=== PATIENT | male | born 1975 | race Caucasian/White ===

== ENCOUNTER 2016-08-22 21:02 | Inpatient (IN) | payer OTHER ==
[~2016-08-22] VITALS: Ht 175.3 cm; Wt 83.8 kg
[~2016-08-22 21:02] MED LIST: CYCL-36 PO; DILA2TAB4 PO; LORTA5 PO
[2016-08-22 21:04] VITALS: BP 144/77; PULSE 94; RESP 20; TEMP 98.4; O2SAT 98
--- NOTE | 2016-08-22 22:06 | PD ---
HPI Chief Complaint: Back/ Neck Pain or Injury Time Seen by Provider: 22:06 Travel History International Travel<30 days: No Contact w/Intl Traveler<30days: No Traveled to known affect area: No History of Present Illness HPI 40-year-old male came to the emergency room with history of severe lower back pain for past 4-5 days. Patient seemed extremely uncomfortable. He came by himself and says that the pain has been getting excruciating and unbearable at this point. Had a kyphoplasty of L3 in [facility] about 3 months ago. While he was in the hospital there he was also diagnosed with infection in his spine and was started on antibiotic. Patient says that he was in the hospital for 1 month getting antibiotic. I'm unclear whether patient left AGAINST MEDICAL ADVICE and was discharged. He says that he was getting tired since they were not taking care of his pain and he wanted to leave. However he was discharged with ciprofloxacin. Currently he says the pain is like a shooting band like pain that goes from the middle of the spine both sides and come to the front of his abdomen. He does not have any weakness of his lower extremities or any bowel or bladder issues. Patient did not say he was having any fever or chills. Vital signs were otherwise stable. [facility] Past Medical History Narrative Medical List of his past medical, surgical, social and family history was reviewed from the nursing note. Cancer: No Cardiovascular Problems: No Endocrine: No Genitourinary: No Immune Disorder: No Musculoskeletal: Yes Psychiatric: No Reproductive: No Respiratory: No Past Surgical History Pacemaker: No Other Surgery: Yes (I&D LEFT 3RD DIGIT) Social History Alcohol Use: No Tobacco Use: Yes ( 1PPD) Substance Use: No Allergies-Medications (Allergen,Severity, Reaction): Coded Allergies: No Known Allergies (Unverified , 08/22/16) Comments No known drug allergies. Reported Meds & Prescriptions Reported Meds & Active Scripts Active No Active Prescriptions or Reported Medications Narrative Medication List of his home medications reviewed from the nursing note. Review of Systems Except as stated in HPI: all other systems reviewed are Neg Physical Exam Narrative GENERAL: Awake, alert, anxious, significant distress SKIN: Focused skin assessment warm/dry. HEAD: Atraumatic. Normocephalic. EYES: Pupils equal and round. No scleral icterus. No injection or drainage. ENT: No nasal bleeding or discharge. Mucous membranes pink and moist. NECK: Trachea midline. No JVD. CARDIOVASCULAR: Regular rate and rhythm. No murmur appreciated. RESPIRATORY: No accessory muscle use. Clear to auscultation. Breath sounds equal bilaterally. GASTROINTESTINAL: Abdomen soft, non-tender, nondistended. Hepatic and splenic margins not palpable. MUSCULOSKELETAL: No obvious deformities. No clubbing. No cyanosis. No edema. Paraspinal muscle spasm of the back. Point tenderness at the L2-L3 area. NEUROLOGICAL: Awake and alert. No obvious cranial nerve deficits. Motor grossly within normal limits. Normal speech. PSYCHIATRIC: Appropriate mood and affect; insight and judgment normal. Data Data Last Documented VS Vital Signs Date Time Temp Pulse Resp B/P Pulse Ox O2 Delivery O2 Flow Rate FiO2 08/22/16 21:04 98.4 94 20 144/77 98 Orders Mri L Spine W&W/O Contrast (08/22/16 ) Complete Blood Count With Diff (08/22/16 22:12) Basic Metabolic Panel (Bmp) (08/22/16 22:12) ^ Saline Lock (08/22/16 22:12) Ketorolac Inj (Toradol Inj) (08/22/16 22:15) Hydromorphone Pf Inj (Dilaudid Pf Inj) (08/22/16 22:15) Blood Culture (08/22/16 22:12) Lactic Acid (08/22/16 22:12) C-Reactive Protein (Crp) (08/22/16 22:12) Westergren Sedimentation Rate (08/22/16 22:12) Gadodiamide Pf Inj (Omniscan Pf Inj) (08/22/16 23:43) I-Stat Creatinine (08/22/16 23:48) Spine, Lumbar - Ltd (Ap & Lat) (08/23/16 ) Place In Observation (08/23/16 ) Vital Signs (Adult) Q4H (08/23/16 01:56) Neuro Checks Q4H (08/23/16 01:56) Activity Oob With Assistance (08/23/16 01:56) [employer] Operator / Telemetry .CONTINUOUS (08/23/16 01:56) Diet Npo (08/23/16 Breakfast) Sodium Chloride 0.9% Flush (Ns Flush) (08/23/16 02:00) Sodium Chloride 0.9% Flush (Ns Flush) (08/23/16 09:00) Basic Metabolic Panel (Bmp) (08/24/16 06:00) Complete Blood Count With Diff (08/24/16 06:00) Case Management Consult (08/23/16 01:56) Naloxone Inj (Narcan Inj) (08/23/16 02:00) Hydromorphone Pf Inj (Dilaudid Pf Inj) (08/23/16 02:15) Admit Order (Ed Use Only) (08/23/16 02:18) Labs Laboratory Tests Test 08/22/16 08/22/16 08/22/16 22:35 23:40 23:48 Lactic Acid Level 1.2 mmol/L White Blood Count 10.6 TH/MM3 Red Blood Count 4.11 MIL/MM3 Hemoglobin 11.8 GM/DL Hematocrit 33.4 % Mean Corpuscular Volume 81.2 FL Mean Corpuscular Hemoglobin 28.7 PG Mean Corpuscular Hemoglobin 35.4 % Concent Red Cell Distribution Width 14.3 % Platelet Count 411 TH/MM3 Mean Platelet Volume 7.2 FL Neutrophils (%) (Auto) 64.2 % Lymphocytes (%) (Auto) 24.7 % Monocytes (%) (Auto) 8.2 % Eosinophils (%) (Auto) 2.5 % Basophils (%) (Auto) 0.4 % Neutrophils # (Auto) 6.8 TH/MM3 Lymphocytes # (Auto) 2.6 TH/MM3 Monocytes # (Auto) 0.9 TH/MM3 Eosinophils # (Auto) 0.3 TH/MM3 Basophils # (Auto) 0.0 TH/MM3 CBC Comment DIFF FINAL Differential Comment Erythrocyte Sedimentation Rate 74 mm/hr Sodium Level 138 MEQ/L Potassium Level 4.3 MEQ/L Chloride Level 106 MEQ/L Carbon Dioxide Level 26.7 MEQ/L Anion Gap 5 MEQ/L Blood Urea Nitrogen 13 MG/DL Creatinine 0.59 MG/DL Estimat Glomerular Filtration 151 ML/MIN Rate Random Glucose 93 MG/DL Calcium Level 8.6 MG/DL C-Reactive Protein 4.04 MG/DL Bedside Creatinine 0.6 MG/DL MDM Medical Decision Making Medical Screen Exam Complete: Yes Emergency Medical Condition: Yes Medical Record Reviewed: Yes Differential Diagnosis Discitis, spinal epidural abscess, lumbar radiculopathy Narrative Course 1:18 AM MRI was ordered and the radiologist called me to let me know that there was significant finding of discitis, osteomyelitis and possible spinal epidural abscess. I spoke with the neurosurgeon Dr. Tate who looked at the MRI and did not think that there was any epidural abscess but inflammatory changes. He wanted the patient to get a disc biopsy in the morning. This would be done by interventional radiology and he will put the order for the biopsy. He did not want the patient to be started on any antibiotic till the biopsy was done. He wanted the patient to be admitted to medical service. I have informed the patient of these findings as well as the plan and he is acceptable to the plan. Awaiting for the hospitalist to call back for admission. Critical Care Narrative Aggregate critical care time was 45 minutes. Time to perform other separately billable procedures was not included in the critical care time. My time did not include minutes spent treating any other patients simultaneously or on activities that did not directly contribute to the patient's treatment. The services I provided to this patient were to treat and/or prevent clinically significant deterioration that could result in: Discitis, osteomyelitis of L2-L3, paraspinal inflammation I provided critical care services requiring my management, as noted below: Chart data review, documentation time, medication orders and management, vital sign assessments/reviewing monitor data, ordering and reviewing lab tests, ordering and interpreting/reviewing x-rays and diagnostic studies, care of the patient and discussion of the patient with the admitting physicians. Procedures EKG Prior to Arrival: No Physician Communication Physician Communication Dr. Tate, Dr. Chew Diagnosis Primary Impression: Lumbar discitis Additional Impressions: Osteomyelitis of lumbar spine Paraspinal muscle spasm Back pain Qualified Code: M54.5 - Acute midline low back pain without sciatica Admitting Information Admitting Physician Requests: Admit Scripts No Active Prescriptions or Reported Meds Tiny Ordoñez MD Aug 22, 2016 22:06
[2016-08-22] MEDS ORDERED: HYDROmorphone HCL PF 1 MG/ML VIAL IV PUSH ONE (22:15)
[2016-08-22] MEDS ORDERED: KETOROLAC TROMETHAMINE 30 MG/ML (IVP) VIAL IV PUSH ONE (22:15)
[2016-08-22] MEDS ORDERED: GADODIAMIDE PF 287 MG/ML 5 ML VIAL (for RAD MRI) IV ONE (23:43)
[2016-08-22 23:56] LABS: AUTOMATED NEUTROPHIL # 6.8 TH/MM3 (1.8-7.7); BASOPHIL % 0.4 % (0.0-2.0); EOSINOPHIL # 0.3 TH/MM3 (0-0.4); EOSINOPHIL % 2.5 % (0.0-4.0); HEMATOCRIT 33.4 % (39.0-51.0); HEMO FLAGS DIFF FINAL; LYMPH % 24.7 % (9.0-44.0); LYMPHOCYTE # 2.6 TH/MM3 (1.0-4.8); MEAN CELL VOLUME 81.2 FL (80.0-100.0); MEAN CORPUSCULAR HEMOGLOBIN 28.7 PG (27.0-34.0); MEAN CORPUSCULAR HGB CONC 35.4 % (32.0-36.0); MONO % 8.2 % (0.0-8.0); NEUT % 64.2 % (16.0-70.0); PLATELET COUNT 411 TH/MM3 (150-450); RED BLOOD COUNT 4.11 MIL/MM3 (4.50-5.90); RED CELL DISTRIBUTION WIDTH 14.3 % (11.6-17.2); WHITE BLOOD COUNT 10.6 TH/MM3 (4.0-11.0)
[2016-08-23] VITALS (14 sets, daily range): BP systolic 116–128; BP diastolic 58–78; PULSE 67–94; RESP 15–20; TEMP 98.4–100.2; O2SAT 94–100
[2016-08-23 00:11] LABS: BICARBONATE 26.7 MEQ/L (21.0-32.0); POTASSIUM 4.3 MEQ/L (3.5-5.1)
--- NOTE | 2016-08-23 00:32 | RADRPT ---
EXAM DATE/TIME: 08/22/2016 23:01 [facility] COMPARISON: CT LUMBAR SPINE W/O CONTRAST, December 07, 2013, 2:38. INDICATIONS : Pain. s/p L3 kyphoplasty. CONTRAST: 14 cc Omniscan (gadodiamide) IV MEDICAL HISTORY : None. SURGICAL HISTORY : Kyphoplasty. ENCOUNTER: Initial ACUITY: 3 day PAIN SCORE: 10/10 LOCATION: Lower back TECHNIQUE: Multiplanar multisequence MRI of the lumbar spine was performed with and without contrast. FINDINGS: The most caudal appearing lumbar vertebra is numbered as L5. VERTEBRAE: There is abnormal bone marrow edema in the bodies of L2 and L3. There is abnormal enhancement of the L2-L3 disc space. There is abnormal paraspinal soft tissue swelling with enhancement in the psoas mus cles adjacent to L2 and L3. CONUS: Normal level and configuration. POST CONTRAST: There is abnormal enhancement throughout the body of L2 and L3 as well as the disc space at this leve l. There is abnormal paraspinal enhancement. There is also enhancement in the epidural space anterior ly at the level of L2-L3 suspicious for an epidural abscess. T12-L1: The thecal sac has a normal diameter. No evidence of disc bulge or protrusion. The neural foramina are patent bilaterally. L1-L2: Mild broad-based bulging. Mild narrowing of the neural foramina bilaterally. L2-L3: There is abnormal enhancement of the disc space. There is diffuse broad-based bulging with abnormal e nhancement in the epidural space anteriorly at this level. There is narrowing of the neural foramina bilaterally. Mild to moderate spinal canal stenosis. There is bilateral facet arthritis. L3-L4: Moderate diffuse broad-based bulging with narrowing of the neural foramina bilaterally. Hypertrophy o f ligamentum flavum. Mild spinal canal stenosis. L4-L5: Mild broad-based bulging. Mild narrowing of the neural foramina bilaterally. Bilateral facet arthriti s. L5-S1: Mild broad-based bulging. Mild narrowing of the neural foramina bilaterally. Bilateral facet arthriti s. The findings were called by telephone to the ER physician. CONCLUSION: 1. There is abnormal marrow edema involving L2 and L3 as well as enhancement of the disc space at L2- L3. These findings are highly suspicious for discitis and osteomyelitis. There appears to be enhancin g inflammatory tissue in the paraspinal location which is involving the psoas muscles bilaterally. 2. There is enhancing inflammatory tissue in the anterior epidural space at L2-L3 highly suspicious f or an epidural abscess. These findings are causing some mild to moderate spinal canal stenosis at thi s level. 3. There is broad-based bulging at multiple levels as described above. 4. 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 Candido Chew MD on August 23, 2016 at 0:15 Board Certified Radiologist. This report was verified electronically.
--- NOTE | 2016-08-23 01:16 | RADRPT ---
EXAM DATE/TIME: 08/23/2016 01:03 [facility] COMPARISON: No previous studies available for comparison. INDICATIONS : Back pain. MEDICAL HISTORY : None. SURGICAL HISTORY : None. ENCOUNTER: Initial ACUITY: 1 day PAIN SCORE: 10/10 LOCATION: Bilateral l sipne FINDINGS: Two view examination was performed. There are five non-rib bearing vertebral bodies. There is eviden ce of previous kyphoplasty at L3. There are primary degenerative changes involving the lumbar spine. The rest of the lumbar vertebral bodies appear grossly intact. There is disc space narrowing at L2-3, L4-5 and L5-S1. There is alignment of the SI joints. A recent MRI lumbar spine demonstrates discitis and osteomyelitis at the level of L2-L3. There is some demineralization of the bone along the inferi or endplate of L2. No significant bony destruction is seen at this time. CONCLUSION: 1. Evidence of previous kyphoplasty of L3. 2. Primary degenerative type changes involving the lumbar spine. 3. Demineralization of the bone along the inter endplate of L2 corresponding to patient's known infec tion involving L2-L3 Candido Chew MD on August 23, 2016 at 1:10 Board Certified Radiologist. This report was verified electronically.
--- NOTE | 2016-08-23 01:30 | PD.CONS ---
History of Present Illness Service Neurosurgery Consult Requested By Dr Ordoñez Primary Care Physician No Primary Care Physician Diagnoses: (1) Lumbar discitis History of Present Illness 40-year-old male reports recent gradual progression of thoracic pain. Apparently underwent kyphoplasty at [facility] approximately month ago. States that he underwent an infectious disease workup prior to the procedure. He states he underwent an infectious disease workup prior to the procedure and again afterwards. He subsequently has developed severe progressive low back pain without significant radiation to the lower extremities. Review of Systems Constitutional: COMPLAINS OF: Fatigue, DENIES: Fever Eyes: DENIES: Blurred vision, Diplopia, Vision loss Ears, nose, mouth, throat: DENIES: Hearing loss, Vertigo, Throat pain Respiratory: DENIES: Cough, Sputum production, Shortness of breath Cardiovascular: DENIES: Chest pain, Palpitations Gastrointestinal: DENIES: Abdominal pain, Diarrhea, Nausea, Vomiting Musculoskeletal: COMPLAINS OF: Joint pain, Muscle aches, Stiffness, Back pain, DENIES: Neck pain Hematologic/lymphatic: DENIES: Bruising Neurologic: DENIES: Headache, Poor Balance Psychiatric: COMPLAINS OF: Confusion, DENIES: Anxiety Past Family Social History Allergies: Coded Allergies: No Known Allergies (Unverified , 08/22/16) Past Medical History Previous MRSA left hand No significant cardiac, pulmonary, gastrointestinal disease, diabetes, hypertension Past Surgical History Left hand surgery Kyphoplasty Reported Medications Reported Meds & Active Scripts Active No Active Prescriptions or Reported Medications Family History Negative cancer diabetes, neurologic disorders Social History Remote history of IV drug use Smokes 1 pack cigarettes per day Physical Exam Vital Signs Vital Signs Date Time Temp Pulse Resp B/P Pulse Ox O2 Delivery O2 Flow Rate FiO2 08/22/16 21:04 98.4 94 20 144/77 98 Physical Exam Normally developed gentleman appears moderately uncomfortable during the examination Respirations clear and regular Pulse regular No nuchal rigidity. Cervical range of motion is normal. Moderate tenderness over the mid to lower lumbar midline and paraspinous musculature with increased low back pain with bilateral hip range of motion and straight leg raising. 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 Markos's response absent bilateral No ankle clonus Laboratory Laboratory Tests Test 08/22/16 08/22/16 08/22/16 22:35 23:40 23:48 Lactic Acid Level 1.2 White Blood Count 10.6 Red Blood Count 4.11 Hemoglobin 11.8 Hematocrit 33.4 Mean Corpuscular Volume 81.2 Mean Corpuscular Hemoglobin 28.7 Mean Corpuscular Hemoglobin 35.4 Concent Red Cell Distribution Width 14.3 Platelet Count 411 Mean Platelet Volume 7.2 Neutrophils (%) (Auto) 64.2 Lymphocytes (%) (Auto) 24.7 Monocytes (%) (Auto) 8.2 Eosinophils (%) (Auto) 2.5 Basophils (%) (Auto) 0.4 Neutrophils # (Auto) 6.8 Lymphocytes # (Auto) 2.6 Monocytes # (Auto) 0.9 Eosinophils # (Auto) 0.3 Basophils # (Auto) 0.0 CBC Comment DIFF FINAL Differential Comment Erythrocyte Sedimentation Rate 74 Sodium Level 138 Potassium Level 4.3 Chloride Level 106 Carbon Dioxide Level 26.7 Anion Gap 5 Blood Urea Nitrogen 13 Creatinine 0.59 Estimat Glomerular Filtration 151 Rate Random Glucose 93 Calcium Level 8.6 C-Reactive Protein 4.04 Bedside Creatinine 0.6 Date/Time Procedure Status Source Growth 08/22/16 22:35 Aerobic Blood Culture Received Blood Peripheral Pending 08/22/16 22:35 Anaerobic Blood Culture Received Blood Peripheral Pending Result Diagram: 08/22/16 2340 08/22/16 2340 Imaging Lumbar MRI images reveal enhancement L 2 - L3 vertebrae and anterolateral epidural space . Moderate canal stenosis. Marked enhancement psoas muscle bilateral Assessment and Plan Assessment and Plan Impression: L2-3 discitis - osteomyelitis. Recommendations: No definite significant drainable abscess seen on MRI Plan CT biopsy in AM. Hold antibiotics pending biopsy Discussed with ER physician Rehan Tate MD Aug 23, 2016 01:30
[2016-08-23] MEDS ORDERED: NALOXONE HCL 0.4 MG/ML AMP IV PRN (02:00)
--- NOTE | 2016-08-23 03:47 | HHI.HP ---
[facility] Service [facility] Primary Care Physician No Primary Care Physician Admission Diagnosis lumbar osteomyelitis, lumbar discitis Diagnoses: Chief Complaint: back pain Travel History International Travel<30 Days: No Contact w/Intl Traveler <30 Da: No Traveled to Known Affected Are: No History of Present Illness This is a 40 year old male patient with a past medical history which includes MRSA in the left hand third digit. Patient presents to emergency department today for evaluation of sharp shooting pain lower back. Pain radiates in to BLE. Patient also reports bilateral lower extremity numbness and tingling. Patient denies urine or stool incontinence, constipation. Patient reports he was recently treated [facility] for same back pain reports he stayed there for 3-4 days believes he had antibiotics and was discharged a few days ago. This is in contrast to what the ER documentation reports that patient had a kyphoplasty of L3 3 months ago and stated [facility] for approximately one month on IV antibiotics left AMA because his pain was not controlled adequately. Patient denies kyphoplasty or month-long hospitalization. Request records to confirm. Patient denies IV drug use at this time. Patient reports is a history of IV drug use proximally the 20-30 years ago. Patient denies chest pain shortness of breath nausea vomiting diarrhea constipation fevers or chills. Review of Systems ROS Limitations: Poor Historian Except as stated in HPI: all other systems reviewed are Neg Past Family Social History Past Medical History MRSA left hand third digit Past Surgical History I & D left hand third digit, per ER note Kyphoplasty L3 3 months ago- patient denies Reported Medications Denies home medications on a daily basis Allergies: Coded Allergies: No Known Allergies (Unverified , 08/22/16) Active Ordered Medications Current Medications Medications (Trade) Dose Ordered Sig/Frank Route Start Time Stop Time Status Last Admin (NS Flush) 2 ml UNSCH PRN IV FLUSH 08/23/16 02:00 (NS Flush) 2 ml BID IV FLUSH 08/23/16 09:00 (Narcan Inj) 0.4 mg UNSCH PRN IV 08/23/16 02:00 (Dilaudid Pf Inj) 0.2 mg Q4H PRN IV PUSH 08/23/16 02:15 Family History denies family medical history including CAD, CT, DM, cancers Social History tobacco use 1 PPD history of IV drug use 20-30 years ago Physical Exam Vital Signs Vital Signs Date Time Temp Pulse Resp B/P Pulse Ox O2 Delivery O2 Flow Rate FiO2 08/23/16 02:45 73 16 125/72 98 Room Air 08/22/16 21:04 98.4 94 20 144/77 98 Physical Exam GENERAL: This is a well-nourished, well-developed patient, in no apparent distress. SKIN: No rashes, ecchymoses or lesions. Cool and dry. Tattoos present HEAD: Atraumatic. Normocephalic. No temporal or scalp tenderness. EYES: Extraocular motions intact. No scleral icterus. No injection or drainage. CARDIOVASCULAR: Regular rate and rhythm without murmurs, gallops, or rubs. RESPIRATORY: Clear to auscultation. Breath sounds equal bilaterally. No wheezes , rales, or rhonchi. GASTROINTESTINAL: Abdomen soft, non-tender, nondistended. MUSCULOSKELETAL: Extremities without clubbing, cyanosis, or edema. No joint tenderness, effusion, or edema noted. No calf tenderness. Negative Homans sign bilaterally. NEUROLOGICAL: Awake and alert. Motor and sensory grossly within normal limits. 4-5 out of 5 muscle strength in all muscle groups. Normal speech. Laboratory Laboratory Tests Test 08/22/16 08/22/16 08/22/16 22:35 23:40 23:48 Lactic Acid Level 1.2 White Blood Count 10.6 Red Blood Count 4.11 Hemoglobin 11.8 Hematocrit 33.4 Mean Corpuscular Volume 81.2 Mean Corpuscular Hemoglobin 28.7 Mean Corpuscular Hemoglobin 35.4 Concent Red Cell Distribution Width 14.3 Platelet Count 411 Mean Platelet Volume 7.2 Neutrophils (%) (Auto) 64.2 Lymphocytes (%) (Auto) 24.7 Monocytes (%) (Auto) 8.2 Eosinophils (%) (Auto) 2.5 Basophils (%) (Auto) 0.4 Neutrophils # (Auto) 6.8 Lymphocytes # (Auto) 2.6 Monocytes # (Auto) 0.9 Eosinophils # (Auto) 0.3 Basophils # (Auto) 0.0 CBC Comment DIFF FINAL Differential Comment Erythrocyte Sedimentation Rate 74 Sodium Level 138 Potassium Level 4.3 Chloride Level 106 Carbon Dioxide Level 26.7 Anion Gap 5 Blood Urea Nitrogen 13 Creatinine 0.59 Estimat Glomerular Filtration 151 Rate Random Glucose 93 Calcium Level 8.6 C-Reactive Protein 4.04 Bedside Creatinine 0.6 Date/Time Procedure Status Source Growth 08/22/16 22:35 Aerobic Blood Culture Received Blood Peripheral Pending 08/22/16 22:35 Anaerobic Blood Culture Received Blood Peripheral Pending Result Diagram: 08/22/16 2340 08/22/16 2340 Assessment and Plan Problem List: (1) Back pain ICD Code: M54.9 Status: Acute (2) Osteomyelitis of lumbar spine ICD Code: M46.26 Status: Acute (3) Lumbar discitis ICD Code: M46.46 Status: Acute Assessment and Plan This is a 40 year old male patient with a past medical history which includes MRSA in the left hand third digit. Patient presents to emergency department today for evaluation of sharp shooting pain lower back. Patient denies IV drug use at this time. Patient reports is a history of IV drug use proximally the 20-30 years ago. Back pain, discitis, osteomyelitis MRI report reviewed and reveals findings highly suspicious for discitis with osteomyelitis and inflammation paraspinal inflammation Ear provider discussed with Dr. Tate neurosurgery Patient seen by neurosurgery Dr. Tate who states "No definite significant drainable abscess seen on MRI. Plan CT biopsy in AM. Hold antibiotics pending biopsy" No antibiotics at this time per neurosurgery recommendations Interventional radiology has been consulted for CT-guided aspiration of discitis L2 to L3 Request records from [facility] for pain management Blood cultures 2 obtained and pending Serial neuro checks DVT prophylaxis with SCDs Discussed plan of care with ER provider, nursing and patient Written by Gwendolyn Faye, acting as scribe for Dr. Holt on 08/23/16 at 04: 41. Addendum: records received from [facility]. Records reviewed by myself and . Patient was admitted 06/07/16 discharged . Patient did undergo Kyphoplasty L3 with intraoperative bone bx which revealed MSSA. This note was transcribed by scribe [Gwendolyn Faye]. I, Dr. Harrison Holt personally performed the history, physical exam, and medical decision making; and confirmed the accuracy of the information in the transcribed note. Authenticated by Dr. Harrison Holt on 08/23/16 at 04:41. Problem Qualifiers (1) Back pain: Qualified Code: M54.5 - Acute midline low back pain without sciatica Gwendolyn Faye Aug 23, 2016 03:46 Harrison Holt MD August 28, 2016 06:19
[2016-08-23] MEDS: HYDROmorphone HCL PF 1 MG/ML VIAL IV PUSH PRN ×3 (08:21→23:09)
[2016-08-23] MEDS ORDERED: DOCUSATE SODIUM 50 MG/SENNA 8.6 MG TAB PO PRN (08:30)
[2016-08-23] MEDS ORDERED: ONDANSETRON HCL 4 MG/2 ML VIAL IV PRN (08:30)
[2016-08-23] MEDS ORDERED: CALCIUM CARBONATE 500 MG CHEWABLE TAB CHEW PRN (08:30)
[2016-08-23] MEDS ORDERED: ACETAMINOPHEN 325 MG TAB PO PRN (08:30)
[2016-08-23] MEDS: SODIUM CHLORIDE 0.9% FLUSH 10 ML FLUSH IV FLUSH SCH ×2 (08:54→22:35)
[2016-08-23] MEDS ORDERED: Vancomycin Consult Pharmacy 1 EA OTHER SCH (10:15)
--- NOTE | 2016-08-23 10:17 | HHI.PR ---
Subjective Remarks Follow-up lumbar osteomyelitis/discitis. Complains of back pain with radiculopathy. No incontinence. Awaiting biopsy. Discussed with RN Objective Vitals Vital Signs Date Time Temp Pulse Resp B/P Pulse Ox O2 Delivery O2 Flow Rate FiO2 08/23/16 09:14 85 15 125/78 98 Room Air 08/23/16 08:54 16 08/23/16 08:22 94 17 123/60 99 Room Air 08/23/16 07:00 16 08/23/16 07:00 17 08/23/16 06:47 88 15 121/70 99 Room Air 08/23/16 04:45 67 17 125/72 98 08/23/16 02:45 73 16 125/72 98 Room Air 08/22/16 21:04 98.4 94 20 144/77 98 Result Diagram: 08/22/16 2340 08/22/16 2340 Imaging Last Impressions Lumbar Spine X-Ray 08/23/16 0000 Signed Impressions: Service Date/Time: Tuesday, August 23, 2016 01:03 - CONCLUSION: 1. Evidence of previous kyphoplasty of L3. 2. Primary degenerative type changes involving the lumbar spine. 3. Demineralization of the bone along the inter endplate of L2 corresponding to patient's known infection involving L2-L3 Candido Chew MD Lumbar Spine MRI 08/22/16 0000 Signed Impressions: Service Date/Time: Monday, August 22, 2016 23:01 - CONCLUSION: 1. There is abnormal marrow edema involving L2 and L3 as well as enhancement of the disc space at L2-L3. These findings are highly suspicious for discitis and osteomyelitis. There appears to be enhancing inflammatory tissue in the paraspinal location which is involving the psoas muscles bilaterally. 2. There is enhancing inflammatory tissue in the anterior epidural space at L2-L3 highly suspicious for an epidural abscess. These findings are causing some mild to moderate spinal canal stenosis at this level. 3. There is broad-based bulging at multiple levels as described above. 4. 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 Candido Chew MD Objective Remarks GENERAL: Well-developed, well-nourished in distress due to pain SKIN: Warm and dry. HEAD: Atraumatic. Normocephalic. EYES: Pupils equal and round. No scleral icterus. No injection or drainage. ENT: No nasal bleeding or discharge. Mucous membranes pink and moist. NECK: Trachea midline. No JVD. CARDIOVASCULAR: Regular rate and rhythm. RESPIRATORY: No accessory muscle use. Clear to auscultation. Breath sounds equal bilaterally. GASTROINTESTINAL: Abdomen soft, non-tender, nondistended. MUSCULOSKELETAL: Extremities without clubbing, cyanosis, or edema. No obvious deformities. Tender lumbar area NEUROLOGICAL: Awake and alert. No obvious cranial nerve deficits. Motor grossly within normal limits. Five out of 5 muscle strength in the arms and legs. Normal speech. PSYCHIATRIC: Appropriate mood and affect; insight and judgment normal. A/P Problem List: (1) Back pain ICD Code: M54.9 Status: Acute (2) Osteomyelitis of lumbar spine ICD Code: M46.26 Status: Acute (3) Lumbar discitis ICD Code: M46.46 Status: Acute Assessment and Plan This is a 40 year old male patient with a past medical history which includes MRSA in the left hand third digit. Patient presents to emergency department today for evaluation of sharp shooting pain lower back. Patient denies IV drug use at this time. Patient reports is a history of IV drug use proximally the 20-30 years ago. Back pain, discitis, osteomyelitis MRI report reviewed and reveals findings highly suspicious for discitis with osteomyelitis and inflammation paraspinal inflammation Patient seen by neurosurgery Dr. Tate who states "No definite significant drainable abscess seen on MRI. Plan CT biopsy in AM. Hold antibiotics pending biopsy" No antibiotics at this time per neurosurgery recommendations Interventional radiology has been consulted for CT-guided aspiration of discitis L2 to L3 Dilaudid for pain management. Counseled regarding narcotics Blood cultures 2 obtained and pending Serial neuro checks. Physical therapy DVT prophylaxis with SCDs Problem Qualifiers (1) Back pain: Qualified Code: M54.5 - Acute midline low back pain without sciatica Phi Alvares MD Aug 23, 2016 10:16
[2016-08-23] MEDS ORDERED: LIDOCAINE 1%/EPINEPHrine 1:100,000 SOLN 20 ML VIAL ONE (13:03)
[2016-08-23] MEDS ORDERED: MIDAZOLAM HCL 5 MG/5 ML VIAL ONE (13:28)
[2016-08-23] MEDS ORDERED: fentaNYL CITRATE 250 MCG/5 ML AMP ONE (13:28)
--- NOTE | 2016-08-23 14:14 | HHI.NSPN ---
(Mario Purdy) Note Status Status: Progress Note (Mario Purdy) Interval History Interval History 08/22: Patient presented to the emergency department for worsening back pain. He was recently treated for osteomyelitis in [facility] with ceftriaxone for 4 days per the patient and then discharged home. The patient states that he had a kyphoplasty to L3 and subsequently developed the infection. He states that he was evaluated for any infection prior to his surgery and there were no findings suggestive of infection, therefore [facility] proceeded with the surgery. 08/23: The patient appears uncomfortable due to pain which is his only complaint. The pain is to the back and the abdomen. He had a biopsy under CT guidance this afternoon. (Mario Purdy) Labs, Micro, & Vital Signs Results Allergies Coded Allergies Type Severity Reaction Last Updated Verified No Known Allergies 08/22/16 No Recent Impressions Lumbar Spine X-Ray 08/23/16 0000 Signed Impressions: Service Date/Time: Tuesday, August 23, 2016 01:03 - CONCLUSION: 1. Evidence of previous kyphoplasty of L3. 2. Primary degenerative type changes involving the lumbar spine. 3. Demineralization of the bone along the inter endplate of L2 corresponding to patient's known infection involving L2-L3 Candido Chew MD Lumbar Spine MRI 08/22/16 0000 Signed Impressions: Service Date/Time: Monday, August 22, 2016 23:01 - CONCLUSION: 1. There is abnormal marrow edema involving L2 and L3 as well as enhancement of the disc space at L2-L3. These findings are highly suspicious for discitis and osteomyelitis. There appears to be enhancing inflammatory tissue in the paraspinal location which is involving the psoas muscles bilaterally. 2. There is enhancing inflammatory tissue in the anterior epidural space at L2-L3 highly suspicious for an epidural abscess. These findings are causing some mild to moderate spinal canal stenosis at this level. 3. There is broad-based bulging at multiple levels as described above. 4. 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 Candido Chew MD Laboratory Tests Test 08/22/16 08/22/16 08/22/16 22:35 23:40 23:48 Lactic Acid Level 1.2 mmol/L White Blood Count 10.6 TH/MM3 Red Blood Count 4.11 MIL/MM3 Hemoglobin 11.8 GM/DL Hematocrit 33.4 % Mean Corpuscular Volume 81.2 FL Mean Corpuscular Hemoglobin 28.7 PG Mean Corpuscular Hemoglobin 35.4 % Concent Red Cell Distribution Width 14.3 % Platelet Count 411 TH/MM3 Mean Platelet Volume 7.2 FL Neutrophils (%) (Auto) 64.2 % Lymphocytes (%) (Auto) 24.7 % Monocytes (%) (Auto) 8.2 % Eosinophils (%) (Auto) 2.5 % Basophils (%) (Auto) 0.4 % Neutrophils # (Auto) 6.8 TH/MM3 Lymphocytes # (Auto) 2.6 TH/MM3 Monocytes # (Auto) 0.9 TH/MM3 Eosinophils # (Auto) 0.3 TH/MM3 Basophils # (Auto) 0.0 TH/MM3 CBC Comment DIFF FINAL Differential Comment Erythrocyte Sedimentation Rate 74 mm/hr Sodium Level 138 MEQ/L Potassium Level 4.3 MEQ/L Chloride Level 106 MEQ/L Carbon Dioxide Level 26.7 MEQ/L Anion Gap 5 MEQ/L Blood Urea Nitrogen 13 MG/DL Creatinine 0.59 MG/DL Estimat Glomerular Filtration 151 ML/MIN Rate Random Glucose 93 MG/DL Calcium Level 8.6 MG/DL C-Reactive Protein 4.04 MG/DL Bedside Creatinine 0.6 MG/DL Constitutional Vital Signs Date Time Temp Pulse Resp B/P Pulse Ox O2 Delivery O2 Flow Rate FiO2 08/23/16 11:19 85 17 123/62 99 Room Air 08/23/16 09:14 85 15 125/78 98 Room Air 08/23/16 08:54 16 08/23/16 08:22 94 17 123/60 99 Room Air 08/23/16 07:00 16 08/23/16 07:00 17 08/23/16 06:47 88 15 121/70 99 Room Air 08/23/16 04:45 67 17 125/72 98 08/23/16 02:45 73 16 125/72 98 Room Air 08/22/16 21:04 98.4 94 20 144/77 98 (Rock,Mario E. [employer]) Review of Systems/Exam ROS Resp: Denies any shortness of breath or productive cough. Cardiac: Denies any chest pain, palpitations or irregular heart beat. GI: Does complain of abdominal pain but denies any nausea, vomiting or bowel incontinence. : Denies any bladder incontinence. Extremities: Denies any pain or weakness to the extremities. Back: Low back pain. Neuro: Denies any headache, dizziness, numbness, tingling or weakness. Exam HEENT: Normocephalic, atraumatic. PERRLA, EOM intact. Neck: No midline cervical TTP, no step-offs or deformities, no pain w/ROM, no JVD, trachea midline. Resp: CTAB w/o W/R/R, equal excursion, non-laboured, on RA. CV: S1S2 w/RRR w/o M/G/R, cap refill < 2 sec, radial & pedal pulses 2+ bilaterally, no pedal edema. GI: Abdomen soft, nontender, no palpable masses or organomegaly, positive bowel sounds. Extremities: ARDON spontaneously, no evident deformity, discolouration or clubbing. Back: TTP from lower thoracic spine to sacrum. Neuro: AAOx3. Speech clear & appropriate. Follows commands. Sensation grossly intact to light touch to all extremities. Motor strength decreased secondary to pain, essentially 4/5 to all extremities except plantar extension & flexion appear to be 5/5. (Mario Purdy) Medications Current Medications Current Medications Medications (Trade) Dose Ordered Sig/Frank Route Start Time Stop Time Status Last Admin (NS Flush) 2 ml UNSCH PRN IV FLUSH 08/23/16 02:00 (NS Flush) 2 ml BID IV FLUSH 08/23/16 09:00 08/23/16 08:54 (Narcan Inj) 0.4 mg UNSCH PRN IV 08/23/16 02:00 (Dilaudid Pf Inj) 0.2 mg Q4H PRN IV PUSH 08/23/16 02:15 08/23/16 08:21 (Tylenol) 650 mg Q4H PRN PO 08/23/16 08:30 (Zofran Inj) 4 mg Q6H PRN IV 08/23/16 08:30 (Lora-Colace) 1 tab BID PRN PO 08/23/16 08:30 Calcium Carbonate 1000 mg 1,000 mg TID PRN CHEW 08/23/16 08:30 (Vancomycin Inj/ NS 250 ml Inj) 250 ml @ 250 mls/hr ONCE ONCE IV 08/23/16 17:00 08/23/16 17:59 (Mario Purdy) Medical Decision Making MDM Remarks Impression: L2-3 discitis - osteomyelitis No definite significant drainable abscess seen on MRI History of L3 kyphoplasty (Mario Purdy) Plan Plan Remarks Recommend starting broad spectrum abx since biopsy completed Recommend Infectious Disease consult PT & OT eval & tx Mobilise patient w/assistance Diet as tolerated (Mario Purdy) Attending Statement I have personally seen and examined the patient on the date of this note. Pertinent documentation and study results have been reviewed by the undersigned. I have personally developed the treatment plan and performed medical decision making. Agree with findings, exam, and treatment plan as noted above. Final culture results pending Lower extremity neurologic exam remains normal Continue close neurologic checks (Rehan Tate MD) Mario Purdy Aug 23, 2016 14:14 Rehan Tate MD Aug 25, 2016 20:04
--- NOTE | 2016-08-23 15:17 | RADRPT ---
EXAM DATE/TIME: 08/23/2016 13:35 [facility] COMPARISON: MRI LUMBAR SPINE W & W/O CONTRAST, August 22, 2016, 23:01. INDICATIONS : L3 disc abscess. Status post kyphoplasty at outside facility. SEDATION TIME: 30 minutes MEDICATION(S): 1.) 5 mg midazolam (Versed) IV 2.) 350 mcg fentanyl (Sublimaze) IV DEVICE(S): 1.) 18 gauge BioPince needle FLUID: Fluid was sent for laboratory ordered studies. MEDICAL HISTORY : None. SURGICAL HISTORY : None. ENCOUNTER: Initial ACUITY: 1 day PAIN SCORE: 0/10 LOCATION: lower back PROCEDURE: 1.) Conscious sedation with continuous EKG and oximetry monitoring. 2.) EKG and oximetry remained stable throughout the procedure. PROCEDURE : CT guided aspiration biopsy of the L 2-[address] biopsy of the paraspinal inflammatory changes. The risks, benefits and alternatives to the procedure were explained and verbal and written consent w as obtained. Using automated exposure control and adjustment of the mA and/or kV according to patien t size, radiation dose was kept as low as reasonably achievable to obtain optimal diagnostic quality images. The site was prepped in sterile fashion. Full sterile technique was used, including cap, ma sk, sterile gloves and gown and a large sterile sheet. Hand hygiene and 2% chlorhexidine and/or beta dine/alcohol prep was utilized per protocol for cutaneous antisepsis. The skin and subcutaneous tiss ues were infiltrated with local anesthetic solution. Aspiration and biopsy was obtained of the L2-3 disc as well as the paraspinal tissue. CONCLUSION: Uncomplicated L2-3 disc as described above. Juan Temple MD FACR on August 23, 2016 at 15:07 Board Certified Radiologist. This report was verified electronically.
[2016-08-23] MEDS ORDERED: VANCOMYCIN INJ 1,000 MG in SODIUM CHLOR 0.9% 250 ML INJ 250 ML IV ONE ×4 (17:00)
[2016-08-24 03:30] VITALS: BP 136/69; PULSE 91; RESP 20; TEMP 98.5; O2SAT 98
[2016-08-24] MEDS: HYDROmorphone HCL PF 1 MG/ML VIAL IV PUSH PRN ×5 (03:54→22:36)
[2016-08-24 08:05] VITALS: BP 122/72; PULSE 80; RESP 21; TEMP 98.2; O2SAT 97
[2016-08-24 08:42] LABS: AUTOMATED NEUTROPHIL # 8.9 TH/MM3 (1.8-7.7); BASOPHIL # 0.1 TH/MM3 (0-0.2); BASOPHIL % 0.5 % (0.0-2.0); EOSINOPHIL # 0.2 TH/MM3 (0-0.4); EOSINOPHIL % 1.9 % (0.0-4.0); HEMATOCRIT 37.9 % (39.0-51.0); HEMO FLAGS DIFF FINAL; LYMPH % 20.4 % (9.0-44.0); LYMPHOCYTE # 2.6 TH/MM3 (1.0-4.8); MEAN CELL VOLUME 82.1 FL (80.0-100.0); MEAN CORPUSCULAR HEMOGLOBIN 27.9 PG (27.0-34.0); MONO % 6.8 % (0.0-8.0); NEUT % 70.4 % (16.0-70.0); PLATELET COUNT 470 TH/MM3 (150-450); RED BLOOD COUNT 4.62 MIL/MM3 (4.50-5.90); RED CELL DISTRIBUTION WIDTH 14.4 % (11.6-17.2); WHITE BLOOD COUNT 12.6 TH/MM3 (4.0-11.0)
[2016-08-24] MEDS: SODIUM CHLORIDE 0.9% FLUSH 10 ML FLUSH IV FLUSH SCH ×2 (08:58→21:00)
[2016-08-24 09:05] LABS: POTASSIUM 4.1 MEQ/L (3.5-5.1)
[2016-08-24] MEDS ORDERED: Vancomycin Consult Pharmacy 1 EA OTHER SCH (10:00)
[2016-08-24] MEDS ORDERED: VANCOMYCIN INJ 1,000 MG in SODIUM CHLOR 0.9% 250 ML INJ 250 ML IV ONE (10:00)
--- NOTE | 2016-08-24 10:08 | HHI.PR ---
Subjective Remarks F/u back pain. Still with back pain and no incontinence tolerated lumbar disc aspirate. Discussed with RN Objective Vitals Vital Signs Date Time Temp Pulse Resp B/P Pulse Ox O2 Delivery O2 Flow Rate FiO2 08/24/16 09:31 18 08/24/16 08:05 98.2 80 21 122/72 97 08/24/16 03:30 98.5 91 20 136/69 98 08/23/16 22:37 100.2 89 20 125/58 99 08/23/16 21:20 90 08/23/16 19:30 98.4 84 18 128/64 98 Room Air 08/23/16 17:56 98.5 67 18 116/67 100 Room Air 08/23/16 15:15 86 18 122/67 95 08/23/16 15:00 81 18 121/66 95 08/23/16 14:45 81 18 117/63 94 08/23/16 14:30 84 18 126/65 95 08/23/16 11:19 85 17 123/62 99 Room Air Result Diagram: 08/24/16 0702 08/24/16 0702 Imaging Last Impressions Needle Aspiration CT 08/23/16 0000 Signed Impressions: Service Date/Time: Tuesday, August 23, 2016 13:35 - CONCLUSION: Uncomplicated L2-3 disc as described above. Juan Temple MD FACR Lumbar Spine X-Ray 08/23/16 0000 Signed Impressions: Service Date/Time: Tuesday, August 23, 2016 01:03 - CONCLUSION: 1. Evidence of previous kyphoplasty of L3. 2. Primary degenerative type changes involving the lumbar spine. 3. Demineralization of the bone along the inter endplate of L2 corresponding to patient's known infection involving L2-L3 Candido Chew MD Lumbar Spine MRI 08/22/16 0000 Signed Impressions: Service Date/Time: Monday, August 22, 2016 23:01 - CONCLUSION: 1. There is abnormal marrow edema involving L2 and L3 as well as enhancement of the disc space at L2-L3. These findings are highly suspicious for discitis and osteomyelitis. There appears to be enhancing inflammatory tissue in the paraspinal location which is involving the psoas muscles bilaterally. 2. There is enhancing inflammatory tissue in the anterior epidural space at L2-L3 highly suspicious for an epidural abscess. These findings are causing some mild to moderate spinal canal stenosis at this level. 3. There is broad-based bulging at multiple levels as described above. 4. 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 Candido Chew MD Objective Remarks GENERAL: Well-developed, well-nourished in no distress SKIN: Warm and dry. Ingrown hair right armpit HEAD: Atraumatic. Normocephalic. EYES: Pupils equal and round. No scleral icterus. No injection or drainage. ENT: No nasal bleeding or discharge. Mucous membranes pink and moist. NECK: Trachea midline. No JVD. CARDIOVASCULAR: Regular rate and rhythm. RESPIRATORY: No accessory muscle use. Clear to auscultation. Breath sounds equal bilaterally. GASTROINTESTINAL: Abdomen soft, non-tender, nondistended. MUSCULOSKELETAL: Extremities without clubbing, cyanosis, or edema. No obvious deformities. Tender lumbar area NEUROLOGICAL: Awake and alert. No obvious cranial nerve deficits. Motor grossly within normal limits. Five out of 5 muscle strength in the arms and legs. Normal speech. PSYCHIATRIC: Appropriate mood and affect; insight and judgment normal. Procedures CT-guided aspirate of the lumbar spine A/P Problem List: (1) Back pain ICD Code: M54.9 Status: Acute (2) Osteomyelitis of lumbar spine ICD Code: M46.26 Status: Acute (3) Lumbar discitis ICD Code: M46.46 Status: Acute Assessment and Plan This is a 40 year old male patient with a past medical history which includes MRSA in the left hand third digit. Patient presents to emergency department for evaluation of sharp shooting pain lower back. Patient denies IV drug use at this time. Patient reports is a history of IV drug use proximally the 20-30 years ago. Back pain, discitis, osteomyelitis MRI report reviewed and reveals findings highly suspicious for discitis with osteomyelitis and inflammation paraspinal inflammation Patient seen by neurosurgery Dr. Tate who states "No definite significant drainable abscess seen on MRI. Plan CT biopsy in AM. Hold antibiotics pending biopsy" Status post Interventional radiology CT-guided aspiration of discitis L2 to L3 Dilaudid for pain management. Counseled regarding narcotics Blood cultures 2 obtained and pending Start IV vancomycin and Zosyn. Consider ID consult Serial neuro checks. Physical therapy DVT prophylaxis with SCDs Problem Qualifiers (1) Back pain: Qualified Code: M54.5 - Acute midline low back pain without sciatica Abando,Aj MD Aug 24, 2016 10:08
[2016-08-24] MEDS: PIPERACIL-TAZO 3.375 GM PREMIX 50 ML IV SCH ×3 (10:27→22:00)
--- NOTE | 2016-08-24 12:13 | HHI.NSPN ---
(Mario Purdy) Note Status Status: Progress Note (RajwinderMario) Interval History Interval History 08/22: Patient presented to the emergency department for worsening back pain. He was recently treated for osteomyelitis in [facility] with ceftriaxone for 4 days per the patient and then discharged home. The patient states that he had a kyphoplasty to L3 and subsequently developed the infection. He states that he was evaluated for any infection prior to his surgery and there were no findings suggestive of infection, therefore [facility] proceeded with the surgery. 08/23: The patient appears uncomfortable due to pain which is his only complaint. The pain is to the back and the abdomen. He had a biopsy under CT guidance this afternoon. 08/24: Patient uncomfortable due to back pain, adjusts self for comfort. Also complains of abdominal pain. (Mario Purdy) Labs, Micro, & Vital Signs Results Allergies Coded Allergies Type Severity Reaction Last Updated Verified No Known Allergies 08/22/16 No Recent Impressions Needle Aspiration CT 08/23/16 0000 Signed Impressions: Service Date/Time: Tuesday, August 23, 2016 13:35 - CONCLUSION: Uncomplicated L2-3 disc as described above. Juan Temple MD FACR Lumbar Spine X-Ray 08/23/16 0000 Signed Impressions: Service Date/Time: Tuesday, August 23, 2016 01:03 - CONCLUSION: 1. Evidence of previous kyphoplasty of L3. 2. Primary degenerative type changes involving the lumbar spine. 3. Demineralization of the bone along the inter endplate of L2 corresponding to patient's known infection involving L2-L3 Candido Chew MD Lumbar Spine MRI 08/22/16 0000 Signed Impressions: Service Date/Time: Monday, August 22, 2016 23:01 - CONCLUSION: 1. There is abnormal marrow edema involving L2 and L3 as well as enhancement of the disc space at L2-L3. These findings are highly suspicious for discitis and osteomyelitis. There appears to be enhancing inflammatory tissue in the paraspinal location which is involving the psoas muscles bilaterally. 2. There is enhancing inflammatory tissue in the anterior epidural space at L2-L3 highly suspicious for an epidural abscess. These findings are causing some mild to moderate spinal canal stenosis at this level. 3. There is broad-based bulging at multiple levels as described above. 4. 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 Candido Chew MD Laboratory Tests Test 08/22/16 08/22/16 08/22/16 08/24/16 22:35 23:40 23:48 07:02 Lactic Acid Level 1.2 mmol/L White Blood Count 10.6 TH/MM3 12.6 TH/MM3 Red Blood Count 4.11 MIL/MM3 4.62 MIL/MM3 Hemoglobin 11.8 GM/DL 12.9 GM/DL Hematocrit 33.4 % 37.9 % Mean Corpuscular Volume 81.2 FL 82.1 FL Mean Corpuscular Hemoglobin 28.7 PG 27.9 PG Mean Corpuscular Hemoglobin 35.4 % 34.0 % Concent Red Cell Distribution Width 14.3 % 14.4 % Platelet Count 411 TH/MM3 470 TH/MM3 Mean Platelet Volume 7.2 FL 7.9 FL Neutrophils (%) (Auto) 64.2 % 70.4 % Lymphocytes (%) (Auto) 24.7 % 20.4 % Monocytes (%) (Auto) 8.2 % 6.8 % Eosinophils (%) (Auto) 2.5 % 1.9 % Basophils (%) (Auto) 0.4 % 0.5 % Neutrophils # (Auto) 6.8 TH/MM3 8.9 TH/MM3 Lymphocytes # (Auto) 2.6 TH/MM3 2.6 TH/MM3 Monocytes # (Auto) 0.9 TH/MM3 0.9 TH/MM3 Eosinophils # (Auto) 0.3 TH/MM3 0.2 TH/MM3 Basophils # (Auto) 0.0 TH/MM3 0.1 TH/MM3 CBC Comment DIFF FINAL DIFF FINAL Differential Comment Erythrocyte Sedimentation Rate 74 mm/hr Sodium Level 138 MEQ/L 137 MEQ/L Potassium Level 4.3 MEQ/L 4.1 MEQ/L Chloride Level 106 MEQ/L 102 MEQ/L Carbon Dioxide Level 26.7 MEQ/L 28.0 MEQ/L Anion Gap 5 MEQ/L 7 MEQ/L Blood Urea Nitrogen 13 MG/DL 12 MG/DL Creatinine 0.59 MG/DL 0.65 MG/DL Estimat Glomerular Filtration 151 ML/MIN 135 ML/MIN Rate Random Glucose 93 MG/DL 96 MG/DL Calcium Level 8.6 MG/DL 8.9 MG/DL C-Reactive Protein 4.04 MG/DL Bedside Creatinine 0.6 MG/DL Constitutional Vital Signs Date Time Temp Pulse Resp B/P Pulse Ox O2 Delivery O2 Flow Rate FiO2 08/24/16 09:31 18 08/24/16 08:05 98.2 80 21 122/72 97 08/24/16 03:30 98.5 91 20 136/69 98 08/23/16 22:37 100.2 89 20 125/58 99 08/23/16 21:20 90 08/23/16 19:30 98.4 84 18 128/64 98 Room Air 08/23/16 17:56 98.5 67 18 116/67 100 Room Air 08/23/16 15:15 86 18 122/67 95 08/23/16 15:00 81 18 121/66 95 08/23/16 14:45 81 18 117/63 94 08/23/16 14:30 84 18 126/65 95 (Mario Purdy) Review of Systems/Exam ROS Resp: Some shortness of breath due to pain, denies any productive cough. Cardiac: Denies any chest pain, palpitations or irregular heart beat. GI: Does complain of abdominal pain but denies any nausea, vomiting or bowel incontinence. : Denies any bladder incontinence. Extremities: Denies any pain or weakness to the extremities. Back: Low back pain. Neuro: Denies any headache, dizziness, numbness, tingling or weakness. Exam HEENT: Normocephalic, atraumatic. PERRLA, EOM intact. Neck: No midline cervical TTP, no step-offs or deformities, no pain w/ROM, no JVD, trachea midline. Resp: CTAB w/o W/R/R, equal excursion, non-laboured, on RA. CV: S1S2 w/RRR w/o M/G/R, cap refill < 2 sec, radial & pedal pulses 2+ bilaterally, no pedal edema. GI: Abdomen soft, nontender, no palpable masses or organomegaly, positive bowel sounds. Extremities: ARDON spontaneously, no evident deformity, discolouration or clubbing. Back: TTP from lower thoracic spine to sacrum, radiates laterally, right described as burning but left is minimal. Neuro: AAOx3. Speech clear & appropriate. Follows commands. Sensation grossly intact to light touch to all extremities. Motor strength essentially 5/5 to all extremities. (Mario Purdy) Medications Current Medications Current Medications Medications (Trade) Dose Ordered Sig/Frank Route Start Time Stop Time Status Last Admin (NS Flush) 2 ml UNSCH PRN IV FLUSH 08/23/16 02:00 (NS Flush) 2 ml BID IV FLUSH 08/23/16 09:00 08/24/16 08:58 (Narcan Inj) 0.4 mg UNSCH PRN IV 08/23/16 02:00 (Dilaudid Pf Inj) 0.2 mg Q4H PRN IV PUSH 08/23/16 02:15 08/24/16 08:58 (Tylenol) 650 mg Q4H PRN PO 08/23/16 08:30 (Zofran Inj) 4 mg Q6H PRN IV 08/23/16 08:30 (Lora-Colace) 1 tab BID PRN PO 08/23/16 08:30 Calcium Carbonate 1000 mg 1,000 mg TID PRN CHEW 08/23/16 08:30 Pharmacy Profile Note 0 ml @ 0 mls/hr UNSCH OTHER 08/24/16 10:00 Piperacillin Sod/ Tazobactam Sod 50 ml @ 100 mls/hr Q6H IV 08/24/16 10:00 08/24/16 10:27 (Vancomycin Inj/ NS 500 ml Inj) 515 ml @ 250 mls/hr Q12H IV 08/24/16 13:00 Miscellaneous Information SPECIFIC LAB TO BE DRAWN:VANCOMYCIN TROUGH DATE TO... ONCE ONCE .XX 08/26/16 00:45 08/26/16 00:46 (Mario Purdy) Medical Decision Making MDM Remarks Impression: L2-3 discitis - osteomyelitis No definite significant drainable abscess seen on MRI History of L3 kyphoplasty No growth from blood cultures of aspirate fluid to date. (Mario Purdy) Plan Plan Remarks Continue broad spectrum abx therapy per Attending and adjust based on biopsy Recommend Infectious Disease consult PT & OT eval & tx Mobilise patient w/assistance Diet as tolerated Records from admission to [facility] (Mario Purdy) Attending Statement I have personally seen and examined the patient on the date of this note. Pertinent documentation and study results have been reviewed by the undersigned. I have personally developed the treatment plan and performed medical decision making. Agree with findings, exam, and treatment plan as noted above. No change in neurologic exam over the past couple of days Infectious disease notes reviewed MSSA discitis Records from prior hospital pending (Rehan Tate MD) Mario Purdy Aug 24, 2016 12:13 Rehan aTte MD Aug 25, 2016 20:04
[2016-08-24] MEDS: VANCOMYCIN INJ 1,500 MG in SODIUM CHLORID 0.9% 500 ML INJ 500 ML IV SCH (12:32)
[2016-08-24 15:12] VITALS: BP 132/75; PULSE 87; RESP 18; TEMP 97.6; O2SAT 96
[2016-08-24 19:43] VITALS: BP 128/69; PULSE 90; RESP 20; TEMP 98.2; O2SAT 98
[2016-08-24 23:25] VITALS: BP 160/58; PULSE 84; RESP 19; TEMP 98.2; O2SAT 99
[2016-08-25] VITALS (7 sets, daily range): BP systolic 119–132; BP diastolic 59–67; PULSE 69–88; RESP 18–21; TEMP 98.1–98.8; O2SAT 96–100
[2016-08-25] MEDS: VANCOMYCIN INJ 1,500 MG in SODIUM CHLORID 0.9% 500 ML INJ 500 ML IV SCH (01:00)
[2016-08-25] MEDS: HYDROmorphone HCL PF 1 MG/ML VIAL IV PUSH PRN ×5 (03:49→21:49)
[2016-08-25] MEDS: PIPERACIL-TAZO 3.375 GM PREMIX 50 ML IV SCH (04:00)
[2016-08-25] MEDS: SODIUM CHLORIDE 0.9% FLUSH 10 ML FLUSH IV FLUSH SCH ×2 (09:20→21:00)
--- NOTE | 2016-08-25 09:50 | HHI.PR ---
Subjective Remarks Follow-up Discitis. Improving pain scale of 8 out of 10. States pain medicine doesn't last long on IV Dilaudid. Discussed with RN and case management, we will change to full admit Objective Vitals Vital Signs Date Time Temp Pulse Resp B/P Pulse Ox O2 Delivery O2 Flow Rate FiO2 08/25/16 08:13 72 08/25/16 08:00 98.8 74 21 122/59 99 08/25/16 04:53 98.1 69 19 119/61 100 08/25/16 00:00 18 08/24/16 23:25 98.2 84 19 160/58 99 08/24/16 19:43 98.2 90 20 128/69 98 08/24/16 15:12 97.6 87 18 132/75 96 I/O 08/24/16 08/24/16 08/24/16 08/25/16 08/25/16 08/25/16 07:00 15:00 23:00 07:00 15:00 23:00 Intake Total 200 ml Balance 200 ml Intake Oral 200 ml Result Diagram: 08/24/16 0702 08/24/16 0702 Imaging Last Impressions Needle Aspiration CT 08/23/16 0000 Signed Impressions: Service Date/Time: Tuesday, August 23, 2016 13:35 - CONCLUSION: Uncomplicated L2-3 disc as described above. Juan Temple MD FACR Lumbar Spine X-Ray 08/23/16 0000 Signed Impressions: Service Date/Time: Tuesday, August 23, 2016 01:03 - CONCLUSION: 1. Evidence of previous kyphoplasty of L3. 2. Primary degenerative type changes involving the lumbar spine. 3. Demineralization of the bone along the inter endplate of L2 corresponding to patient's known infection involving L2-L3 Candido Chew MD Lumbar Spine MRI 08/22/16 0000 Signed Impressions: Service Date/Time: Monday, August 22, 2016 23:01 - CONCLUSION: 1. There is abnormal marrow edema involving L2 and L3 as well as enhancement of the disc space at L2-L3. These findings are highly suspicious for discitis and osteomyelitis. There appears to be enhancing inflammatory tissue in the paraspinal location which is involving the psoas muscles bilaterally. 2. There is enhancing inflammatory tissue in the anterior epidural space at L2-L3 highly suspicious for an epidural abscess. These findings are causing some mild to moderate spinal canal stenosis at this level. 3. There is broad-based bulging at multiple levels as described above. 4. 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 Candido Chew MD Objective Remarks GENERAL: Well-developed, well-nourished in no distress SKIN: Warm and dry. Ingrown hair right armpit HEAD: Atraumatic. Normocephalic. EYES: Pupils equal and round. No scleral icterus. No injection or drainage. ENT: No nasal bleeding or discharge. Mucous membranes pink and moist. NECK: Trachea midline. No JVD. CARDIOVASCULAR: Regular rate and rhythm. RESPIRATORY: No accessory muscle use. Clear to auscultation. Breath sounds equal bilaterally. GASTROINTESTINAL: Abdomen soft, non-tender, nondistended. MUSCULOSKELETAL: Extremities without clubbing, cyanosis, or edema. No obvious deformities. Tender lumbar area NEUROLOGICAL: Awake and alert. No obvious cranial nerve deficits. Motor grossly within normal limits. Five out of 5 muscle strength in the arms and legs. Normal speech. PSYCHIATRIC: Appropriate mood and affect; insight and judgment normal. Procedures CT-guided aspirate of the lumbar spine A/P Problem List: (1) Back pain ICD Code: M54.9 Status: Acute (2) Osteomyelitis of lumbar spine ICD Code: M46.26 Status: Acute (3) Lumbar discitis ICD Code: M46.46 Status: Acute Assessment and Plan This is a 40 year old male patient with a past medical history which includes MRSA in the left hand third digit. Patient presents to emergency department for evaluation of sharp shooting pain lower back. Patient denies IV drug use at this time. Patient reports is a history of IV drug use proximally the 20-30 years ago. Back pain, discitis, osteomyelitis MRI report reviewed and reveals findings highly suspicious for discitis with osteomyelitis and inflammation paraspinal inflammation Patient seen by neurosurgery Dr. Tate who states "No definite significant drainable abscess seen on MRI. Plan CT biopsy in AM. Hold antibiotics pending biopsy" Status post Interventional radiology CT-guided aspiration of discitis L2 to L3 Start tramadol and continue IV Dilaudid for breakthrough pain management. Counseled regarding narcotics Blood cultures 2 obtained and pending, negative to date Wound culture with MSSA switch to IV Levaquin and discontinue IV vancomycin and Zosyn. ID consulted Serial neuro checks. Physical therapy DVT prophylaxis with SCDs Discharge Planning Full admit transfer to floor Problem Qualifiers (1) Back pain: Qualified Code: M54.5 - Acute midline low back pain without sciatica Phi Alvares MD Aug 25, 2016 09:50
[2016-08-25] MEDS ORDERED: NALOXONE HCL 0.4 MG/ML AMP IV PRN (10:00)
[2016-08-25] MEDS: traMADol HCL 50 MG TAB PO PRN ×3 (10:59→23:09)
[2016-08-25] MEDS ORDERED: LEVOFLOXACIN 500 MG PREMIX INJ 100 ML IV SCH (11:00)
--- NOTE | 2016-08-25 12:44 | PD.ID.CON ---
History of Present Illness Service ID Consult Requested By Reason for Consult Evaluation and Mment of MSSA kyphoplasty site infection, discitis, epidural abscess. Primary Care Physician No Primary Care Physician Diagnoses: History of Present Illness is a 40 y/o male patient with PMHx of MRSA in the left hand third digit, recent admission at [facility] for spine surgery ? kyphoplasty remains to be confirmed but no visible hardware on imaging here at [place]. Patient is an extremely poor historian. He was unable to tell me which medications were used and how long he recd IV antibiotics. He reports h/o Hepatitis C untreated. Patient presented to emergency department for evaluation of sharp shooting pain lower back. Pain radiates in to BLE. Patient also reports bilateral lower extremity numbness and tingling. Patient denies urine or stool incontinence, constipation. Patient reports he was recently treated [facility] for same back pain reports he stayed there for 3-4 days believes he had antibiotics and was discharged a few days ago. This is in contrast to what the ER documentation reports that patient had a kyphoplasty of L3 3 months ago and stated [facility] for approximately one month on IV antibiotics left AMA because his pain was not controlled adequately. Request records to confirm. Patient denies IV drug use at this time. Patient reports is a history of IV drug use proximally the 20-30 years ago. Hepatitis C by history. Patient denies chest pain shortness of breath nausea vomiting diarrhea constipation fevers or chills. ID consulted for evaluation and Mment of discitis and osteomyelitis. Review of Systems ROS Limitations: Poor Historian Constitutional: DENIES: Diaphoretic episodes, Fatigue, Fever, Weight gain, Weight loss, Chills, Dizziness, Change in appetite, Night Sweats Endocrine: DENIES: Heat/cold intolerance, Polydipsia, Polyuria, Polyphagia Eyes: DENIES: Blurred vision, Diplopia, Eye inflammation, Eye pain, Vision loss , Photosensitivity, Double Vision Ears, nose, mouth, throat: DENIES: Tinnitus, Hearing loss, Vertigo, Nasal discharge, Oral lesions, Throat pain, Hoarseness, Ear Pain, Running Nose, Epistaxis, Sinus Pain, Toothache, Odynophagia Respiratory: DENIES: Apneas, Cough, Snoring, Wheezing, Hemoptysis, Sputum production, Shortness of breath Cardiovascular: DENIES: Chest pain, Palpitations, Syncope, Dyspnea on Exertion , PND, Lower Extremity Edema, Orthopnea, Claudication Gastrointestinal: DENIES: Abdominal pain, Black stools, Bloody stools, Constipation, Diarrhea, Nausea, Vomiting, Difficulty Swallowing, Anorexia Genitourinary: DENIES: Sexual dysfunction, Urinary frequency, Urinary incontinence, Urgency, Hematuria, Dysuria, Nocturia, Penile Discharge, Testicular Pain, Testicular Swelling Musculoskeletal: COMPLAINS OF: Back pain Integumentary: DENIES: Abnormal pigmentation, Nail changes, Pruritus, Rash Hematologic/lymphatic: DENIES: Bruising, Lymphadenopathy Immunologic/allergic: DENIES: Eczema, Urticaria Neurologic: COMPLAINS OF: Paresthesias, DENIES: Abnormal gait, Headache, Localized weakness, Seizures, Speech Problems, Tremor, Poor Balance Psychiatric: DENIES: Anxiety, Confusion, Mood changes, Depression, Hallucinations, Agitation, Suicidal Ideation, Homicidal Ideation, Delusions Except as stated in HPI: all other systems reviewed are Neg Past Family Social History Allergies: Coded Allergies: No Known Allergies (Unverified , 08/22/16) Past Medical History MRSA left hand third digit Past Surgical History I & D left hand third digit, per ER note Kyphoplasty L3 3 months ago- patient denies Reported Medications Reported Meds & Active Scripts Active No Active Prescriptions or Reported Medications Active Ordered Medications Current Medications Medications (Trade) Dose Ordered Sig/Frank Route Start Time Stop Time Status Last Admin (NS Flush) 2 ml UNSCH PRN IV FLUSH 08/23/16 02:00 (NS Flush) 2 ml BID IV FLUSH 08/23/16 09:00 08/25/16 09:20 (Dilaudid Pf Inj) 0.2 mg Q4H PRN IV PUSH 08/23/16 02:15 08/25/16 13:13 (Tylenol) 650 mg Q4H PRN PO 08/23/16 08:30 (Zofran Inj) 4 mg Q6H PRN IV 08/23/16 08:30 (Lora-Colace) 1 tab BID PRN PO 08/23/16 08:30 (Tums Chew) 1,000 mg TID PRN CHEW 08/23/16 08:30 (Ultram) 50 mg Q4H PRN PO 08/25/16 11:00 (Ultram) 100 mg Q4H PRN PO 08/25/16 11:00 08/25/16 15:25 Naloxone HCl 0.4 mg 0.4 mg UNSCH PRN IV 08/25/16 10:00 (Ancef 2 Gm Premix) 50 ml @ 100 mls/hr Q8H IV 08/25/16 14:00 08/25/16 13:12 Family History reviewed. Social History Patient is not a reliable historian. Patient denies IVDA. Patient denies smoking or alcohol. Physical Exam Vital Signs Vital Signs Date Time Temp Pulse Resp B/P Pulse Ox O2 Delivery O2 Flow Rate FiO2 08/25/16 12:11 16 08/25/16 09:59 16 08/25/16 08:13 72 08/25/16 08:00 98.8 74 21 122/59 99 08/25/16 04:53 98.1 69 19 119/61 100 08/24/16 23:25 98.2 84 19 160/58 99 08/24/16 19:43 98.2 90 20 128/69 98 08/24/16 15:12 97.6 87 18 132/75 96 Physical Exam GENERAL: This is a well-nourished, well-developed patient, in no apparent distress. SKIN: No rashes, ecchymoses or lesions. Cool and dry. Multiple tattoos but none are new. HEAD: Atraumatic. Normocephalic. No temporal or scalp tenderness. EYES: Pupils equal round and reactive. Extraocular motions intact. No scleral icterus. No injection or drainage. ENT: Nose without bleeding, purulent drainage or septal hematoma. Throat without erythema, tonsillar hypertrophy or exudate. Uvula midline. Airway patent. NECK: Trachea midline. Supple, nontender, no meningeal signs. CARDIOVASCULAR: RRR RESPIRATORY: Clear to auscultation. Breath sounds equal bilaterally. GASTROINTESTINAL: Abdomen soft, non-tender, nondistended. MUSCULOSKELETAL: Extremities without clubbing, cyanosis, or edema. NEUROLOGICAL: Awake and alert. Grossly non focal. Power 4plus/5. No BB incontinence or loss of perineal sensation per patient. He defers a rectal exam Psych: cooperative IV line sites with no e/o infection. Laboratory Date/Time Procedure Status Source Growth 08/23/16 14:25 Gram Stain - Final Complete Abscess Other 08/23/16 14:25 Wound Culture - Final Complete Staphylococcus Aureus 4/26/17 14:25 Fungal Smear - Final Resulted Abscess Other NO FUNGAL ELEMENTS SEEN. 08/23/16 14:25 Fungal Culture Resulted Abscess Other Pending 08/23/16 14:25 Acid Fast Stain - Final Resulted Abscess Other NO ACID FAST BACILLI SEEN 08/23/16 14:25 Mycobacterial Culture Resulted Abscess Other Pending 08/23/16 14:25 Cancelled Abscess Other 08/23/16 14:25 Cancelled Abscess Other 08/23/16 14:25 Cancelled Abscess Other 08/22/16 22:35 Aerobic Blood Culture - Preliminary Resulted Blood Peripheral NO GROWTH IN 3 DAYS 08/22/16 22:35 Anaerobic Blood Culture - Preliminary Resulted Blood Peripheral NO GROWTH IN 3 DAYS Result Diagram: 08/24/16 0702 08/24/16 0702 Imaging Last Impressions Needle Aspiration CT 08/23/16 0000 Signed Impressions: Service Date/Time: Tuesday, August 23, 2016 13:35 - CONCLUSION: Uncomplicated L2-3 disc as described above. Juan Temple MD FACR Lumbar Spine X-Ray 08/23/16 0000 Signed Impressions: Service Date/Time: Tuesday, August 23, 2016 01:03 - CONCLUSION: 1. Evidence of previous kyphoplasty of L3. 2. Primary degenerative type changes involving the lumbar spine. 3. Demineralization of the bone along the inter endplate of L2 corresponding to patient's known infection involving L2-L3 Candido Chew MD Lumbar Spine MRI 08/22/16 0000 Signed Impressions: Service Date/Time: Monday, August 22, 2016 23:01 - CONCLUSION: 1. There is abnormal marrow edema involving L2 and L3 as well as enhancement of the disc space at L2-L3. These findings are highly suspicious for discitis and osteomyelitis. There appears to be enhancing inflammatory tissue in the paraspinal location which is involving the psoas muscles bilaterally. 2. There is enhancing inflammatory tissue in the anterior epidural space at L2-L3 highly suspicious for an epidural abscess. These findings are causing some mild to moderate spinal canal stenosis at this level. 3. There is broad-based bulging at multiple levels as described above. 4. 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 Candido Chew MD Assessment and Plan Assessment and Plan MSSA infection Discitis/Osteomyelitis Lumbar spine: MSSA H/o remote IVDA 20-30 yrs back per patient Hepatitis C Elevated CRP Recs: DC IV Levaquin DC IV Vanco Start Ancef 2 gm IV q8hrs while in hospital. Check 2D ECHO Dw : need records from Outside hospital as patient unreliable. Would like to know when was last time he recd antibiotics and how long was he treated in past to determine if he is non resolution of infection case or new infection. Hopefully if Neurosurgery ok, records recd from outside hospital and all information DC early next week. Please review records to see what dose of pain medications if any patient was on at outside hospital and avoid high dose narcotics or taper early. to cover for me this weekend and available prn. I will see patient next on Sunday. Tosha Lou MD Aug 25, 2016 12:44
[2016-08-25] MEDS: ceFAZolin 2 GM PREMIX 50 ML IV SCH ×2 (13:12→23:09)
[2016-08-25 15:41] LABS: AUTOMATED NEUTROPHIL # 8.1 TH/MM3 (1.8-7.7); BASOPHIL # 0.1 TH/MM3 (0-0.2); BASOPHIL % 0.7 % (0.0-2.0); EOSINOPHIL # 0.3 TH/MM3 (0-0.4); EOSINOPHIL % 2.5 % (0.0-4.0); HEMATOCRIT 38.9 % (39.0-51.0); HEMO FLAGS DIFF FINAL; LYMPH % 17.9 % (9.0-44.0); MEAN CELL VOLUME 83.9 FL (80.0-100.0); MEAN CORPUSCULAR HEMOGLOBIN 27.3 PG (27.0-34.0); MEAN CORPUSCULAR HGB CONC 32.6 % (32.0-36.0); MONO % 4.9 % (0.0-8.0); PLATELET COUNT 487 TH/MM3 (150-450); RED BLOOD COUNT 4.64 MIL/MM3 (4.50-5.90); WHITE BLOOD COUNT 10.9 TH/MM3 (4.0-11.0)
[2016-08-25 15:58] LABS: ALT (GPT) 24 U/L (12-78); ANION GAP 8 MEQ/L (5-15); AST (GOT) 16 U/L (15-37); BICARBONATE 26.4 MEQ/L (21.0-32.0); BLOOD UREA NITROGEN 15 MG/DL (7-18); CHLORIDE 104 MEQ/L (98-107); GLOMERULAR FILTRATION RATE 131 ML/MIN (>89); POTASSIUM 4.8 MEQ/L (3.5-5.1); SODIUM (NA) 138 MEQ/L (136-145)
[2016-08-25 16:00] LABS: ALKALINE PHOSPHATASE 75 U/L (45-117); TOTAL BILIRUBIN ADULT 0.2 MG/DL (0.2-1.0)
--- NOTE | 2016-08-25 16:14 | HHI.NSPN ---
(Mario Purdy) Note Status Status: Progress Note (RajwinderMario) Interval History Interval History 08/22: Patient presented to the emergency department for worsening back pain. He was recently treated for osteomyelitis in [facility] with ceftriaxone for 4 days per the patient and then discharged home. The patient states that he had a kyphoplasty to L3 and subsequently developed the infection. He states that he was evaluated for any infection prior to his surgery and there were no findings suggestive of infection, therefore [facility] proceeded with the surgery. 08/23: The patient appears uncomfortable due to pain which is his only complaint. The pain is to the back and the abdomen. He had a biopsy under CT guidance this afternoon. 08/24: Patient uncomfortable due to back pain, adjusts self for comfort. Also complains of abdominal pain. 08/25: Patient appears more comfortable, laying flat on stretches "stretching my back out." He still has the low back pain that radiates around to the abdomen. (Mario Purdy) Labs, Micro, & Vital Signs Results Allergies Coded Allergies Type Severity Reaction Last Updated Verified No Known Allergies 08/22/16 No Recent Impressions Needle Aspiration CT 08/23/16 0000 Signed Impressions: Service Date/Time: Tuesday, August 23, 2016 13:35 - CONCLUSION: Uncomplicated L2-3 disc as described above. Juan Temple MD FACR Lumbar Spine X-Ray 08/23/16 0000 Signed Impressions: Service Date/Time: Tuesday, August 23, 2016 01:03 - CONCLUSION: 1. Evidence of previous kyphoplasty of L3. 2. Primary degenerative type changes involving the lumbar spine. 3. Demineralization of the bone along the inter endplate of L2 corresponding to patient's known infection involving L2-L3 Candido Chew MD //// 06:00 18:00 06:00 18:00 06:00 18:00 Intake Total 200 ml 750 ml Output Total 400 ml Balance 200 ml 350 ml Intake Oral 200 ml IV Total 750 ml Output Urine Total 400 ml Laboratory Tests Test 08/22/16 08/22/16 08/22/16 08/24/16 22:35 23:40 23:48 07:02 Lactic Acid Level 1.2 mmol/L White Blood Count 10.6 TH/MM3 12.6 TH/MM3 Red Blood Count 4.11 MIL/MM3 4.62 MIL/MM3 Hemoglobin 11.8 GM/DL 12.9 GM/DL Hematocrit 33.4 % 37.9 % Mean Corpuscular Volume 81.2 FL 82.1 FL Mean Corpuscular Hemoglobin 28.7 PG 27.9 PG Mean Corpuscular Hemoglobin 35.4 % 34.0 % Concent Red Cell Distribution Width 14.3 % 14.4 % Platelet Count 411 TH/MM3 470 TH/MM3 Mean Platelet Volume 7.2 FL 7.9 FL Neutrophils (%) (Auto) 64.2 % 70.4 % Lymphocytes (%) (Auto) 24.7 % 20.4 % Monocytes (%) (Auto) 8.2 % 6.8 % Eosinophils (%) (Auto) 2.5 % 1.9 % Basophils (%) (Auto) 0.4 % 0.5 % Neutrophils # (Auto) 6.8 TH/MM3 8.9 TH/MM3 Lymphocytes # (Auto) 2.6 TH/MM3 2.6 TH/MM3 Monocytes # (Auto) 0.9 TH/MM3 0.9 TH/MM3 Eosinophils # (Auto) 0.3 TH/MM3 0.2 TH/MM3 Basophils # (Auto) 0.0 TH/MM3 0.1 TH/MM3 CBC Comment DIFF FINAL DIFF FINAL Differential Comment Erythrocyte Sedimentation Rate 74 mm/hr Sodium Level 138 MEQ/L 137 MEQ/L Potassium Level 4.3 MEQ/L 4.1 MEQ/L Chloride Level 106 MEQ/L 102 MEQ/L Carbon Dioxide Level 26.7 MEQ/L 28.0 MEQ/L Anion Gap 5 MEQ/L 7 MEQ/L Blood Urea Nitrogen 13 MG/DL 12 MG/DL Creatinine 0.59 MG/DL 0.65 MG/DL Estimat Glomerular Filtration 151 ML/MIN 135 ML/MIN Rate Random Glucose 93 MG/DL 96 MG/DL Calcium Level 8.6 MG/DL 8.9 MG/DL C-Reactive Protein 4.04 MG/DL Bedside Creatinine 0.6 MG/DL Test 08/25/16 14:52 White Blood Count 10.9 TH/MM3 Red Blood Count 4.64 MIL/MM3 Hemoglobin 12.7 GM/DL Hematocrit 38.9 % Mean Corpuscular Volume 83.9 FL Mean Corpuscular Hemoglobin 27.3 PG Mean Corpuscular Hemoglobin 32.6 % Concent Red Cell Distribution Width 14.0 % Platelet Count 487 TH/MM3 Mean Platelet Volume 7.4 FL Neutrophils (%) (Auto) 74.0 % Lymphocytes (%) (Auto) 17.9 % Monocytes (%) (Auto) 4.9 % Eosinophils (%) (Auto) 2.5 % Basophils (%) (Auto) 0.7 % Neutrophils # (Auto) 8.1 TH/MM3 Lymphocytes # (Auto) 2.0 TH/MM3 Monocytes # (Auto) 0.5 TH/MM3 Eosinophils # (Auto) 0.3 TH/MM3 Basophils # (Auto) 0.1 TH/MM3 CBC Comment DIFF FINAL Differential Comment Sodium Level 138 MEQ/L Potassium Level 4.8 MEQ/L Chloride Level 104 MEQ/L Carbon Dioxide Level 26.4 MEQ/L Anion Gap 8 MEQ/L Blood Urea Nitrogen 15 MG/DL Creatinine 0.67 MG/DL Estimat Glomerular Filtration 131 ML/MIN Rate Random Glucose 105 MG/DL Calcium Level 9.1 MG/DL Total Bilirubin 0.2 MG/DL Aspartate Amino Transf 16 U/L (AST/SGOT) Alanine Aminotransferase 24 U/L (ALT/SGPT) Alkaline Phosphatase 75 U/L Total Protein 7.9 GM/DL Albumin 2.6 GM/DL Constitutional Vital Signs Date Time Temp Pulse Resp B/P Pulse Ox O2 Delivery O2 Flow Rate FiO2 08/25/16 13:49 16 08/25/16 12:11 16 08/25/16 12:00 98.4 78 18 121/67 97 08/25/16 08:13 72 08/25/16 08:00 98.8 74 21 122/59 99 08/25/16 04:53 98.1 69 19 119/61 100 08/24/16 23:25 98.2 84 19 160/58 99 08/24/16 19:43 98.2 90 20 128/69 98 08/25/16 07:00 Intake Total 200 ml Balance 200 ml (Mario Purdy) Review of Systems/Exam ROS Resp: Denies any shortness of breath or productive cough. Cardiac: Denies any chest pain, palpitations or irregular heart beat. GI: Does complain of abdominal pain but denies any nausea, vomiting or bowel incontinence. : Denies any bladder incontinence. Extremities: Denies any pain or weakness to the extremities. Back: Low back pain. Neuro: Denies any headache, dizziness, numbness, tingling or weakness. Exam HEENT: Normocephalic, atraumatic. PERRLA, EOM intact. Neck: No midline cervical TTP, no step-offs or deformities, no pain w/ROM, no JVD, trachea midline. Resp: CTAB w/o W/R/R, equal excursion, non-laboured, on RA. CV: S1S2 w/RRR w/o M/G/R, cap refill < 2 sec, radial & pedal pulses 2+ bilaterally, no pedal edema. GI: Abdomen soft, nontender, no palpable masses or organomegaly, positive bowel sounds. Extremities: ARDON spontaneously, no evident deformity, discolouration or clubbing. Back: Minimally TTP from lower thoracic spine to sacrum,. Neuro: AAOx3. Speech clear & appropriate. Follows commands. Sensation grossly intact to light touch to all extremities. Motor strength essentially 5/5 to all extremities. (Mario Purdy) Medications Current Medications Current Medications Medications (Trade) Dose Ordered Sig/Frank Route Start Time Stop Time Status Last Admin (NS Flush) 2 ml UNSCH PRN IV FLUSH 08/23/16 02:00 (NS Flush) 2 ml BID IV FLUSH 08/23/16 09:00 08/25/16 09:20 (Dilaudid Pf Inj) 0.2 mg Q4H PRN IV PUSH 08/23/16 02:15 08/25/16 13:13 (Tylenol) 650 mg Q4H PRN PO 08/23/16 08:30 (Zofran Inj) 4 mg Q6H PRN IV 08/23/16 08:30 (Lora-Colace) 1 tab BID PRN PO 08/23/16 08:30 (Tums Chew) 1,000 mg TID PRN CHEW 08/23/16 08:30 (Ultram) 50 mg Q4H PRN PO 08/25/16 11:00 (Ultram) 100 mg Q4H PRN PO 08/25/16 11:00 08/25/16 15:25 Naloxone HCl 0.4 mg 0.4 mg UNSCH PRN IV 08/25/16 10:00 (Ancef 2 Gm Premix) 50 ml @ 100 mls/hr Q8H IV 08/25/16 14:00 08/25/16 13:12 (Mario Purdy) Medical Decision Making MDM Remarks Impression: L2-3 discitis - osteomyelitis No definite significant drainable abscess seen on MRI History of L3 kyphoplasty Staph aureus from LP puncture. No growth from blood cultures to date. (Mario Purdy) Plan Plan Remarks Primary mgmt per Attending Abx per Infectious Disease PT & OT eval & tx Mobilise patient w/assistance Diet as tolerated Records from admission to [facility] (Mario Purdy) Attending Statement I have personally seen and examined the patient on the date of this note. Pertinent documentation and study results have been reviewed by the undersigned. I have personally developed the treatment plan and performed medical decision making. Agree with findings, exam, and treatment plan as noted above. Remains awake and alert Sensorimotor exam intact lower extremities Persistent moderately severe low back pain Physical therapy notes reviewed Infectious disease reviewed Continuing antibiotics MSSA discitis-osteomyelitis (Rehan Tate MD) Mario Purdy Aug 25, 2016 16:14 Rehna Tate MD Aug 25, 2016 20:05
[2016-08-26 00:26] VITALS: BP 114/66; PULSE 82; RESP 18; TEMP 97.4; O2SAT 98
[2016-08-26] MEDS ORDERED: PHARMACY ORDERED LAB ONE (00:45)
[2016-08-26] MEDS: HYDROmorphone HCL PF 1 MG/ML VIAL IV PUSH PRN ×5 (01:47→20:33)
[2016-08-26] MEDS: ceFAZolin 2 GM PREMIX 50 ML IV SCH ×3 (05:41→21:48)
[2016-08-26 08:00] VITALS: BP 100/58; PULSE 73; RESP 18; TEMP 97.4; O2SAT 97
[2016-08-26] MEDS: SODIUM CHLORIDE 0.9% FLUSH 10 ML FLUSH IV FLUSH SCH ×2 (08:20→19:37)
[2016-08-26] MEDS: traMADol HCL 50 MG TAB PO PRN ×4 (08:25→23:28)
--- NOTE | 2016-08-26 10:27 | HHI.FPPN ---
Objective Vitals Vital Signs Date Time Temp Pulse Resp B/P Pulse Ox O2 Delivery O2 Flow Rate FiO2 08/26/16 08:00 97.4 73 18 100/58 97 08/26/16 00:26 97.4 82 18 114/66 98 08/25/16 22:34 78 08/25/16 20:25 98.4 88 19 132/65 96 08/25/16 17:56 98.8 77 18 121/62 99 08/25/16 13:49 16 08/25/16 12:11 16 08/25/16 12:00 98.4 78 18 121/67 97 I/O 08/25/16 08/25/16 08/25/16 08/26/16 08/26/16 08/26/16 07:00 15:00 23:00 07:00 15:00 23:00 Intake Total 750 ml 200 ml 460 ml Output Total 400 ml 600 ml Balance 350 ml 200 ml -140 ml Intake Oral 200 ml 360 ml IV Total 750 ml 100 ml Output Urine Total 400 ml 600 ml Result Diagram: 08/25/16 1452 08/25/16 1452 Jorge Carrasquillo MD R3 Aug 26, 2016 10:26
--- NOTE | 2016-08-26 11:33 | HHI.PR ---
Subjective Remarks No acute events overnight. Vital signs remained stable. Patient denies any new concerns at this time. He states his pain is unchanged from yesterday but that the pain medication does help. He has been receiving the 0.2 of Dilauded every 4 hrs. He also endorses bilateral hip pain. Denies any fevers, chills, shortness of breath, chest pain, or calf pain. Objective Vitals Vital Signs Date Time Temp Pulse Resp B/P Pulse Ox O2 Delivery O2 Flow Rate FiO2 08/26/16 08:00 97.4 73 18 100/58 97 08/26/16 00:26 97.4 82 18 114/66 98 08/25/16 22:34 78 08/25/16 20:25 98.4 88 19 132/65 96 08/25/16 17:56 98.8 77 18 121/62 99 08/25/16 13:49 16 08/25/16 12:11 16 08/25/16 12:00 98.4 78 18 121/67 97 I/O 08/25/16 08/25/16 08/25/16 08/26/16 08/26/16 08/26/16 07:00 15:00 23:00 07:00 15:00 23:00 Intake Total 750 ml 200 ml 460 ml Output Total 400 ml 600 ml Balance 350 ml 200 ml -140 ml Intake Oral 200 ml 360 ml IV Total 750 ml 100 ml Output Urine Total 400 ml 600 ml Result Diagram: 08/25/16 1452 08/25/16 1452 Objective Remarks GENERAL: Well-developed, well-nourished in no distress SKIN: Warm and dry. HEAD: Atraumatic. Normocephalic. EYES: Pupils equal and round. No scleral icterus. No injection or drainage. ENT: No nasal bleeding or discharge. Mucous membranes pink and moist. CARDIOVASCULAR: Regular rate and rhythm. RESPIRATORY: No accessory muscle use. Clear to auscultation. Breath sounds equal bilaterally. GASTROINTESTINAL: Abdomen soft, non-tender, nondistended. MUSCULOSKELETAL: Extremities without clubbing, cyanosis, or edema. No obvious deformities. Tender lumbar area, small Band-Aid in place at area of recent CT- guided aspiration. Bilateral trochanteric bursa with tenderness to palpation. NEUROLOGICAL: Awake and alert. No obvious cranial nerve deficits. Motor grossly within normal limits. Five out of 5 muscle strength in the arms and legs. Normal speech. PSYCHIATRIC: Appropriate mood and affect; insight and judgment normal. Procedures CT-guided aspirate of the lumbar spine A/P Problem List: (1) Back pain ICD Code: M54.9 Status: Acute (2) Osteomyelitis of lumbar spine ICD Code: M46.26 Status: Acute (3) Lumbar discitis ICD Code: M46.46 Status: Acute (4) Trochanteric bursitis of both hips ICD Code: M70.61 Status: Acute Assessment and Plan This is a 40 year old male patient with a past medical history which includes MRSA in the left hand third digit. Patient presents to emergency department for evaluation of sharp shooting pain lower back. Patient denies IV drug use at this time. Patient reports is a history of IV drug use proximally the 20-30 years ago. #) Back pain, discitis, osteomyelitis MRI report reviewed and reveals findings highly suspicious for discitis with osteomyelitis and inflammation paraspinal inflammation Patient seen by neurosurgery Dr. Tate who states "No definite significant drainable abscess seen on MRI. Plan CT biopsy in AM. Hold antibiotics pending biopsy" Status post Interventional radiology CT-guided aspiration of discitis L2 to L3 on 08/23/16 Continue tramadol 50mg P 3-5 and 100mg P 6-10 w/ IV Dilaudid 0.2mg for breakthrough pain management. Counseled regarding narcoticsID following, thank you for rec's Wound culture 08/23 positive for MSSA, continue Ancef 2g q8hrs Blood cultures 2 NG x4 days Serial neuro checks. Physical therapy #) Trochanteric bursitis Consider short course of PO steroids if no improvement Could consider outpatient corticosteroid injection if persists DVT prophylaxis with SCDs Discharge Planning Anticipate D/C early this week pending records from outside hospital and clearance by ID. Problem Qualifiers (1) Back pain: Qualified Code: M54.5 - Acute midline low back pain without sciatica Jorge Carrasquillo MD R3 Aug 26, 2016 11:33
[2016-08-26 12:00] VITALS: BP 113/62; PULSE 87; RESP 16; TEMP 98; O2SAT 98
[2016-08-26 16:00] VITALS: BP 116/58; PULSE 82; RESP 17; TEMP 97.9; O2SAT 98
--- NOTE | 2016-08-26 19:54 | HHI.NSPN ---
Note Status Status: Progress Note Interval History Interval History 08/22: Patient presented to the emergency department for worsening back pain. He was recently treated for osteomyelitis in [facility] with ceftriaxone for 4 days per the patient and then discharged home. The patient states that he had a kyphoplasty to L3 and subsequently developed the infection. He states that he was evaluated for any infection prior to his surgery and there were no findings suggestive of infection, therefore [facility] proceeded with the surgery. 08/23: The patient appears uncomfortable due to pain which is his only complaint. The pain is to the back and the abdomen. He had a biopsy under CT guidance this afternoon. 08/24: Patient uncomfortable due to back pain, adjusts self for comfort. Also complains of abdominal pain. 08/25: Patient appears more comfortable, laying flat on stretches "stretching my back out." He still has the low back pain that radiates around to the abdomen 08/26: Back pain that radiates to the groins. Good strenght Labs, Micro, & Vital Signs Results Date Time Temp Pulse Resp B/P Pulse Ox O2 Delivery O2 Flow Rate FiO2 08/26/16 16:00 97.9 82 17 116/58 98 08/26/16 12:00 98.0 87 16 113/62 98 08/26/16 08:00 97.4 73 18 100/58 97 08/26/16 00:26 97.4 82 18 114/66 98 08/25/16 22:34 78 08/25/16 20:25 98.4 88 19 132/65 96 08/26/16 07:00 Intake Total 1410 ml Output Total 1000 ml Balance 410 ml Constitutional Vital Signs Date Time Temp Pulse Resp B/P Pulse Ox O2 Delivery O2 Flow Rate FiO2 08/26/16 16:00 97.9 82 17 116/58 98 08/26/16 12:00 98.0 87 16 113/62 98 08/26/16 08:00 97.4 73 18 100/58 97 08/26/16 00:26 97.4 82 18 114/66 98 08/25/16 22:34 78 08/25/16 20:25 98.4 88 19 132/65 96 08/26/16 07:00 Intake Total 1410 ml Output Total 1000 ml Balance 410 ml Review of Systems/Exam Exam HEENT: Normocephalic, atraumatic. PERRLA, EOM intact. Neck: No midline cervical TTP, no step-offs or deformities, no pain w/ROM, no JVD, trachea midline. Resp: CTAB w/o W/R/R, equal excursion, non-laboured, on RA. CV: S1S2 w/RRR w/o M/G/R, cap refill < 2 sec, radial & pedal pulses 2+ bilaterally, no pedal edema. GI: Abdomen soft, nontender, no palpable masses or organomegaly, positive bowel sounds. Extremities: ARDON spontaneously, no evident deformity, discolouration or clubbing. Back: Minimally TTP from lower thoracic spine to sacrum,. Neuro: AAOx3. Speech clear & appropriate. Follows commands. Sensation grossly intact to light touch to all extremities. Motor strength essentially 5/5 to all extremities. Medications Current Medications Current Medications Ketorolac Tromethamine (Toradol Inj) 30 mg ONCE ONCE IV PUSH Last administered on 08/22/16 22:45; Start 08/22/16 at 22:15; Stop 08/22/16 at 22:18 ; Status DC Hydromorphone HCl (Dilaudid Pf Inj) 1 mg ONCE ONCE IV PUSH Last administered on 08/22/16 22:44; Start 08/22/16 at 22:15; Stop 08/22/16 at 22:18; Status DC Gadodiamide (Omniscan Pf Inj) 15 ml STK-MED ONCE IV Last administered on 23:43; Start 08/22/16 at 23:43; Stop 08/22/16 at 23:44; Status DC Sodium Chloride (NS Flush) 2 ml UNSCH PRN IV FLUSH FLUSH AFTER USING IV ACCESS ; Start 08/23/16 at 02:00 Sodium Chloride (NS Flush) 2 ml BID IV FLUSH Last administered on 08/26/16 19: 37; Start 08/23/16 at 09:00 Naloxone HCl (Narcan Inj) 0.4 mg UNSCH PRN IV SEE LABEL COMMENTS; Start at 02:00; Stop 08/25/16 at 10:32; Status DC Hydromorphone HCl (Dilaudid Pf Inj) 0.2 mg Q4H PRN IV PUSH breakthru pain Last administered on 08/26/16 15:12; Start 08/23/16 at 02:15 Acetaminophen (Tylenol) 650 mg Q4H PRN PO Temp > 100.4, pain 1-2; Start at 08:30 Ondansetron HCl (Zofran Inj) 4 mg Q6H PRN IV NAUSEA; Start 08/23/16 at 08:30 Senna/Docusate Sodium (Lora-Colace) 1 tab BID PRN PO CONSTIPATION; Start at 08:30 Calcium Carbonate 1000 mg 1,000 mg TID PRN CHEW DYSPEPSIA; Start 08/23/16 at 08 :30 Pharmacy Profile Note 0 ml @ 0 mls/hr UNSCH OTHER ; Start 08/23/16 at 10:15; Stop 08/23/16 at 10:18; Status DC Vancomycin HCl 1000 mg/Sodium Chloride 250 ml @ 250 mls/hr ONCE ONCE IV ; Start 08/23/16 at 17:00; Stop 08/23/16 at 17:00; Status Cancel Vancomycin HCl/ Sodium Chloride (Vancomycin Inj/ NS 250 ml Inj) 250 ml @ 250 mls/hr ONCE ONCE IV ; Start 08/23/16 at 17:00; Stop 08/23/16 at 17:00; Status DC Lidocaine/ Epinephrine (Xylocaine-Epi 1%-1:100,000 Inj) 20 ml STK-MED ONCE .ROUTE Last administered on 08/23/16 13:03; Start 08/23/16 at 13:03; Stop at 13:04; Status DC Midazolam HCl (Versed Inj) 5 mg STK-MED ONCE .ROUTE Last administered on 13:28; Start 08/23/16 at 13:28; Stop 08/23/16 at 13:29; Status DC Fentanyl Citrate (fentaNYL INJ) 250 mcg STK-MED ONCE .ROUTE Last administered on 08/23/16 13:28; Start 08/23/16 at 13:28; Stop 08/23/16 at 13:29; Status DC Fentanyl Citrate 100 mcg 100 mcg STK-MED ONCE .ROUTE Last administered on 13:59; Start 08/23/16 at 13:59; Stop 08/23/16 at 14:00; Status DC Pharmacy Profile Note 0 ml @ 0 mls/hr UNSCH OTHER ; Start 08/24/16 at 10:00; Stop 08/25/16 at 09:48; Status DC Vancomycin HCl 1000 mg/Sodium Chloride 250 ml @ 250 mls/hr ONCE ONCE IV ; Start 08/24/16 at 10:00; Stop 08/24/16 at 10:59; Status UNV Piperacillin Sod/ Tazobactam Sod 50 ml @ 100 mls/hr Q6H IV Last administered on 08/25/16 04:00; Start 08/24/16 at 10:00; Stop 08/25/16 at 09:48; Status DC Vancomycin HCl/ Sodium Chloride (Vancomycin Inj/ NS 500 ml Inj) 515 ml @ 250 mls/hr Q12H IV Last administered on 08/25/16 01:00; Start 08/24/16 at 13:00; Stop 08/25/16 at 09:48; Status DC Miscellaneous Information SPECIFIC LAB TO BE DRAWN:VANCOMYCIN TROUGH DATE TO... ONCE ONCE .XX ; Start 08/26/16 at 00:45; Stop 08/26/16 at 00:46; Status Cancel Tramadol HCl (Ultram) 50 mg Q4H PRN PO PAIN SCALE 3 TO 5; Start 08/25/16 at 11: 00 Tramadol HCl (Ultram) 100 mg Q4H PRN PO PAIN SCALE 6 TO 10 Last administered on 08/26/16 19:37; Start 08/25/16 at 11:00 Naloxone HCl 0.4 mg 0.4 mg UNSCH PRN IV SEE LABEL COMMENTS; Start 08/25/16 at 10:00 Levofloxacin/ Dextrose 100 ml @ 100 mls/hr Q24H IV Last administered on 10:59; Start 08/25/16 at 11:00; Stop 08/25/16 at 12:42; Status DC Cefazolin Sodium/ Dextrose (Ancef 2 Gm Premix) 50 ml @ 100 mls/hr Q8H IV Last administered on 08/26/16 14:14; Start 08/25/16 at 14:00 Medical Decision Making MDM Remarks L2-3 discitis - osteomyelitis No definite significant drainable abscess seen on MRI History of L3 kyphoplasty Staph aureus from LP puncture. Plan Plan Remarks PT & OT eval & tx Mobilise patient w/assistance Diet as tolerated Continuing antibiotics MSSA discitis-osteomyelitis Denzel Napier MD Aug 26, 2016 19:54
[2016-08-26 20:00] VITALS: BP 124/58; PULSE 80; RESP 20; TEMP 97.9; O2SAT 96
[2016-08-27] VITALS: BP 108/64; PULSE 72; RESP 18; TEMP 98.5; O2SAT 98
[2016-08-27] MEDS: HYDROmorphone HCL PF 1 MG/ML VIAL IV PUSH PRN ×6 (00:39→23:26)
[2016-08-27] MEDS: traMADol HCL 50 MG TAB PO PRN ×5 (03:32→22:44)
[2016-08-27] MEDS: ceFAZolin 2 GM PREMIX 50 ML IV SCH ×3 (05:18→22:46)
[2016-08-27 05:42] LABS: AUTOMATED NEUTROPHIL # 7.4 TH/MM3 (1.8-7.7); BASOPHIL # 0.1 TH/MM3 (0-0.2); BASOPHIL % 0.7 % (0.0-2.0); EOSINOPHIL # 0.4 TH/MM3 (0-0.4); EOSINOPHIL % 3.3 % (0.0-4.0); HEMATOCRIT 39.1 % (39.0-51.0); HEMO FLAGS DIFF FINAL; LYMPH % 20.8 % (9.0-44.0); LYMPHOCYTE # 2.2 TH/MM3 (1.0-4.8); MEAN CORPUSCULAR HEMOGLOBIN 27.8 PG (27.0-34.0); MEAN CORPUSCULAR HGB CONC 33.9 % (32.0-36.0); MONO % 6.2 % (0.0-8.0); PLATELET COUNT 476 TH/MM3 (150-450); RED BLOOD COUNT 4.76 MIL/MM3 (4.50-5.90); RED CELL DISTRIBUTION WIDTH 13.8 % (11.6-17.2); WHITE BLOOD COUNT 10.8 TH/MM3 (4.0-11.0)
[2016-08-27 05:59] LABS: BICARBONATE 31.3 MEQ/L (21.0-32.0); POTASSIUM 4.3 MEQ/L (3.5-5.1)
[2016-08-27 08:00] VITALS: BP 118/71; PULSE 72; RESP 17; TEMP 97.2; O2SAT 98
[2016-08-27] MEDS: SODIUM CHLORIDE 0.9% FLUSH 10 ML FLUSH IV FLUSH SCH ×2 (08:53→22:47)
--- NOTE | 2016-08-27 10:14 | HHI.PR ---
Subjective Remarks No acute events overnight. Vital signs remained stable. Patient reports bilateral paraspinal tightness and discomfort today which she states prohibited him from sleeping overnight. He's not had any midline back tenderness. He has not had any difficulty with urination or noted any blood or stones in his urine. He has not had a bowel movement in the past 4 days. He has Lora-Colace ordered as needed. He has not had any fevers, chills, chest pain, or shortness of breath. He continues to utilize the as needed Dilaudid on a regular basis. Objective Vitals Vital Signs Date Time Temp Pulse Resp B/P Pulse Ox O2 Delivery O2 Flow Rate FiO2 08/27/16 08:00 97.2 72 17 118/71 98 08/27/16 04:59 17 08/27/16 04:32 18 08/27/16 00:00 98.5 72 18 108/64 98 08/26/16 20:00 97.9 80 20 124/58 96 08/26/16 16:00 97.9 82 17 116/58 98 08/26/16 12:00 98.0 87 16 113/62 98 I/O 08/26/16 08/26/16 08/26/16 08/27/16 08/27/16 08/27/16 07:00 15:00 23:00 07:00 15:00 23:00 Intake Total 460 ml 1440 ml 480 ml 340 ml Output Total 600 ml 600 ml 400 ml Balance -140 ml 1440 ml -120 ml -60 ml Intake Oral 360 ml 1440 ml 480 ml 240 ml IV Total 100 ml 100 ml Output Urine Total 600 ml 600 ml 400 ml # Voids 6 # Bowel Movements 0 0 Result Diagram: 08/27/16 0400 08/27/16 0400 Objective Remarks GENERAL: Well-developed, well-nourished in no distress SKIN: Warm and dry. HEAD: Atraumatic. Normocephalic. EYES: Pupils equal and round. No scleral icterus. No injection or drainage. ENT: No nasal bleeding or discharge. Mucous membranes pink and moist. CARDIOVASCULAR: Regular rate and rhythm. RESPIRATORY: No accessory muscle use. Clear to auscultation. Breath sounds equal bilaterally. GASTROINTESTINAL: Abdomen soft, non-tender, nondistended. MUSCULOSKELETAL: Extremities without clubbing, cyanosis, or edema. No obvious deformities. Area of recent CT-guided aspiration appears well healed. Bilateral paraspinal tenderness/tightness. No CVA tenderness. NEUROLOGICAL: Awake and alert. No obvious cranial nerve deficits. Motor grossly within normal limits. Five out of 5 muscle strength in the arms and legs. Normal speech. PSYCHIATRIC: Appropriate mood and affect; insight and judgment normal. Procedures CT-guided aspirate of the lumbar spine A/P Problem List: (1) Back pain ICD Code: M54.9 Status: Acute (2) Osteomyelitis of lumbar spine ICD Code: M46.26 Status: Acute (3) Lumbar discitis ICD Code: M46.46 Status: Acute (4) Trochanteric bursitis of both hips ICD Code: M70.61 Status: Acute Assessment and Plan This is a 40 year old male patient with a past medical history which includes MRSA in the left hand third digit. Patient presents to emergency department for evaluation of sharp shooting pain lower back. Patient denies IV drug use at this time. Patient reports is a history of IV drug use proximally the 20-30 years ago. #) Back pain, discitis, osteomyelitis MRI report reviewed and reveals findings highly suspicious for discitis with osteomyelitis and inflammation paraspinal inflammation Patient seen by neurosurgery Dr. Tate who states "No definite significant drainable abscess seen on MRI. Plan CT biopsy in AM. Hold antibiotics pending biopsy" Status post Interventional radiology CT-guided aspiration of discitis L2 to L3 on 08/23/16 Continue tramadol 50mg P 3-5 and 100mg P 6-10 w/ IV Dilaudid 0.2mg for breakthrough pain management. Counseled regarding narcotics. ID following, thank you for rec's Wound culture 08/23 positive for MSSA, continue Ancef 2g q8hrs Blood cultures 2 NG x4 days Serial neuro checks. Physical therapy Will provide one-time dose of Flexeril 5mg for possible paraspinal muscle spasm #) Trochanteric bursitis Consider short course of PO steroids if no improvement Could consider outpatient corticosteroid injection if persists DVT prophylaxis with SCDs Discharge Planning Anticipate D/C early this week, possibly as early as Sunday pending clearance by ID. Problem Qualifiers (1) Back pain: Qualified Code: M54.5 - Acute midline low back pain without sciatica Jorge Carrasquillo MD R3 Aug 27, 2016 10:14
[2016-08-27] MEDS ORDERED: CYCLOBENZAPRINE HCL 10 MG TAB PO ONE (10:15)
[2016-08-27 12:00] VITALS: BP 122/69; PULSE 66; RESP 16; TEMP 97.6; O2SAT 99
--- NOTE | 2016-08-27 13:54 | HHI.PR ---
Addendum to Inpatient Note Addendum Reason: Additional Documentation Additional Information I need records from outside hospital to determine how long he received treatment and what workup he has had to determine final recommendations. Hopefully these available to me in am. Margo Powell to obtain records on Sunday. Ceftriaxone once a day for 6 weeks is the tentative plan but if patient has received treatment this may be shortened. Will follow in am. Tosha Lou MD Aug 27, 2016 13:54
[2016-08-27 16:00] VITALS: BP 127/70; PULSE 73; RESP 16; TEMP 98.2; O2SAT 99
--- NOTE | 2016-08-27 16:34 | HHI.NSPN ---
Note Status Status: Progress Note Interval History Interval History 08/22: Patient presented to the emergency department for worsening back pain. He was recently treated for osteomyelitis in [facility] with ceftriaxone for 4 days per the patient and then discharged home. The patient states that he had a kyphoplasty to L3 and subsequently developed the infection. He states that he was evaluated for any infection prior to his surgery and there were no findings suggestive of infection, therefore [facility] proceeded with the surgery. 08/23: The patient appears uncomfortable due to pain which is his only complaint. The pain is to the back and the abdomen. He had a biopsy under CT guidance this afternoon. 08/24: Patient uncomfortable due to back pain, adjusts self for comfort. Also complains of abdominal pain. 08/25: Patient appears more comfortable, laying flat on stretches "stretching my back out." He still has the low back pain that radiates around to the abdomen 08/26: Back pain that radiates to the groins. Good strength 08/27: Continues with back pain that radiates to the groins. Good strength Labs, Micro, & Vital Signs Results Date Time Temp Pulse Resp B/P Pulse Ox O2 Delivery O2 Flow Rate FiO2 08/27/16 16:00 98.2 73 16 127/70 99 08/27/16 12:00 97.6 66 16 122/69 99 08/27/16 08:00 97.2 72 17 118/71 98 08/27/16 04:59 17 08/27/16 04:32 18 08/27/16 00:00 98.5 72 18 108/64 98 08/26/16 20:00 97.9 80 20 124/58 96 08/27/16 07:00 Intake Total 2260 ml Output Total 1000 ml Balance 1260 ml Constitutional Vital Signs Date Time Temp Pulse Resp B/P Pulse Ox O2 Delivery O2 Flow Rate FiO2 08/27/16 16:00 98.2 73 16 127/70 99 08/27/16 12:00 97.6 66 16 122/69 99 08/27/16 08:00 97.2 72 17 118/71 98 08/27/16 04:59 17 08/27/16 04:32 18 08/27/16 00:00 98.5 72 18 108/64 98 08/26/16 20:00 97.9 80 20 124/58 96 08/27/16 07:00 Intake Total 2260 ml Output Total 1000 ml Balance 1260 ml Review of Systems/Exam Exam HEENT: Normocephalic, atraumatic. PERRLA, EOM intact. Neck: No midline cervical TTP, no step-offs or deformities, no pain w/ROM, no JVD, trachea midline. Resp: CTAB w/o W/R/R, equal excursion, non-laboured, on RA. CV: S1S2 w/RRR w/o M/G/R, cap refill < 2 sec, radial & pedal pulses 2+ bilaterally, no pedal edema. GI: Abdomen soft, nontender, no palpable masses or organomegaly, positive bowel sounds. Extremities: ARDON spontaneously, no evident deformity, discolouration or clubbing. Back: Minimally TTP from lower thoracic spine to sacrum,. Neuro: AAOx3. Speech clear & appropriate. Follows commands. Sensation grossly intact to light touch to all extremities. Motor strength essentially 5/5 to all extremities. Medications Current Medications Current Medications Ketorolac Tromethamine (Toradol Inj) 30 mg ONCE ONCE IV PUSH Last administered on 08/22/16 22:45; Start 08/22/16 at 22:15; Stop 08/22/16 at 22:18 ; Status DC Hydromorphone HCl (Dilaudid Pf Inj) 1 mg ONCE ONCE IV PUSH Last administered on 08/22/16 22:44; Start 08/22/16 at 22:15; Stop 08/22/16 at 22:18; Status DC Gadodiamide (Omniscan Pf Inj) 15 ml STK-MED ONCE IV Last administered on 23:43; Start 08/22/16 at 23:43; Stop 08/22/16 at 23:44; Status DC Sodium Chloride (NS Flush) 2 ml UNSCH PRN IV FLUSH FLUSH AFTER USING IV ACCESS ; Start 08/23/16 at 02:00 Sodium Chloride (NS Flush) 2 ml BID IV FLUSH Last administered on 4/30/17at 08: 53; Start 08/23/16 at 09:00 Naloxone HCl (Narcan Inj) 0.4 mg UNSCH PRN IV SEE LABEL COMMENTS; Start at 02:00; Stop 08/25/16 at 10:32; Status DC Hydromorphone HCl (Dilaudid Pf Inj) 0.2 mg Q4H PRN IV PUSH breakthru pain Last administered on 08/27/16 14:06; Start 08/23/16 at 02:15 Acetaminophen (Tylenol) 650 mg Q4H PRN PO Temp > 100.4, pain 1-2; Start at 08:30 Ondansetron HCl (Zofran Inj) 4 mg Q6H PRN IV NAUSEA; Start 08/23/16 at 08:30 Senna/Docusate Sodium (Lora-Colace) 1 tab BID PRN PO CONSTIPATION; Start at 08:30; Stop 08/27/16 at 10:11; Status DC Calcium Carbonate 1000 mg 1,000 mg TID PRN CHEW DYSPEPSIA; Start 08/23/16 at 08 :30 Pharmacy Profile Note 0 ml @ 0 mls/hr UNSCH OTHER ; Start 08/23/16 at 10:15; Stop 08/23/16 at 10:18; Status DC Vancomycin HCl 1000 mg/Sodium Chloride 250 ml @ 250 mls/hr ONCE ONCE IV ; Start 08/23/16 at 17:00; Stop 08/23/16 at 17:00; Status Cancel Vancomycin HCl/ Sodium Chloride (Vancomycin Inj/ NS 250 ml Inj) 250 ml @ 250 mls/hr ONCE ONCE IV ; Start 08/23/16 at 17:00; Stop 08/23/16 at 17:00; Status DC Lidocaine/ Epinephrine (Xylocaine-Epi 1%-1:100,000 Inj) 20 ml STK-MED ONCE .ROUTE Last administered on 08/23/16 13:03; Start 08/23/16 at 13:03; Stop at 13:04; Status DC Midazolam HCl (Versed Inj) 5 mg STK-MED ONCE .ROUTE Last administered on 13:28; Start 08/23/16 at 13:28; Stop 08/23/16 at 13:29; Status DC Fentanyl Citrate (fentaNYL INJ) 250 mcg STK-MED ONCE .ROUTE Last administered on 08/23/16 13:28; Start 08/23/16 at 13:28; Stop 08/23/16 at 13:29; Status DC Fentanyl Citrate 100 mcg 100 mcg STK-MED ONCE .ROUTE Last administered on 13:59; Start 08/23/16 at 13:59; Stop 08/23/16 at 14:00; Status DC Pharmacy Profile Note 0 ml @ 0 mls/hr UNSCH OTHER ; Start 08/24/16 at 10:00; Stop 08/25/16 at 09:48; Status DC Vancomycin HCl 1000 mg/Sodium Chloride 250 ml @ 250 mls/hr ONCE ONCE IV ; Start 08/24/16 at 10:00; Stop 08/24/16 at 10:59; Status UNV Piperacillin Sod/ Tazobactam Sod 50 ml @ 100 mls/hr Q6H IV Last administered on 08/25/16 04:00; Start 08/24/16 at 10:00; Stop 08/25/16 at 09:48; Status DC Vancomycin HCl/ Sodium Chloride (Vancomycin Inj/ NS 500 ml Inj) 515 ml @ 250 mls/hr Q12H IV Last administered on 08/25/16 01:00; Start 08/24/16 at 13:00; Stop 08/25/16 at 09:48; Status DC Miscellaneous Information SPECIFIC LAB TO BE DRAWN:VANCOMYCIN TROUGH DATE TO... ONCE ONCE .XX ; Start 08/26/16 at 00:45; Stop 08/26/16 at 00:46; Status Cancel Tramadol HCl (Ultram) 50 mg Q4H PRN PO PAIN SCALE 3 TO 5; Start 08/25/16 at 11: 00 Tramadol HCl (Ultram) 100 mg Q4H PRN PO PAIN SCALE 6 TO 10 Last administered on 08/27/16 12:51; Start 08/25/16 at 11:00 Naloxone HCl 0.4 mg 0.4 mg UNSCH PRN IV SEE LABEL COMMENTS; Start 08/25/16 at 10:00 Levofloxacin/ Dextrose 100 ml @ 100 mls/hr Q24H IV Last administered on 10:59; Start 08/25/16 at 11:00; Stop 08/25/16 at 12:42; Status DC Cefazolin Sodium/ Dextrose (Ancef 2 Gm Premix) 50 ml @ 100 mls/hr Q8H IV Last administered on 08/27/16 14:06; Start 08/25/16 at 14:00 Senna/Docusate Sodium (Lora-Colace) 2 tab BID PO ; Start 08/27/16 at 21:00 Cyclobenzaprine HCl (Flexeril) 5 mg ONCE ONCE PO Last administered on 12:51; Start 08/27/16 at 10:15; Stop 08/27/16 at 10:16; Status DC Medical Decision Making MDM Remarks L2-3 discitis - osteomyelitis No definite significant drainable abscess seen on MRI History of L3 kyphoplasty Staph aureus from LP puncture. Plan Plan Remarks PT & OT eval & tx Mobilise patient w/assistance Diet as tolerated Continuing antibiotics MSSA discitis-osteomyelitis Denzel Napier MD Aug 27, 2016 16:34
--- NOTE | 2016-08-27 19:01 | EC ---
Study Study Date:08/27/2016 STUDY CONCLUSIONS SUMMARY - Left ventricle: The cavity size was normal. Wall thickness was normal. Systolic function was normal. The estimated ejection fraction was 55%. Wall motion was normal; there were no regional wall motion abnormalities. - Tricuspid valve: Mild regurgitation. - Pulmonary arteries: PA peak pressure: 32mm Hg (S). If LV function is below 40, please consider prescribing an ACEI or ARB or document rationale for non-use. PROCEDURE DATA STUDY STATUS: Elective. Procedure: Transthoracic echocardiography. Image quality was good. Scanning was performed from the parasternal, apical, and subcostal acoustic windows. Study completion: The patient tolerated the procedure well. Transthoracic echocardiography. M-mode, complete 2D, complete spectral Doppler, and color Doppler. Patient status: Inpatient. CARDIAC ANATOMY LEFT VENTRICLE: The cavity size was normal. Wall thickness was normal. Systolic function was normal. The estimated ejection fraction was 55%. Wall motion was normal; there were no regional wall motion abnormalities. AORTIC VALVE: Trileaflet; normal thickness leaflets. Doppler: Transvalvular velocity was within the normal range. There was no stenosis. No regurgitation. AORTA: Aortic root: The aortic root was normal in size. MITRAL VALVE: Structurally normal valve. Doppler: Transvalvular velocity was within the normal range. There was no evidence for stenosis. Trace regurgitation. LEFT ATRIUM: The atrium was normal in size. RIGHT VENTRICLE: The cavity size was normal. Wall thickness was normal. PULMONIC VALVE: Doppler: Transvalvular velocity was within the normal range. There was no evidence for stenosis. No regurgitation. TRICUSPID VALVE: Structurally normal valve. Doppler: Transvalvular velocity was within the normal range. Mild regurgitation. PULMONARY ARTERY: The main pulmonary artery was normal-sized. Systolic pressure was within the normal range. RIGHT ATRIUM: The atrium was normal in size. PERICARDIUM: There was no pericardial effusion. SYSTEMIC VEINS: Inferior vena cava: The vessel was normal in size. BASIC MEASUREMENTS ADULT NORMAL Left ventricle LV internal dimension, ES, chordal level, 36.1 mm 23-38 PLAX Volume, ED, MOD, 1-plane 83 ml Volume, ES, MOD, 1-plane 38 ml Ejection fraction, MOD, 1-plane 54 % Stroke volume, MOD, 1-plane 45 ml Aortic valve Leaflet separation 16 mm 15-26 BASIC MEASUREMENTS ADULT NORMAL Aortic valve Leaflet separation 16 mm 15-26 Aorta Root diameter, ED 26 mm 20-37 Left atrium Anterior-posterior dimension, ES 31 mm 19-40 LA/aortic root ratio 1.19 DOPPLER MEASUREMENTS ADULT NORMAL Main pulmonary artery Pressure, S *32 mm Hg =30 Tricuspid valve Regurgitant peak velocity 236 cm/s Peak RV-RA gradient, S 22 mm Hg Maximal regurgitant velocity 236 cm/s Systemic veins Estimated CVP 10 mm Hg Right ventricle RV pressure, S *32 mm Hg <30 LEGEND: Mean values are shown as u=mean value. Asterisk (*) flowers values outside specified normal range. Prepared and signed by Vitor Wagner [id number]
[2016-08-27 20:00] VITALS: BP 145/81; PULSE 80; RESP 20; TEMP 97; O2SAT 100
[2016-08-27] MEDS: DOCUSATE SODIUM 50 MG/SENNA 8.6 MG TAB PO SCH (22:46)
[2016-08-28 00:20] VITALS: BP 132/82; PULSE 79; RESP 18; TEMP 97.8; O2SAT 97
[2016-08-28] MEDS: traMADol HCL 50 MG TAB PO PRN ×6 (02:23→22:42)
[2016-08-28] MEDS: HYDROmorphone HCL PF 1 MG/ML VIAL IV PUSH PRN ×5 (03:39→20:19)
[2016-08-28 05:13] LABS: AUTOMATED NEUTROPHIL # 6.2 TH/MM3 (1.8-7.7); BASOPHIL # 0.1 TH/MM3 (0-0.2); BASOPHIL % 0.8 % (0.0-2.0); EOSINOPHIL # 0.4 TH/MM3 (0-0.4); EOSINOPHIL % 3.7 % (0.0-4.0); HEMATOCRIT 39.2 % (39.0-51.0); HEMO FLAGS DIFF FINAL; LYMPH % 24.3 % (9.0-44.0); LYMPHOCYTE # 2.4 TH/MM3 (1.0-4.8); MEAN CELL VOLUME 82.6 FL (80.0-100.0); MEAN CORPUSCULAR HEMOGLOBIN 27.8 PG (27.0-34.0); MEAN CORPUSCULAR HGB CONC 33.7 % (32.0-36.0); MONO % 7.7 % (0.0-8.0); NEUT % 63.5 % (16.0-70.0); PLATELET COUNT 448 TH/MM3 (150-450); RED BLOOD COUNT 4.75 MIL/MM3 (4.50-5.90); RED CELL DISTRIBUTION WIDTH 14.3 % (11.6-17.2); WHITE BLOOD COUNT 9.8 TH/MM3 (4.0-11.0)
[2016-08-28 05:34] LABS: BICARBONATE 30.8 MEQ/L (21.0-32.0); POTASSIUM 4.5 MEQ/L (3.5-5.1)
[2016-08-28] MEDS: ceFAZolin 2 GM PREMIX 50 ML IV SCH ×3 (06:30→20:18)
[2016-08-28] MEDS: DOCUSATE SODIUM 50 MG/SENNA 8.6 MG TAB PO SCH ×2 (07:36→20:18)
[2016-08-28] MEDS: SODIUM CHLORIDE 0.9% FLUSH 10 ML FLUSH IV FLUSH SCH ×2 (07:39→20:19)
[2016-08-28 08:00] VITALS: BP 131/80; PULSE 70; RESP 18; TEMP 97.8; O2SAT 98
--- NOTE | 2016-08-28 08:24 | HHI.PR ---
Subjective Remarks in no acute distress. although somewhat uncomfortable with the back pain. no fever. Objective Vitals Vital Signs Date Time Temp Pulse Resp B/P Pulse Ox O2 Delivery O2 Flow Rate FiO2 08/28/16 00:20 97.8 79 18 132/82 97 08/27/16 20:00 97.0 80 20 145/81 100 08/27/16 16:00 98.2 73 16 127/70 99 08/27/16 12:00 97.6 66 16 122/69 99 I/O 08/27/16 08/27/16 08/27/16 08/28/16 08/28/16 08/28/16 07:00 15:00 23:00 07:00 15:00 23:00 Intake Total 340 ml 480 ml 480 ml 380 ml Output Total 400 ml 600 ml 700 ml Balance -60 ml 480 ml -120 ml -320 ml Intake Oral 240 ml 480 ml 480 ml 380 ml IV Total 100 ml Output Urine Total 400 ml 600 ml 700 ml # Voids 3 # Bowel Movements 0 0 0 Result Diagram: 08/28/16 0500 08/28/16 0500 Imaging Last Impressions Needle Aspiration CT 08/23/16 0000 Signed Impressions: Service Date/Time: Tuesday, August 23, 2016 13:35 - CONCLUSION: Uncomplicated L2-3 disc as described above. Juan Temple MD FACR Lumbar Spine X-Ray 08/23/16 0000 Signed Impressions: Service Date/Time: Tuesday, August 23, 2016 01:03 - CONCLUSION: 1. Evidence of previous kyphoplasty of L3. 2. Primary degenerative type changes involving the lumbar spine. 3. Demineralization of the bone along the inter endplate of L2 corresponding to patient's known infection involving L2-L3 Candido Chew MD Lumbar Spine MRI 08/22/16 0000 Signed Impressions: Service Date/Time: Monday, August 22, 2016 23:01 - CONCLUSION: 1. There is abnormal marrow edema involving L2 and L3 as well as enhancement of the disc space at L2-L3. These findings are highly suspicious for discitis and osteomyelitis. There appears to be enhancing inflammatory tissue in the paraspinal location which is involving the psoas muscles bilaterally. 2. There is enhancing inflammatory tissue in the anterior epidural space at L2-L3 highly suspicious for an epidural abscess. These findings are causing some mild to moderate spinal canal stenosis at this level. 3. There is broad-based bulging at multiple levels as described above. 4. 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 Candido Chew MD Objective Remarks GENERAL: This is a well-nourished, well-developed patient, in no apparent distress. CARDIOVASCULAR: Regular rate and regular rhythm without murmurs, gallops, or rubs. RESPIRATORY: Clear to auscultation. Breath sounds equal bilaterally. No wheezes , rales, or rhonchi. GASTROINTESTINAL: Abdomen soft, non-tender, nondistended. Normal, active bowel sounds MUSCULOSKELETAL: Extremities without clubbing, cyanosis, or edema. NEURO: Alert & Oriented x4 to person, place, time, situation. Moves all ext x4 Procedures CT-guided aspirate of the lumbar spine Medications and IVs Current Medications Ketorolac Tromethamine (Toradol Inj) 30 mg ONCE ONCE IV PUSH Last administered on 08/22/16 22:45; Start 08/22/16 at 22:15; Stop 08/22/16 at 22:18 ; Status DC Hydromorphone HCl (Dilaudid Pf Inj) 1 mg ONCE ONCE IV PUSH Last administered on 08/22/16 22:44; Start 08/22/16 at 22:15; Stop 08/22/16 at 22:18; Status DC Gadodiamide (Omniscan Pf Inj) 15 ml STK-MED ONCE IV Last administered on 23:43; Start 08/22/16 at 23:43; Stop 08/22/16 at 23:44; Status DC Sodium Chloride (NS Flush) 2 ml UNSCH PRN IV FLUSH FLUSH AFTER USING IV ACCESS ; Start 08/23/16 at 02:00 Sodium Chloride (NS Flush) 2 ml BID IV FLUSH Last administered on 08/28/16 07: 39; Start 08/23/16 at 09:00 Naloxone HCl (Narcan Inj) 0.4 mg UNSCH PRN IV SEE LABEL COMMENTS; Start at 02:00; Stop 08/25/16 at 10:32; Status DC Hydromorphone HCl (Dilaudid Pf Inj) 0.2 mg Q4H PRN IV PUSH breakthru pain Last administered on 08/28/16 07:48; Start 08/23/16 at 02:15 Acetaminophen (Tylenol) 650 mg Q4H PRN PO Temp > 100.4, pain 1-2; Start at 08:30 Ondansetron HCl (Zofran Inj) 4 mg Q6H PRN IV NAUSEA; Start 08/23/16 at 08:30 Senna/Docusate Sodium (Lora-Colace) 1 tab BID PRN PO CONSTIPATION; Start at 08:30; Stop 08/27/16 at 10:11; Status DC Calcium Carbonate 1000 mg 1,000 mg TID PRN CHEW DYSPEPSIA; Start 08/23/16 at 08 :30 Pharmacy Profile Note 0 ml @ 0 mls/hr UNSCH OTHER ; Start 08/23/16 at 10:15; Stop 08/23/16 at 10:18; Status DC Vancomycin HCl 1000 mg/Sodium Chloride 250 ml @ 250 mls/hr ONCE ONCE IV ; Start 08/23/16 at 17:00; Stop 08/23/16 at 17:00; Status Cancel Vancomycin HCl/ Sodium Chloride (Vancomycin Inj/ NS 250 ml Inj) 250 ml @ 250 mls/hr ONCE ONCE IV ; Start 08/23/16 at 17:00; Stop 08/23/16 at 17:00; Status DC Lidocaine/ Epinephrine (Xylocaine-Epi 1%-1:100,000 Inj) 20 ml STK-MED ONCE .ROUTE Last administered on 08/23/16 13:03; Start 08/23/16 at 13:03; Stop at 13:04; Status DC Midazolam HCl (Versed Inj) 5 mg STK-MED ONCE .ROUTE Last administered on 13:28; Start 08/23/16 at 13:28; Stop 08/23/16 at 13:29; Status DC Fentanyl Citrate (fentaNYL INJ) 250 mcg STK-MED ONCE .ROUTE Last administered on 08/23/16 13:28; Start 08/23/16 at 13:28; Stop 08/23/16 at 13:29; Status DC Fentanyl Citrate 100 mcg 100 mcg STK-MED ONCE .ROUTE Last administered on 13:59; Start 08/23/16 at 13:59; Stop 08/23/16 at 14:00; Status DC Pharmacy Profile Note 0 ml @ 0 mls/hr UNSCH OTHER ; Start 08/24/16 at 10:00; Stop 08/25/16 at 09:48; Status DC Vancomycin HCl 1000 mg/Sodium Chloride 250 ml @ 250 mls/hr ONCE ONCE IV ; Start 08/24/16 at 10:00; Stop 08/24/16 at 10:59; Status UNV Piperacillin Sod/ Tazobactam Sod 50 ml @ 100 mls/hr Q6H IV Last administered on 08/25/16 04:00; Start 08/24/16 at 10:00; Stop 08/25/16 at 09:48; Status DC Vancomycin HCl/ Sodium Chloride (Vancomycin Inj/ NS 500 ml Inj) 515 ml @ 250 mls/hr Q12H IV Last administered on 08/25/16 01:00; Start 08/24/16 at 13:00; Stop 08/25/16 at 09:48; Status DC Miscellaneous Information SPECIFIC LAB TO BE DRAWN:VANCOMYCIN TROUGH DATE TO... ONCE ONCE .XX ; Start 08/26/16 at 00:45; Stop 08/26/16 at 00:46; Status Cancel Tramadol HCl (Ultram) 50 mg Q4H PRN PO PAIN SCALE 3 TO 5; Start 08/25/16 at 11: 00 Tramadol HCl (Ultram) 100 mg Q4H PRN PO PAIN SCALE 6 TO 10 Last administered on 08/28/16 06:30; Start 08/25/16 at 11:00 Naloxone HCl 0.4 mg 0.4 mg UNSCH PRN IV SEE LABEL COMMENTS; Start 08/25/16 at 10:00 Levofloxacin/ Dextrose 100 ml @ 100 mls/hr Q24H IV Last administered on 10:59; Start 08/25/16 at 11:00; Stop 08/25/16 at 12:42; Status DC Cefazolin Sodium/ Dextrose (Ancef 2 Gm Premix) 50 ml @ 100 mls/hr Q8H IV Last administered on 08/28/16 06:30; Start 08/25/16 at 14:00 Senna/Docusate Sodium (Lora-Colace) 2 tab BID PO Last administered on 08/28/16 07:36; Start 08/27/16 at 21:00 Cyclobenzaprine HCl (Flexeril) 5 mg ONCE ONCE PO Last administered on t 12:51; Start 08/27/16 at 10:15; Stop 08/27/16 at 10:16; Status DC A/P Assessment and Plan A/P - Back pain, discitis, osteomyelitis MRI report reviewed and reveals findings highly suspicious for discitis with osteomyelitis and inflammation paraspinal inflammation Patient seen by neurosurgery Dr. Tate who states "No definite significant drainable abscess seen on MRI. Status post Interventional radiology CT-guided aspiration of discitis L2 to L3 on 08/23/16 Continue tramadol 50mg P 3-5 and 100mg P 6-10 w/ IV Dilaudid 0.2mg for breakthrough pain management. Counseled regarding narcotics. ID following. Wound culture 08/23 positive for MSSA, continue Ancef 2g q8hrs Blood cultures 2 NG. continue Physical therapy DVT prophylaxis with SCDs Oliver Huff MD August 28, 2016 08:24
[2016-08-28 12:00] VITALS: BP 128/70; PULSE 76; RESP 18; TEMP 97.6; O2SAT 99
--- NOTE | 2016-08-28 13:50 | HHI.IDPN ---
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 kyphoplasty remains to be confirmed but no visible hardware on imaging here at [facility]. Patient is an extremely poor historian. He was unable to tell me which medications were used and how long he recd IV antibiotics. He reports h/o Hepatitis C untreated. Patient presented to emergency department for evaluation of sharp shooting pain lower back. Pain radiates in to BLE. Patient also reports bilateral lower extremity numbness and tingling. Patient denies urine or stool incontinence, constipation. Patient reports he was recently treated [facility] for same back pain reports he stayed there for 3-4 days believes he had antibiotics and was discharged a few days ago. This is in contrast to what the ER documentation reports that patient had a kyphoplasty of L3 3 months ago and stated [facility] for approximately one month on IV antibiotics left AMA because his pain was not controlled adequately. Reviewed records: patient had cultures on 06/10/2016 positive for MSSA and patient was sent home on Bactrim, Cipo and Keflex. Not sure about compliance. Is homeless and [facility] not willing to help with patient assistance at this point. Patient denies IV drug use at this time. Patient reports is a history of IV drug use proximally the 20-30 years ago. Hepatitis C by history. Patient denies chest pain shortness of breath nausea vomiting diarrhea constipation fevers or chills. ID consulted for evaluation and Mment of discitis and osteomyelitis. Antibiotics Ancef IV Lines Line sites with no eo infection Past Medical History reviewed. Allergies: Coded Allergies: No Known Allergies (Unverified , 08/22/16) Objective . Vital Signs Date Time Temp Pulse Resp B/P Pulse Ox O2 Delivery O2 Flow Rate FiO2 08/28/16 12:00 97.6 76 18 128/70 99 08/28/16 08:00 97.8 70 18 131/80 98 08/28/16 00:20 97.8 79 18 132/82 97 08/27/16 20:00 97.0 80 20 145/81 100 08/27/16 16:00 98.2 73 16 127/70 99 08/27/16 08/27/16 08/28/16 15:00 23:00 07:00 Intake Total 480 ml 480 ml 380 ml Output Total 600 ml 700 ml Balance 480 ml -120 ml -320 ml Intake Oral 480 ml 480 ml 380 ml Output Urine Total 600 ml 700 ml # Voids 3 # Bowel Movements 0 0 . Laboratory Tests Test 08/27/16 08/28/16 04:00 05:00 White Blood Count 10.8 TH/MM3 9.8 TH/MM3 Red Blood Count 4.76 MIL/MM3 4.75 MIL/MM3 Hemoglobin 13.2 GM/DL 13.2 GM/DL Hematocrit 39.1 % 39.2 % Mean Corpuscular Volume 82.0 FL 82.6 FL Mean Corpuscular Hemoglobin 27.8 PG 27.8 PG Mean Corpuscular Hemoglobin 33.9 % 33.7 % Concent Red Cell Distribution Width 13.8 % 14.3 % Platelet Count 476 TH/MM3 448 TH/MM3 Mean Platelet Volume 7.7 FL 7.1 FL Neutrophils (%) (Auto) 69.0 % 63.5 % Lymphocytes (%) (Auto) 20.8 % 24.3 % Monocytes (%) (Auto) 6.2 % 7.7 % Eosinophils (%) (Auto) 3.3 % 3.7 % Basophils (%) (Auto) 0.7 % 0.8 % Neutrophils # (Auto) 7.4 TH/MM3 6.2 TH/MM3 Lymphocytes # (Auto) 2.2 TH/MM3 2.4 TH/MM3 Monocytes # (Auto) 0.7 TH/MM3 0.8 TH/MM3 Eosinophils # (Auto) 0.4 TH/MM3 0.4 TH/MM3 Basophils # (Auto) 0.1 TH/MM3 0.1 TH/MM3 CBC Comment DIFF FINAL DIFF FINAL Differential Comment Laboratory Tests Test 08/27/16 08/28/16 04:00 05:00 Sodium Level 137 MEQ/L 136 MEQ/L Potassium Level 4.3 MEQ/L 4.5 MEQ/L Chloride Level 99 MEQ/L 98 MEQ/L Carbon Dioxide Level 31.3 MEQ/L 30.8 MEQ/L Anion Gap 7 MEQ/L 7 MEQ/L Blood Urea Nitrogen 16 MG/DL 18 MG/DL Creatinine 0.72 MG/DL 0.76 MG/DL Estimat Glomerular Filtration 120 ML/MIN 113 ML/MIN Rate Random Glucose 85 MG/DL 95 MG/DL Calcium Level 9.1 MG/DL 9.0 MG/DL Imaging Last Impressions Needle Aspiration CT 08/23/16 0000 Signed Impressions: Service Date/Time: Tuesday, August 23, 2016 13:35 - CONCLUSION: Uncomplicated L2-3 disc as described above. Juan Temple MD FACR Lumbar Spine X-Ray 08/23/16 0000 Signed Impressions: Service Date/Time: Tuesday, August 23, 2016 01:03 - CONCLUSION: 1. Evidence of previous kyphoplasty of L3. 2. Primary degenerative type changes involving the lumbar spine. 3. Demineralization of the bone along the inter endplate of L2 corresponding to patient's known infection involving L2-L3 Candido Chew MD Lumbar Spine MRI 08/22/16 0000 Signed Impressions: Service Date/Time: Monday, August 22, 2016 23:01 - CONCLUSION: 1. There is abnormal marrow edema involving L2 and L3 as well as enhancement of the disc space at L2-L3. These findings are highly suspicious for discitis and osteomyelitis. There appears to be enhancing inflammatory tissue in the paraspinal location which is involving the psoas muscles bilaterally. 2. There is enhancing inflammatory tissue in the anterior epidural space at L2-L3 highly suspicious for an epidural abscess. These findings are causing some mild to moderate spinal canal stenosis at this level. 3. There is broad-based bulging at multiple levels as described above. 4. 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 Candido Chew MD Physical Exam GENERAL: This is a well-nourished, well-developed patient, in no apparent distress. SKIN: No rashes, ecchymoses or lesions. Cool and dry. Multiple tattoos but none are new. HEAD: Atraumatic. Normocephalic. No temporal or scalp tenderness. EYES: Pupils equal round and reactive. Extraocular motions intact. No scleral icterus. No injection or drainage. ENT: Nose without bleeding, purulent drainage or septal hematoma. Throat without erythema, tonsillar hypertrophy or exudate. Uvula midline. Airway patent. NECK: Trachea midline. Supple, nontender, no meningeal signs. CARDIOVASCULAR: RRR RESPIRATORY: Clear to auscultation. Breath sounds equal bilaterally. GASTROINTESTINAL: Abdomen soft, non-tender, nondistended. MUSCULOSKELETAL: Extremities without clubbing, cyanosis, or edema. NEUROLOGICAL: Awake and alert. Grossly non focal. Power 4plus/5. No BB incontinence or loss of perineal sensation per patient. He defers a rectal exam Psych: cooperative IV line sites with no e/o infection. 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 2D ECHO with no vegetations. BCX negative. Records reviewed pt had MSSA infection 06/10/2016. Pt was discharged on Bactrim, Keflex, Cipro. Unsure if compliant with meds and follow up. Dr.Isaac GERONIMO MENJIVAR at [facility] saw pt. dw pts family who refused to take him home with him as they are taking care of other sick pts in home. Benjie case management who is working with [facility] and [facility] for DC planning. Tosha Lou MD August 28, 2016 13:50
[2016-08-28 16:00] VITALS: BP 128/75; PULSE 72; RESP 17; TEMP 97.3; O2SAT 99
--- NOTE | 2016-08-28 18:43 | HHI.NSPN ---
(Mario Purdy) Note Status Status: Progress Note (Mario Purdy) Interval History Interval History 08/22: Patient presented to the emergency department for worsening back pain. He was recently treated for osteomyelitis in [facility] with ceftriaxone for 4 days per the patient and then discharged home. The patient states that he had a kyphoplasty to L3 and subsequently developed the infection. He states that he was evaluated for any infection prior to his surgery and there were no findings suggestive of infection, therefore [facility] proceeded with the surgery. 08/23: The patient appears uncomfortable due to pain which is his only complaint. The pain is to the back and the abdomen. He had a biopsy under CT guidance this afternoon. 08/24: Patient uncomfortable due to back pain, adjusts self for comfort. Also complains of abdominal pain. 08/25: Patient appears more comfortable, laying flat on stretches "stretching my back out." He still has the low back pain that radiates around to the abdomen. 08/26: Back pain that radiates to the groins. Good strength 08/27: Continues with back pain that radiates to the groins. Good strength 08/28: Patient still with back pain that radiates to the groins. Still has abdominal. States burning to the right groin today but just some numbness to the left. Also feels some pain radiating up his left latissimus muscle toward the shoulder. (Mario Purdy) Labs, Micro, & Vital Signs Results Allergies Coded Allergies Type Severity Reaction Last Updated Verified No Known Allergies 08/22/16 No 08/26/174/29/174/30/174/30/175/1//05/16 06: 18:00 06:00 18: 06: 18:00 Intake Total 560 ml 1540 ml 820 ml 480 ml 860 ml 400 ml Output Total 600 ml 1000 ml 1300 ml 300 ml Balance -40 ml 1540 ml -180 ml 480 ml -440 ml 100 ml Intake Oral 560 ml 1440 ml 720 ml 480 ml 860 ml 400 ml IV Total 100 ml 100 ml Output Urine Total 600 ml 1000 ml 1300 ml 300 ml # Voids 6 3 # Bowel Movements 0 0 0 0 0 Laboratory Tests Test 08/27/16 08/28/16 04:00 05:00 White Blood Count 10.8 TH/MM3 9.8 TH/MM3 Red Blood Count 4.76 MIL/MM3 4.75 MIL/MM3 Hemoglobin 13.2 GM/DL 13.2 GM/DL Hematocrit 39.1 % 39.2 % Mean Corpuscular Volume 82.0 FL 82.6 FL Mean Corpuscular Hemoglobin 27.8 PG 27.8 PG Mean Corpuscular Hemoglobin 33.9 % 33.7 % Concent Red Cell Distribution Width 13.8 % 14.3 % Platelet Count 476 TH/MM3 448 TH/MM3 Mean Platelet Volume 7.7 FL 7.1 FL Neutrophils (%) (Auto) 69.0 % 63.5 % Lymphocytes (%) (Auto) 20.8 % 24.3 % Monocytes (%) (Auto) 6.2 % 7.7 % Eosinophils (%) (Auto) 3.3 % 3.7 % Basophils (%) (Auto) 0.7 % 0.8 % Neutrophils # (Auto) 7.4 TH/MM3 6.2 TH/MM3 Lymphocytes # (Auto) 2.2 TH/MM3 2.4 TH/MM3 Monocytes # (Auto) 0.7 TH/MM3 0.8 TH/MM3 Eosinophils # (Auto) 0.4 TH/MM3 0.4 TH/MM3 Basophils # (Auto) 0.1 TH/MM3 0.1 TH/MM3 CBC Comment DIFF FINAL DIFF FINAL Differential Comment Sodium Level 137 MEQ/L 136 MEQ/L Potassium Level 4.3 MEQ/L 4.5 MEQ/L Chloride Level 99 MEQ/L 98 MEQ/L Carbon Dioxide Level 31.3 MEQ/L 30.8 MEQ/L Anion Gap 7 MEQ/L 7 MEQ/L Blood Urea Nitrogen 16 MG/DL 18 MG/DL Creatinine 0.72 MG/DL 0.76 MG/DL Estimat Glomerular Filtration 120 ML/MIN 113 ML/MIN Rate Random Glucose 85 MG/DL 95 MG/DL Calcium Level 9.1 MG/DL 9.0 MG/DL Constitutional Vital Signs Date Time Temp Pulse Resp B/P Pulse Ox O2 Delivery O2 Flow Rate FiO2 08/28/16 16:00 97.3 72 17 128/75 99 08/28/16 12:00 97.6 76 18 128/70 99 08/28/16 08:00 97.8 70 18 131/80 98 08/28/16 00:20 97.8 79 18 132/82 97 08/27/16 20:00 97.0 80 20 145/81 100 08/28/16 07:00 Intake Total 1340 ml Output Total 1300 ml Balance 40 ml (Mario Purdy) Review of Systems/Exam ROS Resp: Denies any shortness of breath or productive cough. Cardiac: Denies any chest pain, palpitations or irregular heart beat. GI: Does complain of abdominal pain but denies any nausea, vomiting or bowel incontinence. : Denies any bladder incontinence. Extremities: Denies any pain or weakness to the extremities. Back: Low back pain radiating to the front and into the groins, also with pain radiating up the left latissimus from the back. Neuro: With numbness to the groin and a burning pain to the right groin, also with pain radiating up the left latissimus from the back. Denies any headache, dizziness or weakness. Exam HEENT: Normocephalic, atraumatic. Neck: No midline cervical TTP, no pain w/ROM, no JVD, trachea midline. Resp: CTAB w/o W/R/R, equal excursion, non-laboured, on RA. CV: S1S2 w/RRR w/o M/G/R, cap refill < 2 sec, radial & pedal pulses 2+ bilaterally, no pedal edema. GI: Abdomen soft, nontender, no palpable masses or organomegaly, positive bowel sounds. Extremities: ARDON spontaneously, no evident deformity, discolouration or clubbing. Back: Mildly TTP from lower thoracic spine to sacrum and across lower back laterally. Neuro: AAOx3. Speech clear & appropriate. Follows commands. Numbness to bilateral groins otherwise sensation grossly intact to light touch to all extremities. Motor strength essentially 5/5 to all extremities. (Mario Purdy) Medications Current Medications Current Medications Medications (Trade) Dose Ordered Sig/Frank Route Start Time Stop Time Status Last Admin (NS Flush) 2 ml UNSCH PRN IV FLUSH 08/23/16 02:00 (NS Flush) 2 ml BID IV FLUSH 08/23/16 09:00 08/28/16 07:39 (Dilaudid Pf Inj) 0.2 mg Q4H PRN IV PUSH 08/23/16 02:15 08/28/16 15:49 (Tylenol) 650 mg Q4H PRN PO 08/23/16 08:30 (Zofran Inj) 4 mg Q6H PRN IV 08/23/16 08:30 (Tums Chew) 1,000 mg TID PRN CHEW 08/23/16 08:30 (Ultram) 50 mg Q4H PRN PO 08/25/16 11:00 08/28/16 14:36 (Ultram) 100 mg Q4H PRN PO 08/25/16 11:00 08/28/16 18:33 Naloxone HCl 0.4 mg 0.4 mg UNSCH PRN IV 08/25/16 10:00 (Ancef 2 Gm Premix) 50 ml @ 100 mls/hr Q8H IV 08/25/16 14:00 08/28/16 14:35 (Lora-Colace) 2 tab BID PO 08/27/16 21:00 08/28/16 07:36 (Mario Purdy) Medical Decision Making MDM Remarks Impression: L2-3 discitis - osteomyelitis No definite significant drainable abscess seen on MRI History of L3 kyphoplasty Staph aureus from LP puncture. No growth from blood cultures (Mario Purdy) Plan Plan Remarks Primary mgmt per Attending Continue MSSA abx per Infectious Disease PT & OT eval & tx Mobilise patient w/assistance Diet as tolerated (Mario Purdy) Attending Statement I have personally seen and examined the patient on the date of this note. Pertinent documentation and study results have been reviewed by the undersigned. I have personally developed the treatment plan and performed medical decision making. Agree with findings, exam, and treatment plan as noted above. Patient continues complaining of low [id number] and proximal thigh discomfort. Begin trial of gabapentin Continue antibiotics (Rehan Tate MD) Mario Purdy August 28, 2016 18:43 Rehan Tate MD August 28, 2016 22:10
[2016-08-28 20:15] VITALS: BP 133/75; PULSE 72; RESP 18; TEMP 96.7; O2SAT 96
[2016-08-29 00:06] VITALS: BP 120/68; PULSE 80; RESP 17; TEMP 99; O2SAT 98
[2016-08-29] MEDS: HYDROmorphone HCL PF 1 MG/ML VIAL IV PUSH PRN ×5 (00:40→21:11)
[2016-08-29] MEDS: traMADol HCL 50 MG TAB PO PRN ×4 (02:47→20:26)
[2016-08-29] MEDS: ceFAZolin 2 GM PREMIX 50 ML IV SCH ×3 (04:51→20:26)
[2016-08-29 08:00] VITALS: BP 120/65; PULSE 82; RESP 19; TEMP 97.2; O2SAT 97
--- NOTE | 2016-08-29 08:13 | HHI.PR ---
Subjective Remarks in no acute distress. still with low back pain. no fever. Objective Vitals Vital Signs Date Time Temp Pulse Resp B/P Pulse Ox O2 Delivery O2 Flow Rate FiO2 08/29/16 00:06 99.0 80 17 120/68 98 08/28/16 20:15 96.7 72 18 133/75 96 08/28/16 16:00 97.3 72 17 128/75 99 08/28/16 12:00 97.6 76 18 128/70 99 I/O 08/28/16 08/28/16 08/28/16 08/29/16 08/29/16 08/29/16 07:00 15:00 23:00 07:00 15:00 23:00 Intake Total 380 ml 400 ml 430 ml 430 ml Output Total 700 ml 300 ml 600 ml 700 ml Balance -320 ml 100 ml -170 ml -270 ml Intake Oral 380 ml 400 ml 380 ml 380 ml IV Total 50 ml 50 ml Output Urine Total 700 ml 300 ml 600 ml 700 ml # Bowel Movements 0 0 Result Diagram: 08/28/16 0500 08/28/16 0500 Imaging Last Impressions Needle Aspiration CT 08/23/16 0000 Signed Impressions: Service Date/Time: Tuesday, August 23, 2016 13:35 - CONCLUSION: Uncomplicated L2-3 disc as described above. Juan Temple MD FACR Lumbar Spine X-Ray 08/23/16 0000 Signed Impressions: Service Date/Time: Tuesday, August 23, 2016 01:03 - CONCLUSION: 1. Evidence of previous kyphoplasty of L3. 2. Primary degenerative type changes involving the lumbar spine. 3. Demineralization of the bone along the inter endplate of L2 corresponding to patient's known infection involving L2-L3 Candido Chew MD Lumbar Spine MRI 08/22/16 0000 Signed Impressions: Service Date/Time: Monday, August 22, 2016 23:01 - CONCLUSION: 1. There is abnormal marrow edema involving L2 and L3 as well as enhancement of the disc space at L2-L3. These findings are highly suspicious for discitis and osteomyelitis. There appears to be enhancing inflammatory tissue in the paraspinal location which is involving the psoas muscles bilaterally. 2. There is enhancing inflammatory tissue in the anterior epidural space at L2-L3 highly suspicious for an epidural abscess. These findings are causing some mild to moderate spinal canal stenosis at this level. 3. There is broad-based bulging at multiple levels as described above. 4. 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 Candido Chew MD Objective Remarks GENERAL: This is a well-nourished, well-developed patient, in no apparent distress. CARDIOVASCULAR: Regular rate and regular rhythm without murmurs, gallops, or rubs. RESPIRATORY: Clear to auscultation. Breath sounds equal bilaterally. No wheezes , rales, or rhonchi. GASTROINTESTINAL: Abdomen soft, non-tender, nondistended. Normal, active bowel sounds MUSCULOSKELETAL: Extremities without clubbing, cyanosis, or edema. NEURO: Alert & Oriented x4 to person, place, time, situation. Moves all ext x4 Procedures CT-guided aspirate of the lumbar spine Medications and IVs Current Medications Ketorolac Tromethamine (Toradol Inj) 30 mg ONCE ONCE IV PUSH Last administered on 08/22/16 22:45; Start 08/22/16 at 22:15; Stop 08/22/16 at 22:18 ; Status DC Hydromorphone HCl (Dilaudid Pf Inj) 1 mg ONCE ONCE IV PUSH Last administered on 08/22/16 22:44; Start 08/22/16 at 22:15; Stop 08/22/16 at 22:18; Status DC Gadodiamide (Omniscan Pf Inj) 15 ml STK-MED ONCE IV Last administered on 23:43; Start 08/22/16 at 23:43; Stop 08/22/16 at 23:44; Status DC Sodium Chloride (NS Flush) 2 ml UNSCH PRN IV FLUSH FLUSH AFTER USING IV ACCESS ; Start 08/23/16 at 02:00 Sodium Chloride (NS Flush) 2 ml BID IV FLUSH Last administered on 08/28/16 20: 19; Start 08/23/16 at 09:00 Naloxone HCl (Narcan Inj) 0.4 mg UNSCH PRN IV SEE LABEL COMMENTS; Start at 02:00; Stop 08/25/16 at 10:32; Status DC Hydromorphone HCl (Dilaudid Pf Inj) 0.2 mg Q4H PRN IV PUSH breakthru pain Last administered on 08/29/16 04:51; Start 08/23/16 at 02:15 Acetaminophen (Tylenol) 650 mg Q4H PRN PO Temp > 100.4, pain 1-2; Start at 08:30 Ondansetron HCl (Zofran Inj) 4 mg Q6H PRN IV NAUSEA; Start 08/23/16 at 08:30 Senna/Docusate Sodium (Lora-Colace) 1 tab BID PRN PO CONSTIPATION; Start at 08:30; Stop 08/27/16 at 10:11; Status DC Calcium Carbonate 1000 mg 1,000 mg TID PRN CHEW DYSPEPSIA; Start 08/23/16 at 08 :30 Pharmacy Profile Note 0 ml @ 0 mls/hr UNSCH OTHER ; Start 08/23/16 at 10:15; Stop 08/23/16 at 10:18; Status DC Vancomycin HCl 1000 mg/Sodium Chloride 250 ml @ 250 mls/hr ONCE ONCE IV ; Start 08/23/16 at 17:00; Stop 08/23/16 at 17:00; Status Cancel Vancomycin HCl/ Sodium Chloride (Vancomycin Inj/ NS 250 ml Inj) 250 ml @ 250 mls/hr ONCE ONCE IV ; Start 08/23/16 at 17:00; Stop 08/23/16 at 17:00; Status DC Lidocaine/ Epinephrine (Xylocaine-Epi 1%-1:100,000 Inj) 20 ml STK-MED ONCE .ROUTE Last administered on 08/23/16 13:03; Start 08/23/16 at 13:03; Stop at 13:04; Status DC Midazolam HCl (Versed Inj) 5 mg STK-MED ONCE .ROUTE Last administered on 13:28; Start 08/23/16 at 13:28; Stop 08/23/16 at 13:29; Status DC Fentanyl Citrate (fentaNYL INJ) 250 mcg STK-MED ONCE .ROUTE Last administered on 08/23/16 13:28; Start 08/23/16 at 13:28; Stop 08/23/16 at 13:29; Status DC Fentanyl Citrate 100 mcg 100 mcg STK-MED ONCE .ROUTE Last administered on 13:59; Start 08/23/16 at 13:59; Stop 08/23/16 at 14:00; Status DC Pharmacy Profile Note 0 ml @ 0 mls/hr UNSCH OTHER ; Start 08/24/16 at 10:00; Stop 08/25/16 at 09:48; Status DC Vancomycin HCl 1000 mg/Sodium Chloride 250 ml @ 250 mls/hr ONCE ONCE IV ; Start 08/24/16 at 10:00; Stop 08/24/16 at 10:59; Status UNV Piperacillin Sod/ Tazobactam Sod 50 ml @ 100 mls/hr Q6H IV Last administered on 08/25/16 04:00; Start 08/24/16 at 10:00; Stop 08/25/16 at 09:48; Status DC Vancomycin HCl/ Sodium Chloride (Vancomycin Inj/ NS 500 ml Inj) 515 ml @ 250 mls/hr Q12H IV Last administered on 08/25/16 01:00; Start 08/24/16 at 13:00; Stop 08/25/16 at 09:48; Status DC Miscellaneous Information SPECIFIC LAB TO BE DRAWN:VANCOMYCIN TROUGH DATE TO... ONCE ONCE .XX ; Start 08/26/16 at 00:45; Stop 08/26/16 at 00:46; Status Cancel Tramadol HCl (Ultram) 50 mg Q4H PRN PO PAIN SCALE 3 TO 5 Last administered on 14:36; Start 08/25/16 at 11:00 Tramadol HCl (Ultram) 100 mg Q4H PRN PO PAIN SCALE 6 TO 10 Last administered on 08/29/16 06:41; Start 08/25/16 at 11:00 Naloxone HCl 0.4 mg 0.4 mg UNSCH PRN IV SEE LABEL COMMENTS; Start 08/25/16 at 10:00 Levofloxacin/ Dextrose 100 ml @ 100 mls/hr Q24H IV Last administered on 10:59; Start 08/25/16 at 11:00; Stop 08/25/16 at 12:42; Status DC Cefazolin Sodium/ Dextrose (Ancef 2 Gm Premix) 50 ml @ 100 mls/hr Q8H IV Last administered on 08/29/16 04:51; Start 08/25/16 at 14:00 Senna/Docusate Sodium (Lora-Colace) 2 tab BID PO Last administered on 08/28/16 20:18; Start 08/27/16 at 21:00 Cyclobenzaprine HCl (Flexeril) 5 mg ONCE ONCE PO Last administered on t 12:51; Start 08/27/16 at 10:15; Stop 08/27/16 at 10:16; Status DC Gabapentin (Neurontin) 300 mg BID PO ; Start 08/29/16 at 09:00 A/P Assessment and Plan A/P - Back pain, discitis, osteomyelitis MRI report reviewed and reveals findings highly suspicious for discitis with osteomyelitis and inflammation paraspinal inflammation Patient seen by neurosurgery Dr. Tate who states "No definite significant drainable abscess seen on MRI. Status post Interventional radiology CT-guided aspiration of discitis L2 to L3 on 08/23/16 Continue tramadol 50mg P 3-5 and 100mg P 6-10 w/ IV Dilaudid 0.2mg for breakthrough pain management. neurontin was added. Counseled regarding narcotics. ID following. Wound culture 08/23 positive for MSSA, continue Ancef 2g q8hrs Blood cultures 2 NG. continue Physical therapy DVT prophylaxis with SCDs Discharge Planning patient is homeless. needs IV antibiotic therapy. d/w the case management today; dc planning in progress. Oliver Huff MD August 29, 2016 08:13
[2016-08-29] MEDS: DOCUSATE SODIUM 50 MG/SENNA 8.6 MG TAB PO SCH ×2 (08:30→20:25)
[2016-08-29] MEDS: GABAPENTIN 300 MG CAP PO SCH ×2 (08:30→20:25)
[2016-08-29] MEDS: SODIUM CHLORIDE 0.9% FLUSH 10 ML FLUSH IV FLUSH SCH ×2 (08:31→20:26)
[2016-08-29 12:00] VITALS: BP 124/72; PULSE 75; RESP 19; TEMP 97.7; O2SAT 97
--- NOTE | 2016-08-29 15:11 | HHI.IDPN ---
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 kyphoplasty remains to be confirmed but no visible hardware on imaging here at [facility]. Patient is an extremely poor historian. He was unable to tell me which medications were used and how long he recd IV antibiotics. He reports h/o Hepatitis C untreated. Patient presented to emergency department for evaluation of sharp shooting pain lower back. Pain radiates in to BLE. Patient also reports bilateral lower extremity numbness and tingling. Patient denies urine or stool incontinence, constipation. Patient reports he was recently treated [facility] for same back pain reports he stayed there for 3-4 days believes he had antibiotics and was discharged a few days ago. This is in contrast to what the ER documentation reports that patient had a kyphoplasty of L3 3 months ago and stated [facility] for approximately one month on IV antibiotics left AMA because his pain was not controlled adequately. Reviewed records: patient had cultures on 06/10/2016 positive for MSSA and patient was sent home on Bactrim, Cipo and Keflex. Not sure about compliance. Is homeless and [facility] not willing to help with patient assistance at this point. Patient denies IV drug use at this time. Patient reports is a history of IV drug use proximally the 20-30 years ago. Hepatitis C by history. Patient denies chest pain shortness of breath nausea vomiting diarrhea constipation fevers or chills. ID consulted for evaluation and Mment of discitis and osteomyelitis. Antibiotics Ancef IV Lines Line sites with no eo infection Past Medical History reviewed. Allergies: Coded Allergies: No Known Allergies (Unverified , 08/22/16) Objective . Vital Signs Date Time Temp Pulse Resp B/P Pulse Ox O2 Delivery O2 Flow Rate FiO2 08/29/16 12:00 97.7 75 19 124/72 97 08/29/16 08:00 97.2 82 19 120/65 97 08/29/16 00:06 99.0 80 17 120/68 98 08/28/16 20:15 96.7 72 18 133/75 96 08/28/16 16:00 97.3 72 17 128/75 99 08/28/16 08/28/16 08/29/16 15:00 23:00 07:00 Intake Total 400 ml 430 ml 430 ml Output Total 300 ml 600 ml 700 ml Balance 100 ml -170 ml -270 ml Intake Oral 400 ml 380 ml 380 ml IV Total 50 ml 50 ml Output Urine Total 300 ml 600 ml 700 ml # Bowel Movements 0 . Laboratory Tests Test 08/28/16 05:00 White Blood Count 9.8 TH/MM3 Red Blood Count 4.75 MIL/MM3 Hemoglobin 13.2 GM/DL Hematocrit 39.2 % Mean Corpuscular Volume 82.6 FL Mean Corpuscular Hemoglobin 27.8 PG Mean Corpuscular Hemoglobin 33.7 % Concent Red Cell Distribution Width 14.3 % Platelet Count 448 TH/MM3 Mean Platelet Volume 7.1 FL Neutrophils (%) (Auto) 63.5 % Lymphocytes (%) (Auto) 24.3 % Monocytes (%) (Auto) 7.7 % Eosinophils (%) (Auto) 3.7 % Basophils (%) (Auto) 0.8 % Neutrophils # (Auto) 6.2 TH/MM3 Lymphocytes # (Auto) 2.4 TH/MM3 Monocytes # (Auto) 0.8 TH/MM3 Eosinophils # (Auto) 0.4 TH/MM3 Basophils # (Auto) 0.1 TH/MM3 CBC Comment DIFF FINAL Differential Comment Laboratory Tests Test 08/28/16 05:00 Sodium Level 136 MEQ/L Potassium Level 4.5 MEQ/L Chloride Level 98 MEQ/L Carbon Dioxide Level 30.8 MEQ/L Anion Gap 7 MEQ/L Blood Urea Nitrogen 18 MG/DL Creatinine 0.76 MG/DL Estimat Glomerular Filtration 113 ML/MIN Rate Random Glucose 95 MG/DL Calcium Level 9.0 MG/DL Imaging Last Impressions Needle Aspiration CT 08/23/16 0000 Signed Impressions: Service Date/Time: Tuesday, August 23, 2016 13:35 - CONCLUSION: Uncomplicated L2-3 disc as described above. Juan Temple MD FACR Lumbar Spine X-Ray 08/23/16 0000 Signed Impressions: Service Date/Time: Tuesday, August 23, 2016 01:03 - CONCLUSION: 1. Evidence of previous kyphoplasty of L3. 2. Primary degenerative type changes involving the lumbar spine. 3. Demineralization of the bone along the inter endplate of L2 corresponding to patient's known infection involving L2-L3 Candido Chew MD Lumbar Spine MRI 08/22/16 0000 Signed Impressions: Service Date/Time: Monday, August 22, 2016 23:01 - CONCLUSION: 1. There is abnormal marrow edema involving L2 and L3 as well as enhancement of the disc space at L2-L3. These findings are highly suspicious for discitis and osteomyelitis. There appears to be enhancing inflammatory tissue in the paraspinal location which is involving the psoas muscles bilaterally. 2. There is enhancing inflammatory tissue in the anterior epidural space at L2-L3 highly suspicious for an epidural abscess. These findings are causing some mild to moderate spinal canal stenosis at this level. 3. There is broad-based bulging at multiple levels as described above. 4. 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 Candido Chew MD Physical Exam GENERAL: This is a well-nourished, well-developed patient, in no apparent distress. SKIN: No rashes, ecchymoses or lesions. Cool and dry. Multiple tattoos but none are new. HEAD: Atraumatic. Normocephalic. No temporal or scalp tenderness. EYES: Pupils equal round and reactive. Extraocular motions intact. No scleral icterus. No injection or drainage. ENT: Nose without bleeding, purulent drainage or septal hematoma. Throat without erythema, tonsillar hypertrophy or exudate. Uvula midline. Airway patent. NECK: Trachea midline. Supple, nontender, no meningeal signs. CARDIOVASCULAR: RRR RESPIRATORY: Clear to auscultation. Breath sounds equal bilaterally. GASTROINTESTINAL: Abdomen soft, non-tender, nondistended. MUSCULOSKELETAL: Extremities without clubbing, cyanosis, or edema. NEUROLOGICAL: Awake and alert. Grossly non focal. Power 4plus/5. No BB incontinence or loss of perineal sensation per patient. He defers a rectal exam Psych: cooperative IV line sites with no e/o infection. 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 2D ECHO with no vegetations. BCX negative. Records reviewed pt had MSSA infection 06/10/2016. Pt was discharged on Bactrim, Keflex, Cipro. Unsure if compliant with meds and follow up. Dr.Isaac GERONIMO MENJIVAR at [facility] saw pt. dw pts family who refused to take him home with him as they are taking care of other sick pts in home. Benjie case management who is working with [facility] and [facility] for DC planning. Tosha Lou MD August 29, 2016 15:11
[2016-08-29 16:00] VITALS: BP 118/67; PULSE 77; RESP 19; TEMP 97.4; O2SAT 99
[2016-08-29 20:00] VITALS: BP 135/69; PULSE 82; RESP 20; TEMP 98; O2SAT 99
[2016-08-30] VITALS: BP 106/70; PULSE 85; RESP 20; TEMP 99.4; O2SAT 99
[2016-08-30] MEDS: traMADol HCL 50 MG TAB PO PRN ×6 (00:39→22:16)
[2016-08-30] MEDS: HYDROmorphone HCL PF 1 MG/ML VIAL IV PUSH PRN ×5 (01:34→21:20)
[2016-08-30] MEDS: ceFAZolin 2 GM PREMIX 50 ML IV SCH ×3 (04:35→21:19)
[2016-08-30] MEDS: DOCUSATE SODIUM 50 MG/SENNA 8.6 MG TAB PO SCH ×2 (07:50→21:18)
[2016-08-30] MEDS: SODIUM CHLORIDE 0.9% FLUSH 10 ML FLUSH IV FLUSH SCH ×2 (07:50→21:00)
[2016-08-30] MEDS: GABAPENTIN 300 MG CAP PO SCH ×3 (07:50→18:00)
[2016-08-30 08:00] VITALS: BP 109/71; PULSE 70; RESP 12; TEMP 98; O2SAT 98
--- NOTE | 2016-08-30 10:10 | HHI.PR ---
Subjective Remarks in no acute distress. but still with some back pain. no fever. d/w the RN. Objective Vitals Vital Signs Date Time Temp Pulse Resp B/P Pulse Ox O2 Delivery O2 Flow Rate FiO2 08/30/16 08:00 98.0 70 12 109/71 98 08/30/16 00:00 99.4 85 20 106/70 99 08/29/16 20:00 98.0 82 20 135/69 99 08/29/16 16:00 97.4 77 19 118/67 99 08/29/16 12:00 97.7 75 19 124/72 97 I/O 08/29/16 08/29/16 08/29/16 08/30/16 08/30/16 08/30/16 07:00 15:00 23:00 07:00 15:00 23:00 Intake Total 430 ml 240 ml 530 ml 50 ml Output Total 700 ml 1050 ml 550 ml Balance -270 ml -810 ml 530 ml -500 ml Intake Oral 380 ml 240 ml 480 ml 0 ml IV Total 50 ml 50 ml 50 ml Output Urine Total 700 ml 1050 ml 550 ml # Voids 1 # Bowel Movements 0 Result Diagram: 08/28/16 0500 08/28/16 0500 Imaging Last Impressions Needle Aspiration CT 08/23/16 0000 Signed Impressions: Service Date/Time: Tuesday, August 23, 2016 13:35 - CONCLUSION: Uncomplicated L2-3 disc as described above. Juan Temple MD FACR Lumbar Spine X-Ray 08/23/16 0000 Signed Impressions: Service Date/Time: Tuesday, August 23, 2016 01:03 - CONCLUSION: 1. Evidence of previous kyphoplasty of L3. 2. Primary degenerative type changes involving the lumbar spine. 3. Demineralization of the bone along the inter endplate of L2 corresponding to patient's known infection involving L2-L3 Candido Chew MD Lumbar Spine MRI 08/22/16 0000 Signed Impressions: Service Date/Time: Monday, August 22, 2016 23:01 - CONCLUSION: 1. There is abnormal marrow edema involving L2 and L3 as well as enhancement of the disc space at L2-L3. These findings are highly suspicious for discitis and osteomyelitis. There appears to be enhancing inflammatory tissue in the paraspinal location which is involving the psoas muscles bilaterally. 2. There is enhancing inflammatory tissue in the anterior epidural space at L2-L3 highly suspicious for an epidural abscess. These findings are causing some mild to moderate spinal canal stenosis at this level. 3. There is broad-based bulging at multiple levels as described above. 4. 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 Candido Chew MD Objective Remarks GENERAL: This is a well-nourished, well-developed patient, in no apparent distress. CARDIOVASCULAR: Regular rate and regular rhythm without murmurs, gallops, or rubs. RESPIRATORY: Clear to auscultation. Breath sounds equal bilaterally. No wheezes , rales, or rhonchi. GASTROINTESTINAL: Abdomen soft, non-tender, nondistended. Normal, active bowel sounds MUSCULOSKELETAL: Extremities without clubbing, cyanosis, or edema. NEURO: Alert & Oriented x4 to person, place, time, situation. Moves all ext x4 Procedures CT-guided aspirate of the lumbar spine Medications and IVs Current Medications Ketorolac Tromethamine (Toradol Inj) 30 mg ONCE ONCE IV PUSH Last administered on 08/22/16 22:45; Start 08/22/16 at 22:15; Stop 08/22/16 at 22:18 ; Status DC Hydromorphone HCl (Dilaudid Pf Inj) 1 mg ONCE ONCE IV PUSH Last administered on 08/22/16 22:44; Start 08/22/16 at 22:15; Stop 08/22/16 at 22:18; Status DC Gadodiamide (Omniscan Pf Inj) 15 ml STK-MED ONCE IV Last administered on 23:43; Start 08/22/16 at 23:43; Stop 08/22/16 at 23:44; Status DC Sodium Chloride (NS Flush) 2 ml UNSCH PRN IV FLUSH FLUSH AFTER USING IV ACCESS ; Start 08/23/16 at 02:00 Sodium Chloride (NS Flush) 2 ml BID IV FLUSH Last administered on 08/30/16 07: 50; Start 08/23/16 at 09:00 Naloxone HCl (Narcan Inj) 0.4 mg UNSCH PRN IV SEE LABEL COMMENTS; Start at 02:00; Stop 08/25/16 at 10:32; Status DC Hydromorphone HCl (Dilaudid Pf Inj) 0.2 mg Q4H PRN IV PUSH breakthru pain Last administered on 08/30/16 09:40; Start 08/23/16 at 02:15 Acetaminophen (Tylenol) 650 mg Q4H PRN PO Temp > 100.4, pain 1-2; Start at 08:30 Ondansetron HCl (Zofran Inj) 4 mg Q6H PRN IV NAUSEA; Start 08/23/16 at 08:30 Senna/Docusate Sodium (Lora-Colace) 1 tab BID PRN PO CONSTIPATION; Start at 08:30; Stop 08/27/16 at 10:11; Status DC Calcium Carbonate 1000 mg 1,000 mg TID PRN CHEW DYSPEPSIA; Start 08/23/16 at 08 :30 Pharmacy Profile Note 0 ml @ 0 mls/hr UNSCH OTHER ; Start 08/23/16 at 10:15; Stop 08/23/16 at 10:18; Status DC Vancomycin HCl 1000 mg/Sodium Chloride 250 ml @ 250 mls/hr ONCE ONCE IV ; Start 08/23/16 at 17:00; Stop 08/23/16 at 17:00; Status Cancel Vancomycin HCl/ Sodium Chloride (Vancomycin Inj/ NS 250 ml Inj) 250 ml @ 250 mls/hr ONCE ONCE IV ; Start 08/23/16 at 17:00; Stop 08/23/16 at 17:00; Status DC Lidocaine/ Epinephrine (Xylocaine-Epi 1%-1:100,000 Inj) 20 ml STK-MED ONCE .ROUTE Last administered on 08/23/16 13:03; Start 08/23/16 at 13:03; Stop at 13:04; Status DC Midazolam HCl (Versed Inj) 5 mg STK-MED ONCE .ROUTE Last administered on 13:28; Start 08/23/16 at 13:28; Stop 08/23/16 at 13:29; Status DC Fentanyl Citrate (fentaNYL INJ) 250 mcg STK-MED ONCE .ROUTE Last administered on 08/23/16 13:28; Start 08/23/16 at 13:28; Stop 08/23/16 at 13:29; Status DC Fentanyl Citrate 100 mcg 100 mcg STK-MED ONCE .ROUTE Last administered on 13:59; Start 08/23/16 at 13:59; Stop 08/23/16 at 14:00; Status DC Pharmacy Profile Note 0 ml @ 0 mls/hr UNSCH OTHER ; Start 08/24/16 at 10:00; Stop 08/25/16 at 09:48; Status DC Vancomycin HCl 1000 mg/Sodium Chloride 250 ml @ 250 mls/hr ONCE ONCE IV ; Start 08/24/16 at 10:00; Stop 08/24/16 at 10:59; Status UNV Piperacillin Sod/ Tazobactam Sod 50 ml @ 100 mls/hr Q6H IV Last administered on 08/25/16 04:00; Start 08/24/16 at 10:00; Stop 08/25/16 at 09:48; Status DC Vancomycin HCl/ Sodium Chloride (Vancomycin Inj/ NS 500 ml Inj) 515 ml @ 250 mls/hr Q12H IV Last administered on 08/25/16 01:00; Start 08/24/16 at 13:00; Stop 08/25/16 at 09:48; Status DC Miscellaneous Information SPECIFIC LAB TO BE DRAWN:VANCOMYCIN TROUGH DATE TO... ONCE ONCE .XX ; Start 08/26/16 at 00:45; Stop 08/26/16 at 00:46; Status Cancel Tramadol HCl (Ultram) 50 mg Q4H PRN PO PAIN SCALE 3 TO 5 Last administered on 14:36; Start 08/25/16 at 11:00 Tramadol HCl (Ultram) 100 mg Q4H PRN PO PAIN SCALE 6 TO 10 Last administered on 08/30/16 08:54; Start 08/25/16 at 11:00 Naloxone HCl 0.4 mg 0.4 mg UNSCH PRN IV SEE LABEL COMMENTS; Start 08/25/16 at 10:00 Levofloxacin/ Dextrose 100 ml @ 100 mls/hr Q24H IV Last administered on 10:59; Start 08/25/16 at 11:00; Stop 08/25/16 at 12:42; Status DC Cefazolin Sodium/ Dextrose (Ancef 2 Gm Premix) 50 ml @ 100 mls/hr Q8H IV Last administered on 08/30/16 04:35; Start 08/25/16 at 14:00 Senna/Docusate Sodium (Lora-Colace) 2 tab BID PO Last administered on 08/30/16 07:50; Start 08/27/16 at 21:00 Cyclobenzaprine HCl (Flexeril) 5 mg ONCE ONCE PO Last administered on 12:51; Start 08/27/16 at 10:15; Stop 08/27/16 at 10:16; Status DC Gabapentin (Neurontin) 300 mg BID PO Last administered on 08/30/16 07:50; Start 08/29/16 at 09:00 A/P Assessment and Plan A/P - Back pain, discitis, osteomyelitis MRI report reviewed and reveals findings highly suspicious for discitis with osteomyelitis and inflammation paraspinal inflammation Patient seen by neurosurgery Dr. Tate who states "No definite significant drainable abscess seen on MRI. Status post Interventional radiology CT-guided aspiration of discitis L2 to L3 on 08/23/16 Continue tramadol 50mg P 3-5 and 100mg P 6-10 w/ IV Dilaudid 0.2mg for breakthrough pain management. neurontin was added. Counseled regarding narcotics. ID following. Wound culture 08/23 positive for MSSA, continue Ancef 2g q8hrs Blood cultures 2 NG. continue Physical therapy DVT prophylaxis with SCDs Discharge Planning patient is homeless. needs IV antibiotic therapy. d/w the case management today- difficult discharge in light of him being homeless. dc planning in progress. Oliver Huff MD August 30, 2016 10:10
--- NOTE | 2016-08-30 10:43 | HHI.NSPN ---
(Mario Purdy) Note Status Status: Progress Note ([place]) Interval History Interval History 08/22: Patient presented to the emergency department for worsening back pain. He was recently treated for osteomyelitis in [facility] with ceftriaxone for 4 days per the patient and then discharged home. The patient states that he had a kyphoplasty to L3 and subsequently developed the infection. He states that he was evaluated for any infection prior to his surgery and there were no findings suggestive of infection, therefore [facility] proceeded with the surgery. 08/23: The patient appears uncomfortable due to pain which is his only complaint. The pain is to the back and the abdomen. He had a biopsy under CT guidance this afternoon. 08/24: Patient uncomfortable due to back pain, adjusts self for comfort. Also complains of abdominal pain. 08/25: Patient appears more comfortable, laying flat on stretches "stretching my back out." He still has the low back pain that radiates around to the abdomen. 08/26: Back pain that radiates to the groins. Good strength 08/27: Continues with back pain that radiates to the groins. Good strength 08/28: Patient still with back pain that radiates to the groins. Still has abdominal. States burning to the right groin today but just some numbness to the left. Also feels some pain radiating up his left latissimus muscle toward the shoulder. 08/30: Patient doing okay but still with intermittent episodes of back pain that comes around to the thighs. He describes the pain as shooting. He also has numbness to the thighs. It would come & go during the night and made it difficult to sleep. (Mario Purdy) Labs, Micro, & Vital Signs Constitutional Vital Signs Date Time Temp Pulse Resp B/P Pulse Ox O2 Delivery O2 Flow Rate FiO2 08/30/16 08:00 98.0 70 12 109/71 98 08/30/16 00:00 99.4 85 20 106/70 99 08/29/16 20:00 98.0 82 20 135/69 99 08/29/16 16:00 97.4 77 19 118/67 99 08/29/16 12:00 97.7 75 19 124/72 97 08/30/16 07:00 Intake Total 820 ml Output Total 1600 ml Balance -780 ml (Mario Purdy) Review of Systems/Exam ROS Resp: Denies any shortness of breath or productive cough. Cardiac: Denies any chest pain, palpitations or irregular heart beat. GI: Abdominal pain coming from the back but denies any nausea, vomiting or bowel incontinence. : Denies any bladder incontinence. Extremities: Denies any pain or weakness to the extremities. Back: Low back pain radiating to the front and into the thighs, thighs also feel numb. Neuro: With numbness & pain to the thighs. Denies any headache, dizziness or weakness. Exam HEENT: Normocephalic, atraumatic. Neck: No midline cervical TTP, no pain w/ROM, no JVD, trachea midline. Resp: CTAB w/o W/R/R, equal excursion, non-laboured, on RA. CV: S1S2 w/RRR w/o M/G/R, cap refill < 2 sec, radial & pedal pulses 2+ bilaterally, no pedal edema. GI: Abdomen soft, nontender, positive bowel sounds. Extremities: ARDON spontaneously, no evident deformity, discolouration or clubbing. Back: TTP from lower thoracic spine to sacrum and across lower back laterally, R >L. Neuro: AAOx3. Speech clear & appropriate. Follows commands. Numbness to bilateral thighs otherwise sensation grossly intact to light touch to all extremities. Motor strength 5/5 to all extremities. (Mario Purdy) Medications Current Medications Current Medications Medications (Trade) Dose Ordered Sig/Frank Route Start Time Stop Time Status Last Admin (NS Flush) 2 ml UNSCH PRN IV FLUSH 08/23/16 02:00 (NS Flush) 2 ml BID IV FLUSH 08/23/16 09:00 08/30/16 07:50 (Tylenol) 650 mg Q4H PRN PO 08/23/16 08:30 (Zofran Inj) 4 mg Q6H PRN IV 08/23/16 08:30 (Tums Chew) 1,000 mg TID PRN CHEW 08/23/16 08:30 (Ultram) 50 mg Q4H PRN PO 08/25/16 11:00 08/28/16 14:36 (Ultram) 100 mg Q4H PRN PO 08/25/16 11:00 08/30/16 08:54 Naloxone HCl 0.4 mg 0.4 mg UNSCH PRN IV 08/25/16 10:00 (Ancef 2 Gm Premix) 50 ml @ 100 mls/hr Q8H IV 08/25/16 14:00 08/30/16 04:35 (Lora-Colace) 2 tab BID PO 08/27/16 21:00 08/30/16 07:50 (Neurontin) 300 mg TID PO 08/30/16 13:00 (Dilaudid Pf Inj) 0.2 mg Q6H PRN IV PUSH 08/30/16 16:00 (Mario Purdy) Medical Decision Making MDM Remarks Impression: L2-3 discitis - osteomyelitis No definite significant drainable abscess seen on MRI History of L3 kyphoplasty Staph aureus from LP puncture. No growth from blood cultures Neurologically stable (Mario Purdy) Plan Plan Remarks Primary mgmt per Attending Continue MSSA abx per Infectious Disease Mobilise patient Diet as tolerated (Mario Purdy) Attending Statement I have personally seen and examined the patient on the date of this note. Pertinent documentation and study results have been reviewed by the undersigned. I have personally developed the treatment plan and performed medical decision making. Agree with findings, exam, and treatment plan as noted above. Patient's neurologic exam remains intact. Persistent back pain. Continue to mobilize out of bed as tolerated Continue IV antibiotics Plan follow-up spine x-ray in next 7-10 days. We will see intermittent during the patient hospitalization. (Rehan Tate MD ) Mario Purdy August 30, 2016 10:43 Rehan Tate MD August 30, 2016 20:20
[2016-08-30 12:00] VITALS: BP 109/67; PULSE 80; RESP 20; TEMP 98.3; O2SAT 98
[2016-08-30 16:00] VITALS: BP 93/64; PULSE 79; RESP 17; TEMP 97.9; O2SAT 99
[2016-08-30 20:00] VITALS: BP 133/72; PULSE 78; RESP 20; TEMP 96.3; O2SAT 99
[2016-08-31] VITALS: BP 128/69; PULSE 76; RESP 20; TEMP 95.8; O2SAT 100
[2016-08-31] MEDS: traMADol HCL 50 MG TAB PO PRN ×4 (02:29→18:34)
[2016-08-31] MEDS: HYDROmorphone HCL PF 1 MG/ML VIAL IV PUSH PRN (03:07)
[2016-08-31] MEDS: ceFAZolin 2 GM PREMIX 50 ML IV SCH ×3 (06:47→21:06)
[2016-08-31 08:00] VITALS: BP 109/64; PULSE 70; RESP 20; TEMP 97.1; O2SAT 96
--- NOTE | 2016-08-31 08:51 | HHI.PR ---
Subjective Remarks resting comfortably with no distress. still with back pain. no fever. Objective Vitals Vital Signs Date Time Temp Pulse Resp B/P Pulse Ox O2 Delivery O2 Flow Rate FiO2 08/31/16 00:00 95.8 76 20 128/69 100 08/30/16 20:00 96.3 78 20 133/72 99 08/30/16 16:00 97.9 79 17 93/64 99 08/30/16 12:00 98.3 80 20 109/67 98 I/O 08/30/16 08/30/16 08/30/16 08/31/16 08/31/16 08/31/16 07:00 15:00 23:00 07:00 15:00 23:00 Intake Total 50 ml 690 ml 590 ml 270 ml Output Total 550 ml 400 ml 700 ml 500 ml Balance -500 ml 290 ml -110 ml -230 ml Intake Oral 0 ml 640 ml 540 ml 220 ml IV Total 50 ml 50 ml 50 ml 50 ml Output Urine Total 550 ml 400 ml 700 ml 500 ml # Voids 2 # Bowel Movements 0 0 Result Diagram: 08/28/16 0500 08/28/16 0500 Imaging Last Impressions Needle Aspiration CT 08/23/16 0000 Signed Impressions: Service Date/Time: Tuesday, August 23, 2016 13:35 - CONCLUSION: Uncomplicated L2-3 disc as described above. Juan Temple MD FACR Lumbar Spine X-Ray 08/23/16 0000 Signed Impressions: Service Date/Time: Tuesday, August 23, 2016 01:03 - CONCLUSION: 1. Evidence of previous kyphoplasty of L3. 2. Primary degenerative type changes involving the lumbar spine. 3. Demineralization of the bone along the inter endplate of L2 corresponding to patient's known infection involving L2-L3 Candido Chew MD Lumbar Spine MRI 08/22/16 0000 Signed Impressions: Service Date/Time: Monday, August 22, 2016 23:01 - CONCLUSION: 1. There is abnormal marrow edema involving L2 and L3 as well as enhancement of the disc space at L2-L3. These findings are highly suspicious for discitis and osteomyelitis. There appears to be enhancing inflammatory tissue in the paraspinal location which is involving the psoas muscles bilaterally. 2. There is enhancing inflammatory tissue in the anterior epidural space at L2-L3 highly suspicious for an epidural abscess. These findings are causing some mild to moderate spinal canal stenosis at this level. 3. There is broad-based bulging at multiple levels as described above. 4. 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 Candido Chew MD Objective Remarks GENERAL: This is a well-nourished, well-developed patient, in no apparent distress. CARDIOVASCULAR: Regular rate and regular rhythm without murmurs, gallops, or rubs. RESPIRATORY: Clear to auscultation. Breath sounds equal bilaterally. No wheezes , rales, or rhonchi. GASTROINTESTINAL: Abdomen soft, non-tender, nondistended. Normal, active bowel sounds MUSCULOSKELETAL: Extremities without clubbing, cyanosis, or edema. NEURO: Alert & Oriented x4 to person, place, time, situation. Moves all ext x4 Procedures CT-guided aspirate of the lumbar spine Medications and IVs Current Medications Ketorolac Tromethamine (Toradol Inj) 30 mg ONCE ONCE IV PUSH Last administered on 08/22/16 22:45; Start 08/22/16 at 22:15; Stop 08/22/16 at 22:18 ; Status DC Hydromorphone HCl (Dilaudid Pf Inj) 1 mg ONCE ONCE IV PUSH Last administered on 08/22/16 22:44; Start 08/22/16 at 22:15; Stop 08/22/16 at 22:18; Status DC Gadodiamide (Omniscan Pf Inj) 15 ml STK-MED ONCE IV Last administered on 23:43; Start 08/22/16 at 23:43; Stop 08/22/16 at 23:44; Status DC Sodium Chloride (NS Flush) 2 ml UNSCH PRN IV FLUSH FLUSH AFTER USING IV ACCESS ; Start 08/23/16 at 02:00 Sodium Chloride (NS Flush) 2 ml BID IV FLUSH Last administered on 08/30/16 21: 00; Start 08/23/16 at 09:00 Naloxone HCl (Narcan Inj) 0.4 mg UNSCH PRN IV SEE LABEL COMMENTS; Start at 02:00; Stop 08/25/16 at 10:32; Status DC Hydromorphone HCl (Dilaudid Pf Inj) 0.2 mg Q4H PRN IV PUSH breakthru pain Last administered on 08/30/16 09:40; Start 08/23/16 at 02:15; Stop 08/30/16 at 10:11; Status DC Acetaminophen (Tylenol) 650 mg Q4H PRN PO Temp > 100.4, pain 1-2; Start at 08:30 Ondansetron HCl (Zofran Inj) 4 mg Q6H PRN IV NAUSEA; Start 08/23/16 at 08:30 Senna/Docusate Sodium (Lora-Colace) 1 tab BID PRN PO CONSTIPATION; Start at 08:30; Stop 08/27/16 at 10:11; Status DC Calcium Carbonate 1000 mg 1,000 mg TID PRN CHEW DYSPEPSIA; Start 08/23/16 at 08 :30 Pharmacy Profile Note 0 ml @ 0 mls/hr UNSCH OTHER ; Start 08/23/16 at 10:15; Stop 08/23/16 at 10:18; Status DC Vancomycin HCl 1000 mg/Sodium Chloride 250 ml @ 250 mls/hr ONCE ONCE IV ; Start 08/23/16 at 17:00; Stop 08/23/16 at 17:00; Status Cancel Vancomycin HCl/ Sodium Chloride (Vancomycin Inj/ NS 250 ml Inj) 250 ml @ 250 mls/hr ONCE ONCE IV ; Start 08/23/16 at 17:00; Stop 08/23/16 at 17:00; Status DC Lidocaine/ Epinephrine (Xylocaine-Epi 1%-1:100,000 Inj) 20 ml STK-MED ONCE .ROUTE Last administered on 08/23/16 13:03; Start 08/23/16 at 13:03; Stop at 13:04; Status DC Midazolam HCl (Versed Inj) 5 mg STK-MED ONCE .ROUTE Last administered on 13:28; Start 08/23/16 at 13:28; Stop 08/23/16 at 13:29; Status DC Fentanyl Citrate (fentaNYL INJ) 250 mcg STK-MED ONCE .ROUTE Last administered on 08/23/16 13:28; Start 08/23/16 at 13:28; Stop 08/23/16 at 13:29; Status DC Fentanyl Citrate 100 mcg 100 mcg STK-MED ONCE .ROUTE Last administered on 13:59; Start 08/23/16 at 13:59; Stop 08/23/16 at 14:00; Status DC Pharmacy Profile Note 0 ml @ 0 mls/hr UNSCH OTHER ; Start 08/24/16 at 10:00; Stop 08/25/16 at 09:48; Status DC Vancomycin HCl 1000 mg/Sodium Chloride 250 ml @ 250 mls/hr ONCE ONCE IV ; Start 08/24/16 at 10:00; Stop 08/24/16 at 10:59; Status UNV Piperacillin Sod/ Tazobactam Sod 50 ml @ 100 mls/hr Q6H IV Last administered on 08/25/16 04:00; Start 08/24/16 at 10:00; Stop 08/25/16 at 09:48; Status DC Vancomycin HCl/ Sodium Chloride (Vancomycin Inj/ NS 500 ml Inj) 515 ml @ 250 mls/hr Q12H IV Last administered on 08/25/16 01:00; Start 08/24/16 at 13:00; Stop 08/25/16 at 09:48; Status DC Miscellaneous Information SPECIFIC LAB TO BE DRAWN:VANCOMYCIN TROUGH DATE TO... ONCE ONCE .XX ; Start 08/26/16 at 00:45; Stop 08/26/16 at 00:46; Status Cancel Tramadol HCl (Ultram) 50 mg Q4H PRN PO PAIN SCALE 3 TO 5 Last administered on 14:36; Start 08/25/16 at 11:00 Tramadol HCl (Ultram) 100 mg Q4H PRN PO PAIN SCALE 6 TO 10 Last administered on 08/31/16 06:49; Start 08/25/16 at 11:00 Naloxone HCl 0.4 mg 0.4 mg UNSCH PRN IV SEE LABEL COMMENTS; Start 08/25/16 at 10:00 Levofloxacin/ Dextrose 100 ml @ 100 mls/hr Q24H IV Last administered on 10:59; Start 08/25/16 at 11:00; Stop 08/25/16 at 12:42; Status DC Cefazolin Sodium/ Dextrose (Ancef 2 Gm Premix) 50 ml @ 100 mls/hr Q8H IV Last administered on 08/31/16 06:47; Start 08/25/16 at 14:00 Senna/Docusate Sodium (Loar-Colace) 2 tab BID PO Last administered on 08/30/16 21:18; Start 08/27/16 at 21:00 Cyclobenzaprine HCl (Flexeril) 5 mg ONCE ONCE PO Last administered on 12:51; Start 08/27/16 at 10:15; Stop 08/27/16 at 10:16; Status DC Gabapentin (Neurontin) 300 mg BID PO Last administered on 08/30/16 07:50; Start 08/29/16 at 09:00; Stop 08/30/16 at 10:11; Status DC Gabapentin (Neurontin) 300 mg TID PO Last administered on 08/30/16 18:00; Start 08/30/16 at 13:00 Hydromorphone HCl (Dilaudid Pf Inj) 0.2 mg Q6H PRN IV PUSH breakthru pain Last administered on 08/31/16 03:07; Start 08/30/16 at 16:00 A/P Assessment and Plan A/P - Back pain, discitis, osteomyelitis MRI report reviewed and reveals findings highly suspicious for discitis with osteomyelitis and inflammation paraspinal inflammation Patient seen by neurosurgery Dr. Tate who states "No definite significant drainable abscess seen on MRI. Status post Interventional radiology CT-guided aspiration of discitis L2 to L3 on 08/23/16 Continue tramadol 50mg P 3-5 and 100mg P 6-10 w/ and neurontin- will stop Dilaudid today. Counseled regarding narcotics. ID following. Wound culture 08/23 positive for MSSA, continue Ancef 2g q8hrs Blood cultures 2 NG. continue Physical therapy hepatitis C- f/u as outpatient. DVT prophylaxis with SCDs Discharge Planning patient is homeless. needs IV antibiotic therapy. previously d/w the case management - difficult discharge in light of him being homeless. dc planning in progress. Oliver Huff MD August 31, 2016 08:51
[2016-08-31] MEDS: DOCUSATE SODIUM 50 MG/SENNA 8.6 MG TAB PO SCH ×2 (09:16→21:08)
[2016-08-31] MEDS: GABAPENTIN 300 MG CAP PO SCH ×3 (09:16→18:33)
[2016-08-31] MEDS: SODIUM CHLORIDE 0.9% FLUSH 10 ML FLUSH IV FLUSH SCH ×2 (09:20→21:06)
[2016-08-31 12:00] VITALS: BP 125/69; PULSE 72; RESP 20; TEMP 96.7; O2SAT 98
[2016-08-31] MEDS: CYCLOBENZAPRINE HCL 10 MG TAB PO PRN (18:33)
[2016-08-31 20:00] VITALS: BP 129/67; PULSE 75; RESP 16; TEMP 97.2; O2SAT 97
[2016-09-01] MEDS: traMADol HCL 50 MG TAB PO PRN ×4 (04:21→21:03)
[2016-09-01] MEDS: ceFAZolin 2 GM PREMIX 50 ML IV SCH ×3 (05:39→21:05)
[2016-09-01] MEDS: CYCLOBENZAPRINE HCL 10 MG TAB PO PRN (06:47)
[2016-09-01] MEDS: DOCUSATE SODIUM 50 MG/SENNA 8.6 MG TAB PO SCH ×2 (08:01→21:03)
[2016-09-01] MEDS: GABAPENTIN 300 MG CAP PO SCH ×3 (08:01→16:58)
[2016-09-01] MEDS: SODIUM CHLORIDE 0.9% FLUSH 10 ML FLUSH IV FLUSH SCH ×2 (08:02→21:02)
--- NOTE | 2016-09-01 08:13 | HHI.PR ---
Addendum to Inpatient Note Addendum Reason: Additional Documentation Additional Information Patient transferred to [place] for IV antibiotic infusion due to placement issue as patient is homeless. ID recommendations: Continue Ancef 2 gm IV q8hrs plan on 6 weeks total (pending repeat imaging at 2 weeks) Repeat CT spine 09/15/2016. If continues to improve in regards to epidural abscess then ok to complete 6 week course. If any new findings please call ID at [place]. CBC with diff, CMP, CRP once a week while on IV antibiotics to be ordered and followed by hospitalist, If any abnormal labs or change in clinical condition call ID at [place]. Will sign off please call back if any change in clinical condition or based on above lab or imaging issues. Tosha Lou MD September 01, 2016 08:13
[2016-09-01 08:54] VITALS: BP 135/79; PULSE 79; RESP 18; TEMP 96.5; O2SAT 99
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
[2016-09-01 20:00] VITALS: BP 140/74; PULSE 85; RESP 16; TEMP 97.7; O2SAT 100
[2016-09-02] MEDS: traMADol HCL 50 MG TAB PO PRN ×5 (01:00→21:52)
[2016-09-02] MEDS: CYCLOBENZAPRINE HCL 10 MG TAB PO PRN ×3 (01:13→21:51)
[2016-09-02] MEDS: ceFAZolin 2 GM PREMIX 50 ML IV SCH ×3 (06:53→21:49)
[2016-09-02 07:09] LABS: AUTOMATED NEUTROPHIL # 7.3 TH/MM3 (1.8-7.7); BASOPHIL % 0.4 % (0.0-2.0); EOSINOPHIL # 0.1 TH/MM3 (0-0.4); EOSINOPHIL % 0.9 % (0.0-4.0); HEMATOCRIT 42.9 % (39.0-51.0); HEMO FLAGS DIFF FINAL; MEAN CELL VOLUME 83.6 FL (80.0-100.0); MEAN CORPUSCULAR HEMOGLOBIN 26.9 PG (27.0-34.0); MEAN CORPUSCULAR HGB CONC 32.1 % (32.0-36.0); MONO % 7.4 % (0.0-8.0); NEUT % 71.3 % (16.0-70.0); PLATELET COUNT 476 TH/MM3 (150-450); RED BLOOD COUNT 5.13 MIL/MM3 (4.50-5.90); RED CELL DISTRIBUTION WIDTH 13.9 % (11.6-17.2); WHITE BLOOD COUNT 10.1 TH/MM3 (4.0-11.0)
[2016-09-02 07:23] LABS: CHLORIDE 100 MEQ/L (98-107); POTASSIUM 4.1 MEQ/L (3.5-5.1); SODIUM (NA) 138 MEQ/L (136-145)
[2016-09-02 07:26] LABS: ANION GAP 8 MEQ/L (5-15); BICARBONATE 29.9 MEQ/L (21.0-32.0)
[2016-09-02 07:27] LABS: BLOOD UREA NITROGEN 16 MG/DL (7-18)
[2016-09-02 07:29] LABS: ALT (GPT) 27 U/L (12-78); AST (GOT) 18 U/L (15-37)
[2016-09-02 07:30] LABS: GLOMERULAR FILTRATION RATE 124 ML/MIN (>89)
[2016-09-02 07:31] LABS: TOTAL BILIRUBIN ADULT 0.1 MG/DL (0.2-1.0)
[2016-09-02 07:32] LABS: ALKALINE PHOSPHATASE 117 U/L (45-117)
[2016-09-02 08:00] VITALS: BP 148/78; PULSE 78; RESP 19; TEMP 99.3; O2SAT 98
[2016-09-02] MEDS: DOCUSATE SODIUM 50 MG/SENNA 8.6 MG TAB PO SCH ×2 (09:29→21:51)
[2016-09-02] MEDS: SODIUM CHLORIDE 0.9% FLUSH 10 ML FLUSH IV FLUSH SCH ×2 (09:29→21:50)
[2016-09-02] MEDS: GABAPENTIN 300 MG CAP PO SCH ×3 (09:29→16:32)
[2016-09-02] MEDS ORDERED: KETOROLAC TROMETHAMINE 30 MG/ML (IVP) VIAL IV PUSH ONE (10:00)
--- NOTE | 2016-09-02 10:11 | HHI.PR ---
Subjective Remarks Follow-up for lumbar discitis and osteomyelitis. Patient discussed with nurse who states the patient is having legitimate significant pain and is not getting relief with his current Tramadol regimen. Patient admits to pain in his low back wrapping around to both of his hips. He states he has sciatica primarily in the right leg but currently describes pain in his R hip with numbness in the right thigh; no shooting pain down the leg at present time. He states the pain currently is a 10/10 and constant. He denies any fevers or chills, chest pain or shortness of breath, abdominal pain, nausea, vomiting, or diarrhea. He states the Dilaudid at the other hospital would just take the edge off. BP elevated this morning likely due to pain. Objective Vitals Vital Signs Date Time Temp Pulse Resp B/P Pulse Ox O2 Delivery O2 Flow Rate FiO2 09/02/16 09:30 18 09/02/16 08:00 99.3 78 19 148/78 98 09/01/16 20:00 97.7 85 16 140/74 100 I/O 09/01/16 09/01/16 09/01/16 09/02/16 09/02/16 09/02/16 07:00 15:00 23:00 07:00 15:00 23:00 Intake Total 480 ml 1730 ml 600 ml Output Total 500 ml Balance 480 ml 1730 ml 100 ml Intake Oral 480 ml 1730 ml 600 ml Output Urine Total 500 ml # Voids 2 9 # Bowel Movements 0 3 0 Result Diagram: 09/02/16 0545 09/02/16 0545 Objective Remarks GENERAL: Well-nourished, well patient no apparent distress lying supine in bed. SKIN: Warm and dry. CARDIOVASCULAR: Regular rate and rhythm. No murmurs. RESPIRATORY: No accessory muscle use. Clear to auscultation. Breath sounds equal bilaterally. GASTROINTESTINAL: Normoactive bowel sounds x 4. Abdomen soft, non-tender, nondistended. MUSCULOSKELETAL: Tender over right pelvis. 2+ DP pulses bilaterally. NEUROLOGICAL: Awake and alert. Normal speech. Equal plantar flexion bilaterally but patient unable to dorsiflex R foot, likely due to pain. Decreased gross sensation over anterior R thigh compared to normal sensation on left. PSYCHIATRIC: Appropriate mood and affect; insight and judgment normal. Procedures CT-guided aspirate of the lumbar spine Urinary Catheter: No Vascular Central Line Catheter: No A/P Problem List: (1) Back pain ICD Code: M54.9 Status: Acute (2) Osteomyelitis of lumbar spine ICD Code: M46.26 Status: Acute (3) Lumbar discitis ICD Code: M46.46 Status: Acute (4) Trochanteric bursitis of both hips ICD Code: M70.61 Status: Acute Assessment and Plan Back pain, discitis, osteomyelitis: -MRI reveals findings highly suspicious for discitis with osteomyelitis and inflammation. -Per Dr. Tate, neurosurgery, no definite significant drainable abscess seen on MRI. Lumbar spine x-ray 08/23. Per neurosurg pt is to undergo f/u spine x-ray between September 06-September 09. -Status post Interventional radiology CT-guided aspiration of discitis L2 to L3 on 08/23/16 -Wound culture 08/23 positive for MSSA, continue Ancef 2g q8hrs -Blood cultures x 2 NG -Continue Physical therapy -Per ID continue Ancef 2 gm IV q8hrs plan on 6 weeks total (pending repeat imaging at [address] spine 09/15/2016. If continues to improve in regards to epidural abscess then ok to complete 6 week course. -Follow weekly CBC with diff, CMP, CRP while on IV antibiotics. -If any abnormal labs or change in clinical condition call ID at [facility] or Dr. Lou. -09/02: WBC normal at 10.1. CMP unremarkable. CRP pending. -Pain control: Tramadol 50 mg prn pain 3-5 Tramadol 100mg prn pain 6-10 Gabapentin 300 mg tid Pain increased today. Toradol 30 mg IV ordered this morning. Nurse reports patient had no relief. Discussed with Dr. Alvares. Lidoderm patches started. Ibuprofen 600 mg q 8 hours started. K-thermia ordered. Hepatitis B & C: F/u as outpatient. DVT prophylaxis with SCDs Discharge Planning Will remain hospitalized until completion of antibiotics. Problem Qualifiers (1) Back pain: Qualified Code: M54.5 - Acute midline low back pain without sciatica Carol Ann Reich September 02, 2016 10:11
[2016-09-02] MEDS: LIDOCAINE HCL 5% PATCH T-DERMAL PRN (12:45)
[2016-09-02] MEDS: IBUPROFEN 600 MG TAB PO SCH ×2 (12:47→21:51)
[2016-09-02] MEDS: FAMOTIDINE 20 MG TAB PO SCH (12:49)
[2016-09-02 20:00] VITALS: BP 121/72; PULSE 82; RESP 19; TEMP 96.3; O2SAT 100
[2016-09-03] MEDS: traMADol HCL 50 MG TAB PO PRN ×5 (02:30→22:08)
[2016-09-03] MEDS: ceFAZolin 2 GM PREMIX 50 ML IV SCH ×3 (06:30→22:09)
[2016-09-03] MEDS: CYCLOBENZAPRINE HCL 10 MG TAB PO PRN ×2 (06:31→19:59)
[2016-09-03] MEDS: IBUPROFEN 600 MG TAB PO SCH ×3 (06:31→22:08)
[2016-09-03 08:00] VITALS: BP 124/67; PULSE 84; RESP 20; TEMP 97.5; O2SAT 99
[2016-09-03] MEDS: DOCUSATE SODIUM 50 MG/SENNA 8.6 MG TAB PO SCH ×2 (08:43→19:59)
[2016-09-03] MEDS: FAMOTIDINE 20 MG TAB PO SCH (08:43)
[2016-09-03] MEDS: GABAPENTIN 300 MG CAP PO SCH ×3 (08:43→17:48)
[2016-09-03] MEDS: SODIUM CHLORIDE 0.9% FLUSH 10 ML FLUSH IV FLUSH SCH ×2 (08:44→20:02)
--- NOTE | 2016-09-03 10:22 | HHI.PR ---
Subjective Remarks Follow-up for lumbar discitis and osteomyelitis. Patient again complains of pain radiating around his hips and abdomen and "electric" pain down the right leg. Patient was given Toradol yesterday and nurse reportedly did not have relief with this. He indicates it may have helped because he went to sleep. He denies any fevers or chills. States his last bowel movement was 2 days ago and he did have to somewhat strain. He denies feeling constipated currently and denies having daily bowel movements when outside the hospital. Currently on Lora -colace. Objective Vitals Vital Signs Date Time Temp Pulse Resp B/P Pulse Ox O2 Delivery O2 Flow Rate FiO2 09/03/16 08:00 97.5 84 20 124/67 99 09/03/16 03:45 18 09/02/16 22:58 18 09/02/16 20:00 96.3 82 19 121/72 100 I/O 09/02/16 09/02/16 09/02/16 09/03/16 09/03/16 09/03/16 07:00 15:00 23:00 07:00 15:00 23:00 Intake Total 600 ml 315 ml 120 ml Output Total 500 ml 1550 ml 750 ml Balance 100 ml -1235 ml -630 ml Intake Oral 600 ml 240 ml 120 ml IV Total 75 ml Output Urine Total 500 ml 1550 ml 750 ml # Bowel Movements 0 Result Diagram: 09/02/16 0545 09/02/16 0545 Objective Remarks GENERAL: Well-nourished, well patient no apparent distress lying supine in bed. SKIN: Warm and dry. CARDIOVASCULAR: Regular rate and rhythm. RESPIRATORY: No accessory muscle use. Clear to auscultation. Breath sounds equal bilaterally. GASTROINTESTINAL: Abdomen soft, non-tender, nondistended. MUSCULOSKELETAL: Normal distal pulses in B/L LE. NEUROLOGICAL: Awake and alert. Normal speech. PSYCHIATRIC: Appropriate mood and affect; insight and judgment normal. Procedures CT-guided aspirate of the lumbar spine Urinary Catheter: No Vascular Central Line Catheter: No A/P Problem List: (1) Back pain ICD Code: M54.9 Status: Acute (2) Osteomyelitis of lumbar spine ICD Code: M46.26 Status: Acute (3) Lumbar discitis ICD Code: M46.46 Status: Acute (4) Trochanteric bursitis of both hips ICD Code: M70.61 Status: Acute Assessment and Plan Back pain, discitis, osteomyelitis: -MRI reveals findings highly suspicious for discitis with osteomyelitis and inflammation. -Per Dr. Tate, neurosurgery, no definite significant drainable abscess seen on MRI. Lumbar spine x-ray 08/23. Per neurosurgery pt is to undergo f/u spine x-ray between September 06-September 09. -Status post Interventional radiology CT-guided aspiration of discitis L2 to L3 on 08/23/16 -Wound culture 08/23 positive for MSSA, continue Ancef 2g q8hrs -Blood cultures x 2 NG -Continue physical therapy -Per ID continue Ancef 2 gm IV q8hrs plan on 6 weeks total (pending repeat imaging at [address] spine 09/15/2016. If continues to improve in regards to epidural abscess then ok to complete 6 week course. -Follow weekly CBC with diff, CMP, CRP while on IV antibiotics. -If any abnormal labs or change in clinical condition call ID at [facility] or Dr. Lou. -09/02: WBC normal at 10.1. CMP unremarkable. CRP improved at 0.94. -Pain control: Tramadol 50 mg prn pain 3-5 Tramadol 100mg prn pain 6-10 Gabapentin 300 mg tid One time dose of Toradol 30 mg IV ordered on 09/02. Ibuprofen 600 mg q 8 hours scheduled Lidoderm patches prn K-thermia prn. Hepatitis B & C: F/u as outpatient. DVT prophylaxis with SCDs Discussed patient with Dr. Alvares. Discharge Planning Will remain hospitalized until completion of antibiotics. Problem Qualifiers (1) Back pain: Qualified Code: M54.5 - Acute midline low back pain without sciatica Carol Ann Reich September 03, 2016 10:22 Phi Alvares MD September 04, 2016 08:43
[2016-09-03] MEDS: LIDOCAINE HCL 5% PATCH T-DERMAL PRN (12:32)
[2016-09-03] MEDS ORDERED: IOHEXOL 350 MG/ML 10 ML VIAL (for RAD DIAG) IV ONE (18:29)
--- NOTE | 2016-09-03 19:17 | RADHPO ---
EXAM DATE/TIME: 09/03/2016 18:16 [facility] COMPARISON: No previous studies available for comparison. INDICATIONS : Discitis and osteomyelitis. Evaluate for epidural abscess. IV CONTRAST: 90 cc Omnipaque 350 (iohexol) IV RADIATION DOSE: 32.31 CTDIvol (mGy) MEDICAL HISTORY : None SURGICAL HISTORY : L3 Kyphoplasty. ENCOUNTER: Initial ACUITY: 2 weeks PAIN SCALE: 4/10 LOCATION: Lumbar TECHNIQUE: Volumetric scanning of the lumbar spine was performed. Multiplanar reconstructions in the sagittal, coronal and oblique axial planes were performed. Using automated exposure control and adjustment of the mA and/or kV according to patient size, radiation dose was kept as low as reasonably achievable t o obtain optimal diagnostic quality images. FINDINGS: Correlation is made with a prior MRI from August 22. Patient has a discitis and osteomyelitis at L2-3. There is some bony lytic destruction aspect of L2 and superior aspect of L3. There is previous kypho plasty at L3. At L2-3 there is abnormal soft tissue at the anterior aspect of the spinal canal at the lateral reces ses, right greater than left with a moderate canal stenosis. The degree of stenosis is similar to joon t seen on the prior MRI. There is also swallowing and edematous changes in the adjacent psoas muscula ture. There are posterior disc bulges at L1-2 and L3-4 with mild encroachment on the lateral recesses. At L4-5 and L5-S1 there are also posterior disc bulges with encroachment on the lateral recesses and neural foramina. Limbus vertebra present anterosuperior L5. CONCLUSION: 1. At L2-3 there is discitis and osteomyelitis with bony destructive changes and previous kyphoplasty . There is abnormal density along the anterior and lateral aspect of the canal at L2-3, worse on the right side with a moderate central canal stenosis that appears similar to correlative MRI from August 22. It is unclear on CT if this is a complex infected fluid collection or abnormal soft tissue relate d to the discitis and osteomyelitis. MRI would be more specific in assessing for epidural abscess. Th ere is swelling and edema in the psoas musculature bilaterally. Holland Wood MD on September 03, 2016 at 19:06 Board Certified Radiologist. This report was verified electronically.
[2016-09-03 20:55] VITALS: BP 110/85; PULSE 85; RESP 18; TEMP 97.6; O2SAT 98
[2016-09-04] MEDS: IBUPROFEN 600 MG TAB PO SCH ×3 (05:18→21:50)
[2016-09-04] MEDS: CYCLOBENZAPRINE HCL 10 MG TAB PO PRN (05:18)
[2016-09-04] MEDS: traMADol HCL 50 MG TAB PO PRN ×2 (05:18→08:43)
[2016-09-04] MEDS: ceFAZolin 2 GM PREMIX 50 ML IV SCH ×3 (05:20→21:50)
[2016-09-04 08:00] VITALS: BP 115/68; PULSE 67; RESP 18; TEMP 97.8; O2SAT 98
[2016-09-04] MEDS: FAMOTIDINE 20 MG TAB PO SCH (08:42)
[2016-09-04] MEDS: DOCUSATE SODIUM 50 MG/SENNA 8.6 MG TAB PO SCH ×2 (08:42→21:52)
[2016-09-04] MEDS: GABAPENTIN 300 MG CAP PO SCH ×3 (08:43→16:56)
[2016-09-04] MEDS: SODIUM CHLORIDE 0.9% FLUSH 10 ML FLUSH IV FLUSH SCH ×2 (08:43→21:52)
[2016-09-04] MEDS ORDERED: ACETAMINOPHEN/HYDROcodone 325 MG/10 MG TAB PO PRN (10:15)
[2016-09-04] MEDS ORDERED: ACETAMINOPHEN/HYDROcodone 325 MG/5 MG TAB PO PRN ×2 (10:15→11:00)
--- NOTE | 2016-09-04 10:29 | HHI.PR ---
Subjective Remarks Follow-up for lumbar discitis and osteomyelitis. Patient still complains of pain in his back and right leg. Denies any fevers or chills. Denies any bladder or bowel incontinence. Objective Vitals Vital Signs Date Time Temp Pulse Resp B/P Pulse Ox O2 Delivery O2 Flow Rate FiO2 09/04/16 08:00 97.8 67 18 115/68 98 09/03/16 20:55 97.6 85 18 110/85 98 I/O 09/03/16 09/03/16 09/03/16 09/04/16 09/04/16 09/04/16 06:59 14:59 22:59 06:59 14:59 22:59 Intake Total 120 ml 1070 ml 325 ml Output Total 750 ml 720 ml 575 ml Balance -630 ml 350 ml -250 ml Intake Oral 120 ml 970 ml 125 ml IV Total 100 ml 200 ml Output Urine Total 750 ml 720 ml 575 ml Result Diagram: 09/02/16 0545 09/02/16 0545 Imaging Last Impressions Lumbar Spine MRI 09/04/16 0000 Signed Impressions: Service Date/Time: Sunday, September 04, 2016 11:35 - CONCLUSION: 1. Discitis at L2- 3 with osteomyelitis at L2-3 appears unchanged. 2. Anterior epidural abscess causes moderate canal stenosis at L2-3 level. 3. Overall there is not appear to be significant interval change. Nuno Alcocer MD Lumbar Spine CT 09/03/16 0000 Signed Impressions: Service Date/Time: Saturday, September 03, 2016 18:16 - CONCLUSION: 1. At L2-3 there is discitis and osteomyelitis with bony destructive changes and previous kyphoplasty. There is abnormal density along the anterior and lateral aspect of the canal at L2-3, worse on the right side with a moderate central canal stenosis that appears similar to correlative MRI from August 22. It is unclear on CT if this is a complex infected fluid collection or abnormal soft tissue related to the discitis and osteomyelitis. MRI would be more specific in assessing for epidural abscess. There is swelling and edema in the psoas musculature bilaterally. Holland Wood MD Needle Aspiration CT 08/23/16 0000 Signed Impressions: Service Date/Time: Tuesday, August 23, 2016 13:35 - CONCLUSION: Uncomplicated L2-3 disc as described above. Juan Temple MD FACR Lumbar Spine X-Ray 08/23/16 0000 Signed Impressions: Service Date/Time: Tuesday, August 23, 2016 01:03 - CONCLUSION: 1. Evidence of previous kyphoplasty of L3. 2. Primary degenerative type changes involving the lumbar spine. 3. Demineralization of the bone along the inter endplate of L2 corresponding to patient's known infection involving L2-L3 Candido Chew MD Objective Remarks GENERAL: Well-nourished, well patient no apparent distress, but appears in pain. SKIN: Warm and dry. CARDIOVASCULAR: Regular rate and rhythm. RESPIRATORY: No accessory muscle use. Clear to auscultation. Breath sounds equal bilaterally. GASTROINTESTINAL: Abdomen soft, non-tender, nondistended. MUSCULOSKELETAL: Tender in R groin. 2+ DP and TP pulses bilaterally. NEUROLOGICAL: Awake and alert. 5/5 strength in bilateral upper extremities. Gross sensation is intact B/L upper extremities. 5/5 dorsiflexion bilaterally. 4 /5 plantar flexion bilaterally and patient has pain with resistance applied. Sensation is grossly decreased over the right lateral thigh, but sensation is grossly intact otherwise over the remaining legs bilaterally. Non-reactive Babinski's bilaterally. Normal speech. PSYCHIATRIC: Appropriate mood and affect; insight and judgment normal. Procedures CT-guided aspirate of the lumbar spine Urinary Catheter: No Vascular Central Line Catheter: No A/P Problem List: (1) Back pain ICD Code: M54.9 Status: Acute (2) Osteomyelitis of lumbar spine ICD Code: M46.26 Status: Acute (3) Lumbar discitis ICD Code: M46.46 Status: Acute (4) Trochanteric bursitis of both hips ICD Code: M70.61 Status: Acute Assessment and Plan Back pain, discitis, osteomyelitis: Back is pain is worse -MRI reveals findings highly suspicious for discitis with osteomyelitis and inflammation. -Per Dr. Tate, neurosurgery, no definite significant drainable abscess seen on MRI. Lumbar spine x-ray 08/23. Per neurosurgery pt is to undergo f/u spine x-ray between September 06-September 09. -Status post Interventional radiology CT-guided aspiration of discitis L2 to L3 on 08/23/16 -Wound culture 08/23 positive for MSSA, continue Ancef 2g q8hrs -Blood cultures x 2 NG -Continue physical therapy -Per ID continue Ancef 2 gm IV q8hrs plan on 6 weeks total (pending repeat imaging at [address] spine 09/15/2016. If continues to improve in regards to epidural abscess then ok to complete 6 week course. -Follow weekly CBC with diff, CMP, CRP while on IV antibiotics. -If any abnormal labs or change in clinical condition call ID at [place] or Dr. Lou. -09/02: WBC normal at 10.1. CMP unremarkable. CRP improved at 0.94. 09/04/16 -Patient still with significant pain. Remains afebrile. Discussed patient with Dr. Alvares who has spoken with Dr. Lou, ID. CT lumbar spine order by ID again with discitis and osteomyelitis; abnormal density along the anterior and lateral aspect of the canal at L2-3, worse on the R side with a moderate central canal stenosis similar to correlative of MRI from August 22. Radiologist states it is unclear if it is a complex infected fluid collection or abnormal soft tissue related to the discitis and osteomyelitis. MRI suggested to assess for epidural abscess. There is swelling and edema in the psoas musculature bilaterally. -L-spine MRI still indicates the presence of osteomyelitis and discitis. There is again an anterior epidural abscess at the L2-L3 level causing moderate canal stenosis which is not significantly changed. Disc bulges at L2-3, L3-4, L4-5, and L5-S1 levels are unchanged. Dr. Lou is aware. -I spoke witn Dr. Tate at 1412 hours and discussed patient's condition and imaging findings with him. He states unless patient has focal iliopsoas weakness he would not do surgery. He will come to [place] today to evaluate patient. Per Dr. Lou, please inform her if patient is [facility]. -Pain control: Tramadol 50 mg prn pain 3-5 changed to [place] 5/325 q4h prn pain 3-5 Tramadol 100mg prn pain 6-10 changed to [place] 10/325 q4h prn pain 6-10 Gabapentin 300 mg tid One time dose of Toradol 30 mg IV ordered on 09/02. Ibuprofen 600 mg q 8 hours scheduled Lidoderm patches prn K-thermia prn. Hepatitis B & C: F/u as outpatient. DVT prophylaxis with SCDs Discharge Planning Will remain hospitalized until completion of antibiotics. Problem Qualifiers (1) Back pain: Qualified Code: M54.5 - Acute midline low back pain without sciatica Carol Ann Reich September 04, 2016 10:29
[2016-09-04] MEDS: ACETAMINOPHEN/HYDROcodone 325 MG/10 MG TAB PO PRN ×3 (11:05→21:51)
[2016-09-04] MEDS: LIDOCAINE HCL 5% PATCH T-DERMAL PRN (12:13)
--- NOTE | 2016-09-04 12:49 | RADHPO ---
EXAM DATE/TIME: 09/04/2016 11:35 [facility] COMPARISON: MRI LUMBAR SPINE W & W/O CONTRAST, August 22, 2016, 23:01. INDICATIONS : Abscess. CONTRAST: 14 cc Omniscan (gadodiamide) IV MEDICAL HISTORY : None. SURGICAL HISTORY : L3 Kyphoplasty ENCOUNTER: Initial ACUITY: 1 week PAIN SCORE: 9/10 LOCATION: Right Lower back region down to mid femur TECHNIQUE: Multiplanar multisequence MRI of the lumbar spine was performed with and without contrast. FINDINGS: Diffuse edema throughout L2 and L3 vertebral bodies consistent with osteomyelitis. Diffuse abnormal s ignal of the disc space at L2-3 consistent with discitis. There is diffuse enhancement and soft tissu e prominence in the paraspinal regions at L2-3 again seen on both sides of the vertebral bodies and i nvolving the thoracic musculature bilaterally.. Soft tissue prominence with enhancement in the anteri or epidural space again noted at L2-L3 level consistent with anterior epidural abscess causing modera te canal stenosis not significantly changed. The disc bulges throughout the lumbar spine are unchange d primarily involving L2-3, L3-4, L4-5 and L5-S1 levels. Diffuse facet arthropathy. CONCLUSION: 1. Discitis at L2-3 with osteomyelitis at L2-3 appears unchanged. 2. Anterior epidural abscess causes moderate canal stenosis at L2-3 level. 3. Overall there is not appear to be significant interval change. Nuno Alcocer MD on September 04, 2016 at 12:37 Board Certified Radiologist. This report was verified electronically.
[2016-09-04] MEDS ORDERED: GADODIAMIDE PF 287 MG/ML 5 ML VIAL (for RAD MRI) IV ONE (15:33)
--- NOTE | 2016-09-04 17:15 | HHI.PR ---
Addendum to Inpatient Note Addendum Reason: Additional Documentation Additional Information CT ordered by me to follow up at 2 weeks and also neuro symptoms abnormal. MRI with psoas muscle findings as well as persistent epidural abscess. Margo IZAGUIRRE to call Neurosurgery about findings. She informed me that patient will be evaluated at [facility] by to determine if patient needs surgery and transfer back to [facility]. If transferred to [facility] please notify me. Tosha Lou MD September 04, 2016 17:15
[2016-09-04 20:00] VITALS: BP 130/66; PULSE 80; RESP 20; TEMP 98.5; O2SAT 97
[2016-09-05] MEDS: ACETAMINOPHEN/HYDROcodone 325 MG/10 MG TAB PO PRN ×3 (05:33→18:21)
[2016-09-05] MEDS: IBUPROFEN 600 MG TAB PO SCH ×3 (05:42→21:28)
[2016-09-05] MEDS: ceFAZolin 2 GM PREMIX 50 ML IV SCH ×3 (05:42→21:26)
[2016-09-05 08:00] VITALS: BP 148/93; PULSE 95; RESP 17; TEMP 98.7; O2SAT 99
[2016-09-05] MEDS: GABAPENTIN 300 MG CAP PO SCH ×3 (08:00→18:21)
[2016-09-05] MEDS: FAMOTIDINE 20 MG TAB PO SCH (08:00)
[2016-09-05] MEDS: DOCUSATE SODIUM 50 MG/SENNA 8.6 MG TAB PO SCH ×2 (08:00→21:27)
[2016-09-05] MEDS: SODIUM CHLORIDE 0.9% FLUSH 10 ML FLUSH IV FLUSH SCH ×2 (08:00→21:26)
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
[2016-09-05 20:00] VITALS: BP 143/81; PULSE 117; RESP 16; TEMP 98.5; O2SAT 98
[2016-09-06] MEDS: ACETAMINOPHEN/HYDROcodone 325 MG/10 MG TAB PO PRN ×4 (01:15→19:27)
[2016-09-06] MEDS: CYCLOBENZAPRINE HCL 10 MG TAB PO PRN ×2 (01:16→13:41)
[2016-09-06] MEDS: IBUPROFEN 600 MG TAB PO SCH ×3 (06:46→19:12)
[2016-09-06] MEDS: ceFAZolin 2 GM PREMIX 50 ML IV SCH ×3 (06:49→19:13)
[2016-09-06] MEDS: SODIUM CHLORIDE 0.9% FLUSH 10 ML FLUSH IV FLUSH SCH ×2 (07:48→19:13)
[2016-09-06 08:00] VITALS: BP 137/90; PULSE 106; RESP 18; TEMP 97.6; O2SAT 97
[2016-09-06] MEDS: DOCUSATE SODIUM 50 MG/SENNA 8.6 MG TAB PO SCH ×2 (09:27→19:12)
[2016-09-06] MEDS: GABAPENTIN 300 MG CAP PO SCH ×4 (09:27→19:12)
[2016-09-06] MEDS: FAMOTIDINE 20 MG TAB PO SCH ×2 (09:27→19:13)
--- NOTE | 2016-09-06 11:12 | HHI.PR ---
Subjective Remarks Patient seen and examined today for follow-up on osteomyelitis and discitis. Patient lying in bed comfortably. Patient denies any new complaints. Discussed case with Dr. Tate who did not indicate the patient requires any further management from neurosurgery. States that he'll need to continue IV antibiotics until completion. Objective Vitals Vital Signs Date Time Temp Pulse Resp B/P Pulse Ox O2 Delivery O2 Flow Rate FiO2 09/06/16 08:00 97.6 106 18 137/90 97 09/05/16 20:00 98.5 117 16 143/81 98 I/O 09/05/16 09/05/16 09/05/16 09/06/16 09/06/16 09/06/16 06:59 14:59 22:59 06:59 14:59 22:59 Intake Total 240 ml 720 ml 480 ml Output Total 800 ml 750 ml 700 ml Balance 240 ml -800 ml -30 ml -220 ml Intake Oral 240 ml 720 ml 480 ml Output Urine Total 800 ml 750 ml 700 ml # Voids 2 2 # Bowel Movements 0 0 0 Result Diagram: 09/02/1645 09/02/1645 Objective Remarks GENERAL: Well-developed, well-nourished, in no acute distress. alert and orientated HEENT: Head is normocephalic without any lesions or masses noted. Facial features are symmetric. Eyes: Extraocular muscles are intact. Conjunctivae were clear. NECK: Supple without any masses. Trachea midline no deviation. No JVD, CARDIAC: Regular rhythm, regular rate. S1/S2 are heard. No murmurs gallops or rubs. LUNGS: Clear to auscultation bilaterally. No wheeze, rhonchi or rales. No use of accessory muscles on inspiration or expiration. ABDOMEN: Soft, nontender. Nondistended. Bowel sounds heard in all 4 quadrants. No organomegaly or masses. Negative rebound, negative guarding EXTREMITIES: No edema, pulses are equal bilaterally. No cyanosis or clubbing NEUROLOGY: Mood and affect appear appropriate. Cranial nerves II through XII grossly intact moving all extremities, speech is clear Procedures CT-guided aspirate of the lumbar spine Urinary Catheter: No Vascular Central Line Catheter: No A/P Assessment and Plan Back pain, discitis, osteomyelitis: Initial MRI reveals findings highly suspicious for discitis with osteomyelitis and inflammation. Initially Dr. Tate, neurosurgery, no definite significant drainable abscess seen on MRI. Lumbar spine x-ray 08/23. Status post Interventional radiology CT-guided aspiration of discitis L2 to L3 on 08/23/16 Wound culture 08/23 positive for MSSA Infectious disease recommends Ancef 2 g IV every 8 hours, plan on 6 week total unless worsening of follow-up CT findings Weekly CBC, CMP, CRP, while on IV antibiotics Repeat CT of lumbar spine on 09/03/16 because of increased pain indicates abnormality. MRI ordered which indicates discitis at L2-L3 with osteomyelitis at L2-L3 which appears unchanged. Anterior epidural abscess causes moderate canal stenosis at L2-L3. Overall there does not appear to be any significant interval change. Dr. Tate reevaluated the patient and indicated that there is no change in treatment plan. The patient will require completion of IV antibiotics Pain control: If neurosurgery does not indicate that there is anything new or requiring any intervention will start decreasing pain medication again. [place] 5/325 q4h prn pain 3-5 [place] 10/325 q4h prn pain 6-10 Gabapentin 300 mg tid Ibuprofen 600 mg q 8 hours scheduled Lidoderm patches prn K-thermia prn. Flexeril 5 mg every 8 hours as needed Hepatitis B & C: F/u as outpatient. DVT prophylaxis with SCDs Discharge Planning Discharge home after patient of antibiotics and cleared by neurosurgeon [place] Nelson September 06, 2016 11:12
[2016-09-06 20:00] VITALS: BP 118/91; PULSE 117; RESP 16; TEMP 100.1; O2SAT 97
[2016-09-06] MEDS: LIDOCAINE HCL 5% PATCH T-DERMAL PRN (21:42)
--- NOTE | 2016-09-06 21:51 | HHI.NSPN ---
History Chief Complaint: low back pain Interval History Patient with history of a previous fall, admitted to [facility] for evaluation with initial workup reportedly negative for infection. Subsequent lumbar vertebroplasty with postoperative course complicated by probable infection treated according to the patient with approximately 2 weeks of inpatient intravenous antibiotics prior to discharge. Exam Results Vital Signs Date Time Temp Pulse Resp B/P Pulse Ox O2 Delivery O2 Flow Rate FiO2 09/06/16 08:00 97.6 106 18 137/90 97 Intake and Output 09/05/16 09/05/16 09/06/16 08:00 16:00 00:00 Intake Total 240 ml 720 ml Output Total 800 ml 750 ml Balance 240 ml -800 ml -30 ml Physical Examination Awake and alert Conversant and appropriate Speech clear Follow simple commands well No nuchal rigidity Moderate lumbar spine tenderness Sensation intact light touch lower extremities Strength normal all major flexion and extension groups, inversion and eversion of the foot in the right and left lower extremity No ankle clonus No significant lower extremity edema Positive discomfort in the hip and groin region with active and passive internal and external rotation of the left greater than right lower extremity Moderate tenderness left lateral hip Lab, Micro, Other Results 09/04/2016 lumbar spine MRI and 09/03/2016 CT scan lumbar spine images reviewed by the undersigned. Agree with findings as noted below: Lumbar Spine MRI 09/04/16 0000 Signed Impressions: Service Date/Time: Sunday, September 04, 2016 11:35 - CONCLUSION: 1. Discitis at L2- 3 with osteomyelitis at L2-3 appears unchanged. 2. Anterior epidural abscess causes moderate canal stenosis at L2-3 level. 3. Overall there is not appear to be significant interval change. Nuno Alcocer MD Lumbar Spine CT 09/03/16 0000 Signed Impressions: Service Date/Time: Saturday, September 03, 2016 18:16 - CONCLUSION: 1. At L2-3 there is discitis and osteomyelitis with bony destructive changes and previous kyphoplasty. There is abnormal density along the anterior and lateral aspect of the canal at L2-3, worse on the right side with a moderate central canal stenosis that appears similar to correlative MRI from August 22. It is unclear on CT if this is a complex infected fluid collection or abnormal soft tissue related to the discitis and osteomyelitis. MRI would be more specific in assessing for epidural abscess. There is swelling and edema in the psoas musculature bilaterally. Holland Wood MD Needle Aspiration CT 08/23/16 0000 Signed Impressions: Service Date/Time: Tuesday, August 23, 2016 13:35 - CONCLUSION: Uncomplicated L2-3 disc as described above. Juan Temple MD FACR Lumbar Spine X-Ray 08/23/16 0000 Signed Impressions: Service Date/Time: Tuesday, August 23, 2016 01:03 - CONCLUSION: 1. Evidence of previous kyphoplasty of L3. 2. Primary degenerative type changes involving the lumbar spine. 3. Demineralization of the bone along the inter endplate of L2 corresponding to patient's known infection involving L2-L3 Candido Chew MD Medical Decision Making Impression and Plan Impression: 1. L2-3 discitis. 2. Probable lumbar radiculitis. No significant focal deficit noted on examination. No evidence of cauda equina syndrome. 3. Persistent low back pain related to discitis-osteomyelitis without evidence of progressive deformity or instability on follow-up MRI and CT scan imaging Plan: Findings were discussed at length with the patient. I spoke with him approximately 30 minutes this morning and answered all of his questions. Continue LSO brace. Continue to mobilize out of bed as tolerated We will initiate short course of Toradol and additional muscle relaxant. Signs and symptoms of progressive neurologic deficit, radiculopathy, cauda equina syndrome all fully discussed with the patient. Discussed with medicine service today. Rehan Tate MD September 06, 2016 21:47
[2016-09-06] MEDS: KETOROLAC TROMETHAMINE 30 MG/ML (IVP) VIAL IV PUSH SCH (22:55)
[2016-09-07] MEDS: KETOROLAC TROMETHAMINE 30 MG/ML (IVP) VIAL IV PUSH SCH ×3 (05:35→21:25)
[2016-09-07] MEDS: IBUPROFEN 600 MG TAB PO SCH (05:36)
[2016-09-07] MEDS: ceFAZolin 2 GM PREMIX 50 ML IV SCH ×3 (05:38→21:28)
[2016-09-07 08:00] VITALS: BP 118/70; PULSE 88; RESP 18; TEMP 98.2; O2SAT 97
[2016-09-07] MEDS: DOCUSATE SODIUM 50 MG/SENNA 8.6 MG TAB PO SCH ×4 (09:00→20:18)
[2016-09-07] MEDS: SODIUM CHLORIDE 0.9% FLUSH 10 ML FLUSH IV FLUSH SCH ×2 (09:49→21:28)
--- NOTE | 2016-09-07 10:11 | HHI.PR ---
Subjective Remarks Patient seen and examined today for follow-up on osteomyelitis and discitis. Patient indicates that the bed is causing him to have worsened back pain. He indicates that resting on the couch is better for his back. Objective Vitals Vital Signs Date Time Temp Pulse Resp B/P Pulse Ox O2 Delivery O2 Flow Rate FiO2 09/06/16 20:00 100.1 117 16 118/91 97 I/O 09/06/16 09/06/16 09/06/16 09/07/16 09/07/16 09/07/16 06:59 14:59 22:59 06:59 14:59 22:59 Intake Total 480 ml 630 ml 480 ml 480 ml Output Total 700 ml 350 ml Balance -220 ml 280 ml 480 ml 480 ml Intake Oral 480 ml 630 ml 480 ml 480 ml Output Urine Total 700 ml 350 ml # Voids 1 1 2 # Bowel Movements 0 0 0 0 Objective Remarks GENERAL: Well-developed, well-nourished, in no acute distress. alert and orientated HEENT: Head is normocephalic without any lesions or masses noted. Facial features are symmetric. Eyes: Extraocular muscles are intact. Conjunctivae were clear. NECK: Supple without any masses. Trachea midline no deviation. No JVD, CARDIAC: Regular rhythm, regular rate. S1/S2 are heard. No murmurs gallops or rubs. LUNGS: Clear to auscultation bilaterally. No wheeze, rhonchi or rales. No use of accessory muscles on inspiration or expiration. ABDOMEN: Soft, nontender. Nondistended. Bowel sounds heard in all 4 quadrants. No organomegaly or masses. Negative rebound, negative guarding EXTREMITIES: No edema, pulses are equal bilaterally. No cyanosis or clubbing NEUROLOGY: Mood and affect appear appropriate. Cranial nerves II through XII grossly intact moving all extremities, speech is clear Procedures CT-guided aspirate of the lumbar spine Urinary Catheter: No Vascular Central Line Catheter: No A/P Assessment and Plan Back pain, discitis, osteomyelitis: Initial MRI reveals findings highly suspicious for discitis with osteomyelitis and inflammation. Initially Dr. Tate, neurosurgery, no definite significant drainable abscess seen on MRI. Lumbar spine x-ray 08/23. Status post Interventional radiology CT-guided aspiration of discitis L2 to L3 on 08/23/16 Wound culture 08/23 positive for MSSA Infectious disease recommends Ancef 2 g IV every 8 hours, plan on 6 week total unless worsening of follow-up CT findings Weekly CBC, CMP, CRP, while on IV antibiotics Repeat CT of lumbar spine on 09/03/16 because of increased pain indicates abnormality. MRI ordered which indicates discitis at L2-L3 with osteomyelitis at L2-L3 which appears unchanged. Anterior epidural abscess causes moderate canal stenosis at L2-L3. Overall there does not appear to be any significant interval change. Dr. Tate reevaluated the patient and indicated that there is no change in treatment plan. The patient will require completion of IV antibiotics. Pain control: If neurosurgery does not indicate that there is anything new or requiring any intervention will start decreasing pain medication again. [place] 5/325 q4h prn pain 3-5 [place] 10/325 q4h prn pain 6-10 Gabapentin 300 mg tid Ibuprofen 600 mg q 8 hours scheduled, will hold at this time due to patient started on Toradol Lidoderm patches prn K-thermia prn. Robaxin 750 mg every 8 hours Toradol 50 mg IV every [address] Tate Hepatitis B & C: F/u as outpatient. DVT prophylaxis with SCDs Discharge Planning Discharge home after patient of antibiotics and cleared by neurosurgeon Cuba Nelson September 07, 2016 10:10 Cuba Nelson September 07, 2016 10:10
[2016-09-07] MEDS: GABAPENTIN 300 MG CAP PO SCH ×2 (13:32→17:54)
[2016-09-07] MEDS: SODIUM CHLORIDE 0.9% FLUSH 10 ML FLUSH IV FLUSH PRN (13:34)
[2016-09-07 20:00] VITALS: BP 138/75; PULSE 91; RESP 20; TEMP 98.5; O2SAT 98
[2016-09-07] MEDS: ACETAMINOPHEN/HYDROcodone 325 MG/10 MG TAB PO PRN (20:19)
[2016-09-08] MEDS: ACETAMINOPHEN/HYDROcodone 325 MG/10 MG TAB PO PRN ×4 (00:57→22:40)
[2016-09-08] MEDS: KETOROLAC TROMETHAMINE 30 MG/ML (IVP) VIAL IV PUSH SCH ×3 (05:18→20:50)
[2016-09-08] MEDS: ceFAZolin 2 GM PREMIX 50 ML IV SCH ×3 (05:22→20:50)
[2016-09-08 08:00] VITALS: BP 110/77; PULSE 89; RESP 18; TEMP 98.2; O2SAT 98
[2016-09-08] MEDS: SODIUM CHLORIDE 0.9% FLUSH 10 ML FLUSH IV FLUSH SCH ×2 (09:00→20:49)
[2016-09-08] MEDS: FAMOTIDINE 20 MG TAB PO SCH (09:33)
[2016-09-08] MEDS: GABAPENTIN 300 MG CAP PO SCH ×3 (09:33→18:19)
[2016-09-08] MEDS: DOCUSATE SODIUM 50 MG/SENNA 8.6 MG TAB PO SCH ×2 (09:33→20:49)
--- NOTE | 2016-09-08 10:18 | HHI.PR ---
Subjective Remarks Patient seen and examined today for follow-up on osteomyelitis. Patient denies any new complaints. Still complaining that the bed is uncomfortable and he has to sleep on the couch. Objective Vitals Vital Signs Date Time Temp Pulse Resp B/P Pulse Ox O2 Delivery O2 Flow Rate FiO2 09/07/16 22:22 18 09/07/16 21:28 18 09/07/16 20:00 98.5 91 20 138/75 98 I/O 09/07/16 09/07/16 09/07/16 09/08/16 09/08/16 09/08/16 07:00 15:00 23:00 07:00 15:00 23:00 Intake Total 480 ml 60 ml 1060 ml 440 ml Output Total 900 ml Balance 480 ml 60 ml 160 ml 440 ml Intake Oral 480 ml 960 ml 240 ml IV Total 60 ml 100 ml 200 ml Output Urine Total 900 ml # Voids 2 3 2 # Bowel Movements 0 Objective Remarks GENERAL: Well-developed, well-nourished, in no acute distress. alert and orientated HEENT: Head is normocephalic without any lesions or masses noted. Facial features are symmetric. Eyes: Extraocular muscles are intact. Conjunctivae were clear. NECK: Supple without any masses. Trachea midline no deviation. No JVD, CARDIAC: Regular rhythm, regular rate. S1/S2 are heard. No murmurs gallops or rubs. LUNGS: Clear to auscultation bilaterally. No wheeze, rhonchi or rales. No use of accessory muscles on inspiration or expiration. ABDOMEN: Soft, nontender. Nondistended. Bowel sounds heard in all 4 quadrants. No organomegaly or masses. Negative rebound, negative guarding EXTREMITIES: No edema, pulses are equal bilaterally. No cyanosis or clubbing NEUROLOGY: Mood and affect appear appropriate. Cranial nerves II through XII grossly intact moving all extremities, speech is clear Procedures CT-guided aspirate of the lumbar spine Urinary Catheter: No Vascular Central Line Catheter: No A/P Assessment and Plan Back pain, discitis, osteomyelitis: Initial MRI reveals findings highly suspicious for discitis with osteomyelitis and inflammation. Initially Dr. Tate, neurosurgery, no definite significant drainable abscess seen on MRI. Lumbar spine x-ray 08/23. Status post Interventional radiology CT-guided aspiration of discitis L2 to L3 on 08/23/16 Wound culture 08/23 positive for MSSA Infectious disease recommends Ancef 2 g IV every 8 hours, plan on 6 week total unless worsening of follow-up CT findings Weekly CBC, CMP, CRP, while on IV antibiotics Repeat CT of lumbar spine on 09/03/16 because of increased pain indicates abnormality. MRI ordered which indicates discitis at L2-L3 with osteomyelitis at L2-L3 which appears unchanged. Anterior epidural abscess causes moderate canal stenosis at L2-L3. Overall there does not appear to be any significant interval change. Dr. Tate reevaluated the patient and indicated that there is no change in treatment plan. The patient will require completion of IV antibiotics. Pain control: If neurosurgery does not indicate that there is anything new or requiring any intervention will start decreasing pain medication again. [place] 5/325 q4h prn pain 3-5 [place] 10/325 q4h prn pain 6-10 Gabapentin 300 mg tid Ibuprofen 600 mg q 8 hours scheduled, will hold at this time due to patient started on Toradol Lidoderm patches prn K-thermia prn. Robaxin 750 mg every 8 hours Toradol 15 mg IV every [address] Tate Hepatitis B & C: F/u as outpatient. DVT prophylaxis with SCDs Discharge Planning Discharge home after patient of antibiotics and cleared by neurosurgeon [place] Nelson September 08, 2016 10:18
[2016-09-08 20:00] VITALS: BP 137/77; PULSE 91; RESP 20; TEMP 99.1; O2SAT 99
[2016-09-09] MEDS: ACETAMINOPHEN/HYDROcodone 325 MG/10 MG TAB PO PRN ×4 (02:34→20:43)
[2016-09-09] MEDS: KETOROLAC TROMETHAMINE 30 MG/ML (IVP) VIAL IV PUSH SCH ×2 (05:35→13:29)
[2016-09-09] MEDS: ceFAZolin 2 GM PREMIX 50 ML IV SCH ×3 (05:35→22:18)
[2016-09-09 06:24] LABS: AUTOMATED NEUTROPHIL # 3.7 TH/MM3 (1.8-7.7); BASOPHIL # 0.1 TH/MM3 (0-0.2); BASOPHIL % 0.9 % (0.0-2.0); EOSINOPHIL # 0.3 TH/MM3 (0-0.4); EOSINOPHIL % 4.8 % (0.0-4.0); HEMATOCRIT 35.4 % (39.0-51.0); HEMO FLAGS DIFF FINAL; LYMPH % 32.4 % (9.0-44.0); LYMPHOCYTE # 2.2 TH/MM3 (1.0-4.8); MEAN CELL VOLUME 83.5 FL (80.0-100.0); MEAN CORPUSCULAR HEMOGLOBIN 28.1 PG (27.0-34.0); MEAN CORPUSCULAR HGB CONC 33.6 % (32.0-36.0); MONO % 8.1 % (0.0-8.0); NEUT % 53.8 % (16.0-70.0); PLATELET COUNT 260 TH/MM3 (150-450); RED BLOOD COUNT 4.24 MIL/MM3 (4.50-5.90); RED CELL DISTRIBUTION WIDTH 13.7 % (11.6-17.2); WHITE BLOOD COUNT 6.9 TH/MM3 (4.0-11.0)
[2016-09-09 06:33] LABS: CHLORIDE 108 MEQ/L (98-107); POTASSIUM 3.7 MEQ/L (3.5-5.1); SODIUM (NA) 144 MEQ/L (136-145)
[2016-09-09 06:38] LABS: ANION GAP 5 MEQ/L (5-15); BICARBONATE 31.2 MEQ/L (21.0-32.0); BLOOD UREA NITROGEN 18 MG/DL (7-18)
[2016-09-09 06:41] LABS: ALT (GPT) 22 U/L (12-78); AST (GOT) 20 U/L (15-37); GLOMERULAR FILTRATION RATE 126 ML/MIN (>89)
[2016-09-09 06:43] LABS: TOTAL BILIRUBIN ADULT 0.2 MG/DL (0.2-1.0)
[2016-09-09 06:44] LABS: ALKALINE PHOSPHATASE 86 U/L (45-117)
[2016-09-09 08:00] VITALS: BP 120/74; PULSE 79; RESP 18; TEMP 96.2; O2SAT 98
[2016-09-09] MEDS: GABAPENTIN 300 MG CAP PO SCH ×3 (09:50→17:48)
[2016-09-09] MEDS: FAMOTIDINE 20 MG TAB PO SCH (09:50)
[2016-09-09] MEDS: SODIUM CHLORIDE 0.9% FLUSH 10 ML FLUSH IV FLUSH SCH ×2 (09:51→22:18)
[2016-09-09] MEDS: DOCUSATE SODIUM 50 MG/SENNA 8.6 MG TAB PO SCH ×2 (09:51→20:43)
--- NOTE | 2016-09-09 12:30 | HHI.PR ---
Subjective Remarks Patient seen and examined today. Patient followed up on osteomyelitis. Patient denies any new complaints. He was again sleeping on the couch. Objective Vitals Vital Signs Date Time Temp Pulse Resp B/P Pulse Ox O2 Delivery O2 Flow Rate FiO2 09/09/16 08:00 96.2 79 18 120/74 98 09/09/16 06:44 20 09/08/16 20:00 99.1 91 20 137/77 99 I/O 09/08/16 09/08/16 09/08/16 09/09/16 09/09/16 09/09/16 07:00 15:00 23:00 07:00 15:00 23:00 Intake Total 440 ml 240 ml 890 ml 530 ml Balance 440 ml 240 ml 890 ml 530 ml Intake Oral 240 ml 240 ml 840 ml 480 ml IV Total 200 ml 50 ml 50 ml # Voids 2 3 3 # Bowel Movements 1 Result Diagram: 09/09/16 0552 09/09/16 0552 Objective Remarks GENERAL: Well-developed, well-nourished, in no acute distress. alert and orientated HEENT: Head is normocephalic without any lesions or masses noted. Facial features are symmetric. Eyes: Extraocular muscles are intact. Conjunctivae were clear. NECK: Supple without any masses. Trachea midline no deviation. No JVD, CARDIAC: Regular rhythm, regular rate. S1/S2 are heard. No murmurs gallops or rubs. LUNGS: Clear to auscultation bilaterally. No wheeze, rhonchi or rales. No use of accessory muscles on inspiration or expiration. ABDOMEN: Soft, nontender. Nondistended. Bowel sounds heard in all 4 quadrants. No organomegaly or masses. Negative rebound, negative guarding EXTREMITIES: No edema, pulses are equal bilaterally. No cyanosis or clubbing NEUROLOGY: Mood and affect appear appropriate. Cranial nerves II through XII grossly intact moving all extremities, speech is clear Procedures CT-guided aspirate of the lumbar spine Urinary Catheter: No Vascular Central Line Catheter: No A/P Assessment and Plan Back pain, discitis, osteomyelitis: Initial MRI reveals findings highly suspicious for discitis with osteomyelitis and inflammation. Initially Dr. Tate, neurosurgery, no definite significant drainable abscess seen on MRI. Lumbar spine x-ray 08/23. Status post Interventional radiology CT-guided aspiration of discitis L2 to L3 on 08/23/16 Wound culture 08/23 positive for MSSA Infectious disease recommends Ancef 2 g IV every 8 hours, plan on 6 week total unless worsening of follow-up CT findings Weekly CBC, CMP, CRP, while on IV antibiotics Repeat CT of lumbar spine on 09/03/16 because of increased pain indicates abnormality. MRI ordered which indicates discitis at L2-L3 with osteomyelitis at L2-L3 which appears unchanged. Anterior epidural abscess causes moderate canal stenosis at L2-L3. Overall there does not appear to be any significant interval change. Dr. Tate reevaluated the patient and indicated that there is no change in treatment plan. The patient will require completion of IV antibiotics. Pain control: If neurosurgery does not indicate that there is anything new or requiring any intervention will start decreasing pain medication again. [place] 5/325 q4h prn pain 3-5 [place] 10/325 q4h prn pain 6-10 Gabapentin 300 mg tid Ibuprofen 600 mg q 8 hours scheduled, will hold at this time due to patient started on Toradol Lidoderm patches prn K-thermia prn. Robaxin 750 mg every 8 hours Hepatitis B & C: F/u as outpatient. DVT prophylaxis with SCDs Discharge Planning Discharge home after patient of antibiotics and cleared by neurosurgeon [place] Nelson September 09, 2016 12:30
[2016-09-09] MEDS: IBUPROFEN 600 MG TAB PO SCH ×2 (14:56→22:17)
[2016-09-09 20:00] VITALS: BP 147/84; PULSE 76; RESP 18; TEMP 97.4; O2SAT 99
[2016-09-09] MEDS: METHOCARBAMOL 500 MG TAB PO PRN (20:42)
[2016-09-10] MEDS: ACETAMINOPHEN/HYDROcodone 325 MG/10 MG TAB PO PRN ×5 (01:23→22:10)
[2016-09-10] MEDS: IBUPROFEN 600 MG TAB PO SCH ×3 (05:14→20:28)
[2016-09-10] MEDS: METHOCARBAMOL 500 MG TAB PO PRN ×2 (05:14→18:17)
[2016-09-10] MEDS: ceFAZolin 2 GM PREMIX 50 ML IV SCH ×3 (05:24→22:09)
--- NOTE | 2016-09-10 08:58 | HHI.PR ---
Subjective Remarks Patient seen and examined today for follow-up on osteomyelitis. Patient doing well today. Denies any new complaints. Patient states that he can sleep in the bed consulted lays flat. Objective Vitals Vital Signs Date Time Temp Pulse Resp B/P Pulse Ox O2 Delivery O2 Flow Rate FiO2 09/09/16 20:00 97.4 76 18 147/84 99 I/O 09/09/16 09/09/16 09/09/16 09/10/16 09/10/16 09/10/16 07:00 15:00 23:00 07:00 15:00 23:00 Intake Total 530 ml 360 ml 720 ml 820 ml Output Total 450 ml Balance 530 ml 360 ml 270 ml 820 ml Intake Oral 480 ml 360 ml 720 ml 720 ml IV Total 50 ml 100 ml Output Urine Total 450 ml # Voids 3 2 # Bowel Movements 0 0 Result Diagram: 09/09/16 0552 09/09/16 0552 Objective Remarks GENERAL: Well-developed, well-nourished, in no acute distress. alert and orientated HEENT: Head is normocephalic without any lesions or masses noted. Facial features are symmetric. Eyes: Extraocular muscles are intact. Conjunctivae were clear. NECK: Supple without any masses. Trachea midline no deviation. No JVD, CARDIAC: Regular rhythm, regular rate. S1/S2 are heard. No murmurs gallops or rubs. LUNGS: Clear to auscultation bilaterally. No wheeze, rhonchi or rales. No use of accessory muscles on inspiration or expiration. ABDOMEN: Soft, nontender. Nondistended. Bowel sounds heard in all 4 quadrants. No organomegaly or masses. Negative rebound, negative guarding EXTREMITIES: No edema, pulses are equal bilaterally. No cyanosis or clubbing NEUROLOGY: Mood and affect appear appropriate. Cranial nerves II through XII grossly intact moving all extremities, speech is clear Procedures CT-guided aspirate of the lumbar spine Urinary Catheter: No Vascular Central Line Catheter: No A/P Assessment and Plan Back pain, discitis, osteomyelitis: Initial MRI reveals findings highly suspicious for discitis with osteomyelitis and inflammation. Initially Dr. Tate, neurosurgery, no definite significant drainable abscess seen on MRI. Lumbar spine x-ray 08/23. Status post Interventional radiology CT-guided aspiration of discitis L2 to L3 on 08/23/16 Wound culture 08/23 positive for MSSA Infectious disease recommends Ancef 2 g IV every 8 hours, plan on 6 week total unless worsening of follow-up CT findings Weekly CBC, CMP, CRP, while on IV antibiotics Repeat CT of lumbar spine on 09/03/16 because of increased pain indicates abnormality. MRI ordered which indicates discitis at L2-L3 with osteomyelitis at L2-L3 which appears unchanged. Anterior epidural abscess causes moderate canal stenosis at L2-L3. Overall there does not appear to be any significant interval change. Dr. Tate reevaluated the patient and indicated that there is no change in treatment plan. The patient will require completion of IV antibiotics. Pain control: If neurosurgery does not indicate that there is anything new or requiring any intervention will start decreasing pain medication again. [place] 5/325 q4h prn pain 3-5 [place] 10/325 q4h prn pain 6-10 Gabapentin 300 mg tid Ibuprofen 600 mg q 8 hours scheduled Lidoderm patches prn K-thermia prn. Robaxin 750 mg every 8 hours Hepatitis B & C: F/u as outpatient. DVT prophylaxis with SCDs Discharge Planning Discharge home after patient of antibiotics and cleared by neurosurgeon [place] Nelson September 10, 2016 08:58
[2016-09-10] MEDS: FAMOTIDINE 20 MG TAB PO SCH (09:00)
[2016-09-10] MEDS: DOCUSATE SODIUM 50 MG/SENNA 8.6 MG TAB PO SCH ×2 (09:00→20:26)
[2016-09-10] MEDS: GABAPENTIN 300 MG CAP PO SCH ×3 (09:00→18:07)
[2016-09-10] MEDS: SODIUM CHLORIDE 0.9% FLUSH 10 ML FLUSH IV FLUSH SCH ×2 (09:02→20:27)
[2016-09-10 20:00] VITALS: BP 117/72; PULSE 97; RESP 20; TEMP 97.4; O2SAT 98
[2016-09-10] MEDS: SODIUM CHLORIDE 0.9% FLUSH 10 ML FLUSH IV FLUSH PRN (22:09)
[2016-09-11] MEDS: METHOCARBAMOL 500 MG TAB PO PRN ×2 (02:32→12:00)
[2016-09-11] MEDS: ACETAMINOPHEN/HYDROcodone 325 MG/10 MG TAB PO PRN ×3 (02:33→17:55)
[2016-09-11] MEDS: ceFAZolin 2 GM PREMIX 50 ML IV SCH ×3 (06:09→21:35)
[2016-09-11] MEDS: IBUPROFEN 600 MG TAB PO SCH ×3 (06:09→21:35)
[2016-09-11] MEDS: SODIUM CHLORIDE 0.9% FLUSH 10 ML FLUSH IV FLUSH PRN (06:10)
[2016-09-11] MEDS: DOCUSATE SODIUM 50 MG/SENNA 8.6 MG TAB PO SCH ×2 (08:20→21:33)
[2016-09-11] MEDS: FAMOTIDINE 20 MG TAB PO SCH (08:20)
[2016-09-11] MEDS: GABAPENTIN 300 MG CAP PO SCH ×3 (08:20→17:48)
[2016-09-11] MEDS: SODIUM CHLORIDE 0.9% FLUSH 10 ML FLUSH IV FLUSH SCH ×2 (08:21→21:33)
[2016-09-11 08:55] VITALS: BP 115/73; PULSE 66; RESP 18; TEMP 97.4; O2SAT 99
--- NOTE | 2016-09-11 11:59 | HHI.PR ---
Subjective Remarks Patient seen and examined today in follow-up for osteomyelitis. Patient is laying in bed resting carefully. No obvious signs of pain. Patient states that he has no new concerns or complaints. Objective Vitals Vital Signs Date Time Temp Pulse Resp B/P Pulse Ox O2 Delivery O2 Flow Rate FiO2 09/11/16 08:55 97.4 66 18 115/73 99 09/10/16 20:00 97.4 97 20 117/72 98 I/O 09/10/16 09/10/16 09/10/16 09/11/16 09/11/16 09/11/16 07:00 15:00 23:00 07:00 15:00 23:00 Intake Total 820 ml 480 ml 700 ml Output Total 850 ml 450 ml Balance 820 ml -370 ml 250 ml Intake Oral 720 ml 480 ml 700 ml IV Total 100 ml Output Urine Total 850 ml 450 ml # Voids 2 2 # Bowel Movements 0 0 0 Result Diagram: 09/09/16 0552 09/09/16 0552 Objective Remarks GENERAL: Well-developed, well-nourished, in no acute distress. alert and orientated HEENT: Head is normocephalic without any lesions or masses noted. Facial features are symmetric. Eyes: Extraocular muscles are intact. Conjunctivae were clear. NECK: Supple without any masses. Trachea midline no deviation. No JVD, CARDIAC: Regular rhythm, regular rate. S1/S2 are heard. No murmurs gallops or rubs. LUNGS: Clear to auscultation bilaterally. No wheeze, rhonchi or rales. No use of accessory muscles on inspiration or expiration. ABDOMEN: Soft, nontender. Nondistended. Bowel sounds heard in all 4 quadrants. No organomegaly or masses. Negative rebound, negative guarding EXTREMITIES: No edema, pulses are equal bilaterally. No cyanosis or clubbing NEUROLOGY: Mood and affect appear appropriate. Cranial nerves II through XII grossly intact moving all extremities, speech is clear Procedures CT-guided aspirate of the lumbar spine Urinary Catheter: No Vascular Central Line Catheter: No Assessment to: Continue A/P Assessment and Plan Back pain, discitis, osteomyelitis: Initial MRI reveals findings highly suspicious for discitis with osteomyelitis and inflammation. Initially Dr. Tate, neurosurgery, no definite significant drainable abscess seen on MRI. Lumbar spine x-ray 08/23. Status post Interventional radiology CT-guided aspiration of discitis L2 to L3 on 08/23/16 Wound culture 08/23 positive for MSSA Infectious disease recommends Ancef 2 g IV every 8 hours, plan on 6 week total unless worsening of follow-up CT findings Weekly CBC, CMP, CRP, while on IV antibiotics, 09/09 indicate improvement of C- reactive protein Repeat CT of lumbar spine on 09/03/16 because of increased pain indicates abnormality. MRI ordered which indicates discitis at L2-L3 with osteomyelitis at L2-L3 which appears unchanged. Anterior epidural abscess causes moderate canal stenosis at L2-L3. Overall there does not appear to be any significant interval change. Dr. Tate reevaluated the patient and indicated that there is no change in treatment plan. The patient will require completion of IV antibiotics. Pain control: If neurosurgery does not indicate that there is anything new or requiring any intervention will start decreasing pain medication again. [place] 5/325 q6h prn pain 3-5, adjusted 09/11/16 [place] 10/325 q6h prn pain 6-10, adjusted 09/11/16 Gabapentin 300 mg tid Ibuprofen 600 mg q 8 hours scheduled Lidoderm patches prn K-thermia prn. Robaxin 750 mg every 8 hours Hepatitis B & C: F/u as outpatient. DVT prophylaxis with SCDs Discharge Planning Discharge home after patient of antibiotics and cleared by neurosurgeon [place] Nelson September 11, 2016 11:59
[2016-09-11] MEDS ORDERED: ACETAMINOPHEN/HYDROcodone 325 MG/5 MG TAB PO PRN (12:00)
[2016-09-11 20:00] VITALS: BP 125/70; PULSE 86; RESP 19; TEMP 97.7; O2SAT 99
[2016-09-12] MEDS: ACETAMINOPHEN/HYDROcodone 325 MG/10 MG TAB PO PRN ×4 (00:01→20:02)
[2016-09-12] MEDS: IBUPROFEN 600 MG TAB PO SCH ×3 (06:16→22:05)
[2016-09-12] MEDS: SODIUM CHLORIDE 0.9% FLUSH 10 ML FLUSH IV FLUSH PRN ×2 (06:16→22:06)
[2016-09-12] MEDS: ceFAZolin 2 GM PREMIX 50 ML IV SCH ×3 (06:17→22:05)
[2016-09-12 08:00] VITALS: BP 110/82; PULSE 86; RESP 19; TEMP 98.2; O2SAT 99
[2016-09-12] MEDS: SODIUM CHLORIDE 0.9% FLUSH 10 ML FLUSH IV FLUSH SCH ×2 (09:00→20:01)
[2016-09-12] MEDS: GABAPENTIN 300 MG CAP PO SCH ×3 (09:18→18:30)
[2016-09-12] MEDS: FAMOTIDINE 20 MG TAB PO SCH (09:18)
[2016-09-12] MEDS: DOCUSATE SODIUM 50 MG/SENNA 8.6 MG TAB PO SCH ×2 (09:18→20:01)
[2016-09-12] MEDS: METHOCARBAMOL 500 MG TAB PO PRN ×3 (09:19→18:30)
--- NOTE | 2016-09-12 11:21 | HHI.PR ---
Subjective Remarks Follow-up for osteomyelitis of the spine. Patient still complains of sciatic pain in the right leg. Objective Vitals Vital Signs Date Time Temp Pulse Resp B/P Pulse Ox O2 Delivery O2 Flow Rate FiO2 09/12/16 08:00 98.2 86 19 110/82 99 09/12/16 07:16 18 09/12/16 07:16 18 09/11/16 20:00 97.7 86 19 125/70 99 I/O 09/11/16 09/11/16 09/11/16 09/12/16 09/12/16 09/12/16 07:00 15:00 23:00 07:00 15:00 23:00 Intake Total 700 ml 120 ml 360 ml Output Total 450 ml 700 ml 400 ml Balance 250 ml -580 ml 360 ml -400 ml Intake Oral 700 ml 120 ml 360 ml Output Urine Total 450 ml 700 ml 400 ml # Voids 3 # Bowel Movements 0 Result Diagram: 09/09/16 0552 09/09/16 0552 Objective Remarks GENERAL: Well-nourished, well patient no apparent distress. SKIN: Warm and dry. CARDIOVASCULAR: Regular rate and rhythm. RESPIRATORY: No accessory muscle use. Clear to auscultation. Breath sounds equal bilaterally. GASTROINTESTINAL: Abdomen soft, non-tender, nondistended. MUSCULOSKELETAL: Tender R lateral hip. 2+ DP and TP pulses bilaterally. NEUROLOGICAL: Awake and alert. Normal speech. PSYCHIATRIC: Appropriate mood and affect; insight and judgment normal. Procedures CT-guided aspirate of the lumbar spine Urinary Catheter: No Vascular Central Line Catheter: No A/P Problem List: (1) Back pain ICD Code: M54.9 Status: Acute (2) Osteomyelitis of lumbar spine ICD Code: M46.26 Status: Acute (3) Lumbar discitis ICD Code: M46.46 Status: Acute (4) Trochanteric bursitis of both hips ICD Code: M70.61 Status: Acute Assessment and Plan Back pain, discitis, osteomyelitis: -MRI reveals findings highly suspicious for discitis with osteomyelitis and inflammation. -Per Dr. Tate, neurosurgery, no definite significant drainable abscess seen on MRI. Lumbar spine x-ray 08/23. -Status post Interventional radiology CT-guided aspiration of discitis L2 to L3 on 08/23/16 -Wound culture 08/23 positive for MSSA, continue Ancef 2g q8hrs -Blood cultures x 2 NG -Continue physical therapy -Per ID continue Ancef 2 gm IV q8hrs plan on 6 weeks total (pending repeat imaging at [address] spine 09/15/2016. If continues to improve in regards to epidural abscess then ok to complete 6 week course. -Follow weekly CBC with diff, CMP, CRP while on IV antibiotics. -If any abnormal labs or change in clinical condition call ID at [facility] or Dr. Lou. -09/04 CT lumbar spine with discitis and osteomyelitis; abnormal density along the anterior and lateral aspect of the canal at L2-3, worse on the R side with a moderate central canal stenosis similar to correlative of MRI from August 22. Radiologist states it is unclear if it is a complex infected fluid collection or abnormal soft tissue related to the discitis and osteomyelitis. MRI suggested to assess for epidural abscess. There is swelling and edema in the psoas musculature bilaterally. -09/04 L-spine MRI still indicates the presence of osteomyelitis and discitis. There is again an anterior epidural abscess at the L2-L3 level causing moderate canal stenosis which is not significantly changed. Disc bulges at L2-3, L3-4, L4-5, and L5-S1 levels are unchanged. -09/06: Dr. Tate reevaluated the patient. Advises continuing LSO brace, continue to mobilize out of bed as tolerated -09/09: WBC normal. CRP improved. CMP otherwise unremarkable. -Pain control: [place] 5/325 q6h prn pain 3-5 [place] 10/325 q6h prn pain 6-10 Gabapentin 300 mg tid Robaxin 750 q8h prn for muscle spasm S/p course of Toradol Ibuprofen 600 mg q 8 hours scheduled Lidoderm patches prn K-thermia prn. Hepatitis B & C: F/u as outpatient. GI prophylaxis: Pepcid daily. DVT prophylaxis with SCDs Discharge Planning Will remain hospitalized until completion of antibiotics. Problem Qualifiers (1) Back pain: Qualified Code: M54.5 - Acute midline low back pain without sciatica Carol Ann Reich September 12, 2016 11:21 (1) Back pain: Qualified Code: M54.5 - Acute midline low back pain without sciatica Carol Ann Reich September 12, 2016 11:21
[2016-09-12 20:00] VITALS: BP 141/75; PULSE 90; RESP 21; TEMP 97.9; O2SAT 98
[2016-09-13] MEDS: METHOCARBAMOL 500 MG TAB PO PRN ×3 (03:46→21:46)
[2016-09-13] MEDS: ACETAMINOPHEN/HYDROcodone 325 MG/10 MG TAB PO PRN ×5 (03:47→21:54)
[2016-09-13] MEDS: IBUPROFEN 600 MG TAB PO SCH ×3 (06:14→21:55)
[2016-09-13] MEDS: ceFAZolin 2 GM PREMIX 50 ML IV SCH ×3 (06:16→21:56)
[2016-09-13] MEDS: SODIUM CHLORIDE 0.9% FLUSH 10 ML FLUSH IV FLUSH PRN (06:17)
[2016-09-13 08:00] VITALS: BP 119/72; PULSE 76; RESP 20; TEMP 97.1; O2SAT 99
[2016-09-13] MEDS: GABAPENTIN 300 MG CAP PO SCH ×3 (08:59→17:14)
[2016-09-13] MEDS: DOCUSATE SODIUM 50 MG/SENNA 8.6 MG TAB PO SCH ×2 (08:59→21:55)
[2016-09-13] MEDS: FAMOTIDINE 20 MG TAB PO SCH (08:59)
--- NOTE | 2016-09-13 09:40 | HHI.PR ---
Subjective Remarks Follow-up for osteomyelitis. Pain is the same. Patient states he can't sleep in the hospital stating he has been up since midnight and takes naps through the day. Objective Vitals Vital Signs Date Time Temp Pulse Resp B/P Pulse Ox O2 Delivery O2 Flow Rate FiO2 09/13/16 08:00 97.1 76 20 119/72 99 09/12/16 20:00 97.9 90 21 141/75 98 09/12/16 14:03 18 I/O 09/12/16 09/12/16 09/12/16 09/13/16 09/13/16 09/13/16 07:00 15:00 23:00 07:00 15:00 23:00 Intake Total 360 ml 480 ml 480 ml 720 ml Output Total 400 ml Balance 360 ml 80 ml 480 ml 720 ml Intake Oral 360 ml 480 ml 480 ml 720 ml Output Urine Total 400 ml # Voids 3 4 2 2 Result Diagram: 09/09/16 0552 09/09/16 0552 Objective Remarks GENERAL: Well-nourished, well patient no apparent distress. SKIN: Warm and dry. CARDIOVASCULAR: Regular rate and rhythm. RESPIRATORY: No accessory muscle use. Clear to auscultation. Breath sounds equal bilaterally. GASTROINTESTINAL: Abdomen soft, non-tender, nondistended. MUSCULOSKELETAL: No lower extremity edema bilaterally. NEUROLOGICAL: Awake and alert. Normal speech. PSYCHIATRIC: Appropriate mood and affect; insight and judgment normal. Procedures CT-guided aspirate of the lumbar spine Urinary Catheter: No Vascular Central Line Catheter: No A/P Problem List: (1) Back pain ICD Code: M54.9 Status: Acute (2) Osteomyelitis of lumbar spine ICD Code: M46.26 Status: Acute (3) Lumbar discitis ICD Code: M46.46 Status: Acute (4) Trochanteric bursitis of both hips ICD Code: M70.61 Status: Acute Assessment and Plan Back pain, discitis, osteomyelitis: -MRI reveals findings highly suspicious for discitis with osteomyelitis and inflammation. -Per Dr. Tate, neurosurgery, no definite significant drainable abscess seen on MRI. Lumbar spine x-ray 08/23. -Status post Interventional radiology CT-guided aspiration of discitis L2 to L3 on 08/23/16 -Wound culture 08/23 positive for MSSA, continue Ancef 2g q8hrs -Blood cultures x 2 NG -Continue physical therapy -Per ID continue Ancef 2 gm IV q8hrs plan on 6 weeks total (pending repeat imaging at [address] spine 09/15/2016. If continues to improve in regards to epidural abscess then ok to complete 6 week course. -Follow weekly CBC with diff, CMP, CRP while on IV antibiotics. -If any abnormal labs or change in clinical condition call ID at [facility] or Dr. Lou. -09/04 CT lumbar spine with discitis and osteomyelitis; abnormal density along the anterior and lateral aspect of the canal at L2-3, worse on the R side with a moderate central canal stenosis similar to correlative of MRI from August 22. Radiologist states it is unclear if it is a complex infected fluid collection or abnormal soft tissue related to the discitis and osteomyelitis. MRI suggested to assess for epidural abscess. There is swelling and edema in the psoas musculature bilaterally. -09/04 L-spine MRI still indicates the presence of osteomyelitis and discitis. There is again an anterior epidural abscess at the L2-L3 level causing moderate canal stenosis which is not significantly changed. Disc bulges at L2-3, L3-4, L4-5, and L5-S1 levels are unchanged. -09/06: Dr. Tate reevaluated the patient. Advises continuing LSO brace, continue to mobilize out of bed as tolerated -09/09: WBC normal. CRP improved. CMP otherwise unremarkable. -Pain control: [place] 5/325 q6h prn pain 3-5 [place] 10/325 q6h prn pain 6-10 Gabapentin 300 mg tid Robaxin 750 q8h prn for muscle spasm S/p course of Toradol Ibuprofen 600 mg q 8 hours scheduled Lidoderm patches prn K-thermia prn. Hepatitis B & C: F/u as outpatient. Insomnia: Start Benadryl 25 mg po hs prn. GI prophylaxis: Pepcid daily. DVT prophylaxis with SCDs Discharge Planning Will remain hospitalized until completion of antibiotics. Problem Qualifiers (1) Back pain: Qualified Code: M54.5 - Acute midline low back pain without sciatica Carol Ann Reich September 13, 2016 09:40
[2016-09-13] MEDS: SODIUM CHLORIDE 0.9% FLUSH 10 ML FLUSH IV FLUSH SCH ×2 (13:17→21:56)
[2016-09-13 20:00] VITALS: BP 143/83; PULSE 102; RESP 17; TEMP 99.1; O2SAT 98
[2016-09-13] MEDS: diphenhydrAMINE HCL 25 MG CAP PO PRN (22:06)
[2016-09-14] MEDS: ceFAZolin 2 GM PREMIX 50 ML IV SCH ×3 (06:38→21:21)
[2016-09-14] MEDS: IBUPROFEN 600 MG TAB PO SCH ×3 (06:38→21:21)
[2016-09-14] MEDS: ACETAMINOPHEN/HYDROcodone 325 MG/10 MG TAB PO PRN ×3 (06:39→18:52)
[2016-09-14] MEDS: METHOCARBAMOL 500 MG TAB PO PRN ×3 (06:39→21:22)
[2016-09-14] MEDS: SODIUM CHLORIDE 0.9% FLUSH 10 ML FLUSH IV FLUSH SCH ×2 (09:00→21:22)
[2016-09-14 09:04] VITALS: BP 138/72; PULSE 89; RESP 15; TEMP 98.8; O2SAT 98
[2016-09-14] MEDS: FAMOTIDINE 20 MG TAB PO SCH (09:15)
[2016-09-14] MEDS: GABAPENTIN 300 MG CAP PO SCH ×3 (09:15→18:52)
[2016-09-14] MEDS: DOCUSATE SODIUM 50 MG/SENNA 8.6 MG TAB PO SCH ×2 (09:15→21:22)
--- NOTE | 2016-09-14 15:38 | HHI.PR ---
Subjective Remarks Follow-up for osteomyelitis. Patient witnessed to be lying prone; denies this helping his pain. No new issues reported. Objective Vitals Vital Signs Date Time Temp Pulse Resp B/P Pulse Ox O2 Delivery O2 Flow Rate FiO2 09/14/16 15:26 16 09/14/16 13:50 18 09/14/16 09:04 98.8 89 15 138/72 98 09/13/16 20:00 99.1 102 17 143/83 98 I/O 09/13/16 09/13/16 09/13/16 09/14/16 09/14/16 09/14/16 07:00 15:00 23:00 07:00 15:00 23:00 Intake Total 720 ml 530 ml 600 ml 480 ml 915 ml Output Total 950 ml 800 ml Balance 720 ml -420 ml 600 ml 480 ml 115 ml Intake Oral 720 ml 480 ml 600 ml 480 ml 860 ml IV Total 50 ml 55 ml Output Urine Total 950 ml 800 ml # Voids 2 3 2 2 # Bowel Movements 0 0 0 0 Objective Remarks GENERAL: Well-nourished, well patient no apparent distress. SKIN: Warm and dry. CARDIOVASCULAR: Regular rate and rhythm. RESPIRATORY: No accessory muscle use. Clear to auscultation. Breath sounds equal bilaterally. GASTROINTESTINAL: Abdomen soft, non-tender, nondistended. MUSCULOSKELETAL: No lower extremity edema bilaterally. BACK: Mildly tender over lumbar spine. More tender over bilateral SI region. NEUROLOGICAL: Awake and alert. Normal speech. Procedures CT-guided aspirate of the lumbar spine Urinary Catheter: No Vascular Central Line Catheter: No A/P Problem List: (1) Back pain ICD Code: M54.9 Status: Acute (2) Osteomyelitis of lumbar spine ICD Code: M46.26 Status: Acute (3) Lumbar discitis ICD Code: M46.46 Status: Acute (4) Trochanteric bursitis of both hips ICD Code: M70.61 Status: Acute Assessment and Plan Back pain, discitis, osteomyelitis: -MRI reveals findings highly suspicious for discitis with osteomyelitis and inflammation. -Per Dr. Tate, neurosurgery, no definite significant drainable abscess seen on MRI. Lumbar spine x-ray 08/23. -Status post Interventional radiology CT-guided aspiration of discitis L2 to L3 on 08/23/16 -Wound culture 08/23 positive for MSSA, continue Ancef 2g q8hrs -Blood cultures x 2 NG -Continue physical therapy -Per ID continue Ancef 2 gm IV q8hrs plan on 6 weeks total. -Follow weekly CBC with diff, CMP, CRP while on IV antibiotics. -If any abnormal labs or change in clinical condition call ID at [facility] or Dr. Lou. -09/04 CT lumbar spine with discitis and osteomyelitis; abnormal density along the anterior and lateral aspect of the canal at L2-3, worse on the R side with a moderate central canal stenosis similar to correlative of MRI from August 22. Radiologist states it is unclear if it is a complex infected fluid collection or abnormal soft tissue related to the discitis and osteomyelitis. MRI suggested to assess for epidural abscess. There is swelling and edema in the psoas musculature bilaterally. -09/04 L-spine MRI still indicates the presence of osteomyelitis and discitis. There is again an anterior epidural abscess at the L2-L3 level causing moderate canal stenosis which is not significantly changed. Disc bulges at L2-3, L3-4, L4-5, and L5-S1 levels are unchanged. -09/06: Dr. Tate reevaluated the patient. Advises continuing LSO brace, continue to mobilize out of bed as tolerated -09/09: WBC normal. CRP improved. CMP otherwise unremarkable. -Pain control: [place] 5/325 q6h prn pain 3-5 [place] 10/325 q6h prn pain 6-10 Gabapentin 300 mg tid Robaxin 750 q8h prn for muscle spasm S/p course of Toradol Ibuprofen 600 mg q 8 hours scheduled Lidoderm patches prn K-thermia prn. Hepatitis B & C: F/u as outpatient. Insomnia: Continue Benadryl 25 mg po hs prn. GI prophylaxis: Pepcid daily. DVT prophylaxis with SCDs Discharge Planning Will remain hospitalized until completion of antibiotics. Problem Qualifiers (1) Back pain: Qualified Code: M54.5 - Acute midline low back pain without sciatica Carol Ann Reich September 14, 2016 15:38
[2016-09-14 20:00] VITALS: BP 138/83; PULSE 89; RESP 16; TEMP 98.1; O2SAT 99
[2016-09-15] MEDS: diphenhydrAMINE HCL 25 MG CAP PO PRN ×2 (01:14→23:42)
[2016-09-15] MEDS: ACETAMINOPHEN/HYDROcodone 325 MG/10 MG TAB PO PRN ×5 (01:14→23:43)
[2016-09-15] MEDS: ceFAZolin 2 GM PREMIX 50 ML IV SCH ×3 (06:40→20:43)
[2016-09-15] MEDS: IBUPROFEN 600 MG TAB PO SCH ×3 (06:41→20:49)
[2016-09-15] MEDS: METHOCARBAMOL 500 MG TAB PO PRN ×3 (06:41→23:42)
[2016-09-15] MEDS: FAMOTIDINE 20 MG TAB PO SCH (09:03)
[2016-09-15] MEDS: SODIUM CHLORIDE 0.9% FLUSH 10 ML FLUSH IV FLUSH SCH ×2 (09:03→20:43)
[2016-09-15] MEDS: GABAPENTIN 300 MG CAP PO SCH ×3 (09:03→18:02)
[2016-09-15] MEDS: DOCUSATE SODIUM 50 MG/SENNA 8.6 MG TAB PO SCH ×2 (09:03→20:43)
--- NOTE | 2016-09-15 11:51 | HHI.PR ---
Subjective Remarks Follow-up for osteomyelitis. Patient states he no longer has shooting pain down his right leg and he now has pain in both of his thighs but pain overall is more tolerable. In regards to insomnia he states the Benadryl helped the first night but did not help last night. Objective Vitals Vital Signs Date Time Temp Pulse Resp B/P Pulse Ox O2 Delivery O2 Flow Rate FiO2 09/15/16 07:41 20 09/15/16 07:41 20 09/14/16 20:00 98.1 89 16 138/83 99 I/O 09/14/16 09/14/16 09/14/16 09/15/16 09/15/16 09/15/16 07:00 15:00 23:00 07:00 15:00 23:00 Intake Total 480 ml 1515 ml 480 ml Output Total 800 ml 900 ml Balance 480 ml 715 ml 480 ml -900 ml Intake Oral 480 ml 1460 ml 480 ml IV Total 55 ml Output Urine Total 800 ml 900 ml # Voids 2 5 2 # Bowel Movements 0 1 0 Objective Remarks GENERAL: Well-nourished, well patient no apparent distress lying on side listening to music when I enter the room. SKIN: Warm and dry. CARDIOVASCULAR: Regular rate and rhythm. RESPIRATORY: No accessory muscle use. Clear to auscultation. Breath sounds equal bilaterally. GASTROINTESTINAL: Abdomen soft, non-tender, nondistended. NEUROLOGICAL: Awake and alert. Normal speech. Procedures CT-guided aspirate of the lumbar spine Urinary Catheter: No Vascular Central Line Catheter: No A/P Problem List: (1) Back pain ICD Code: M54.9 Status: Acute (2) Osteomyelitis of lumbar spine ICD Code: M46.26 Status: Acute (3) Lumbar discitis ICD Code: M46.46 Status: Acute (4) Trochanteric bursitis of both hips ICD Code: M70.61 Status: Acute Assessment and Plan Back pain, discitis, osteomyelitis: -MRI reveals findings highly suspicious for discitis with osteomyelitis and inflammation. -Per Dr. Tate, neurosurgery, no definite significant drainable abscess seen on MRI. Lumbar spine x-ray 08/23. -Status post Interventional radiology CT-guided aspiration of discitis L2 to L3 on 08/23/16 -Wound culture 08/23 positive for MSSA, continue Ancef 2g q8hrs -Blood cultures x 2 NG -Continue physical therapy -Per ID continue Ancef 2 gm IV q8hrs plan on 6 weeks total. -Follow weekly CBC with diff, CMP, CRP while on IV antibiotics. Next labs . -If any abnormal labs or change in clinical condition call ID at [facility] or Dr. Lou. -09/04 CT lumbar spine with discitis and osteomyelitis; abnormal density along the anterior and lateral aspect of the canal at L2-3, worse on the R side with a moderate central canal stenosis similar to correlative of MRI from August 22. Radiologist states it is unclear if it is a complex infected fluid collection or abnormal soft tissue related to the discitis and osteomyelitis. MRI suggested to assess for epidural abscess. There is swelling and edema in the psoas musculature bilaterally. -09/04 L-spine MRI still indicates the presence of osteomyelitis and discitis. There is again an anterior epidural abscess at the L2-L3 level causing moderate canal stenosis which is not significantly changed. Disc bulges at L2-3, L3-4, L4-5, and L5-S1 levels are unchanged. -09/06: Dr. Tate reevaluated the patient. Advises continuing LSO brace, continue to mobilize out of bed as tolerated -09/09: WBC normal. CRP improved. CMP otherwise unremarkable. -Pain control: [place] 5/325 q6h prn pain 3-5 [place] 10/325 q6h prn pain 6-10 Gabapentin 300 mg tid Robaxin 750 q8h prn for muscle spasm S/p course of Toradol Ibuprofen 600 mg q 8 hours scheduled Lidoderm patches prn K-thermia prn. Hepatitis B & C: F/u as outpatient. Insomnia: Continue Benadryl 25 mg po hs prn. Patient advised to try again tonight. If still no improvement can increase dose. GI prophylaxis: Pepcid daily. DVT prophylaxis with SCDs Discharge Planning Will remain hospitalized until completion of antibiotics. Problem Qualifiers (1) Back pain: Qualified Code: M54.5 - Acute midline low back pain without sciatica Carol Ann Reich September 15, 2016 11:51
[2016-09-15 20:00] VITALS: BP 131/73; PULSE 96; RESP 16; TEMP 97.6; O2SAT 97
[2016-09-16] MEDS: ceFAZolin 2 GM PREMIX 50 ML IV SCH ×3 (06:34→21:24)
[2016-09-16] MEDS: ACETAMINOPHEN/HYDROcodone 325 MG/10 MG TAB PO PRN ×4 (06:35→23:08)
[2016-09-16] MEDS: IBUPROFEN 600 MG TAB PO SCH ×3 (06:35→23:09)
[2016-09-16 08:00] VITALS: BP 128/84; PULSE 69; RESP 19; TEMP 97.6; O2SAT 100
[2016-09-16] MEDS: GABAPENTIN 300 MG CAP PO SCH ×3 (08:39→17:26)
[2016-09-16] MEDS: SODIUM CHLORIDE 0.9% FLUSH 10 ML FLUSH IV FLUSH SCH ×2 (08:39→21:24)
[2016-09-16] MEDS: FAMOTIDINE 20 MG TAB PO SCH (08:39)
[2016-09-16] MEDS: DOCUSATE SODIUM 50 MG/SENNA 8.6 MG TAB PO SCH ×2 (08:39→21:00)
[2016-09-16] MEDS: METHOCARBAMOL 500 MG TAB PO PRN ×2 (08:39→17:26)
[2016-09-16 08:40] LABS: AUTOMATED NEUTROPHIL # 3.4 TH/MM3 (1.8-7.7); BASOPHIL # 0.1 TH/MM3 (0-0.2); BASOPHIL % 1.2 % (0.0-2.0); EOSINOPHIL # 0.4 TH/MM3 (0-0.4); EOSINOPHIL % 5.1 % (0.0-4.0); HEMO FLAGS DIFF FINAL; LYMPHOCYTE # 2.2 TH/MM3 (1.0-4.8); MEAN CELL VOLUME 84.1 FL (80.0-100.0); MEAN CORPUSCULAR HEMOGLOBIN 28.2 PG (27.0-34.0); MEAN CORPUSCULAR HGB CONC 33.5 % (32.0-36.0); MONO % 11.3 % (0.0-8.0); NEUT % 50.4 % (16.0-70.0); PLATELET COUNT 256 TH/MM3 (150-450); RED BLOOD COUNT 4.52 MIL/MM3 (4.50-5.90); RED CELL DISTRIBUTION WIDTH 14.3 % (11.6-17.2); WHITE BLOOD COUNT 6.9 TH/MM3 (4.0-11.0)
[2016-09-16 08:46] LABS: CHLORIDE 107 MEQ/L (98-107); POTASSIUM 4.1 MEQ/L (3.5-5.1); SODIUM (NA) 143 MEQ/L (136-145)
[2016-09-16 08:53] LABS: ANION GAP 7 MEQ/L (5-15); BICARBONATE 29.1 MEQ/L (21.0-32.0); BLOOD UREA NITROGEN 16 MG/DL (7-18)
[2016-09-16 08:56] LABS: ALT (GPT) 37 U/L (12-78); AST (GOT) 32 U/L (15-37); GLOMERULAR FILTRATION RATE 129 ML/MIN (>89); TOTAL BILIRUBIN ADULT 0.1 MG/DL (0.2-1.0)
[2016-09-16 08:58] LABS: ALKALINE PHOSPHATASE 85 U/L (45-117)
--- NOTE | 2016-09-16 12:07 | HHI.PR ---
Subjective Remarks Follow-up for lumbar osteomyelitis. Admits to pain in both thighs. Patient denies any fevers or chills overnight. He states he was unable to sleep again last night. Objective Vitals Vital Signs Date Time Temp Pulse Resp B/P Pulse Ox O2 Delivery O2 Flow Rate FiO2 09/16/16 08:00 97.6 69 19 128/84 100 09/16/16 07:35 18 09/16/16 07:35 18 09/15/16 20:00 97.6 96 16 131/73 97 I/O 09/15/16 09/15/16 09/15/16 09/16/16 09/16/16 09/16/16 07:00 15:00 23:00 07:00 15:00 23:00 Intake Total 480 ml 930 ml Output Total 900 ml Balance 480 ml 30 ml Intake Oral 480 ml 930 ml Output Urine Total 900 ml # Voids 2 2 1 # Bowel Movements 0 0 1 Result Diagram: 09/16/16 0809/16/16 08 Objective Remarks GENERAL: Well-nourished, well patient no apparent distress. SKIN: Warm and dry. CARDIOVASCULAR: Regular rate and rhythm. RESPIRATORY: No accessory muscle use. Clear to auscultation. Breath sounds equal bilaterally. GASTROINTESTINAL: Abdomen soft, non-tender, nondistended. MUSCULOSKELETAL: 2+ TP pulses bilaterally. NEUROLOGICAL: Awake and alert. 5/5 plantar flexion and dorsiflexion bilaterally. Normal speech. Procedures CT-guided aspirate of the lumbar spine Urinary Catheter: No Vascular Central Line Catheter: No A/P Problem List: (1) Back pain ICD Code: M54.9 Status: Acute (2) Osteomyelitis of lumbar spine ICD Code: M46.26 Status: Acute (3) Lumbar discitis ICD Code: M46.46 Status: Acute (4) Trochanteric bursitis of both hips ICD Code: M70.61 Status: Acute Assessment and Plan Back pain, discitis, osteomyelitis: -MRI reveals findings highly suspicious for discitis with osteomyelitis and inflammation. -Per Dr. Tate, neurosurgery, no definite significant drainable abscess seen on MRI. Lumbar spine x-ray 08/23. -Status post Interventional radiology CT-guided aspiration of discitis L2 to L3 on 08/23/16 -Wound culture 08/23 positive for MSSA, continue Ancef 2g q8hrs -Blood cultures x 2 NG -Continue physical therapy -Per ID continue Ancef 2 gm IV q8hrs plan on 6 weeks total. -Follow weekly CBC with diff, CMP, CRP while on IV antibiotics. Next labs . -If any abnormal labs or change in clinical condition call ID at [facility] or Dr. Lou. -09/04 CT lumbar spine with discitis and osteomyelitis; abnormal density along the anterior and lateral aspect of the canal at L2-3, worse on the R side with a moderate central canal stenosis similar to correlative of MRI from August 22. Radiologist states it is unclear if it is a complex infected fluid collection or abnormal soft tissue related to the discitis and osteomyelitis. MRI suggested to assess for epidural abscess. There is swelling and edema in the psoas musculature bilaterally. -09/04 L-spine MRI still indicates the presence of osteomyelitis and discitis. There is again an anterior epidural abscess at the L2-L3 level causing moderate canal stenosis which is not significantly changed. Disc bulges at L2-3, L3-4, L4-5, and L5-S1 levels are unchanged. -09/06: Dr. Tate reevaluated the patient. Advises continuing LSO brace, continue to mobilize out of bed as tolerated -09/16: Labs reviewed. WBC normal. ESR improved to 31. CRP wnl. CMP unremarkable. -Pain control: [place] 5/325 q6h prn pain 3-5 [place] 10/325 q6h prn pain 6-10 Gabapentin 300 mg tid Robaxin 750 q8h prn for muscle spasm S/p course of Toradol Ibuprofen 600 mg q 8 hours scheduled Lidoderm patches prn K-thermia prn. Hepatitis B & C: F/u as outpatient. Insomnia: Persistent. Increase Benadryl dose to 50 mg po hs prn. GI prophylaxis: Pepcid daily. DVT prophylaxis with SCDs Discharge Planning Will remain hospitalized until completion of antibiotics. Problem Qualifiers (1) Back pain: Qualified Code: M54.5 - Acute midline low back pain without sciatica Carol Ann Reich September 16, 2016 12:07
[2016-09-16] MEDS: SODIUM CHLORIDE 0.9% FLUSH 10 ML FLUSH IV FLUSH PRN (13:47)
[2016-09-16 20:55] VITALS: BP 113/61; PULSE 89; RESP 20; TEMP 97.8; O2SAT 100
[2016-09-17] MEDS: METHOCARBAMOL 500 MG TAB PO PRN ×3 (05:31→23:54)
[2016-09-17] MEDS: ACETAMINOPHEN/HYDROcodone 325 MG/10 MG TAB PO PRN ×4 (05:32→23:55)
[2016-09-17] MEDS: IBUPROFEN 600 MG TAB PO SCH ×3 (05:33→21:33)
[2016-09-17] MEDS: ceFAZolin 2 GM PREMIX 50 ML IV SCH ×3 (05:33→21:34)
[2016-09-17 08:00] VITALS: BP 141/74; PULSE 81; RESP 18; TEMP 97.8; O2SAT 97
[2016-09-17] MEDS: FAMOTIDINE 20 MG TAB PO SCH (08:41)
[2016-09-17] MEDS: DOCUSATE SODIUM 50 MG/SENNA 8.6 MG TAB PO SCH ×2 (08:41→21:32)
[2016-09-17] MEDS: LIDOCAINE HCL 5% PATCH T-DERMAL PRN (08:42)
[2016-09-17] MEDS: GABAPENTIN 300 MG CAP PO SCH ×3 (08:43→18:04)
--- NOTE | 2016-09-17 09:27 | HHI.PR ---
Subjective Remarks Follow-up for osteomyelitis, insomnia. Patient states his pain is the same but the distribution is different now as he indicated yesterday. I asked the patient if the increased Benadryl does helped him to sleep last night, but he is unsure if he received it. According to the EMR the patient did not receive this medication last night. I told the patient he will need to ask for the medication if he needs it. Objective Vitals Vital Signs Date Time Temp Pulse Resp B/P Pulse Ox O2 Delivery O2 Flow Rate FiO2 09/16/16 20:55 97.8 89 20 113/61 100 09/16/16 18:26 18 09/16/16 14:47 18 I/O 09/16/16 09/16/16 09/16/16 09/17/16 09/17/16 09/17/16 07:00 15:00 23:00 07:00 15:00 23:00 Intake Total 590 ml 1160 ml 110 ml Output Total 600 ml 900 ml Balance 590 ml 560 ml -790 ml Intake Oral 540 ml 1160 ml IV Total 50 ml 110 ml Output Urine Total 600 ml 900 ml # Voids 1 2 # Bowel Movements 1 0 Result Diagram: 09/16/16 0809/16/16 0805 Objective Remarks GENERAL: Well-nourished, well patient no apparent distress. CARDIOVASCULAR: Regular rate and rhythm. RESPIRATORY: No accessory muscle use. Clear to auscultation. Breath sounds equal bilaterally. GASTROINTESTINAL: Abdomen soft, non-tender, nondistended. MUSCULOSKELETAL: No lower extremity edema bilaterally. 2+ R TP pulse. 2+ L DP pulse. NEUROLOGICAL: Awake and alert. 5/5 plantar flexion and dorsiflexion bilaterally. Normal speech. Procedures CT-guided aspirate of the lumbar spine Urinary Catheter: No Vascular Central Line Catheter: No A/P Problem List: (1) Back pain ICD Code: M54.9 Status: Acute (2) Osteomyelitis of lumbar spine ICD Code: M46.26 Status: Acute (3) Lumbar discitis ICD Code: M46.46 Status: Acute (4) Trochanteric bursitis of both hips ICD Code: M70.61 Status: Acute Assessment and Plan Back pain, discitis, osteomyelitis: -MRI reveals findings highly suspicious for discitis with osteomyelitis and inflammation. -Per Dr. Tate, neurosurgery, no definite significant drainable abscess seen on MRI. Lumbar spine x-ray 08/23. -Status post Interventional radiology CT-guided aspiration of discitis L2 to L3 on 08/23/16 -Wound culture 08/23 positive for MSSA, continue Ancef 2g q8hrs -Blood cultures x 2 NG -Continue physical therapy -Per ID continue Ancef 2 gm IV q8hrs plan on 6 weeks total. -Follow weekly CBC with diff, CMP, CRP while on IV antibiotics. Next labs . -If any abnormal labs or change in clinical condition call ID at [facility] or Dr. Lou. -09/04 CT lumbar spine with discitis and osteomyelitis; abnormal density along the anterior and lateral aspect of the canal at L2-3, worse on the R side with a moderate central canal stenosis similar to correlative of MRI from August 22. Radiologist states it is unclear if it is a complex infected fluid collection or abnormal soft tissue related to the discitis and osteomyelitis. MRI suggested to assess for epidural abscess. There is swelling and edema in the psoas musculature bilaterally. -09/04 L-spine MRI still indicates the presence of osteomyelitis and discitis. There is again an anterior epidural abscess at the L2-L3 level causing moderate canal stenosis which is not significantly changed. Disc bulges at L2-3, L3-4, L4-5, and L5-S1 levels are unchanged. -09/06: Dr. Tate reevaluated the patient. Advises continuing LSO brace, continue to mobilize out of bed as tolerated -09/16: WBC normal. ESR improved to 31. CRP wnl. CMP unremarkable. -Pain control: [place] 5/325 q6h prn pain 3-5 [place] 10/325 q6h prn pain 6-10 Gabapentin 300 mg tid Robaxin 750 q8h prn for muscle spasm S/p course of Toradol Ibuprofen 600 mg q 8 hours scheduled Lidoderm patches prn K-thermia prn. Hepatitis B & C: F/u as outpatient. Insomnia: Benadryl 50 mg po hs prn. GI prophylaxis: Pepcid daily. DVT prophylaxis with SCDs Discharge Planning Will remain hospitalized until completion of antibiotics. Problem Qualifiers (1) Back pain: Qualified Code: M54.5 - Acute midline low back pain without sciatica Carol Ann Reich September 17, 2016 09:27
[2016-09-17] MEDS: SODIUM CHLORIDE 0.9% FLUSH 10 ML FLUSH IV FLUSH SCH ×2 (15:54→21:33)
[2016-09-17 20:00] VITALS: BP 128/77; PULSE 89; RESP 20; TEMP 98.7; O2SAT 99
[2016-09-18] MEDS: METHOCARBAMOL 500 MG TAB PO PRN ×2 (06:16→17:16)
[2016-09-18] MEDS: ceFAZolin 2 GM PREMIX 50 ML IV SCH ×3 (06:17→20:17)
[2016-09-18] MEDS: ACETAMINOPHEN/HYDROcodone 325 MG/10 MG TAB PO PRN ×3 (06:17→20:17)
[2016-09-18] MEDS: IBUPROFEN 600 MG TAB PO SCH ×3 (06:17→20:16)
[2016-09-18] MEDS: diphenhydrAMINE HCL 25 MG CAP PO PRN ×2 (06:26→23:24)
[2016-09-18 08:00] VITALS: BP 126/73; PULSE 74; RESP 19; TEMP 98.3; O2SAT 99
[2016-09-18] MEDS: GABAPENTIN 300 MG CAP PO SCH ×3 (08:51→17:16)
[2016-09-18] MEDS: DOCUSATE SODIUM 50 MG/SENNA 8.6 MG TAB PO SCH ×2 (08:51→20:17)
[2016-09-18] MEDS: SODIUM CHLORIDE 0.9% FLUSH 10 ML FLUSH IV FLUSH SCH ×2 (08:51→20:24)
[2016-09-18] MEDS: FAMOTIDINE 20 MG TAB PO SCH (08:51)
--- NOTE | 2016-09-18 10:00 | HHI.PR ---
Subjective Remarks Follow-up for osteomyelitis. This is the first time I've witnessed the patient to be walking around the room as his bed was being changed out by the RN because it was not functioning properly. Patient admits his pain is better than before. RN tells me patient requests double portions of meals as he is still hungry after eating. Objective Vitals Vital Signs Date Time Temp Pulse Resp B/P Pulse Ox O2 Delivery O2 Flow Rate FiO2 09/18/16 08:00 98.3 74 19 126/73 99 09/18/16 07:17 20 09/18/16 07:17 20 09/17/16 20:00 98.7 89 20 128/77 99 I/O 09/17/16 09/17/16 09/17/16 09/18/16 09/18/16 09/18/16 06:59 14:59 22:59 06:59 14:59 22:59 Intake Total 110 ml 1440 ml Output Total 900 ml 400 ml Balance -790 ml 1040 ml Intake Oral 1440 ml IV Total 110 ml Output Urine Total 900 ml 400 ml # Voids 3 # Bowel Movements 0 Result Diagram: 09/16/1680409/16/16804 Objective Remarks GENERAL: Well-nourished, well patient no apparent distress. CARDIOVASCULAR: Regular rate and rhythm. RESPIRATORY: No accessory muscle use. Clear to auscultation. Breath sounds equal bilaterally. GASTROINTESTINAL: Abdomen soft, non-tender, nondistended. MUSCULOSKELETAL: No lower extremity edema bilaterally. BACK: Mildly tender over the lumbar spine. Tender over bilateral sacroiliac regions, worse on the right. NEUROLOGICAL: Awake and alert. 5/5 bilateral lower extremity strength. Sensation grossly decreased over the right lateral thigh compared to left. Normal speech. Procedures CT-guided aspirate of the lumbar spine Urinary Catheter: No Vascular Central Line Catheter: No A/P Problem List: (1) Back pain ICD Code: M54.9 Status: Acute (2) Osteomyelitis of lumbar spine ICD Code: M46.26 Status: Acute (3) Lumbar discitis ICD Code: M46.46 Status: Acute (4) Trochanteric bursitis of both hips ICD Code: M70.61 Status: Acute Assessment and Plan Back pain, discitis, osteomyelitis: -MRI reveals findings highly suspicious for discitis with osteomyelitis and inflammation. -Per Dr. Tate, neurosurgery, no definite significant drainable abscess seen on MRI. Lumbar spine x-ray 08/23. -Status post Interventional radiology CT-guided aspiration of discitis L2 to L3 on 08/23/16 -Wound culture 08/23 positive for MSSA, continue Ancef 2g q8hrs -Blood cultures x 2 NG -Continue physical therapy -Per ID continue Ancef 2 gm IV q8hrs plan on 6 weeks total. Last day of antibiotics should be 10/06/16. -Follow weekly CBC with diff, CMP, CRP while on IV antibiotics. Next labs . -If any abnormal labs or change in clinical condition call ID at [facility] or Dr. Lou. -09/04 CT lumbar spine with discitis and osteomyelitis; abnormal density along the anterior and lateral aspect of the canal at L2-3, worse on the R side with a moderate central canal stenosis similar to correlative of MRI from August 22. Radiologist states it is unclear if it is a complex infected fluid collection or abnormal soft tissue related to the discitis and osteomyelitis. MRI suggested to assess for epidural abscess. There is swelling and edema in the psoas musculature bilaterally. -09/04 L-spine MRI still indicates the presence of osteomyelitis and discitis. There is again an anterior epidural abscess at the L2-L3 level causing moderate canal stenosis which is not significantly changed. Disc bulges at L2-3, L3-4, L4-5, and L5-S1 levels are unchanged. -09/06: Dr. Tate reevaluated the patient. Advises continuing LSO brace, continue to mobilize out of bed as tolerated -09/16: WBC normal. ESR improved to 31. CRP wnl. CMP unremarkable. -Pain control: [place] 5/325 q6h prn pain 3-5 [place] 10/325 q6h prn pain 6-10 Gabapentin 300 mg tid Robaxin 750 q8h prn for muscle spasm S/p course of Toradol Ibuprofen 600 mg q 8 hours scheduled Lidoderm patches prn K-thermia prn. Hepatitis B & C: F/u as outpatient. Insomnia: Benadryl 50 mg po hs prn. GI prophylaxis: Pepcid daily. DVT prophylaxis with SCDs Discharge Planning Will remain hospitalized until completion of antibiotics. Problem Qualifiers (1) Back pain: Qualified Code: M54.5 - Acute midline low back pain without sciatica Carol Ann Reich September 18, 2016 10:00
[2016-09-18 20:00] VITALS: BP 130/81; PULSE 87; RESP 18; TEMP 97.3; O2SAT 99
[2016-09-19] MEDS: IBUPROFEN 600 MG TAB PO SCH ×3 (06:40→21:04)
[2016-09-19] MEDS: ceFAZolin 2 GM PREMIX 50 ML IV SCH ×3 (06:41→21:02)
[2016-09-19] MEDS: METHOCARBAMOL 500 MG TAB PO PRN ×2 (06:41→15:03)
[2016-09-19] MEDS: ACETAMINOPHEN/HYDROcodone 325 MG/10 MG TAB PO PRN (06:41)
[2016-09-19 08:00] VITALS: BP 123/83; PULSE 80; RESP 20; TEMP 97.8; O2SAT 95
[2016-09-19] MEDS: SODIUM CHLORIDE 0.9% FLUSH 10 ML FLUSH IV FLUSH SCH ×2 (09:00→21:03)
--- NOTE | 2016-09-19 10:09 | HHI.PR ---
Subjective Remarks Patient seen and examined today for follow-up on osteomyelitis. Patient states that he is actually improving on a daily basis. He states that his pain is only located in his pelvis region now no longer radiating down his legs. He is able to ambulate more. Objective Vitals Vital Signs Date Time Temp Pulse Resp B/P Pulse Ox O2 Delivery O2 Flow Rate FiO2 09/19/16 08:00 97.8 80 20 123/83 95 09/18/16 21:16 18 09/18/16 21:16 18 09/18/16 20:00 97.3 87 18 130/81 99 I/O 09/18/16 09/18/16 09/18/16 09/19/16 09/19/16 09/19/16 06:59 14:59 22:59 06:59 14:59 22:59 Intake Total 1320 ml Output Total 620 ml 600 ml 500 ml Balance 700 ml -600 ml -500 ml Intake Oral 1320 ml Output Urine Total 620 ml 600 ml 500 ml # Voids 2 # Bowel Movements 0 Result Diagram: 09/16/1680409/16/16804 Objective Remarks GENERAL: Well-developed, well-nourished, in no acute distress. alert and orientated HEENT: Head is normocephalic without any lesions or masses noted. Facial features are symmetric. Eyes: Extraocular muscles are intact. Conjunctivae were clear. NECK: Supple without any masses. Trachea midline no deviation. No JVD, CARDIAC: Regular rhythm, regular rate. S1/S2 are heard. No murmurs gallops or rubs. LUNGS: Clear to auscultation bilaterally. No wheeze, rhonchi or rales. No use of accessory muscles on inspiration or expiration. ABDOMEN: Soft, nontender. Nondistended. Bowel sounds heard in all 4 quadrants. No organomegaly or masses. Negative rebound, negative guarding EXTREMITIES: No edema, pulses are equal bilaterally. No cyanosis or clubbing NEUROLOGY: Mood and affect appear appropriate. Cranial nerves II through XII grossly intact moving all extremities, speech is clear Procedures CT-guided aspirate of the lumbar spine Urinary Catheter: No Vascular Central Line Catheter: No A/P Assessment and Plan Back pain, discitis, osteomyelitis: Initial MRI reveals findings highly suspicious for discitis with osteomyelitis and inflammation. Initially Dr. Tate, neurosurgery, no definite significant drainable abscess seen on MRI. Lumbar spine x-ray 08/23. Status post Interventional radiology CT-guided aspiration of discitis L2 to L3 on 08/23/16 Wound culture 08/23 positive for MSSA Infectious disease recommends Ancef 2 g IV every 8 hours, plan on 6 week total unless worsening of follow-up CT findings Weekly CBC, CMP, CRP, while on IV antibiotics, 09/09 indicate improvement of C- reactive protein Repeat CT of lumbar spine on 09/03/16 because of increased pain indicates abnormality. MRI ordered which indicates discitis at L2-L3 with osteomyelitis at L2-L3 which appears unchanged. Anterior epidural abscess causes moderate canal stenosis at L2-L3. Overall there does not appear to be any significant interval change. Dr. Tate reevaluated the patient and indicated that there is no change in treatment plan. The patient will require completion of IV antibiotics. Pain control: neurosurgery does not indicate that there is anything new or requiring any intervention, continue decreasing pain medication. [place] 7.5/325 q6h prn pain 6-10, adjusted 09/19/16 Gabapentin 300 mg tid Ibuprofen 600 mg q 8 hours scheduled Lidoderm patches prn K-thermia prn. Robaxin 750 mg every 8 hours Hepatitis B & C: F/u as outpatient. DVT prophylaxis with SCDs Discharge Planning Discharge home after patient of antibiotics and cleared by neurosurgeon Cuba Nelson September 19, 2016 10:09
[2016-09-19] MEDS: FAMOTIDINE 20 MG TAB PO SCH (10:25)
[2016-09-19] MEDS: GABAPENTIN 300 MG CAP PO SCH ×3 (10:25→18:03)
[2016-09-19] MEDS: DOCUSATE SODIUM 50 MG/SENNA 8.6 MG TAB PO SCH ×2 (10:26→21:03)
[2016-09-19] MEDS: ACETAMINOPHEN/HYDROcodone 325 MG/7.5 MG TAB PO PRN (18:03)
[2016-09-19 20:00] VITALS: BP 146/74; PULSE 81; RESP 17; TEMP 97.5; O2SAT 99
[2016-09-20] MEDS: ACETAMINOPHEN/HYDROcodone 325 MG/7.5 MG TAB PO PRN ×3 (01:21→21:50)
[2016-09-20] MEDS: METHOCARBAMOL 500 MG TAB PO PRN ×3 (01:21→21:56)
[2016-09-20] MEDS: ceFAZolin 2 GM PREMIX 50 ML IV SCH ×3 (05:20→21:12)
[2016-09-20] MEDS: IBUPROFEN 600 MG TAB PO SCH ×3 (05:20→21:12)
[2016-09-20 08:58] VITALS: BP 135/76; PULSE 75; RESP 18; TEMP 98; O2SAT 97
[2016-09-20] MEDS: SODIUM CHLORIDE 0.9% FLUSH 10 ML FLUSH IV FLUSH SCH ×2 (09:00→21:13)
[2016-09-20] MEDS: GABAPENTIN 300 MG CAP PO SCH ×3 (09:07→18:02)
[2016-09-20] MEDS: DOCUSATE SODIUM 50 MG/SENNA 8.6 MG TAB PO SCH ×2 (09:07→21:12)
[2016-09-20] MEDS: FAMOTIDINE 20 MG TAB PO SCH (09:07)
--- NOTE | 2016-09-20 09:37 | HHI.PR ---
Subjective Remarks Patient seen and examined today for follow-up on osteomyelitis, discitis. Patient denies any new complaints. No change in clinical status. Awaiting completion of IV antibiotics Objective Vitals Vital Signs Date Time Temp Pulse Resp B/P Pulse Ox O2 Delivery O2 Flow Rate FiO2 09/20/16 08:58 98.0 75 18 135/76 97 09/20/16 06:20 16 09/20/16 02:21 16 09/19/16 20:00 97.5 81 17 146/74 99 I/O 09/19/16 09/19/16 09/19/16 09/20/16 09/20/16 09/20/16 07:00 15:00 23:00 07:00 15:00 23:00 Intake Total 1250 ml 580 ml 480 ml Output Total 500 ml 850 ml Balance -500 ml 1250 ml 580 ml -370 ml Intake Oral 1250 ml 580 ml 480 ml Output Urine Total 500 ml 850 ml # Voids 4 2 # Bowel Movements 1 0 0 Result Diagram: 09/16/16 0809/16/16 0805 Objective Remarks GENERAL: Well-developed, well-nourished, in no acute distress. alert and orientated HEENT: Head is normocephalic without any lesions or masses noted. Facial features are symmetric. Eyes: Extraocular muscles are intact. Conjunctivae were clear. NECK: Supple without any masses. Trachea midline no deviation. No JVD, CARDIAC: Regular rhythm, regular rate. S1/S2 are heard. No murmurs gallops or rubs. LUNGS: Clear to auscultation bilaterally. No wheeze, rhonchi or rales. No use of accessory muscles on inspiration or expiration. ABDOMEN: Soft, nontender. Nondistended. Bowel sounds heard in all 4 quadrants. No organomegaly or masses. Negative rebound, negative guarding EXTREMITIES: No edema, pulses are equal bilaterally. No cyanosis or clubbing NEUROLOGY: Mood and affect appear appropriate. Cranial nerves II through XII grossly intact moving all extremities, speech is clear Procedures CT-guided aspirate of the lumbar spine Urinary Catheter: No Vascular Central Line Catheter: No A/P Assessment and Plan Back pain, discitis, osteomyelitis: Initial MRI reveals findings highly suspicious for discitis with osteomyelitis and inflammation. Initially Dr. Tate, neurosurgery, no definite significant drainable abscess seen on MRI. Lumbar spine x-ray 08/23. Status post Interventional radiology CT-guided aspiration of discitis L2 to L3 on 08/23/16 Wound culture 08/23 positive for MSSA Infectious disease recommends Ancef 2 g IV every 8 hours, plan on 6 week total 10/06/16 Weekly CBC, CMP, CRP, while on IV antibiotics, 09/09 indicate improvement of C- reactive protein Repeat CT of lumbar spine on 09/03/16 because of increased pain indicates abnormality. MRI ordered which indicates discitis at L2-L3 with osteomyelitis at L2-L3 which appears unchanged. Anterior epidural abscess causes moderate canal stenosis at L2-L3. Overall there does not appear to be any significant interval change. Dr. Tate reevaluated the patient and indicated that there is no change in treatment plan. The patient will require completion of IV antibiotics. Pain control: neurosurgery does not indicate that there is anything new or requiring any intervention, continue decreasing pain medication. [place] 7.5/325 q6h prn pain 6-10, adjusted 09/19/16 Gabapentin 300 mg tid Ibuprofen 600 mg q 8 hours scheduled Lidoderm patches prn K-thermia prn. Robaxin 750 mg every 8 hours Hepatitis B & C: F/u as outpatient. DVT prophylaxis with SCDs Discharge Planning Discharge home after patient of antibiotics and cleared by neurosurgeon Cuba Nelson September 20, 2016 09:37
[2016-09-20 20:00] VITALS: BP 132/67; PULSE 90; RESP 16; TEMP 98; O2SAT 96
[2016-09-21] MEDS: ceFAZolin 2 GM PREMIX 50 ML IV SCH ×3 (05:19→21:28)
[2016-09-21] MEDS: IBUPROFEN 600 MG TAB PO SCH ×3 (05:19→21:28)
[2016-09-21 08:30] VITALS: BP 118/73; PULSE 84; RESP 18; TEMP 97.6; O2SAT 98
[2016-09-21] MEDS: SODIUM CHLORIDE 0.9% FLUSH 10 ML FLUSH IV FLUSH SCH ×2 (09:00→21:27)
[2016-09-21] MEDS: DOCUSATE SODIUM 50 MG/SENNA 8.6 MG TAB PO SCH ×2 (09:30→21:27)
[2016-09-21] MEDS: FAMOTIDINE 20 MG TAB PO SCH (09:30)
[2016-09-21] MEDS: GABAPENTIN 300 MG CAP PO SCH ×3 (09:30→17:51)
[2016-09-21] MEDS: ACETAMINOPHEN/HYDROcodone 325 MG/7.5 MG TAB PO PRN ×2 (09:31→23:20)
[2016-09-21] MEDS: METHOCARBAMOL 500 MG TAB PO PRN ×2 (09:31→23:21)
--- NOTE | 2016-09-21 11:16 | HHI.PR ---
Subjective Remarks Patient seen and examined today for follow-up on discitis, osteomyelitis. Patient indicates that he is doing much better. He indicates that pain is improving as well as his ambulation. Objective Vitals Vital Signs Date Time Temp Pulse Resp B/P Pulse Ox O2 Delivery O2 Flow Rate FiO2 09/21/16 10:31 18 09/21/16 06:19 16 09/20/16 20:00 98.0 90 16 132/67 96 I/O 09/20/16 09/20/16 09/20/16 09/21/16 09/21/16 09/21/16 07:00 15:00 23:00 07:00 15:00 23:00 Intake Total 480 ml 2695 ml 480 ml Output Total 850 ml 700 ml Balance -370 ml 1995 ml 480 ml Intake Oral 480 ml 2640 ml 480 ml IV Total 55 ml Output Urine Total 850 ml 700 ml # Voids 6 4 # Bowel Movements 0 1 0 Objective Remarks GENERAL: Well-developed, well-nourished, in no acute distress. alert and orientated HEENT: Head is normocephalic without any lesions or masses noted. Facial features are symmetric. Eyes: Extraocular muscles are intact. Conjunctivae were clear. NECK: Supple without any masses. Trachea midline no deviation. No JVD, CARDIAC: Regular rhythm, regular rate. S1/S2 are heard. No murmurs gallops or rubs. LUNGS: Clear to auscultation bilaterally. No wheeze, rhonchi or rales. No use of accessory muscles on inspiration or expiration. ABDOMEN: Soft, nontender. Nondistended. Bowel sounds heard in all 4 quadrants. No organomegaly or masses. Negative rebound, negative guarding EXTREMITIES: No edema, pulses are equal bilaterally. No cyanosis or clubbing NEUROLOGY: Mood and affect appear appropriate. Cranial nerves II through XII grossly intact moving all extremities, speech is clear Procedures CT-guided aspirate of the lumbar spine Urinary Catheter: No Vascular Central Line Catheter: No A/P Assessment and Plan Back pain, discitis, osteomyelitis: Initial MRI reveals findings highly suspicious for discitis with osteomyelitis and inflammation. Initially Dr. Tate, neurosurgery, no definite significant drainable abscess seen on MRI. Lumbar spine x-ray 08/23. Status post Interventional radiology CT-guided aspiration of discitis L2 to L3 on 08/23/16 Wound culture 08/23 positive for MSSA Infectious disease recommends Ancef 2 g IV every 8 hours, plan on 6 week total 10/06/16 Weekly CBC, CMP, CRP, while on IV antibiotics, 09/09 indicate improvement of C- reactive protein Repeat CT of lumbar spine on 09/03/16 because of increased pain indicates abnormality. MRI ordered which indicates discitis at L2-L3 with osteomyelitis at L2-L3 which appears unchanged. Anterior epidural abscess causes moderate canal stenosis at L2-L3. Overall there does not appear to be any significant interval change. Dr. Tate reevaluated the patient and indicated that there is no change in treatment plan. The patient will require completion of IV antibiotics. Pain control: neurosurgery does not indicate that there is anything new or requiring any intervention, continue decreasing pain medication. [place] 7.5/325 q6h prn pain 6-10, adjusted 09/19/16 Gabapentin 300 mg tid Ibuprofen 600 mg q 8 hours scheduled Lidoderm patches prn K-thermia prn. Robaxin 750 mg every 8 hours Hepatitis B & C: F/u as outpatient. DVT prophylaxis with SCDs Discharge Planning Discharge home after patient of antibiotics and cleared by neurosurgeon Cuba Nelson September 21, 2016 11:16
[2016-09-21 20:00] VITALS: BP 119/73; PULSE 86; RESP 19; TEMP 97.8; O2SAT 98
[2016-09-22] MEDS: diphenhydrAMINE HCL 25 MG CAP PO PRN (01:21)
[2016-09-22] MEDS: METHOCARBAMOL 500 MG TAB PO PRN ×2 (06:03→16:39)
[2016-09-22] MEDS: IBUPROFEN 600 MG TAB PO SCH ×3 (06:03→20:49)
[2016-09-22] MEDS: ceFAZolin 2 GM PREMIX 50 ML IV SCH ×3 (06:03→20:49)
[2016-09-22] MEDS: ACETAMINOPHEN/HYDROcodone 325 MG/7.5 MG TAB PO PRN ×2 (06:03→12:36)
[2016-09-22 08:00] VITALS: BP 134/73; PULSE 82; RESP 20; TEMP 97.6; O2SAT 98
[2016-09-22] MEDS: SODIUM CHLORIDE 0.9% FLUSH 10 ML FLUSH IV FLUSH SCH ×2 (08:25→20:49)
[2016-09-22] MEDS: DOCUSATE SODIUM 50 MG/SENNA 8.6 MG TAB PO SCH ×2 (08:25→20:49)
[2016-09-22] MEDS: FAMOTIDINE 20 MG TAB PO SCH (08:25)
[2016-09-22] MEDS: GABAPENTIN 300 MG CAP PO SCH ×3 (08:25→16:38)
--- NOTE | 2016-09-22 11:18 | HHI.PR ---
Subjective Remarks Patient examined today for follow-up on osteomyelitis and discitis. Patient states that his pain is improving on a daily basis. Awaiting antibiotics to be completed for discharge. Objective Vitals Vital Signs Date Time Temp Pulse Resp B/P Pulse Ox O2 Delivery O2 Flow Rate FiO2 09/22/16 08:00 97.6 82 20 134/73 98 09/22/16 07:28 18 09/22/16 07:28 18 09/21/16 20:00 97.8 86 19 119/73 98 I/O 09/21/16 09/21/16 09/21/16 09/22/16 09/22/16 09/22/16 07:00 15:00 23:00 07:00 15:00 23:00 Intake Total 480 ml 1375 ml 480 ml Balance 480 ml 1375 ml 480 ml Intake Oral 480 ml 1320 ml 480 ml IV Total 55 ml # Voids 4 7 4 # Bowel Movements 0 0 Objective Remarks GENERAL: Well-developed, well-nourished, in no acute distress. alert and orientated HEENT: Head is normocephalic without any lesions or masses noted. Facial features are symmetric. Eyes: Extraocular muscles are intact. Conjunctivae were clear. NECK: Supple without any masses. Trachea midline no deviation. No JVD, CARDIAC: Regular rhythm, regular rate. S1/S2 are heard. No murmurs gallops or rubs. LUNGS: Clear to auscultation bilaterally. No wheeze, rhonchi or rales. No use of accessory muscles on inspiration or expiration. ABDOMEN: Soft, nontender. Nondistended. Bowel sounds heard in all 4 quadrants. No organomegaly or masses. Negative rebound, negative guarding EXTREMITIES: No edema, pulses are equal bilaterally. No cyanosis or clubbing NEUROLOGY: Mood and affect appear appropriate. Cranial nerves II through XII grossly intact moving all extremities, speech is clear Procedures CT-guided aspirate of the lumbar spine Urinary Catheter: No Vascular Central Line Catheter: No A/P Assessment and Plan Back pain, discitis, osteomyelitis: Initial MRI reveals findings highly suspicious for discitis with osteomyelitis and inflammation. Initially Dr. Tate, neurosurgery, no definite significant drainable abscess seen on MRI. Lumbar spine x-ray 08/23. Status post Interventional radiology CT-guided aspiration of discitis L2 to L3 on 08/23/16 Wound culture 08/23 positive for MSSA Infectious disease recommends Ancef 2 g IV every 8 hours, plan on 6 week total 10/06/16 Weekly CBC, CMP, CRP, while on IV antibiotics, 09/09 indicate improvement of C- reactive protein Repeat CT of lumbar spine on 09/03/16 because of increased pain indicates abnormality. MRI ordered which indicates discitis at L2-L3 with osteomyelitis at L2-L3 which appears unchanged. Anterior epidural abscess causes moderate canal stenosis at L2-L3. Overall there does not appear to be any significant interval change. Dr. Tate reevaluated the patient and indicated that there is no change in treatment plan. The patient will require completion of IV antibiotics. Pain control: neurosurgery does not indicate that there is anything new or requiring any intervention, continue decreasing pain medication. [place] 7.5/325 q6h prn pain 6-10, adjusted 09/19/16 Gabapentin 300 mg tid Ibuprofen 600 mg q 8 hours scheduled Lidoderm patches prn K-thermia prn. Robaxin 750 mg every 8 hours Hepatitis B & C: F/u as outpatient. DVT prophylaxis with SCDs Discharge Planning Discharge home after patient of antibiotics and cleared by neurosurgeon Cuba Nelson September 22, 2016 11:18 Suleman Kingston DO September 22, 2016 13:36
[2016-09-22 20:00] VITALS: BP 120/74; PULSE 82; RESP 20; TEMP 98.3; O2SAT 98
[2016-09-23] MEDS: ACETAMINOPHEN/HYDROcodone 325 MG/7.5 MG TAB PO PRN (02:32)
[2016-09-23] MEDS: IBUPROFEN 600 MG TAB PO SCH ×3 (06:24→21:08)
[2016-09-23] MEDS: ceFAZolin 2 GM PREMIX 50 ML IV SCH (06:24)
[2016-09-23] MEDS: SODIUM CHLORIDE 0.9% FLUSH 10 ML FLUSH IV FLUSH SCH ×2 (07:24→21:09)
[2016-09-23] MEDS: FAMOTIDINE 20 MG TAB PO SCH (07:25)
[2016-09-23] MEDS: GABAPENTIN 300 MG CAP PO SCH ×3 (07:25→18:39)
[2016-09-23] MEDS: DOCUSATE SODIUM 50 MG/SENNA 8.6 MG TAB PO SCH ×2 (07:25→21:08)
[2016-09-23 07:58] LABS: AUTOMATED NEUTROPHIL # 3.6 TH/MM3 (1.8-7.7); BASOPHIL # 0.1 TH/MM3 (0-0.2); EOSINOPHIL # 0.3 TH/MM3 (0-0.4); EOSINOPHIL % 4.1 % (0.0-4.0); HEMATOCRIT 44.5 % (39.0-51.0); LYMPH % 26.7 % (9.0-44.0); LYMPHOCYTE # 1.8 TH/MM3 (1.0-4.8); MEAN CELL VOLUME 84.9 FL (80.0-100.0); MEAN CORPUSCULAR HEMOGLOBIN 27.5 PG (27.0-34.0); MEAN CORPUSCULAR HGB CONC 32.4 % (32.0-36.0); MONO % 12.6 % (0.0-8.0); NEUT % 55.6 % (16.0-70.0); PLATELET COUNT 253 TH/MM3 (150-450); RED BLOOD COUNT 5.24 MIL/MM3 (4.50-5.90); RED CELL DISTRIBUTION WIDTH 15.9 % (11.6-17.2); WHITE BLOOD COUNT 6.6 TH/MM3 (4.0-11.0)
[2016-09-23 08:00] VITALS: BP 127/95; PULSE 84; RESP 18; TEMP 98.8; O2SAT 99
[2016-09-23 08:02] LABS: HEMO FLAGS DIFF FINAL
[2016-09-23 08:05] LABS: CHLORIDE 107 MEQ/L (98-107); POTASSIUM 3.8 MEQ/L (3.5-5.1); SODIUM (NA) 143 MEQ/L (136-145)
[2016-09-23 08:08] LABS: ANION GAP 6 MEQ/L (5-15); BICARBONATE 30.5 MEQ/L (21.0-32.0)
[2016-09-23 08:09] LABS: BLOOD UREA NITROGEN 15 MG/DL (7-18)
[2016-09-23 08:11] LABS: ALT (GPT) 937 U/L (12-78); AST (GOT) 728 U/L (15-37)
[2016-09-23 08:12] LABS: GLOMERULAR FILTRATION RATE 107 ML/MIN (>89)
[2016-09-23 08:13] LABS: TOTAL BILIRUBIN ADULT 0.4 MG/DL (0.2-1.0)
[2016-09-23 08:14] LABS: ALKALINE PHOSPHATASE 124 U/L (45-117)
[2016-09-23 08:29] LABS: WESTERGREN SEDIMENTATION RATE 11 mm/hr (0-15)
--- NOTE | 2016-09-23 09:34 | HHI.PR ---
Subjective Remarks Written by Cuba Nelson, acting as scribe for Dr. Kingston on 09/23/16 at 09: 48. Patient seen and examined today for follow-up on osteomyelitis, discitis. Patient states that is doing much better. Patient was observed walking outside yesterday without any complaints or abnormalities. Objective Vitals Vital Signs Date Time Temp Pulse Resp B/P Pulse Ox O2 Delivery O2 Flow Rate FiO2 09/23/16 08:00 98.8 84 18 127/95 99 09/23/16 03:32 20 09/22/16 21:49 20 09/22/16 20:00 98.3 82 20 120/74 98 I/O 09/22/16 09/22/16 09/22/16 09/23/16 09/23/16 09/23/16 06:59 14:59 22:59 06:59 14:59 22:59 Intake Total 480 ml 1510 ml 720 ml 820 ml Balance 480 ml 1510 ml 720 ml 820 ml Intake Oral 480 ml 1510 ml 720 ml 720 ml IV Total 100 ml # Voids 4 1 3 4 # Bowel Movements 1 Result Diagram: 09/23/16 0728 09/23/16 0728 Imaging Last Impressions Lumbar Spine MRI 09/04/16 0000 Signed Impressions: Service Date/Time: Sunday, September 04, 2016 11:35 - CONCLUSION: 1. Discitis at L2- 3 with osteomyelitis at L2-3 appears unchanged. 2. Anterior epidural abscess causes moderate canal stenosis at L2-3 level. 3. Overall there is not appear to be significant interval change. Nuno Alcocer MD Lumbar Spine CT 09/03/16 0000 Signed Impressions: Service Date/Time: Saturday, September 03, 2016 18:16 - CONCLUSION: 1. At L2-3 there is discitis and osteomyelitis with bony destructive changes and previous kyphoplasty. There is abnormal density along the anterior and lateral aspect of the canal at L2-3, worse on the right side with a moderate central canal stenosis that appears similar to correlative MRI from August 22. It is unclear on CT if this is a complex infected fluid collection or abnormal soft tissue related to the discitis and osteomyelitis. MRI would be more specific in assessing for epidural abscess. There is swelling and edema in the psoas musculature bilaterally. Holland Wood MD Needle Aspiration CT 08/23/16 0000 Signed Impressions: Service Date/Time: Tuesday, August 23, 2016 13:35 - CONCLUSION: Uncomplicated L2-3 disc as described above. Juan Temple MD FACR Lumbar Spine X-Ray 08/23/16 0000 Signed Impressions: Service Date/Time: Tuesday, August 23, 2016 01:03 - CONCLUSION: 1. Evidence of previous kyphoplasty of L3. 2. Primary degenerative type changes involving the lumbar spine. 3. Demineralization of the bone along the inter endplate of L2 corresponding to patient's known infection involving L2-L3 Candido Chew MD Objective Remarks GENERAL: Well-developed, well-nourished, in no acute distress. alert and orientated HEENT: Head is normocephalic without any lesions or masses noted. Facial features are symmetric. Eyes: Extraocular muscles are intact. Conjunctivae were clear. NECK: Supple without any masses. Trachea midline no deviation. No JVD, CARDIAC: Regular rhythm, regular rate. S1/S2 are heard. No murmurs gallops or rubs. LUNGS: Clear to auscultation bilaterally. No wheeze, rhonchi or rales. No use of accessory muscles on inspiration or expiration. ABDOMEN: Soft, nontender. Nondistended. Bowel sounds heard in all 4 quadrants. No organomegaly or masses. Negative rebound, negative guarding EXTREMITIES: No edema, pulses are equal bilaterally. No cyanosis or clubbing NEUROLOGY: Mood and affect appear appropriate. Cranial nerves II through XII grossly intact moving all extremities, speech is clear Procedures CT-guided aspirate of the lumbar spine Medications and IVs Current Medications Medications (Trade) Dose Ordered Sig/Frank Route Start Time Stop Time Status Last Admin (NS Flush) 2 ml UNSCH PRN IV FLUSH 08/23/16 02:00 09/16/16 13:47 (NS Flush) 2 ml BID IV FLUSH 08/23/16 09:00 09/23/16 07:24 (Zofran Inj) 4 mg Q6H PRN IV 08/23/16 08:30 (Tums Chew) 1,000 mg TID PRN CHEW 08/23/16 08:30 (Narcan Inj) 0.4 mg UNSCH PRN IV 08/25/16 10:00 (Lora-Colace) 2 tab BID PO 08/27/16 21:00 09/23/16 07:25 (Neurontin) 300 mg TID PO 08/30/16 13:00 09/23/16 07:25 (Lidoderm 5% Patch.12 Hr) 1 patch DAILY PRN T-DERMAL 09/02/16 12:00 09/17/16 08:42 (Motrin) 600 mg Q8HR PO 09/02/16 14:00 09/23/16 06:24 (Pepcid) 20 mg DAILY PO 09/02/16 13:00 09/23/16 07:25 (Robaxin) 750 mg Q8HR PRN PO 09/06/16 22:00 Hold 09/22/16 16:39 (Benadryl) 50 mg HS PRN PO 09/16/16 21:00 09/22/16 01:21 Oxycodone HCl 5 mg 5 mg Q6H PRN PO 09/23/16 09:45 Pharmacy Profile Note 0 ml @ 0 mls/hr UNSCH OTHER 09/23/16 09:45 Vancomycin HCl 1000 mg/Sodium Chloride 250 ml @ 250 mls/hr ONCE ONCE IV 09/23/16 11:00 09/23/16 11:59 (Vancomycin Inj/ NS 500 ml Inj) 515 ml @ 257.5 mls/ hr Q12H IV 09/23/16 17:00 Miscellaneous Information SPECIFIC LAB TO BE DRAWN:VANCOMYCIN TROUGH DATE TO... ONCE ONCE .XX 09/25/16 04:45 09/25/16 04:46 Urinary Catheter: No Vascular Central Line Catheter: No A/P Assessment and Plan Acute liver enzyme elevation Unknown etiology, could be secondary to medication, worsening of hepatitis C, or acute abnormality Obtain liver ultrasound Adjust medications that are hepatotoxic Hold Robaxin Change from Percocet to oxycodone Discussed with infectious disease about antibiotic changes. Infectious disease indicated that Ancef does have the potential to cause liver abnormalities. Would recommend discontinuing Ancef and starting vancomycin at this time. Continue to trend liver enzymes. Back pain, discitis, osteomyelitis: Initial MRI reveals findings highly suspicious for discitis with osteomyelitis and inflammation. Initially Dr. Tate, neurosurgery, no definite significant drainable abscess seen on MRI. Lumbar spine x-ray 08/23. Status post Interventional radiology CT-guided aspiration of discitis L2 to L3 on 08/23/16 Wound culture 08/23 positive for MSSA Discontinue Ancef 2 g IV every 8 hours, because of acute liver enzyme elevation Start vancomycin, plan on total 6 week treatment 10/06/16 Weekly CBC, CMP, CRP, while on IV antibiotics, 09/09 indicate improvement of C- reactive protein Repeat CT of lumbar spine on 09/03/16 because of increased pain indicates abnormality. MRI ordered which indicates discitis at L2-L3 with osteomyelitis at L2-L3 which appears unchanged. Anterior epidural abscess causes moderate canal stenosis at L2-L3. Overall there does not appear to be any significant interval change. Dr. Tate reevaluated the patient and indicated that there is no change in treatment plan. The patient will require completion of IV antibiotics. Pain control: neurosurgery does not indicate that there is anything new or requiring any intervention, continue decreasing pain medication. Cadwell 7.5/325 q6h prn pain 6-10, adjusted 09/19/16 Gabapentin 300 mg tid Ibuprofen 600 mg q 8 hours scheduled Lidoderm patches prn K-thermia prn. Robaxin 750 mg every 8 hours Hepatitis B & C: F/u as outpatient. DVT prophylaxis with SCDs Discharge Planning Discharge home after patient of antibiotics and cleared by neurosurgeon Attending Statement This note was transcribed by nicanor Nelson. I, Dr. Suleman Kingston personally performed the history, physical exam, and medical decision making; and confirmed the accuracy of the information in the transcribed note. Authenticated by Dr. Suleman Kingston on 09/23/16 at 11:45. Cuba Nelson September 23, 2016 09:34 Suleman Kingston DO September 23, 2016 11:45
[2016-09-23] MEDS ORDERED: Vancomycin Consult Pharmacy 1 EA OTHER SCH (09:45)
[2016-09-23 10:20] LABS: INDIRECT BILIRUBIN 0.4 MG/DL (0.0-0.8); TOTAL BILIRUBIN ADULT 0.5 MG/DL (0.2-1.0)
[2016-09-23] MEDS ORDERED: VANCOMYCIN INJ 1,000 MG in SODIUM CHLOR 0.9% 250 ML INJ 250 ML IV ONE (11:00)
--- NOTE | 2016-09-23 12:02 | RADHPO ---
EXAM DATE/TIME: 09/23/2016 11:13 [facility] COMPARISON: No previous studies available for comparison. INDICATIONS : Increased lab values. MEDICAL HISTORY : Osteomyelitis. Back pain. SURGICAL HISTORY : I & D of left 3rd digit. Kyphoplasty. ENCOUNTER: Initial ACUITY: 1 day PAIN SCORE: 0/10 LOCATION: Abdomen. MEASUREMENTS: LIVER: 16.1 cm length COMMON DUCT: 4 mm RIGHT KIDNEY: 10.9 x 6.6 x 5.2 cm SPLEEN: 12.6 cm length FINDINGS: LIVER: Mildly increased echotexture without focal lesion or ductal dilatation. COMMON DUCT: No intraluminal mass or stone visualized. GALLBLADDER: Decompressed and therefore not well evaluated. However, no stones are seen. PANCREAS: The visualized portions are within normal limits. Not well-visualized. RIGHT KIDNEY: No hydronephrosis, stone or mass. SPLEEN: No focal lesion. CONCLUSION: 1. Possible mild hepatic steatosis. 2. Gallbladder is contracted and therefore not well evaluated but no stones are seen. Mio Rachel MD on September 23, 2016 at 11:59 Board Certified Radiologist. This report was verified electronically.
[2016-09-23] MEDS: VANCOMYCIN 1,500 MG/NS 500 ML IV SCH ×2 (18:41)
[2016-09-23 20:00] VITALS: BP 100/61; PULSE 88; RESP 16; TEMP 98.2; O2SAT 98
[2016-09-24] MEDS: IBUPROFEN 600 MG TAB PO SCH ×3 (05:52→21:11)
[2016-09-24] MEDS: VANCOMYCIN 1,500 MG/NS 500 ML IV SCH ×4 (05:52→17:36)
[2016-09-24 08:39] LABS: CHLORIDE 110 MEQ/L (98-107); SODIUM (NA) 144 MEQ/L (136-145)
[2016-09-24 08:43] LABS: ANION GAP 5 MEQ/L (5-15); BICARBONATE 28.9 MEQ/L (21.0-32.0); BLOOD UREA NITROGEN 13 MG/DL (7-18)
[2016-09-24 08:46] LABS: ALT (GPT) 770 U/L (12-78); AST (GOT) 402 U/L (15-37); GLOMERULAR FILTRATION RATE 131 ML/MIN (>89)
[2016-09-24 08:48] VITALS: BP 142/72; PULSE 82; RESP 16; TEMP 99.4; O2SAT 99
[2016-09-24 08:48] LABS: TOTAL BILIRUBIN ADULT 0.4 MG/DL (0.2-1.0)
[2016-09-24 08:49] LABS: ALKALINE PHOSPHATASE 119 U/L (45-117)
[2016-09-24] MEDS: SODIUM CHLORIDE 0.9% FLUSH 10 ML FLUSH IV FLUSH SCH ×2 (09:00→21:09)
[2016-09-24] MEDS: FAMOTIDINE 20 MG TAB PO SCH (09:01)
[2016-09-24] MEDS: GABAPENTIN 300 MG CAP PO SCH ×3 (09:01→17:36)
[2016-09-24] MEDS: DOCUSATE SODIUM 50 MG/SENNA 8.6 MG TAB PO SCH ×2 (09:02→21:10)
--- NOTE | 2016-09-24 13:12 | HHI.PR ---
Subjective Remarks Patient seen and examined today for follow-up on osteomyelitis and discitis. Patient is more active at this time. He was walking in the halls. Patient has any new complaints. Objective Vitals Vital Signs Date Time Temp Pulse Resp B/P Pulse Ox O2 Delivery O2 Flow Rate FiO2 09/24/16 10:02 18 09/24/16 08:48 99.4 82 16 142/72 99 09/24/16 07:00 18 09/23/16 20:00 98.2 88 16 100/61 98 I/O 09/23/16 09/23/16 09/23/16 09/24/16 09/24/16 09/24/16 07:00 15:00 23:00 07:00 15:00 23:00 Intake Total 820 ml 730 ml 600 ml Balance 820 ml 730 ml 600 ml Intake Oral 720 ml 480 ml 600 ml IV Total 100 ml 250 ml # Voids 4 2 2 # Bowel Movements 1 0 0 Result Diagram: 09/23/16 0728 09/24/16 0817 Objective Remarks GENERAL: Well-developed, well-nourished, in no acute distress. alert and orientated HEENT: Head is normocephalic without any lesions or masses noted. Facial features are symmetric. Eyes: Extraocular muscles are intact. Conjunctivae were clear. NECK: Supple without any masses. Trachea midline no deviation. No JVD, CARDIAC: Regular rhythm, regular rate. S1/S2 are heard. No murmurs gallops or rubs. LUNGS: Clear to auscultation bilaterally. No wheeze, rhonchi or rales. No use of accessory muscles on inspiration or expiration. ABDOMEN: Soft, nontender. Nondistended. Bowel sounds heard in all 4 quadrants. No organomegaly or masses. Negative rebound, negative guarding EXTREMITIES: No edema, pulses are equal bilaterally. No cyanosis or clubbing NEUROLOGY: Mood and affect appear appropriate. Cranial nerves II through XII grossly intact moving all extremities, speech is clear Procedures CT-guided aspirate of the lumbar spine Urinary Catheter: No Vascular Central Line Catheter: No A/P Assessment and Plan Acute liver enzyme elevation Unknown etiology, could be secondary to medication, worsening of hepatitis C, or acute abnormality Liver ultrasound indicates mild hepatic steatosis. Gallbladder contracted Adjust medications that are hepatotoxic Hold Robaxin Changed from Percocet to oxycodone Discussed with infectious disease about antibiotic changes. Infectious disease indicated that Ancef does have the potential to cause liver abnormalities. Would recommend discontinuing Ancef and starting vancomycin at this time. Continue to trend liver enzymes. Which have improved Back pain, discitis, osteomyelitis: Initial MRI reveals findings highly suspicious for discitis with osteomyelitis and inflammation. Initially Dr. Tate, neurosurgery, no definite significant drainable abscess seen on MRI. Lumbar spine x-ray 08/23. Status post Interventional radiology CT-guided aspiration of discitis L2 to L3 on 08/23/16 Wound culture 08/23 positive for MSSA Discontinue Ancef 2 g IV every 8 hours, because of acute liver enzyme elevation Vancomycin, plan on total 6 week treatment 10/06/16 Weekly CBC, CMP, CRP, while on IV antibiotics, 09/09 indicate improvement of C- reactive protein Repeat CT of lumbar spine on 09/03/16 because of increased pain indicates abnormality. MRI ordered which indicates discitis at L2-L3 with osteomyelitis at L2-L3 which appears unchanged. Anterior epidural abscess causes moderate canal stenosis at L2-L3. Overall there does not appear to be any significant interval change. Dr. Tate reevaluated the patient and indicated that there is no change in treatment plan. The patient will require completion of IV antibiotics. Pain control: neurosurgery does not indicate that there is anything new or requiring any intervention, continue decreasing pain medication. Oxycodone 5 every 6 hours as needed for pain 10/07 Gabapentin 300 mg tid Ibuprofen 600 mg q 8 hours scheduled Lidoderm patches prn K-thermia prn. Hepatitis B & C: F/u as outpatient. DVT prophylaxis with SCDs Discharge Planning Discharge home after patient of antibiotics and cleared by neurosurgeon Cuba Nelson September 24, 2016 13:12
[2016-09-24 20:00] VITALS: BP 131/69; PULSE 79; RESP 16; TEMP 96.8; O2SAT 100
[2016-09-25] MEDS ORDERED: PHARMACY ORDERED LAB ONE (04:45)
[2016-09-25] MEDS: VANCOMYCIN 1,500 MG/NS 500 ML IV SCH ×6 (05:11→21:04)
[2016-09-25] MEDS: IBUPROFEN 600 MG TAB PO SCH ×3 (05:13→21:03)
[2016-09-25 05:40] LABS: TOTAL BILIRUBIN ADULT 0.6 MG/DL (0.2-1.0)
[2016-09-25 05:41] LABS: INDIRECT BILIRUBIN 0.4 MG/DL (0.0-0.8)
[2016-09-25 08:00] VITALS: BP 138/80; PULSE 78; RESP 18; TEMP 97.8; O2SAT 98
[2016-09-25] MEDS: SODIUM CHLORIDE 0.9% FLUSH 10 ML FLUSH IV FLUSH SCH ×2 (08:07→21:04)
[2016-09-25] MEDS: GABAPENTIN 300 MG CAP PO SCH ×3 (08:08→18:10)
[2016-09-25] MEDS: DOCUSATE SODIUM 50 MG/SENNA 8.6 MG TAB PO SCH ×2 (08:08→21:03)
[2016-09-25] MEDS: FAMOTIDINE 20 MG TAB PO SCH (08:08)
--- NOTE | 2016-09-25 10:19 | HHI.PR ---
Subjective Remarks Patient seen and examined today for follow-up on discitis, osteomyelitis. Patient states that his pain is improving on a regular basis. I have notified the patient is continued improvement in his liver enzymes. Objective Vitals Vital Signs Date Time Temp Pulse Resp B/P Pulse Ox O2 Delivery O2 Flow Rate FiO2 09/25/16 08:00 97.8 78 18 138/80 98 09/25/16 06:15 16 09/25/16 06:13 16 09/24/16 20:00 96.8 79 16 131/69 100 I/O 09/24/16 09/24/16 09/24/16 09/25/16 09/25/16 09/25/16 07:00 15:00 23:00 07:00 15:00 23:00 Intake Total 600 ml 480 ml 980 ml 240 ml Balance 600 ml 480 ml 980 ml 240 ml Intake Oral 600 ml 480 ml 980 ml 240 ml # Voids 2 4 6 2 # Bowel Movements 0 1 0 Result Diagram: 09/23/16 0728 09/24/1617 Objective Remarks GENERAL: Well-developed, well-nourished, in no acute distress. alert and orientated HEENT: Head is normocephalic without any lesions or masses noted. Facial features are symmetric. Eyes: Extraocular muscles are intact. Conjunctivae were clear. NECK: Supple without any masses. Trachea midline no deviation. No JVD, CARDIAC: Regular rhythm, regular rate. S1/S2 are heard. No murmurs gallops or rubs. LUNGS: Clear to auscultation bilaterally. No wheeze, rhonchi or rales. No use of accessory muscles on inspiration or expiration. ABDOMEN: Soft, nontender. Nondistended. Bowel sounds heard in all 4 quadrants. No organomegaly or masses. Negative rebound, negative guarding EXTREMITIES: No edema, pulses are equal bilaterally. No cyanosis or clubbing NEUROLOGY: Mood and affect appear appropriate. Cranial nerves II through XII grossly intact moving all extremities, speech is clear Procedures CT-guided aspirate of the lumbar spine Urinary Catheter: No Vascular Central Line Catheter: No A/P Assessment and Plan Acute liver enzyme elevation Unknown etiology, could be secondary to medication, worsening of hepatitis C, or acute abnormality Liver ultrasound indicates mild hepatic steatosis. Gallbladder contracted Adjust medications that are hepatotoxic Hold Robaxin Changed from Percocet to oxycodone Discussed with infectious disease about antibiotic changes. Infectious disease indicated that Ancef does have the potential to cause liver abnormalities. Would recommend discontinuing Ancef and starting vancomycin at this time. Continue to trend liver enzymes. Which continue to improve Back pain, discitis, osteomyelitis: Initial MRI reveals findings highly suspicious for discitis with osteomyelitis and inflammation. Initially Dr. Tate, neurosurgery, no definite significant drainable abscess seen on MRI. Lumbar spine x-ray 08/23. Status post Interventional radiology CT-guided aspiration of discitis L2 to L3 on 08/23/16 Wound culture 08/23 positive for MSSA Discontinue Ancef 2 g IV every 8 hours, because of acute liver enzyme elevation Vancomycin, plan on total 6 week treatment 10/06/16 Weekly CBC, CMP, CRP, while on IV antibiotics, 09/09 indicate improvement of C- reactive protein Repeat CT of lumbar spine on 09/03/16 because of increased pain indicates abnormality. MRI ordered which indicates discitis at L2-L3 with osteomyelitis at L2-L3 which appears unchanged. Anterior epidural abscess causes moderate canal stenosis at L2-L3. Overall there does not appear to be any significant interval change. Dr. Tate reevaluated the patient and indicated that there is no change in treatment plan. The patient will require completion of IV antibiotics. Pain control: neurosurgery does not indicate that there is anything new or requiring any intervention, continue decreasing pain medication. Oxycodone 5 every 6 hours as needed for pain 10/07 Gabapentin 300 mg tid Ibuprofen 600 mg q 8 hours scheduled Lidoderm patches prn K-thermia prn. Hepatitis B & C: F/u as outpatient. DVT prophylaxis with SCDs Discharge Planning Discharge home after patient of antibiotics and cleared by neurosurgeon Cuba Nelson September 25, 2016 10:19
[2016-09-25 20:00] VITALS: BP 139/81; PULSE 86; RESP 20; TEMP 98.5; O2SAT 99
[2016-09-26] MEDS: VANCOMYCIN 1,500 MG/NS 500 ML IV SCH ×8 (05:34→22:00)
[2016-09-26] MEDS: IBUPROFEN 600 MG TAB PO SCH ×3 (05:34→21:52)
[2016-09-26 08:00] VITALS: BP 114/78; PULSE 68; RESP 16; TEMP 98.4; O2SAT 100
[2016-09-26] MEDS: SODIUM CHLORIDE 0.9% FLUSH 10 ML FLUSH IV FLUSH SCH ×2 (08:41→21:54)
[2016-09-26] MEDS: FAMOTIDINE 20 MG TAB PO SCH (08:41)
[2016-09-26] MEDS: GABAPENTIN 300 MG CAP PO SCH ×3 (08:41→16:46)
[2016-09-26] MEDS: DOCUSATE SODIUM 50 MG/SENNA 8.6 MG TAB PO SCH ×2 (08:41→21:53)
--- NOTE | 2016-09-26 12:41 | HHI.PR ---
Subjective Remarks Follow-up for osteomyelitis. Patient states his sciatic pain in both legs is improved and he feels it was masking his spine pain before. He admits to pain in the spine as well as wrapping around. States he has been ambulating. Objective Vitals Vital Signs Date Time Temp Pulse Resp B/P Pulse Ox O2 Delivery O2 Flow Rate FiO2 09/26/16 08:00 98.4 68 16 114/78 100 09/25/16 22:47 20 09/25/16 22:03 20 09/25/16 20:00 98.5 86 20 139/81 99 I/O 09/25/16 09/25/16 09/25/16 09/26/16 09/26/16 09/26/16 07:00 15:00 23:00 07:00 15:00 23:00 Intake Total 240 ml 1710 ml 1360 ml Balance 240 ml 1710 ml 1360 ml Intake Oral 240 ml 1200 ml 360 ml IV Total 510 ml 1000 ml # Voids 2 6 3 # Bowel Movements 0 0 Result Diagram: 09/23/16 0728 09/24/16816 Objective Remarks GENERAL: Well-nourished, well patient no apparent distress. CARDIOVASCULAR: Regular rate and rhythm. RESPIRATORY: No accessory muscle use. Clear to auscultation. Breath sounds equal bilaterally. GASTROINTESTINAL: Abdomen soft, non-tender, nondistended. BACK: Tender over the lumbar spine. Tender over lumbar paraspinal muscles and bilateral sacroiliac regions. NEUROLOGICAL: Awake and alert. Normal speech. Procedures CT-guided aspirate of the lumbar spine Urinary Catheter: No Vascular Central Line Catheter: No A/P Problem List: (1) Back pain ICD Code: M54.9 Status: Acute (2) Osteomyelitis of lumbar spine ICD Code: M46.26 Status: Acute (3) Lumbar discitis ICD Code: M46.46 Status: Acute (4) Trochanteric bursitis of both hips ICD Code: M70.61 Status: Acute Assessment and Plan Back pain, discitis, osteomyelitis: -MRI reveals findings highly suspicious for discitis with osteomyelitis and inflammation. -Per Dr. Tate, neurosurgery, no definite significant drainable abscess seen on MRI. Lumbar spine x-ray 08/23. -Status post Interventional radiology CT-guided aspiration of discitis L2 to L3 on 08/23/16 -Wound culture 08/23 positive for MSSA, continue Ancef 2g q8hrs -Blood cultures x 2 NG -Continue physical therapy -Per ID continue Ancef 2 gm IV q8hrs plan on 6 weeks total. Last day of antibiotics should be 10/06/16. -Follow weekly CBC with diff, CMP, CRP while on IV antibiotics. -If any abnormal labs or change in clinical condition call ID at [facility] or Dr. Lou. -09/04 CT lumbar spine with discitis and osteomyelitis; abnormal density along the anterior and lateral aspect of the canal at L2-3, worse on the R side with a moderate central canal stenosis similar to correlative of MRI from August 22. Radiologist states it is unclear if it is a complex infected fluid collection or abnormal soft tissue related to the discitis and osteomyelitis. MRI suggested to assess for epidural abscess. There is swelling and edema in the psoas musculature bilaterally. -09/04 L-spine MRI still indicates the presence of osteomyelitis and discitis. There is again an anterior epidural abscess at the L2-L3 level causing moderate canal stenosis which is not significantly changed. Disc bulges at L2-3, L3-4, L4-5, and L5-S1 levels are unchanged. -09/06: Dr. Tate reevaluated the patient. Advises continuing LSO brace, continue to mobilize out of bed as tolerated -Pain control: Oxycodone 5 mg q6h prn Gabapentin 300 mg tid Ibuprofen 600 mg q 8 hours scheduled Lidoderm patches prn K-thermia prn. S/p Robaxin S/p course of Toradol Acute liver enzyme elevation Unknown etiology, could be secondary to antibiotics or worsening of hepatitis C. Liver ultrasound indicates mild hepatic steatosis. Gallbladder contracted. Medications that are hepatotoxic were adjusted Robaxin held Changed from Percocet to oxycodone Colleague discussed with infectious disease about antibiotic changes. Infectious disease indicated that Ancef does have the potential to cause liver abnormalities; recommended discontinuing Ancef and starting vancomycin. Continue to trend liver enzymes. LFTs today are pending. Hepatitis B & C: F/u as outpatient. Insomnia: Benadryl 50 mg po hs prn. GI prophylaxis: Pepcid daily. DVT prophylaxis with SCDs Discharge Planning Will remain hospitalized until completion of antibiotics. Problem Qualifiers (1) Back pain: Qualified Code: M54.5 - Acute midline low back pain without sciatica Carol Ann Reich September 26, 2016 12:41
[2016-09-26] MEDS ORDERED: PHARMACY ORDERED LAB ONE (13:45)
[2016-09-26 17:23] LABS: INDIRECT BILIRUBIN 0.3 MG/DL (0.0-0.8); TOTAL BILIRUBIN ADULT 0.4 MG/DL (0.2-1.0)
[2016-09-26 20:00] VITALS: BP 136/73; PULSE 81; RESP 19; TEMP 97.4; O2SAT 98
[2016-09-27] MEDS: VANCOMYCIN 1,500 MG/NS 500 ML IV SCH ×6 (06:00→21:32)
[2016-09-27] MEDS: IBUPROFEN 600 MG TAB PO SCH ×3 (06:00→13:30)
[2016-09-27 08:00] VITALS: BP 138/83; PULSE 67; RESP 17; TEMP 98.8; O2SAT 97
[2016-09-27] MEDS: GABAPENTIN 300 MG CAP PO SCH ×3 (10:04→17:19)
[2016-09-27] MEDS: DOCUSATE SODIUM 50 MG/SENNA 8.6 MG TAB PO SCH ×2 (10:04→21:32)
[2016-09-27] MEDS: FAMOTIDINE 20 MG TAB PO SCH (10:05)
[2016-09-27] MEDS: SODIUM CHLORIDE 0.9% FLUSH 10 ML FLUSH IV FLUSH SCH ×2 (10:06→21:33)
[2016-09-27 10:12] LABS: INDIRECT BILIRUBIN 0.4 MG/DL (0.0-0.8); TOTAL BILIRUBIN ADULT 0.5 MG/DL (0.2-1.0)
--- NOTE | 2016-09-27 13:41 | HHI.PR ---
Subjective Remarks Follow-up for osteomyelitis of the spine. No acute complaints. Objective Vitals Vital Signs Date Time Temp Pulse Resp B/P Pulse Ox O2 Delivery O2 Flow Rate FiO2 09/27/16 11:17 14 09/27/16 11:17 14 09/27/16 08:00 98.8 67 17 138/83 97 09/26/16 20:00 97.4 81 19 136/73 98 I/O 09/26/16 09/26/16 09/26/16 09/27/16 09/27/16 09/27/16 07:00 15:00 23:00 07:00 15:00 23:00 Intake Total 1360 ml 1080 ml 480 ml Balance 1360 ml 1080 ml 480 ml Intake Oral 360 ml 1080 ml 480 ml IV Total 1000 ml # Voids 3 6 3 Result Diagram: 09/23/16 0728 09/26/16 1510 Objective Remarks GENERAL: Well-nourished, well developed patient no apparent distress. CARDIOVASCULAR: Regular rate and rhythm. RESPIRATORY: No accessory muscle use. Clear to auscultation. Breath sounds equal bilaterally. GASTROINTESTINAL: Normoactive bowel sounds. Abdomen soft, non-tender, nondistended. MUSCULOSKELETAL: 2+ DP and TP pulses bilaterally. No lower extremity edema bilaterally. NEUROLOGICAL: Awake and alert. 5/5 strength with dorsiflexion and plantar flexion bilaterally. Normal speech. Patient ambulates well with mild antalgic gait. Procedures CT-guided aspirate of the lumbar spine Urinary Catheter: No Vascular Central Line Catheter: No A/P Problem List: (1) Back pain ICD Code: M54.9 Status: Acute (2) Osteomyelitis of lumbar spine ICD Code: M46.26 Status: Acute (3) Lumbar discitis ICD Code: M46.46 Status: Acute (4) Trochanteric bursitis of both hips ICD Code: M70.61 Status: Acute Assessment and Plan Back pain, discitis, osteomyelitis: -MRI reveals findings highly suspicious for discitis with osteomyelitis and inflammation. -Per Dr. Tate, neurosurgery, no definite significant drainable abscess seen on MRI. Lumbar spine x-ray 08/23. -Status post Interventional radiology CT-guided aspiration of discitis L2 to L3 on 08/23/16 -Wound culture 08/23 positive for MSSA, continue Ancef 2g q8hrs -Blood cultures x 2 NG -Continue physical therapy -Per ID continue antibiotics for 6 weeks total. Last day of antibiotics should be 10/06/16. -Follow weekly CBC with diff, CMP, CRP while on IV antibiotics. -If any abnormal labs or change in clinical condition call ID at [facility] or Dr. Lou. -09/04 CT lumbar spine with discitis and osteomyelitis; abnormal density along the anterior and lateral aspect of the canal at L2-3, worse on the R side with a moderate central canal stenosis similar to correlative of MRI from August 22. Radiologist states it is unclear if it is a complex infected fluid collection or abnormal soft tissue related to the discitis and osteomyelitis. MRI suggested to assess for epidural abscess. There is swelling and edema in the psoas musculature bilaterally. -09/04 L-spine MRI still indicates the presence of osteomyelitis and discitis. There is again an anterior epidural abscess at the L2-L3 level causing moderate canal stenosis which is not significantly changed. Disc bulges at L2-3, L3-4, L4-5, and L5-S1 levels are unchanged. -09/06: Dr. Tate reevaluated the patient. Advises continuing LSO brace, continue to mobilize out of bed as tolerated. -Switched from Ancef to Vancomycin on 09/23 due to LFT elevation. 09/23 ESR and CRP normal. -09/27: I spoke with Dr. Lou, ID regarding repeat imaging prior to discharge. She advises CT L-spine today, no MRI. She states if abscess is improved, patient can possibly go on po antibiotics for a couple of months. CT L-spine with IV contrast ordered. Will contact Dr. Lou with results. -Pain control: Oxycodone 5 mg q6h prn; need to wean prior to discharge. Gabapentin 300 mg tid Ibuprofen 600 mg q 8 hours scheduled Lidoderm patches prn K-thermia prn. S/p Robaxin S/p course of Toradol Acute liver enzyme elevation: Improving. Unknown etiology, could be secondary to antibiotics or worsening of hepatitis C. Liver ultrasound indicates mild hepatic steatosis. Gallbladder contracted. Medications that are hepatotoxic were adjusted Robaxin held Changed from Percocet to oxycodone Discussed with infectious disease about antibiotic changes. Infectious disease indicated that Ancef does have the potential to cause liver abnormalities; recommended discontinuing Ancef and starting vancomycin. 09/27: LFTs trending downward. Dr. Lou, ID, aware. Repeat am LFTs. Hepatitis B & C: F/u as outpatient. Insomnia: Benadryl 50 mg po hs prn. GI prophylaxis: Pepcid daily. DVT prophylaxis with SCDs Discharge Planning Will remain hospitalized until completion of antibiotics. Problem Qualifiers (1) Back pain: Qualified Code: M54.5 - Acute midline low back pain without sciatica Carol Ann Reich September 27, 2016 13:41
[2016-09-27] MEDS ORDERED: IOHEXOL 350 MG/ML 10 ML VIAL (for RAD DIAG) IV ONE (16:24)
--- NOTE | 2016-09-27 19:16 | RADHPO ---
EXAM DATE/TIME: 09/27/2016 16:13 [facility] COMPARISON: MRI LUMBAR SPINE W & W/O CONTRAST, September 04, 2016, 11:35. CT LUMBAR SPINE W CONTRAST, September 03, 2016, 18 :16. INDICATIONS : Pain. Follow up osteomyelitis. IV CONTRAST: 75 cc Omnipaque 350 (iohexol) IV RADIATION DOSE: 37.86 CTDIvol (mGy) MEDICAL HISTORY : None SURGICAL HISTORY : Kyphoplasty. ENCOUNTER: Subsequent ACUITY: 1 month PAIN SCALE: 5/10 LOCATION: [facility] TECHNIQUE: Volumetric scanning of the lumbar spine was performed. Multiplanar reconstructions in the sagittal, coronal and oblique axial planes were performed. Using automated exposure control and adjustment of the mA and/or kV according to patient size, radiation dose was kept as low as reasonably achievable t o obtain optimal diagnostic quality images. FINDINGS: The appearance is stable from the prior exam. Discitis with adjacent osteomyelitis at L2-L3 again not ed. Soft tissue is seen filling the anterior epidural space at L2-L3 with extension towards the right lateral aspects of the central canal. This causes narrowing of the central canal. Cement augmentatio n changes are seen at L3. Central canal is otherwise patent throughout the remaining portions of the lumbar spine. CONCLUSION: 1. Stable discitis and osteomyelitis at L2-L3 with soft tissue within the central canal causing centr al canal stenosis better evaluated with prior MRI and suspected to be epidural abscess. 2. Prior cement augmentation of L3. Lux Hermosillo Jr., MD on September 27, 2016 at 19:08 Board Certified Radiologist. This report was verified electronically.
[2016-09-27 20:00] VITALS: BP 125/85; PULSE 86; RESP 19; TEMP 97.1; O2SAT 98
[2016-09-28] MEDS: IBUPROFEN 600 MG TAB PO SCH ×3 (06:26→21:21)
[2016-09-28] MEDS: VANCOMYCIN 1,500 MG/NS 500 ML IV SCH ×6 (06:27→21:22)
[2016-09-28 08:25] VITALS: BP 140/74; PULSE 71; RESP 19; TEMP 98.6; O2SAT 98
[2016-09-28] MEDS: SODIUM CHLORIDE 0.9% FLUSH 10 ML FLUSH IV FLUSH SCH ×2 (09:00→21:22)
[2016-09-28] MEDS: FAMOTIDINE 20 MG TAB PO SCH (09:41)
[2016-09-28] MEDS: DOCUSATE SODIUM 50 MG/SENNA 8.6 MG TAB PO SCH ×2 (09:41→21:21)
[2016-09-28] MEDS: GABAPENTIN 300 MG CAP PO SCH ×3 (09:42→16:14)
[2016-09-28 10:04] LABS: INDIRECT BILIRUBIN 0.2 MG/DL (0.0-0.8); TOTAL BILIRUBIN ADULT 0.3 MG/DL (0.2-1.0)
--- NOTE | 2016-09-28 11:15 | HHI.PR ---
Subjective Remarks Follow-up for osteomyelitis lumbar spine. Patient has no new complaints. Objective Vitals Vital Signs Date Time Temp Pulse Resp B/P Pulse Ox O2 Delivery O2 Flow Rate FiO2 09/28/16 09:42 14 09/28/16 08:25 98.6 71 19 140/74 98 09/27/16 20:00 97.1 86 19 125/85 98 09/27/16 11:17 14 I/O 09/27/16 09/27/16 09/27/16 09/28/16 09/28/16 09/28/16 07:00 15:00 23:00 07:00 15:00 23:00 Intake Total 480 ml 480 ml 480 ml 100 ml Balance 480 ml 480 ml 480 ml 100 ml Intake Oral 480 ml 480 ml 480 ml 100 ml # Voids 3 4 3 2 Result Diagram: 09/28/16 0625 Objective Remarks GENERAL: Well-nourished, well developed patient no apparent distress. CARDIOVASCULAR: Regular rate and rhythm. RESPIRATORY: No accessory muscle use. Clear to auscultation. Breath sounds equal bilaterally. GASTROINTESTINAL: Abdomen soft, non-tender, nondistended. BACK: Tender over L-spine and bilateral sacroiliac regions. NEUROLOGICAL: Awake and alert. 5/5 energy administrator strength bilaterally and 5/5 strength with dorsiflexion and plantar flexion bilaterally. Sensation decreased over right proximal lateral thigh, not new. Normal speech. Patient ambulates but has antalgic gait. Procedures CT-guided aspirate of the lumbar spine Urinary Catheter: No Vascular Central Line Catheter: No A/P Problem List: (1) Back pain ICD Code: M54.9 Status: Acute (2) Osteomyelitis of lumbar spine ICD Code: M46.26 Status: Acute (3) Lumbar discitis ICD Code: M46.46 Status: Acute (4) Trochanteric bursitis of both hips ICD Code: M70.61 Status: Acute Assessment and Plan Back pain, discitis, osteomyelitis: -MRI reveals findings highly suspicious for discitis with osteomyelitis and inflammation. -Per Dr. Tate, neurosurgery, no definite significant drainable abscess seen on MRI. Lumbar spine x-ray 08/23. -Status post Interventional radiology CT-guided aspiration of discitis L2 to L3 on 08/23/16 -Wound culture 08/23 positive for MSSA, continue Ancef 2g q8hrs -Blood cultures x 2 NG -Continue physical therapy -Per ID continue antibiotics for 6 weeks total. Last day of antibiotics should be 10/06/16. -Follow weekly CBC with diff, CMP, CRP while on IV antibiotics. Next labs due 09/30. -If any abnormal labs or change in clinical condition call ID at [facility] or Dr. Lou. -09/04 CT lumbar spine with discitis and osteomyelitis; abnormal density along the anterior and lateral aspect of the canal at L2-3, worse on the R side with a moderate central canal stenosis similar to correlative of MRI from August 22. Radiologist states it is unclear if it is a complex infected fluid collection or abnormal soft tissue related to the discitis and osteomyelitis. MRI suggested to assess for epidural abscess. There is swelling and edema in the psoas musculature bilaterally. -09/04 L-spine MRI still indicates the presence of osteomyelitis and discitis. There is again an anterior epidural abscess at the L2-L3 level causing moderate canal stenosis which is not significantly changed. Disc bulges at L2-3, L3-4, L4-5, and L5-S1 levels are unchanged. -09/06: Dr. Tate reevaluated the patient. Advises continuing LSO brace, continue to mobilize out of bed as tolerated. -Switched from Ancef to Vancomycin on 09/23 due to LFT elevation. 09/23 ESR and CRP normal. -09/27: I spoke with Dr. Lou, ID regarding repeat imaging prior to discharge. She advises CT L-spine today, no MRI. She states if abscess is improved, patient can possibly go on po antibiotics for a couple of months. CT L-spine with IV contrast ordered. -09/28: CT of the lumbar spine shows stable discitis and osteomyelitis at L2-L3 with soft tissue within the central canal causing central canal stenosis suspected to be epidural abscess (better evaluated with prior MRI per radiologist). Dr. Lou made aware of results, suggests I speak with Dr. Tate. I spoke with Mario Purdy neurosurgery [facility] and discussed patient and results with him. He states Dr. Tate is out of the office but he will call me back tomorrow. -Pain control: Oxycodone 5 mg q6h prn; need to wean prior to discharge. Gabapentin 300 mg tid Ibuprofen 600 mg q 8 hours scheduled Lidoderm patches prn K-thermia prn. S/p Robaxin S/p course of Toradol Acute liver enzyme elevation: Improving. Unknown etiology, could be secondary to antibiotics or worsening of hepatitis C. Liver ultrasound indicates mild hepatic steatosis. Gallbladder contracted. Medications that are hepatotoxic were adjusted Robaxin held Changed from Percocet to oxycodone Discussed with infectious disease about antibiotic changes. Infectious disease indicated that Ancef does have the potential to cause liver abnormalities; recommended discontinuing Ancef and starting vancomycin. 09/28: LFTs continue to trend downward, AST 68 and ALT 354 Hepatitis B & C: F/u as outpatient. Insomnia: Benadryl 50 mg po hs prn. GI prophylaxis: Pepcid daily. DVT prophylaxis with SCDs Discharge Planning Will remain hospitalized until completion of antibiotics. Problem Qualifiers (1) Back pain: Qualified Code: M54.5 - Acute midline low back pain without sciatica Carol Ann Reich Sep 28, 2016 11:15
[2016-09-28] MEDS ORDERED: PILL SPLITTER OTHER PRN (14:15)
[2016-09-28 20:00] VITALS: BP 128/91; PULSE 90; RESP 16; TEMP 97.5; O2SAT 98
[2016-09-28] MEDS: diphenhydrAMINE HCL 25 MG CAP PO PRN (22:53)
[2016-09-29] MEDS: VANCOMYCIN 1,500 MG/NS 500 ML IV SCH ×6 (05:28→21:29)
[2016-09-29] MEDS: IBUPROFEN 600 MG TAB PO SCH ×3 (05:29→21:30)
[2016-09-29 08:00] VITALS: BP 148/82; PULSE 71; RESP 16; TEMP 97.6; O2SAT 100
[2016-09-29] MEDS: DOCUSATE SODIUM 50 MG/SENNA 8.6 MG TAB PO SCH ×2 (08:51→21:00)
[2016-09-29] MEDS: SODIUM CHLORIDE 0.9% FLUSH 10 ML FLUSH IV FLUSH SCH ×2 (08:51→21:31)
[2016-09-29] MEDS: FAMOTIDINE 20 MG TAB PO SCH ×2 (08:52→21:30)
[2016-09-29] MEDS: GABAPENTIN 300 MG CAP PO SCH ×3 (08:52→17:43)
--- NOTE | 2016-09-29 11:07 | HHI.PR ---
Subjective Remarks Follow-up for osteomyelitis of the lumbar spine. Patient states his pain is worse at night and he had restless legs last night, but the Benadryl helped him sleep. Objective Vitals Vital Signs Date Time Temp Pulse Resp B/P Pulse Ox O2 Delivery O2 Flow Rate FiO2 09/29/16 08:00 97.6 71 16 148/82 100 09/28/16 20:00 97.5 90 16 128/91 98 I/O 09/28/16 09/28/16 09/28/16 09/29/16 09/29/16 09/29/16 07:00 15:00 23:00 07:00 15:00 23:00 Intake Total 480 ml 100 ml 1480 ml 1508 ml Balance 480 ml 100 ml 1480 ml 1508 ml Intake Oral 480 ml 100 ml 1480 ml 480 ml IV Total 1028 ml # Voids 2 6 2 # Bowel Movements 1 0 Result Diagram: 09/28/16 0625 Objective Remarks GENERAL: Well-nourished, well developed patient no apparent distress. CARDIOVASCULAR: Regular rate and rhythm. RESPIRATORY: No accessory muscle use. Clear to auscultation. Breath sounds equal bilaterally. GASTROINTESTINAL: Abdomen soft, non-tender, nondistended. BACK: Tender over L-spine, lumbar musculature bilaterally, and bilateral sacroiliac regions. NEUROLOGICAL: Awake and alert. 5/5 dorsiflexion and plantar flexion bilaterally. Normal speech. Procedures CT-guided aspirate of the lumbar spine Urinary Catheter: No Vascular Central Line Catheter: No A/P Problem List: (1) Back pain ICD Code: M54.9 Status: Acute (2) Osteomyelitis of lumbar spine ICD Code: M46.26 Status: Acute (3) Lumbar discitis ICD Code: M46.46 Status: Acute (4) Trochanteric bursitis of both hips ICD Code: M70.61 Status: Acute Assessment and Plan Back pain, discitis, osteomyelitis: -MRI reveals findings highly suspicious for discitis with osteomyelitis and inflammation. -Per Dr. Tate, neurosurgery, no definite significant drainable abscess seen on MRI. Lumbar spine x-ray 08/23. -Status post Interventional radiology CT-guided aspiration of discitis L2 to L3 on 08/23/16 -Wound culture 08/23 positive for MSSA, continue Ancef 2g q8hrs -Blood cultures x 2 NG -Continue physical therapy -Per ID continue antibiotics for 6 weeks total. Last day of antibiotics should be 10/06/16. -Follow weekly CBC with diff, CMP, CRP while on IV antibiotics. Labs ordered for tomorrow 09/30. -If any abnormal labs or change in clinical condition call ID at [facility] or Dr. Lou. -09/04 CT lumbar spine with discitis and osteomyelitis; abnormal density along the anterior and lateral aspect of the canal at L2-3, worse on the R side with a moderate central canal stenosis similar to correlative of MRI from August 22. Radiologist states it is unclear if it is a complex infected fluid collection or abnormal soft tissue related to the discitis and osteomyelitis. MRI suggested to assess for epidural abscess. There is swelling and edema in the psoas musculature bilaterally. -09/04 L-spine MRI still indicates the presence of osteomyelitis and discitis. There is again an anterior epidural abscess at the L2-L3 level causing moderate canal stenosis which is not significantly changed. Disc bulges at L2-3, L3-4, L4-5, and L5-S1 levels are unchanged. -09/06: Dr. Tate reevaluated the patient. Advises continuing LSO brace, continue to mobilize out of bed as tolerated. -Switched from Ancef to Vancomycin on 09/23 due to LFT elevation. 09/23 ESR and CRP normal. -09/27: I spoke with Dr. Lou, ID regarding repeat imaging prior to discharge. She advises CT L-spine today, no MRI. She states if abscess is improved, patient can possibly go on po antibiotics for a couple of months. CT L-spine with IV contrast ordered. -09/28: CT of the lumbar spine shows stable discitis and osteomyelitis at L2-L3 with soft tissue within the central canal causing central canal stenosis suspected to be epidural abscess (better evaluated with prior MRI per radiologist). Dr. Lou made aware of results, suggests I speak with Dr. Tate. I spoke with Mario Purdy neurosurgery [facility] and discussed patient and results with him. He states Dr. Tate is out of the office but he will call me back tomorrow. -09/29: Call put out for Dr. Tate. [facility] informed me that he notified Dr. Tate but he is still in the OR and he has left the info with Dr. Bebeto. -Pain control: Oxycodone 5 mg q6h prn; need to wean prior to discharge. Gabapentin 300 mg tid Ibuprofen 600 mg q 8 hours scheduled Lidoderm patches prn K-thermia prn. S/p Robaxin S/p course of Toradol Acute liver enzyme elevation: Improving. Unknown etiology, could be secondary to antibiotics or worsening of hepatitis C. Liver ultrasound indicates mild hepatic steatosis. Gallbladder contracted. Medications that are hepatotoxic were adjusted Robaxin held Changed from Percocet to oxycodone Discussed with infectious disease about antibiotic changes. Infectious disease indicated that Ancef does have the potential to cause liver abnormalities; recommended discontinuing Ancef and starting vancomycin. LFTs continue to trend downward. Hepatitis B & C: F/u as outpatient. Insomnia: Benadryl 50 mg po hs prn. GI prophylaxis: Pepcid daily. DVT prophylaxis with SCDs Discharge Planning Will remain hospitalized until completion of antibiotics. Problem Qualifiers (1) Back pain: Qualified Code: M54.5 - Acute midline low back pain without sciatica Carol Ann Reich Sep 29, 2016 11:07
[2016-09-29 20:00] VITALS: BP 138/84; PULSE 74; RESP 16; TEMP 98; O2SAT 98
[2016-09-30] MEDS: IBUPROFEN 600 MG TAB PO SCH ×3 (05:56→22:13)
[2016-09-30] MEDS: VANCOMYCIN 1,500 MG/NS 500 ML IV SCH ×6 (05:56→22:14)
[2016-09-30 08:00] VITALS: BP 118/80; PULSE 70; RESP 16; TEMP 98.2; O2SAT 100
[2016-09-30] MEDS: FAMOTIDINE 20 MG TAB PO SCH ×2 (08:14→22:13)
[2016-09-30] MEDS: DOCUSATE SODIUM 50 MG/SENNA 8.6 MG TAB PO SCH ×2 (08:14→21:00)
[2016-09-30] MEDS: GABAPENTIN 300 MG CAP PO SCH ×3 (08:15→17:29)
[2016-09-30] MEDS: SODIUM CHLORIDE 0.9% FLUSH 10 ML FLUSH IV FLUSH SCH ×2 (08:15→22:15)
[2016-09-30 08:24] LABS: AUTOMATED NEUTROPHIL # 3.7 TH/MM3 (1.8-7.7); BASOPHIL # 0.1 TH/MM3 (0-0.2); BASOPHIL % 0.7 % (0.0-2.0); EOSINOPHIL # 0.4 TH/MM3 (0-0.4); EOSINOPHIL % 4.9 % (0.0-4.0); HEMATOCRIT 45.9 % (39.0-51.0); HEMO FLAGS DIFF FINAL; LYMPHOCYTE # 2.4 TH/MM3 (1.0-4.8); MEAN CELL VOLUME 86.2 FL (80.0-100.0); MEAN CORPUSCULAR HEMOGLOBIN 27.9 PG (27.0-34.0); MEAN CORPUSCULAR HGB CONC 32.4 % (32.0-36.0); MONO % 9.3 % (0.0-8.0); NEUT % 52.1 % (16.0-70.0); PLATELET COUNT 268 TH/MM3 (150-450); RED BLOOD COUNT 5.32 MIL/MM3 (4.50-5.90); RED CELL DISTRIBUTION WIDTH 16.8 % (11.6-17.2); WHITE BLOOD COUNT 7.4 TH/MM3 (4.0-11.0)
[2016-09-30 08:38] LABS: CHLORIDE 108 MEQ/L (98-107); POTASSIUM 4.3 MEQ/L (3.5-5.1); SODIUM (NA) 142 MEQ/L (136-145)
[2016-09-30 08:50] LABS: ALKALINE PHOSPHATASE 123 U/L (45-117); ALT (GPT) 252 U/L (12-78); ANION GAP 5 MEQ/L (5-15); AST (GOT) 47 U/L (15-37); BICARBONATE 28.9 MEQ/L (21.0-32.0); BLOOD UREA NITROGEN 13 MG/DL (7-18); GLOMERULAR FILTRATION RATE 118 ML/MIN (>89); TOTAL BILIRUBIN ADULT 0.4 MG/DL (0.2-1.0)
[2016-09-30 09:07] LABS: WESTERGREN SEDIMENTATION RATE 8 mm/hr (0-15)
--- NOTE | 2016-09-30 11:33 | HHI.PR ---
Subjective Remarks Follow-up for osteomyelitis of the lumbar spine. Patient admits to pain wrapping around his pelvis stating it hurts to sit on the toilet. Overall admits to improvement. Objective Vitals Vital Signs Date Time Temp Pulse Resp B/P Pulse Ox O2 Delivery O2 Flow Rate FiO2 09/30/16 08:00 98.2 70 16 118/80 100 09/30/16 06:56 18 09/30/16 06:56 18 09/29/16 20:00 98.0 74 16 138/84 98 I/O 09/29/16 09/29/16 09/29/16 09/30/16 09/30/16 09/30/16 07:00 15:00 23:00 07:00 15:00 23:00 Intake Total 1508 ml 850 ml 2270 ml 480 ml 300 ml Balance 1508 ml 850 ml 2270 ml 480 ml 300 ml Intake Oral 480 ml 850 ml 720 ml 480 ml 300 ml IV Total 1028 ml 1550 ml # Voids 2 4 3 2 # Bowel Movements 0 1 0 0 Result Diagram: 09/30/16 0815 09/30/16 0815 Objective Remarks GENERAL: Well-nourished, well developed patient no apparent distress. CARDIOVASCULAR: Regular rate and rhythm. RESPIRATORY: No accessory muscle use. Clear to auscultation. Breath sounds equal bilaterally. GASTROINTESTINAL: Abdomen soft, non-tender, nondistended. BACK: Tender over L-spine, lumbar musculature bilaterally, and bilateral sacroiliac regions. MUSCULOSKELETAL: 2+ DP pulses bilaterally. NEUROLOGICAL: Awake and alert. 5/5 dorsiflexion and plantar flexion bilaterally. Normal speech. Procedures CT-guided aspirate of the lumbar spine Urinary Catheter: No Vascular Central Line Catheter: No A/P Problem List: (1) Back pain ICD Code: M54.9 Status: Acute (2) Osteomyelitis of lumbar spine ICD Code: M46.26 Status: Acute (3) Lumbar discitis ICD Code: M46.46 Status: Acute (4) Trochanteric bursitis of both hips ICD Code: M70.61 Status: Acute Assessment and Plan Back pain, discitis, osteomyelitis: -MRI reveals findings highly suspicious for discitis with osteomyelitis and inflammation. -Per Dr. Tate, neurosurgery, no definite significant drainable abscess seen on MRI. Lumbar spine x-ray 08/23. -Status post Interventional radiology CT-guided aspiration of discitis L2 to L3 on 08/23/16 -Wound culture 08/23 positive for MSSA, continue Ancef 2g q8hrs -Blood cultures x 2 NG -Continue physical therapy -Per ID continue antibiotics for 6 weeks total. Last day of antibiotics should be 10/06/16. -Follow weekly CBC with diff, CMP, CRP while on IV antibiotics. -If any abnormal labs or change in clinical condition call ID at [facility] or Dr. Lou. -09/04 CT lumbar spine with discitis and osteomyelitis; abnormal density along the anterior and lateral aspect of the canal at L2-3, worse on the R side with a moderate central canal stenosis similar to correlative of MRI from August 22. Radiologist states it is unclear if it is a complex infected fluid collection or abnormal soft tissue related to the discitis and osteomyelitis. MRI suggested to assess for epidural abscess. There is swelling and edema in the psoas musculature bilaterally. -09/04 L-spine MRI still indicates the presence of osteomyelitis and discitis. There is again an anterior epidural abscess at the L2-L3 level causing moderate canal stenosis which is not significantly changed. Disc bulges at L2-3, L3-4, L4-5, and L5-S1 levels are unchanged. -09/06: Dr. Tate reevaluated the patient. Advises continuing LSO brace, continue to mobilize out of bed as tolerated. -Switched from Ancef to Vancomycin on 09/23 due to LFT elevation. 09/23 ESR and CRP normal. -09/27: I spoke with Dr. Lou, [facility] regarding repeat imaging prior to discharge. She advises CT L-spine today, no MRI. She states if abscess is improved, patient can possibly go on po antibiotics for a couple of months. CT L-spine with IV contrast ordered. -09/28: CT of the lumbar spine shows stable discitis and osteomyelitis at L2-L3 with soft tissue within the central canal causing central canal stenosis suspected to be epidural abscess (better evaluated with prior MRI per radiologist). Dr. Lou made aware of results, suggests I speak with Dr. Tate. I spoke with Mario Purdy neurosurgery [employer] and discussed patient and results with him. He states Dr. Tate is out of the office but he will call me back tomorrow. -09/29: Call put out for Dr. Tate. [employer] informed me that he notified Dr. Tate but he is still in the OR and he has left the info with Dr. Tate. I informed Dr. Lou that I will attempt reaching Dr. Tate again on Sunday. -09/30: Labs reviewed. CBC and BMP unremarkable. ESR and CRP wnl. LFTs improving. -Pain control: Oxycodone 5 mg q6h prn; need to wean prior to discharge. Gabapentin 300 mg tid Ibuprofen 600 mg q 8 hours scheduled Lidoderm patches prn K-thermia prn. S/p Robaxin S/p course of Toradol Acute liver enzyme elevation: Improving. Unknown etiology, could be secondary to antibiotics or worsening of hepatitis C. Liver ultrasound indicates mild hepatic steatosis. Gallbladder contracted. Medications that are hepatotoxic were adjusted Robaxin held Changed from Percocet to oxycodone Discussed with infectious disease about antibiotic changes. Infectious disease indicated that Ancef does have the potential to cause liver abnormalities; recommended discontinuing Ancef and starting vancomycin. LFTs continue to trend downward. Hepatitis B & C: F/u as outpatient. Insomnia: Benadryl 50 mg po hs prn. GI prophylaxis: Pepcid daily. DVT prophylaxis with SCDs Discharge Planning Will remain hospitalized until completion of antibiotics. Problem Qualifiers (1) Back pain: Qualified Code: M54.5 - Acute midline low back pain without sciatica Carol Ann Reich Sep 30, 2016 11:33
[2016-09-30 20:00] VITALS: BP 130/82; PULSE 72; RESP 19; TEMP 98.1; O2SAT 98
[2016-09-30] MEDS ORDERED: PHARMACY ORDERED LAB ONE (21:45)
[2016-09-30] MEDS: diphenhydrAMINE HCL 25 MG CAP PO PRN (22:20)
[2016-10-01] MEDS: IBUPROFEN 600 MG TAB PO SCH ×3 (05:30→21:58)
[2016-10-01] MEDS: VANCOMYCIN 1,500 MG/NS 500 ML IV SCH ×2 (05:31)
[2016-10-01 08:00] VITALS: BP 121/79; PULSE 73; RESP 18; TEMP 98.1; O2SAT 98
[2016-10-01] MEDS: DOCUSATE SODIUM 50 MG/SENNA 8.6 MG TAB PO SCH ×2 (09:00→21:57)
[2016-10-01] MEDS: GABAPENTIN 300 MG CAP PO SCH ×3 (09:58→17:15)
[2016-10-01] MEDS: FAMOTIDINE 20 MG TAB PO SCH ×2 (09:58→21:57)
[2016-10-01] MEDS: SODIUM CHLORIDE 0.9% FLUSH 10 ML FLUSH IV FLUSH SCH ×2 (10:00→21:56)
--- NOTE | 2016-10-01 10:26 | HHI.PR ---
Subjective Remarks Follow-up for osteomyelitis of the lumbar spine. Patient still admits to same pain wrapping around his pelvis. Objective Vitals Vital Signs Date Time Temp Pulse Resp B/P Pulse Ox O2 Delivery O2 Flow Rate FiO2 09/30/16 20:00 98.1 72 19 130/82 98 09/30/16 18:29 18 09/30/16 14:12 18 I/O 09/30/16 09/30/16 09/30/16 10/01/16 10/01/16 10/01/16 07:00 15:00 23:00 07:00 15:00 23:00 Intake Total 480 ml 600 ml 1440 ml 1360 ml Balance 480 ml 600 ml 1440 ml 1360 ml Intake Oral 480 ml 600 ml 1440 ml 360 ml IV Total 1000 ml # Voids 2 2 6 3 # Bowel Movements 0 Result Diagram: 09/30/16 0815 09/30/16 0815 Objective Remarks GENERAL: Well-nourished, well developed patient no apparent distress sitting on sofa in room eating breakfast. CARDIOVASCULAR: Regular rate and rhythm. RESPIRATORY: No accessory muscle use. Clear to auscultation. Breath sounds equal bilaterally. BACK: Tender over L-spine, lumbar musculature bilaterally, and bilateral sacroiliac regions. NEUROLOGICAL: Awake and alert. Normal speech. Ambulates well. Procedures CT-guided aspirate of the lumbar spine Urinary Catheter: No Vascular Central Line Catheter: No A/P Problem List: (1) Back pain ICD Code: M54.9 Status: Acute (2) Osteomyelitis of lumbar spine ICD Code: M46.26 Status: Acute (3) Lumbar discitis ICD Code: M46.46 Status: Acute (4) Trochanteric bursitis of both hips ICD Code: M70.61 Status: Acute Assessment and Plan Back pain, discitis, osteomyelitis: -MRI reveals findings highly suspicious for discitis with osteomyelitis and inflammation. -Per Dr. Tate, neurosurgery, no definite significant drainable abscess seen on MRI. Lumbar spine x-ray 08/23. -Status post Interventional radiology CT-guided aspiration of discitis L2 to L3 on 08/23/16 -Wound culture 08/23 positive for MSSA, continue Ancef 2g q8hrs -Blood cultures x 2 NG -Continue physical therapy -Per ID continue antibiotics for 6 weeks total. Last day of antibiotics should be 10/06/16. -Follow weekly CBC with diff, CMP, CRP while on IV antibiotics. -If any abnormal labs or change in clinical condition call ID at [facility] or Dr. Lou. -09/04 CT lumbar spine with discitis and osteomyelitis; abnormal density along the anterior and lateral aspect of the canal at L2-3, worse on the R side with a moderate central canal stenosis similar to correlative of MRI from August 22. Radiologist states it is unclear if it is a complex infected fluid collection or abnormal soft tissue related to the discitis and osteomyelitis. MRI suggested to assess for epidural abscess. There is swelling and edema in the psoas musculature bilaterally. -09/04 L-spine MRI still indicates the presence of osteomyelitis and discitis. There is again an anterior epidural abscess at the L2-L3 level causing moderate canal stenosis which is not significantly changed. Disc bulges at L2-3, L3-4, L4-5, and L5-S1 levels are unchanged. -09/06: Dr. Tate reevaluated the patient. Advises continuing LSO brace, continue to mobilize out of bed as tolerated. -Switched from Ancef to Vancomycin on 09/23 due to LFT elevation. 09/23 ESR and CRP normal. -09/27: I spoke with Dr. Lou, ID regarding repeat imaging prior to discharge. She advises CT L-spine today, no MRI. She states if abscess is improved, patient can possibly go on po antibiotics for a couple of months. CT L-spine with IV contrast ordered. -09/28: CT of the lumbar spine shows stable discitis and osteomyelitis at L2-L3 with soft tissue within the central canal causing central canal stenosis suspected to be epidural abscess (better evaluated with prior MRI per radiologist). Dr. Lou made aware of results, suggests I speak with Dr. Tate. I spoke with Mario Purdy neurosurgery [employer] and discussed patient and results with him. He states Dr. Tate is out of the office but he will call me back tomorrow. -09/29: Call put out for Dr. Tate. [facility] informed me that he notified Dr. Tate but he is still in the OR and he has left the info with Dr. Tate. I informed Dr. Lou that I will attempt reaching Dr. Tate again on Sunday. -09/30: Labs reviewed. CBC and BMP unremarkable. ESR and CRP wnl. LFTs improving. -Pain control: Oxycodone 5 mg q6h prn; need to wean prior to discharge. Gabapentin 300 mg tid Ibuprofen 600 mg q 8 hours scheduled Lidoderm patches prn K-thermia prn. S/p Robaxin S/p course of Toradol Acute liver enzyme elevation: Improving. Unknown etiology, could be secondary to antibiotics or worsening of hepatitis C. Liver ultrasound indicates mild hepatic steatosis. Gallbladder contracted. Medications that are hepatotoxic were adjusted Robaxin held Changed from Percocet to oxycodone Discussed with infectious disease about antibiotic changes. Infectious disease indicated that Ancef does have the potential to cause liver abnormalities; recommended discontinuing Ancef and starting vancomycin. LFTs continue to trend downward. Hepatitis B & C: F/u as outpatient. Insomnia: Benadryl 50 mg po hs prn. GI prophylaxis: Pepcid daily. DVT prophylaxis with SCDs Discharge Planning Will remain hospitalized until completion of antibiotics. Problem Qualifiers (1) Back pain: Qualified Code: M54.5 - Acute midline low back pain without sciatica Carol Ann Reich Oct 01, 2016 10:26
[2016-10-01] MEDS: VANCOMYCIN INJ 1,750 MG in SODIUM CHLORID 0.9% 500 ML INJ 500 ML IV SCH ×3 (14:00→22:00)
[2016-10-01 20:00] VITALS: BP 130/76; PULSE 75; RESP 19; TEMP 97.3; O2SAT 98
[2016-10-02] MEDS: diphenhydrAMINE HCL 25 MG CAP PO PRN ×2 (00:18→21:10)
[2016-10-02] MEDS: VANCOMYCIN INJ 1,750 MG in SODIUM CHLORID 0.9% 500 ML INJ 500 ML IV SCH (06:00)
[2016-10-02] MEDS: IBUPROFEN 600 MG TAB PO SCH ×3 (07:14→21:10)
[2016-10-02 08:59] VITALS: BP 137/92; PULSE 84; RESP 19; TEMP 100.2; O2SAT 97
[2016-10-02] MEDS: DOCUSATE SODIUM 50 MG/SENNA 8.6 MG TAB PO SCH ×2 (09:00→21:08)
[2016-10-02] MEDS: GABAPENTIN 300 MG CAP PO SCH ×3 (10:09→17:29)
[2016-10-02] MEDS: FAMOTIDINE 20 MG TAB PO SCH ×2 (10:09→21:08)
[2016-10-02] MEDS: SODIUM CHLORIDE 0.9% FLUSH 10 ML FLUSH IV FLUSH SCH ×2 (10:10→21:07)
--- NOTE | 2016-10-02 10:51 | HHI.PR ---
Subjective Remarks Follow-up for osteomyelitis of the lumbar spine. I was informed by the nurse the patient missed 2 doses of his vancomycin because he did not have IV access. Vascular access came this morning and placed new peripheral IV. Patient has no acute complaints. He was noted to have a temp of 100.2 at 9 AM this morning. Objective Vitals Vital Signs Date Time Temp Pulse Resp B/P Pulse Ox O2 Delivery O2 Flow Rate FiO2 10/02/16 08:59 100.2 84 19 137/92 97 10/01/16 20:00 97.3 75 19 130/76 98 I/O 10/01/16 10/01/16 10/01/16 10/02/16 10/02/16 10/02/16 07:00 15:00 23:00 07:00 15:00 23:00 Intake Total 1360 ml 1280 ml 480 ml 100 ml Balance 1360 ml 1280 ml 480 ml 100 ml Intake Oral 360 ml 1280 ml 480 ml 100 ml IV Total 1000 ml # Voids 3 5 2 Result Diagram: 09/30/1615 09/30/1615 Objective Remarks GENERAL: Well-nourished, well developed patient no apparent distress sitting on sofa dancing to music in his room while eating breakfast. CARDIOVASCULAR: Regular rate and rhythm. RESPIRATORY: No accessory muscle use. Clear to auscultation. Breath sounds equal bilaterally. MUSCULOSKELETAL: No lower extremity edema bilaterally. 2+ DP and TP pulses bilaterally. BACK: Non-tender over L-spine. Tender over lumbar musculature bilaterally, and bilateral sacroiliac regions. NEUROLOGICAL: Awake and alert. Normal speech. 5/5 quadriceps strength bilaterally. 5/5 plantar flexion and dorsiflexion bilaterally. Sensation grossly intact over bilateral lower legs. Ambulates well with less antalgia. Procedures CT-guided aspirate of the lumbar spine Urinary Catheter: No Vascular Central Line Catheter: No A/P Problem List: (1) Back pain ICD Code: M54.9 Status: Acute (2) Osteomyelitis of lumbar spine ICD Code: M46.26 Status: Acute (3) Lumbar discitis ICD Code: M46.46 Status: Acute (4) Trochanteric bursitis of both hips ICD Code: M70.61 Status: Acute Assessment and Plan Back pain, discitis, osteomyelitis: Clinically improved. -MRI reveals findings highly suspicious for discitis with osteomyelitis and inflammation. -Per Dr. Tate, neurosurgery, no definite significant drainable abscess seen on MRI. Lumbar spine x-ray 08/23. -Status post Interventional radiology CT-guided aspiration of discitis L2 to L3 on 08/23/16 -Wound culture 08/23 positive for MSSA, continue Ancef 2g q8hrs -Blood cultures x 2 NG -Continue physical therapy -Per ID continue antibiotics for 6 weeks total. Last day of antibiotics should be 10/06/16 although patient did miss 2 doses of Vancomycin last night and this morning. -Follow weekly CBC with diff, CMP, CRP while on IV antibiotics. -If any abnormal labs or change in clinical condition call ID at [facility] or Dr. Lou. -09/04 CT lumbar spine with discitis and osteomyelitis; abnormal density along the anterior and lateral aspect of the canal at L2-3, worse on the R side with a moderate central canal stenosis similar to correlative of MRI from August 22. Radiologist states it is unclear if it is a complex infected fluid collection or abnormal soft tissue related to the discitis and osteomyelitis. MRI suggested to assess for epidural abscess. There is swelling and edema in the psoas musculature bilaterally. -09/04 L-spine MRI still indicates the presence of osteomyelitis and discitis. There is again an anterior epidural abscess at the L2-L3 level causing moderate canal stenosis which is not significantly changed. Disc bulges at L2-3, L3-4, L4-5, and L5-S1 levels are unchanged. -09/06: Dr. Tate reevaluated the patient. Advises continuing LSO brace, continue to mobilize out of bed as tolerated. -Switched from Ancef to Vancomycin on 09/23 due to LFT elevation. 09/23 ESR and CRP normal. -09/27: I spoke with Dr. Lou, ID regarding repeat imaging prior to discharge. She advises CT L-spine today, no MRI. She states if abscess is improved, patient can possibly go on po antibiotics for a couple of months. CT L-spine with IV contrast ordered. -09/28: CT of the lumbar spine shows stable discitis and osteomyelitis at L2-L3 with soft tissue within the central canal causing central canal stenosis suspected to be epidural abscess (better evaluated with prior MRI per radiologist). Dr. Lou made aware of results, suggests I speak with Dr. Tate. I spoke with Mario Purdy neurosurgery [facility] and discussed patient and results with him. He states Dr. Tate is out of the office but he will call me back tomorrow. -09/29: Call put out for Dr. Tate. [facility] informed me that he notified Dr. Tate but he is still in the OR and he has left the info with Dr. Tate. I informed Dr. Lou that I will attempt reaching Dr. Tate again on Sunday. -09/30: Labs reviewed. CBC and BMP unremarkable. ESR and CRP wnl. LFTs improving. -10/02: Message left for Dr. Tate as he was in OR, never called back. I informed Dr. Lou that patient had temp of 100.2 this morning. She advises stopping vancomycin and starting dicloxacillin 500 mg by mouth every 6 hours. Vanc held as could be source of elevated temp. Dr. Lou later informed me that she met Dr. Tate today and he ordered an MRI and will let us know. Dr. Lou states ok to continue Dicloxacillin for now. -Pain control: Oxycodone 5 mg q6h prn; need to wean prior to discharge. Gabapentin 300 mg tid Ibuprofen 600 mg q 8 hours scheduled Lidoderm patches prn K-thermia prn. S/p Robaxin S/p course of Toradol Acute liver enzyme elevation: Improving. Unknown etiology, could be secondary to antibiotics or worsening of hepatitis C. Liver ultrasound indicates mild hepatic steatosis. Gallbladder contracted. Medications that are hepatotoxic were adjusted Robaxin held Changed from Percocet to oxycodone Discussed with infectious disease about antibiotic changes. Infectious disease indicated that Ancef does have the potential to cause liver abnormalities; recommended discontinuing Ancef and starting vancomycin. LFTs continue to trend downward. Hepatitis B & C: F/u as outpatient. Insomnia: Benadryl 50 mg po hs prn. GI prophylaxis: Pepcid daily. DVT prophylaxis with SCDs Discharge Planning Will remain hospitalized until completion of antibiotics. Problem Qualifiers (1) Back pain: Qualified Code: M54.5 - Acute midline low back pain without sciatica Carol Ann Reich Oct 02, 2016 10:51
[2016-10-02] MEDS: DICLOXACILLIN SODIUM 250 MG CAP PO SCH ×3 (13:14→23:49)
[2016-10-02] MEDS ORDERED: PHARMACY ORDERED LAB ONE (13:45)
[2016-10-02] MEDS ORDERED: GADODIAMIDE PF 287 MG/ML 5 ML VIAL (for RAD MRI) IV ONE (16:49)
--- NOTE | 2016-10-02 17:31 | RADHPO ---
EXAM DATE/TIME: 10/02/2016 16:21 [place] COMPARISON: CT LUMBAR SPINE W/O CONTRAST, December 07, 2013, 2:38. MRI LUMBAR SPINE W & W/ O CONTRAST, August 22, 2016, 23:01. MRI LUMBAR SPINE W & W/O CONTRAST, September 04, 2016, 11:35. INDICATIONS : Osteomyelitis. CONTRAST: 17 cc Omniscan (gadodiamide) IV MEDICAL HISTORY : None. SURGICAL HISTORY : Kyphoplasty of LSP, I&D or left middle finger for MRSA. ENCOUNTER: [facility] ACUITY: 2 months PAIN SCORE: 3/10 LOCATION: Bilateral lower back region. TECHNIQUE: Multiplanar multisequence MRI of the lumbar spine was performed with and without contr ast. FINDINGS: The patient has known osteomyelitis at the L2-3 level. Persistent marrow edema and dis c space fluid remain. This is contained by the L1-2 disc and the L3-4 disc. A small epidural compon ent is evident showing some improvement in the interval. There is less iliopsoas involvement. No other suspicious fluid collections are evident. The remainder the lumbar spine is unremarkable. The SI joints are normal without involvement. CONCLUSION: Discitis at the L2-3 level showing minimal improvement. Juan Temple MD FACR on October 02, 2016 at 17:21 Board Certified Radiologist. This report was verified electronically.
[2016-10-02 20:00] VITALS: BP 122/76; PULSE 101; RESP 18; TEMP 97.5; O2SAT 96
[2016-10-03] MEDS: DICLOXACILLIN SODIUM 250 MG CAP PO SCH ×3 (06:19→16:02)
[2016-10-03] MEDS: IBUPROFEN 600 MG TAB PO SCH ×3 (06:20→21:40)
[2016-10-03 08:00] VITALS: BP 125/77; PULSE 85; RESP 17; TEMP 98.9; O2SAT 99
[2016-10-03] MEDS: DOCUSATE SODIUM 50 MG/SENNA 8.6 MG TAB PO SCH ×2 (09:00→20:47)
[2016-10-03] MEDS: GABAPENTIN 300 MG CAP PO SCH ×3 (09:20→16:02)
[2016-10-03] MEDS: SODIUM CHLORIDE 0.9% FLUSH 10 ML FLUSH IV FLUSH SCH ×2 (09:20→20:48)
[2016-10-03] MEDS: FAMOTIDINE 20 MG TAB PO SCH (09:20)
--- NOTE | 2016-10-03 13:17 | HHI.PR ---
Subjective Remarks Patient seen and examined for follow-up on osteomyelitis, discitis. Patient walking the halls, does not appear to be any pain. He is inquiring about his MRI study and what the neurosurgeon plans on doing. Objective Vitals Vital Signs Date Time Temp Pulse Resp B/P Pulse Ox O2 Delivery O2 Flow Rate FiO2 10/03/16 08:00 98.9 85 17 125/77 99 10/02/16 20:00 97.5 101 18 122/76 96 I/O 10/02/16 10/02/16 10/02/16 10/03/16 10/03/16 10/03/16 07:00 15:00 23:00 07:00 15:00 23:00 Intake Total 480 ml 100 ml 720 ml 480 ml Balance 480 ml 100 ml 720 ml 480 ml Intake Oral 480 ml 100 ml 720 ml 480 ml # Voids 2 3 2 # Bowel Movements 0 0 Result Diagram: 09/30/16 0815 10/02/16 1345 Objective Remarks GENERAL: Well-developed, well-nourished, in no acute distress. alert and orientated HEENT: Head is normocephalic without any lesions or masses noted. Facial features are symmetric. Eyes: Extraocular muscles are intact. Conjunctivae were clear. NECK: Supple without any masses. Trachea midline no deviation. No JVD, CARDIAC: Regular rhythm, regular rate. S1/S2 are heard. No murmurs gallops or rubs. LUNGS: Clear to auscultation bilaterally. No wheeze, rhonchi or rales. No use of accessory muscles on inspiration or expiration. ABDOMEN: Soft, nontender. Nondistended. Bowel sounds heard in all 4 quadrants. No organomegaly or masses. Negative rebound, negative guarding EXTREMITIES: No edema, pulses are equal bilaterally. No cyanosis or clubbing NEUROLOGY: Mood and affect appear appropriate. Cranial nerves II through XII grossly intact moving all extremities, speech is clear Procedures CT-guided aspirate of the lumbar spine Urinary Catheter: No Vascular Central Line Catheter: No A/P Assessment and Plan Back pain, discitis, osteomyelitis: Initial MRI reveals findings highly suspicious for discitis with osteomyelitis and inflammation. Initially Dr. Tate, neurosurgery, no definite significant drainable abscess seen on MRI. Lumbar spine x-ray 08/23. Status post Interventional radiology CT-guided aspiration of discitis L2 to L3 on 08/23/16 Wound culture 08/23 positive for MSSA Discontinue Ancef 2 g IV every 8 hours, because of acute liver enzyme elevation Discontinued Vancomycin, due to elevated temperature Infectious disease started dicloxacillin. Patient on plan on total 6 week treatment 10/06/16 Weekly CBC, CMP, CRP, while on IV antibiotics, 09/30 indicate improvement of C- reactive protein/sedimentation rate Repeat CT of lumbar spine on 09/03/16 because of increased pain indicates abnormality. MRI ordered which indicates discitis at L2-L3 with osteomyelitis at L2-L3 which appears unchanged. Anterior epidural abscess causes moderate canal stenosis at L2-L3. Overall there does not appear to be any significant interval change. Dr. Tate reevaluated the patient and indicated that there is no change in treatment plan. The patient will require completion of IV antibiotics. Repeat MRI shows minimally improved discitis L2-L3 Awaiting neurosurgeon for recommendations Pain control: neurosurgery does not indicate that there is anything new or requiring any intervention, continue decreasing pain medication. Discontinue Oxycodone 5 every 6 hours as needed for pain 10/07 Gabapentin 300 mg tid Ibuprofen 600 mg q 8 hours scheduled Lidoderm patches prn K-thermia prn. Acute liver enzyme elevation, significantly improved Likely secondary to medication Ancef Liver ultrasound indicates mild hepatic steatosis. Gallbladder contracted Adjust medications that are hepatotoxic Discontinue Robaxin Changed from Percocet to oxycodone Discussed with infectious disease about antibiotic changes. Infectious disease indicated that Ancef does have the potential to cause liver abnormalities. Would recommend discontinuing Ancef and starting vancomycin. Continue to trend liver enzymes. Which continue to improve Hepatitis B & C: F/u as outpatient. DVT prophylaxis with SCDs Discharge Planning Discharge home after patient of antibiotics and cleared by neurosurgeon [place] [facility] Oct 03, 2016 13:17
[2016-10-03 20:00] VITALS: BP 146/79; PULSE 80; RESP 18; TEMP 97.7; O2SAT 98
[2016-10-04] MEDS: DICLOXACILLIN SODIUM 250 MG CAP PO SCH ×3 (00:03→12:26)
[2016-10-04] MEDS: diphenhydrAMINE HCL 25 MG CAP PO PRN (00:04)
[2016-10-04] MEDS: IBUPROFEN 600 MG TAB PO SCH ×2 (05:57→14:00)
[2016-10-04] MEDS: SODIUM CHLORIDE 0.9% FLUSH 10 ML FLUSH IV FLUSH SCH (08:34)
[2016-10-04] MEDS: FAMOTIDINE 20 MG TAB PO SCH (08:35)
[2016-10-04] MEDS: GABAPENTIN 300 MG CAP PO SCH ×2 (08:35→12:26)
[2016-10-04] MEDS: DOCUSATE SODIUM 50 MG/SENNA 8.6 MG TAB PO SCH (08:35)
[2016-10-04 08:55] VITALS: BP 133/79; PULSE 72; RESP 19; TEMP 97.3; O2SAT 100
--- NOTE | 2016-10-04 09:32 | HHI.PR ---
Addendum to Inpatient Note Addendum Reason: Additional Documentation Additional Information d/w no plans for surgical intervention at this point. Ok to discharge home from ID standpoint on oral dicloxacillin for 6 weeks ( as stop date). Patient will need outpatient PCP follow up with either or [facility] for monitoring of labs (cbc, cmp every 2 weeks). Patient will need follow up with at neurosurgery clinic. Will sign off please call back if any change in clinical condition or questions. Tosha Lou MD Oct 04, 2016 09:32
[2016-10-04] MEDS ORDERED: DICL250 PO (11:07)
[2016-10-04] MEDS ORDERED: NEUR300C PO (11:07)
--- NOTE | 2016-10-04 11:08 | HHI.DCPOC ---
Discharge Care Plan Diagnosis: (1) Osteomyelitis of lumbar spine (2) Lumbar discitis Goals to Promote Your Health * To prevent worsening of your condition and complications * To maintain your health at the optimal level Directions to Meet Your Goals Take your medications as prescribed Follow your dietary instruction Follow activity as directed Keep your appointments as scheduled Take your immunizations and boosters as scheduled If your symptoms worsen call your PCP, if no PCP go to Urgent Care Center or Emergency Room Smoking is Dangerous to Your Health. Avoid second hand smoke Call the 24-hour hour crisis hotline for domestic abuse at [place] Oct 04, 2016 11:08
--- NOTE | 2016-10-04 11:19 | HHI.DS ---
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 Patient presents to emergency department today for evaluation of sharp shooting pain lower back. Pain radiates in to BLE. Patient also reports bilateral lower extremity numbness and tingling. Patient denies urine or stool incontinence, constipation. Patient reports he was recently treated [facility] for same back pain reports he stayed there for 3-4 days believes he had antibiotics and was discharged a few days ago. This is in contrast to what the ER documentation reports that patient had a kyphoplasty of L3 3 months ago and stated [facility] for approximately one month on IV antibiotics left AMA because his pain was not controlled adequately. Patient denies kyphoplasty or month-long hospitalization. Request records to confirm. Patient denies IV drug use at this time. Patient reports is a history of IV drug use proximally the 20-30 years ago. Patient denies chest pain shortness of breath nausea vomiting diarrhea constipation fevers or chills. CBC/BMP: 09/30/16 0815 10/02/16 1345 Imaging Last Impressions Lumbar Spine MRI 10/02/16 0000 Signed Impressions: Service Date/Time: Sunday, October 02, 2016 16:21 - CONCLUSION: Discitis at the L2-3 level showing minimal improvement. Juan Temple MD FACR Lumbar Spine CT 09/27/16 0000 Signed Impressions: Service Date/Time: Sunday, September 27, 2016 16:13 - CONCLUSION: 1. Stable discitis and osteomyelitis at L2-L3 with soft tissue within the central canal causing central canal stenosis better evaluated with prior MRI and suspected to be epidural abscess. 2. Prior cement augmentation of L3. Lux Hermosillo Jr., MD Liver Ultrasound 09/23/16 0000 Signed Impressions: Service Date/Time: Friday, September 23, 2016 11:13 - CONCLUSION: 1. Possible mild hepatic steatosis. 2. Gallbladder is contracted and therefore not well evaluated but no stones are seen. Mio Rachel MD Needle Aspiration CT 08/23/16 0000 Signed Impressions: Service Date/Time: Tuesday, August 23, 2016 13:35 - CONCLUSION: Uncomplicated L2-3 disc as described above. Juan Temple MD FACR Lumbar Spine X-Ray 08/23/16 0000 Signed Impressions: Service Date/Time: Tuesday, August 23, 2016 01:03 - CONCLUSION: 1. Evidence of previous kyphoplasty of L3. 2. Primary degenerative type changes involving the lumbar spine. 3. Demineralization of the bone along the inter endplate of L2 corresponding to patient's known infection involving L2-L3 Candido Chew MD PE at Discharge GENERAL: Well-nourished, well developed patient no apparent distress sitting on sofa dancing to music in his room while eating breakfast. CARDIOVASCULAR: Regular rate and rhythm. RESPIRATORY: No accessory muscle use. Clear to auscultation. Breath sounds equal bilaterally. MUSCULOSKELETAL: No lower extremity edema bilaterally. 2+ DP and TP pulses bilaterally. BACK: Non-tender over L-spine. Tender over lumbar musculature bilaterally, and bilateral sacroiliac regions. NEUROLOGICAL: Awake and alert. Normal speech. 5/5 quadriceps strength bilaterally. 5/5 plantar flexion and dorsiflexion bilaterally. Sensation grossly intact over bilateral lower legs. Ambulates well with less antalgia. Hospital Course 40 year-old male who originally presented to the hospital because of sharp shooting pain in his lower back. Patient states that it was radiating to the bilateral lower extremity. There is no indication of any stool incontinence , constipation. Patient said a recent was in his [place] in had kyphoplasty performed on L3 in which she was prescribed IV antibiotics however he left AMA because his pain was not controlled adequately. The patient came to [place] for evaluation. Radiological studies were performed which did indicate osteomyelitis and lumbar discitis. Neurosurgery has evaluated the patient and indicated continuation of IV antibiotics and management of the infectious process. No surgical intervention was necessary. Infectious disease evaluated the patient, patient did undergo CT-guided biopsy and was found to have staph aureus infection to include discitis and osteomyelitis. Patient was started on antibiotics to include Ancef, patient was transferred to [place] for continuation of his IV antibiotic management. Patient's Lipitor studies are managed and noticed to have elevation in his liver enzymes in which all hepatotoxic medications were discontinued, Ancef was discontinued and patient had improvement of his liver enzymes. Patient was started on vancomycin and had one elevation of temperature 100.2. This was discussed with infectious disease discontinue vancomycin and started patient on dicloxacillin. Patient did undergo repeat MRI study which did indicate improvement of his discitis and osteomyelitis. Neurosurgery recommended continuation of antibiotics per infectious disease. No surgical intervention is necessary. Infectious disease recommending continuation of dicloxacillin for at least 6 weeks. Case management consulted to make arrangements for outpatient follow-up, outpatient x -rays, medications upon discharge. 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 Greer on 10/04/16 at 11: 13. This note was transcribed by scribe Cuba Nelson. I, Dr. Harmony Greer personally performed the history, physical exam, and medical decision making; and confirmed the accuracy of the information in the transcribed note. Authenticated by Dr. Harmony Greer on 10/04/16 at 1120. Cuba Nelson Oct 04, 2016 11:18 Harmony Greer MD Oct 04, 2016 17:22
== END 2016-10-04 15:32 | disposition home or self-care (01) | DRG 862 ==
LOC: NEPC 21:02 → NEDA 08-23 02:20 → NEDH 08-23 06:20 → NEDA 08-23 10:59 → NEPHCDU 08-23 22:32 → OBSVTOIN 08-25 09:48 → N07B 08-25 22:55 → PH5A 08-31 16:14
PROVIDERS: ADMIT Family Medicine; ATTEND Family Medicine
PROC: 0S923ZX Drainage of Lumbar Vertebral Disc, Percutaneous Approach, Diagnostic (ICD-10-PCS; principal; 2016-08-23)
DX: T81.4XXA Infection following a procedure, initial encounter (principal); G06.1 Intraspinal abscess and granuloma; M46.26 Osteomyelitis of vertebra, lumbar region; K76.0 Fatty (change of) liver, not elsewhere classified; B19.10 Unspecified viral hepatitis B without hepatic coma; Y92.9 Unspecified place or not applicable; Y83.8 Other surgical procedures as the cause of abnormal reaction of the patient, or of later complication, without mention of misadventure at the time of the procedure; F17.210 Nicotine dependence, cigarettes, uncomplicated; M46.46 Discitis, unspecified, lumbar region; M62.830 Muscle spasm of back; B19.20 Unspecified viral hepatitis C without hepatic coma; M48.06 Spinal stenosis, lumbar region; B95.61 Methicillin susceptible Staphylococcus aureus infection as the cause of diseases classified elsewhere; M70.62 Trochanteric bursitis, left hip; M70.61 Trochanteric bursitis, right hip; G47.00 Insomnia, unspecified; Z59.0 Homelessness; Z86.14 Personal history of Methicillin resistant Staphylococcus aureus infection
CPT/HCPCS: 10022; 72100; 72132; 72158; 76705; 76937; 77012; 80048; 80053; 80074; 80076; 80202; 82565; 83605; 85025; 85652; 86140; 86317; 86403; 86703; 87015; 87040; 87070; 87102; 87116; 87147; 87176; 87186; 87205; 87206; 93306; 96374; 96375; 99152; A9579; G8987-GP; G8988-GP; J0690; J1170; J1885; J1956; J2250; J2543; J3010; J3370; J7040; J7050; Q9967